=== PATIENT | female | born 1950 | race Caucasian/White ===

== ENCOUNTER 2016-12-06 21:36 | Inpatient (IN) ==
[2016-12-06 22:23] LABS: INR 1.2; Prothrombin Time 12.5 Seconds (9.4-12.1)
[2016-12-06 22:25] LABS: Basophils % 0.6 %; Eosinophils # 0.1 K/mcL (0.0-0.6); Eosinophils % 1.4 %; Hematocrit 37.8 % (35.3-44.9); Hemoglobin 11.4 g/dL (11.5-15.4); Lymphocytes # 0.6 K/mcL (0.6-4.6); Lymphocytes % 12.3 %; Mean Corpuscular HGB Conc 30.2 g/dL (31.6-35.5); Mean Corpuscular Volume 96.2 fL (83.0-100.0); Mean Platelet Volume 10.5 fL (9.4-12.4); Monocytes # 0.4 K/mcL (0.0-1.3); Neutrophils # 3.7 K/mcL (1.6-8.9); Platelet Count 128 K/mcL (140-400); Red Blood Count 3.93 M/mcL (3.82-4.97); Red Cell Distribution Width 16.8 % (11.5-14.5); Segmented Neutrophils % 75.7 %
[2016-12-06 22:26] LABS: Activated Partial Thrombo Time 24.4 Seconds (26.0-36.0)
[2016-12-06] MEDS ORDERED: Ipratropium/Albuterol Neb 3 ML IH ONE (22:28)
[2016-12-06 22:30] LABS: Calcium 7.9 mg/dL (8.6-10.8)
--- NOTE | 2016-12-06 22:35 | Emergency Department Note ---
Disposition Clinical Impression: Ascites Disposition: Admitted As Inpatient Condition: Good Referrals: Stacia Morrell, [facility] [employer] [Primary Care Provider] - Forms: Work/School Release, ED Satisfaction Letter General Adult HPI - General Chief complaint: ED General Medical Stated complaint: NOT FEELING WELL. Source: patient Nursing Notes Reviewed: Yes Vital Signs Reviewed: Yes - History of Present Illness HPI Narrative: Patient complains shortness of breath has been going on for a couple days. She notes that her legs are more swollen than normal. Patient denies any chest pain or chest tightness associated. Patient denies fevers or chills denies numbness and tingling. Patient's had a cough this been nonproductive. Patient notes that she has decreased ability to ambulate due to her shortness of breath. Pain Scale: 0 - Related Data Home Medications Medication Instructions Recorded Confirmed Allopurinol [Zyloprim] 100 mg PO DAILY 07/09/15 10/15/15 Carvedilol [Coreg] 25 mg PO BID 07/09/15 10/15/15 Furosemide [Lasix] 40 mg PO QAM 07/09/15 10/15/15 Glimepiride [Amaryl] 4 mg PO DAILY 07/09/15 10/15/15 Loratadine [Claritin] 10 mg PO QAM 07/09/15 10/15/15 Potassium Chloride 20 meq PO BID 07/09/15 10/15/15 SitaGLIPtin [Januvia] 100 mg PO DAILY 07/10/15 10/15/15 Albuterol Sulfate [Proair 2 puff IH Q4H PRN 10/15/15 10/15/15 Respiclick] Lisinopril [Zestril] 5 mg PO DAILY 10/15/15 10/15/15 Spironolactone [Aldactone] 25 mg PO DAILY 10/15/15 10/15/15 Previous Rx's Medication Instructions Recorded Furosemide [Lasix] 20 mg PO DAILY #30 tablet 07/13/15 Lactulose 20 gm PO Q8H #1 udc 10/19/15 Cephalexin [Keflex] 500 mg PO QID #28 capsule 05/26/16 Allergies Allergy/AdvReac Type Severity Reaction Status Date / Time No Known Allergies Allergy Verified 07/22/15 11:38 All systems ED: reviewed and negative except as stated. Past Medical History - Past Medical History Source: patient Medical history: Reports: atrial fibrillation, cirrhosis, CHF, COPD, DVT, diabetes, hyperlipidemia, hypertension, renal disease, other Surgical history: Reports: orthopedic, other Psychiatric history: Reports: anxiety, depression AUTOMOTIVE BUYER history: Reports: no AUTOMOTIVE BUYER history - Social History Smoking Status: Never smoker Smokeless Tobacco Status: No Alcohol use: Reports: none Drug use: Reports: none Physical Exam - General Limitations: no limitations General appearance: alert - Head Head exam: atraumatic, normocephalic, normal inspection - Eye Eye exam: Present: normal appearance, PERRL, EOMI - ENT ENT exam: normal exam, normal oropharynx, mucous membranes moist - Neck Neck exam: Present: normal inspection, full ROM, trachea midline - Chest Chest inspection: Present: normal inspection, symmetric chest wall rise - Respiratory Respiratory exam: Present: other (Decreased air movement, mild wheezing noted. No accessory muscle use.) - Cardiovascular Cardiovascular exam: Present: irregular rhythm - Abdominal Exam Abdominal exam: Present: soft, Non-Tender, distention. Absent: tenderness, guarding, rebound, rigidity - Extremities Exam Extremities exam: Present: pedal edema. Absent: tenderness - Back Exam Back exam: Present: normal inspection, full ROM. Absent: tenderness - Neurological Exam Neurological exam: Present: alert, oriented X3 - Psychiatric Psychiatric exam: Present: normal affect, normal mood - Skin Skin exam: Present: warm, dry, intact, normal color Course Vital Signs Temperature 98.5 F 12/06/16 21:39 Pulse Rate 101 12/06/16 21:39 Respiratory Rate 18 12/06/16 21:39 Blood Pressure 149/98 12/06/16 21:39 O2 Sat by Pulse Oximetry 94 L 12/06/16 21:39 Temperature 98.5 F 12/06/16 21:39 Pulse Rate 80 12/07/16 00:56 Respiratory Rate 16 12/07/16 00:56 Blood Pressure 118/80 12/07/16 00:56 O2 Sat by Pulse Oximetry 95 12/07/16 00:56 Oxygen Delivery Oxygen Delivery Nasal Cannula Medical Decision Making - MDM Narrative Medical decision making narrative: Scuffs the need for CTA of the chest. Patient declined at this time as she states that she feels her symptoms are due more to the fluid buildup. I advised her that if she has a pulmonary embolus this may represent significant morbidity and mortality. The patient and family voiced understanding and states they will like to to remove the fluid to see if her symptoms improved. - Lab Data Result diagrams: 12/06/16 22:11 12/06/16 22:11 Lab Results 12/06/16 12/06/16 12/06/16 Range/Units 22:11 22:11 22:11 WBC 4.9 (4.3-11.1) K/mcL RBC 3.93 (3.82-4.97) M/mcL Hgb 11.4 L (11.5-15.4) g/dL Hct 37.8 (35.3-44.9) % MCV 96.2 (83.0-100.0) fL MCH 29.0 (28.0-33.3) pg MCHC 30.2 L (31.6-35.5) g/dL RDW 16.8 H (11.5-14.5) % Plt Count 128 L (140-400) K/mcL MPV 10.5 (9.4-12.4) fL Immature Gran % 1.0 (0-4) % Seg Neutrophils % 75.7 % Lymphocytes % 12.3 % Monocytes % 9.0 % Eosinophils % 1.4 % Basophils % 0.6 % Neutrophils # 3.7 (1.6-8.9) K/mcL Lymphocytes # 0.6 (0.6-4.6) K/mcL Monocytes # 0.4 (0.0-1.3) K/mcL Eosinophils # 0.1 (0.0-0.6) K/mcL Basophils # 0.0 (0.0-0.2) K/mcL Platelet Estimate Decreased L (Normal) PT (9.4-12.1) Seconds INR APTT (26.0-36.0) Seconds Sodium 143 (136-145) mEq/L Potassium 5.0 H (3.5-4.5) mEq/L Chloride 106 (98-109) mEq/L Carbon Dioxide 29 (19-29) mEq/L BUN 28 H (7-20) mg/dL Creatinine 1.35 H (0.57-1.11) mg/dL Est GFR ( Amer) 48 L (> 60) Est GFR (Non-Af Amer) 39 L (> 60) BUN/Creatinine Ratio 21 (6-26) Glucose 119 H (70-99) mg/dL Calculated Osmolality 303 H (280-300) Calcium 7.9 L (8.6-10.8) mg/dL Total Bilirubin 0.9 (0.2-1.2) mg/dL Direct Bilirubin 0.4 (0.0-0.5) mg/dL Indirect Bilirubin 0.5 (0.0-1.2) mg/dL AST 21 (5-34) Units/L ALT 16 (0-55) Units/L Alkaline Phosphatase 129 H (38-126) Units/L Troponin I 0.01 (0-0.03) ng/mL B-Natriuretic Peptide (0-100) pg/mL Serum Total Protein 7.5 (6.0-8.3) g/dL Albumin 3.2 L (3.5-5.0) g/dL Globulin 4.3 H (2.4-3.5) g/dL Albumin/Globulin Ratio 0.7 L (1.1-2.2) 12/06/16 12/06/16 Range/Units 22:11 22:11 WBC (4.3-11.1) K/mcL RBC (3.82-4.97) M/mcL Hgb (11.5-15.4) g/dL Hct (35.3-44.9) % MCV (83.0-100.0) fL MCH (28.0-33.3) pg MCHC (31.6-35.5) g/dL RDW (11.5-14.5) % Plt Count (140-400) K/mcL MPV (9.4-12.4) fL Immature Gran % (0-4) % Seg Neutrophils % % Lymphocytes % % Monocytes % % Eosinophils % % Basophils % % Neutrophils # (1.6-8.9) K/mcL Lymphocytes # (0.6-4.6) K/mcL Monocytes # (0.0-1.3) K/mcL Eosinophils # (0.0-0.6) K/mcL Basophils # (0.0-0.2) K/mcL Platelet Estimate (Normal) PT 12.5 H (9.4-12.1) Seconds INR 1.2 APTT 24.4 L (26.0-36.0) Seconds Sodium (136-145) mEq/L Potassium (3.5-4.5) mEq/L Chloride (98-109) mEq/L Carbon Dioxide (19-29) mEq/L BUN (7-20) mg/dL Creatinine (0.57-1.11) mg/dL Est GFR ( Amer) (> 60) Est GFR (Non-Af Amer) (> 60) BUN/Creatinine Ratio (6-26) Glucose (70-99) mg/dL Calculated Osmolality (280-300) Calcium (8.6-10.8) mg/dL Total Bilirubin (0.2-1.2) mg/dL Direct Bilirubin (0.0-0.5) mg/dL Indirect Bilirubin (0.0-1.2) mg/dL AST (5-34) Units/L ALT (0-55) Units/L Alkaline Phosphatase (38-126) Units/L Troponin I (0-0.03) ng/mL B-Natriuretic Peptide 93 (0-100) pg/mL Serum Total Protein (6.0-8.3) g/dL Albumin (3.5-5.0) g/dL Globulin (2.4-3.5) g/dL Albumin/Globulin Ratio (1.1-2.2) - Radiology Data Radiology results reviewed: Yes I reviewed the patient's radiology results. Chest X-Ray 12/06/16 21:53 IMPRESSION: Limited portable chest with no definite acute findings. D/ / Nehemiah Alexis MD / Nehemiah Alexis MD Interpreting Provider: Nehemiah Alexis MD - EKG Data EKG #1 EKG attestation: Yes I reviewed and interpreted this EKG. Rate: normal Rhythm: A.Fib
[2016-12-06 22:44] LABS: Platelet Estimate Decreased (Normal)
[2016-12-07 01:35] LABS: Albumin 3.2 g/dL (3.5-5.0); Albumin/Globulin Ratio 0.7 (1.1-2.2); Bilirubin,Direct 0.4 mg/dL (0.0-0.5); Bilirubin,Indirect 0.5 mg/dL (0.0-1.2); Bilirubin,Total 0.9 mg/dL (0.2-1.2); Globulin 4.3 g/dL (2.4-3.5); Total Protein 7.5 g/dL (6.0-8.3)
[2016-12-07] MEDS ORDERED: Dextrose Gel 15 GM PO PRN ×2 (02:36)
[2016-12-07] MEDS ORDERED: D5% in Water 1,000 ML IV PRN (02:36)
[2016-12-07] MEDS ORDERED: *HR* Dextrose 50 % in Water (Syg) 50 ML SYRINGE IVP PRN (02:36)
[2016-12-07] MEDS ORDERED: Naloxone 0.4 MG/ML INJ IVP PRN (02:36)
[2016-12-07] MEDS ORDERED: *HR* Morphine 2 MG/ML SYRINGE IVP PRN (02:43)
[2016-12-07] MEDS ORDERED: Acetaminophen 325 MG TABLET PO PRN (02:43)
[2016-12-07] MEDS ORDERED: Ondansetron 4 MG/2 ML VIAL IVP PRN (02:43)
[2016-12-07] MEDS ORDERED: Furosemide 240 MG in D5% in Water 96 ML IVC SCH (02:43)
[2016-12-07] MEDS ORDERED: Albuterol 2.5 MG/3 ML NEBULIZER IH PRN (02:49)
--- NOTE | 2016-12-07 03:02 | Internal Med History&Physical ---
Date of Encounter: 12/07/16 Time of Encounter: 02:00 Assessment and Plan (1) Right heart failure Current visit: Yes Status: Suspected 1. Based upon history, exam, and review of old ECHO, I suspect patient has right heart failure due to pulmonary hypertension secondary to CHRISTY and COPD. 2. Will repeat ECHO in am. 3. Will start Lasix drip in hopes of diuresis. 4. Continue home meds as appropriate once verified. (2) COPD exacerbation Current visit: Yes Status: Acute 1. Will treat with steroids, antibiotics, and aerosols. 2. Will resume home BiPap QHS and PRN. 3. Oxygen as needed. (3) Diabetes type 2, controlled Current visit: Yes Status: Chronic 1. Hold oral meds. 2. Will provide sliding scale insulin coverage. 3. Monitor and adjust insulin as needed. 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 Heparin SQ. Internal Medicine - H&P: HPI Chief complaint: SOB; edema; ascites Admitted From: Emergency Dept Plans for Post Hospital Care: Home History of present illness: Ms. Hernández is a 66 year old female who presents to the ER with complaints of worsening edema, abdominal girth, and fatigue for over 2 weeks. She also has some cough, wheezing, and shortness of breath which she attributes to her COPD. Workup in the ER revealed patient had a clear x-ray but on exam she had profound edema and likely ascites based upon clinical exam. She was admitted to hospitalist service for suspected heart failure. I went to the ER and assessed patient independently and discussed with patient and her daughter. She has a history of COPD secondary to secondhand smoke. She never did smoke herself, but she was exposed to her who smoked several packs per day for many years. Additionally, she has sleep apnea. She was started on BiPAP every evening about 2 years ago. She has been wearing her machine religiously. Patient notes that over the last 2 weeks she has gained in excess of 20 pounds, has significant increase in her abdominal girth, and tight edema of her legs. She does not drink alcohol and denies any history of cirrhosis. However, she was once told she has fatty liver disease. She denies any fevers, chills, or body aches. Of note, patient has history of atrial fibrillation and distant history of DVT. She had been on Coumadin, but she had fallen and sustained a head injury in July,. This led to subdural hematoma and she required transfer to a tertiary care medical center. Patient did not require neurosurgical intervention, but she was monitored closely. She was advised to never take any anticoagulation again. Past Med Surg Social Fam HX - Past Medical History Attestation: Yes The following information was validated with the patient. Source: patient, old records reviewed, obtained from family Medical history: atrial fibrillation, cirrhosis, CHF, COPD, DVT, diabetes, hyperlipidemia, hypertension, renal disease Psychiatric history: anxiety, depression - Past Surgical History Surgical History: no surgical history - Social History Smoking Status: Never smoker Smokeless Tobacco Status: No Alcohol use: none Drug use: none Current living situation: Home, With Family Activity Level: Independent ambulation Recent Out of Country Travel Within the Last 8 Weeks: No - Family History Mother Living Status: Father Living Status: Sister Adopted: No Family Member Ethnicity: Non- Twin of Family Member: Yes, Fraternal Living Status: Hx Family Cardiac Disorders: Yes Hx Family Respiratory Disorders: Yes Hx Family Cancer: No Hx Family GI Disorders: No Hx Family Endocrine Disorder: Yes Hx Family Neuromuscular Disorders: No Hx Family Neurologic Disorders: No Hx Family HEENT Disorders: No Hx Family Autoimmune Disorders: No Internal Medicine - H&P: Meds Allopurinol [Zyloprim] 100 mg PO DAILY 07/09/15 [History] Carvedilol [Coreg] 25 mg PO BID 07/09/15 [History] Furosemide [Lasix] 40 mg PO QAM 07/09/15 [History] Glimepiride [Amaryl] 4 mg PO DAILY 07/09/15 [History] Loratadine [Claritin] 10 mg PO QAM 07/09/15 [History] Potassium Chloride 20 meq PO BID 07/09/15 [History] SitaGLIPtin [Januvia] 100 mg PO DAILY 07/10/15 [History] Furosemide [Lasix] 20 mg PO DAILY #30 tablet 07/13/15 [Rx] Albuterol Sulfate [Proair Respiclick] 2 puff IH Q4H PRN 10/15/15 [History] Lisinopril [Zestril] 5 mg PO DAILY 10/15/15 [History] Spironolactone [Aldactone] 25 mg PO DAILY 10/15/15 [History] Lactulose 20 gm PO Q8H #1 udc 10/19/15 [Rx] Cephalexin [Keflex] 500 mg PO QID #28 capsule 05/26/16 [Rx] Allergies No Known Allergies Allergy (Verified 07/22/15 11:38) - Constitutional Constitutional: malaise, weakness, weight gain, no chills, no fever(s) - EENT Eyes: no blurry vision, no change in vision Ears: no ear pain, no tinnitus Nose, mouth and throat: no nasal congestion, no sinus pain, no sinus pressure, no sore throat - Cardiovascular Cardiovascular ROS IM: dyspnea, dyspnea on exertion, edema, irregular heart rhythm, no chest pain, no lightheadedness, no syncope - Respiratory Respiratory: cough, wheezing, chest congestion, excessive phlegm production, no hemoptysis, no pain on inspiration - Gastrointestinal Gastrointestinal: bloating, no abdominal pain, no diarrhea, no hematemesis, no hematochezia, no melena, no nausea, no vomiting Additional comments: + marked increase in girth - Genitourinary Genitourinary: no dysuria, no hematuria - Musculoskeletal Musculoskeletal ROS IM: arthralgias, no muscle cramps, no myalgias - Integumentary Integumentary IM: no rash, no jaundice - Neurological Neurological ROS: frequent falls, no dizziness, no focal weakness, no headache(s ) - Psychiatric Psychiatric: no anxiety, no depression - Endocrine Endocrine IM: no cold intolerance, no heat intolerance, no polydipsia, no polyuria - Hematologic/Lymphatic Hematologic/Lymphatic: no lymphadenopathy - Allergic/Immunologic Allergic/Immunologic: wheezing, no GI upset with certain foods - Constitutional Vitals: Temp Pulse Resp BP Pulse Ox 98.5 F 80 16 118/80 95 12/06/16 21:39 12/07/16 00:56 12/07/16 00:56 12/07/16 00:56 12/07/16 00:56 General appearance: Present: cooperative, A&O X 3, morbidly obese, pleasant, no acute distress, answers questions appropriately Exam: hard of hearing - Head Head exam: Present: atraumatic, normal inspection - Expanded Head Exam Head exam expanded: Absent: abrasion, contusion, general tenderness - Eye Eye exam: Present: EOMI, normal appearance, PERRL. Absent: scleral icterus Pupils: Present: normal accommodation - ENT ENT exam: Present: mucous membranes dry, normal exam, normal oropharynx - Neck Neck exam general surgery: Present: full ROM, supple, trachea midline. Absent: lymphadenopathy, thyromegaly - Respiratory Respiratory exam: Present: prolonged expiratory phase, wheezes. Absent: accessory muscle use, chest wall tenderness, rales, respiratory distress, rhonchi - Cardiovascular Cardiovascular exam: Present: distant heart sounds, irregular rhythm, JVD, +S1, +S2. Absent: diastolic murmur, systolic murmur - GI/Abdominal GI/Abdominal exam: Present: distended. Absent: hepatomegaly, splenomegaly, tenderness Additional comments: + shifting dullness to percussion; + fluid wave; + large girth - Extremities Exam Extremities exam: Present: full ROM, pedal edema (3+), warm. Absent: calf tenderness Additional comments: Bilateral venous stasis changes - Back Exam Back exam: Present: normal inspection. Absent: CVA tenderness (L), CVA tenderness (R) - Neurological Exam Neurological exam: Present: alert, CN II-XII intact, oriented X3, strengths equal and symetr throughout - Psychiatric Psychiatric exam: Present: normal affect, normal mood - Skin Skin exam: Present: dry, warm Internal Med - H&P Results - Labs CBC & Chem 7: 12/06/16 22:11 12/06/16 22:11 - EKG Data -: EKG Interpreted by Myself - EKG Data EKG comments: 12/07/16 03:07 Atrial fibrillation - Diagnostic Studies Chest x-ray Status: image reviewed by me (lungs clear; enlarged cardiac shadow)
[2016-12-07] MEDS: Ipratropium/Albuterol Neb 3 ML IH SCH ×5 (03:48→20:31)
[2016-12-07] MEDS: *HR* Heparin 5,000 UNIT/ML VIAL SQ SCH ×3 (05:28→22:27)
[2016-12-07 07:28] LABS: Basophils % 0.2 %; Eosinophils # 0.1 K/mcL (0.0-0.6); Eosinophils % 1.3 %; Hematocrit 36.7 % (35.3-44.9); Hemoglobin 11.1 g/dL (11.5-15.4); Immature Granulocytes % 0.6 % (0-4); Lymphocytes # 0.7 K/mcL (0.6-4.6); Lymphocytes % 14.9 %; Mean Corpuscular HGB Conc 30.2 g/dL (31.6-35.5); Mean Corpuscular Hemoglobin 29.7 pg (28.0-33.3); Mean Corpuscular Volume 98.1 fL (83.0-100.0); Mean Platelet Volume 9.9 fL (9.4-12.4); Monocytes # 0.4 K/mcL (0.0-1.3); Monocytes % 9.3 %; Neutrophils # 3.4 K/mcL (1.6-8.9); Platelet Count 133 K/mcL (140-400); Red Blood Count 3.74 M/mcL (3.82-4.97); Segmented Neutrophils % 73.7 %
[2016-12-07] MEDS: Insulin LISPRO 300 UNITS/3 ML VIAL SQ SCH ×4 (07:31→16:30)
[2016-12-07 07:42] LABS: Albumin 3.1 g/dL (3.5-5.0); Albumin/Globulin Ratio 0.7 (1.1-2.2); Bilirubin,Total 0.6 mg/dL (0.2-1.2); Calcium 7.9 mg/dL (8.6-10.8); Chol/HDL Ratio 6.7 (0-4.9); Globulin 4.2 g/dL (2.4-3.5); Magnesium 1.7 mg/dL (1.6-2.6); Potassium 4.4 mEq/L (3.5-4.5); Total Protein 7.3 g/dL (6.0-8.3)
[2016-12-07 07:43] LABS: Hemoglobin A1C 7.6 %
[2016-12-07] MEDS: methylPREDNISolone 125 MG/2 ML VIAL IVP SCH ×2 (07:48→16:29)
[2016-12-07] MEDS ORDERED: 0.9 % Sodium Chloride 500 ML ONE (08:03)
[2016-12-07] MEDS: Azithromycin 250 MG TABLET PO SCH (08:14)
[2016-12-07] MEDS ORDERED: Azithromycin 250 MG TABLET PO SCH (09:00)
--- NOTE | 2016-12-07 09:16 | Internal Med Progress Note ---
Date of Encounter: 12/07/16 Time of Encounter: 09:11 - Assessment and plan (1) Panniculitis Current Visit: Yes Status: Acute Assessment and plan: Will start augmentin po, has no signs of sepsis (2) Congestive heart failure Current Visit: Yes Status: Chronic Assessment and plan: Follow ECHO D/C lasix drip and change o 40mg IV push bid with additional doses as tolerated by BP Strict I/O Fluid restriction to 500 daily out of bed to chair daily Resume home BB Continue close monitoring of chem She looks clinically stable Qualifiers: Congestive heart failure type: diastolic Congestive heart failure chronicity: acute on chronic Qualified Code(s): I50.33 - Acute on chronic diastolic (congestive) heart failure (3) Type 2 diabetes mellitus Current Visit: Yes Status: Chronic Assessment and plan: Uncontrolled, complicated A1C 7.6 Start basal, prandial and supplemental insulin Continue to monitor FS Qualifiers: Diabetes mellitus complication status: with kidney complications Diabetes mellitus complication detail: with chronic kidney disease 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: 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 alf insulin use status Chronic kidney disease stage: stage 3 (moderate) Qualified Code(s): E11.22 - Type 2 diabetes mellitus with diabetic chronic kidney disease; N18.3 - Chronic kidney disease, stage 3 (moderate) (4) Sleep apnea Current Visit: Yes Status: Chronic Assessment and plan: CPAP at night Qualifiers: Sleep apnea type: obstructive Qualified Code(s): G47.33 - Obstructive sleep apnea (adult) (pediatric) (5) Pulmonary hypertension Current Visit: Yes Status: Chronic Assessment and plan: As above (6) Cirrhosis Current Visit: Yes Status: Chronic Assessment and plan: Small ascites per Abd CT Continue home meds Ensure BM 2-3 times daily No neurological symptoms at this time Qualifiers: Hepatic cirrhosis type: unspecified hepatic cirrhosis Ascites presence: with ascites Qualified Code(s): K74.60 - Unspecified cirrhosis of liver (7) COPD (chronic obstructive pulmonary disease) Current Visit: Yes Status: Acute Assessment and plan: Not wheezing at time of review Seemed to have been in exacerbation on admission Contine solumedrol for today and transition to prednisone po a.m Duonebs prn Continue azithromycin Qualifiers: COPD type: chronic bronchitis Chronic bronchitis type: unspecified Qualified Code(s): J42 - Unspecified chronic bronchitis (8) CKD (chronic kidney disease) stage 3, GFR 30-59 ml/min Current Visit: Yes Status: Chronic Assessment and plan: Chronic, stable (9) Morbid obesity Current Visit: Yes Status: Chronic Assessment and plan: Lifestyle changes Qualifiers: Obesity type: unspecified obesity type Qualified Code(s): E66.01 - Morbid ( severe) obesity due to excess calories - Subjective Interval history: 66 Y/O F with Morbid Obesity, CKD III, CHF, DM, Cirrhosis with portal HTN, HN, HLD, COPD, here for management of fluid overload secondary to CHF exacerbation, likely anasarca from liver cirrhosis as well She is seen at bedside, sitting at the edge of the bed She denied new complains She "just wants to get this fluid out of me" She denies abdominal symptoms Labs and Imaging reviewed: CBC, Chem at baseline, CXR/Abd CT: small R pleural effusion, bibasialr atelectasis, panniculitis, cirrhosis with small ascites - Constitutional Vitals: Temp Pulse Resp BP Pulse Ox 97.8 F 79 18 135/75 93 L 12/07/16 06:41 12/07/16 06:41 12/07/16 07:45 12/07/16 06:41 12/07/16 08:55 General appearance: Present: cooperative, A&O X 3, morbidly obese, pleasant, no acute distress, answers questions appropriately - Head Head exam: Present: atraumatic - Eye Eye exam: Present: PERRL, conjuntiva pink, sclera anicteric Pupils: Present: PERRL - Neck Neck exam general surgery: Present: supple, trachea midline. Absent: lymphadenopathy - Respiratory Respiratory exam: Present: CTAB. Absent: accessory muscle use, rales, rhonchi, wheezes - Cardiovascular Cardiovascular exam: Present: RRR, +S1, +S2. Absent: diastolic murmur, gallop, rubs, systolic murmur - GI/Abdominal GI/Abdominal exam: Present: distended, normal bowel sounds, soft, no peritoneal signs. Absent: tenderness Additional comments: Distended, obese, with abdominal wall edema and redness/inflammation under the abdominal skin fold, not tender, no obvious skin lesions except stretch khan. No palpably enlarged organs - Extremities Exam Additional comments: Bilateral chronic venous stasis and non-piting edema, no visible ulcer seen - Neurological Exam Neurological exam: Present: alert, CN II-XII intact, oriented X3, no focal deficits. Absent: pronater drift, facial droop, speech deficit - Skin Skin exam: Present: dry Internal Medicine: Result - Labs CBC & Chem 7: 12/07/16 06:52 12/07/16 06:52 Labs: Short CBC 12/07/16 Range/Units 06:52 WBC 4.6 (4.3-11.1) K/mcL Hgb 11.1 L (11.5-15.4) g/dL Hct 36.7 (35.3-44.9) % Plt Count 133 L (140-400) K/mcL Neutrophils # 3.4 (1.6-8.9) K/mcL BMP 12/07/16 06:52 Sodium 144 Potassium 4.4 Chloride 105 Carbon Dioxide 31 H BUN 29 H Creatinine 1.36 H Glucose 133 H Calcium 7.9 L Cardiac Enzymes 12/07/16 Range/Units 06:52 Troponin I 0.01 (0-0.03) ng/mL Liver Function 12/07/16 Range/Units 06:52 Total Bilirubin 0.6 (0.2-1.2) mg/dL AST 16 (5-34) Units/L ALT 14 (0-55) Units/L Alkaline Phosphatase 125 (38-126) Units/L Albumin 3.1 L (3.5-5.0) g/dL - ABG Interpretation ABG results: PT/INR, D-dimer PT 12.5 Seconds (9.4-12.1) H 12/06/16 22:11 Consult Discharge Plan - Plan Referrals: Stacia Morrell, [facility] [Primary Care Provider] -
[2016-12-07] MEDS: Furosemide 40 MG/4 ML VIAL IVP SCH ×2 (09:35→16:30)
--- NOTE | 2016-12-07 13:12 | Electrocardiograph Report ---
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
--- NOTE | 2016-12-07 13:15 | Electrocardiograph Report ---
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
[2016-12-07] MEDS ORDERED: Perflutren Lipid Microsphere 1.3 ML in 0.9 % Sodium Chloride 8.7 ML IVP ONE (14:22)
[2016-12-07] MEDS: Insulin DETEMIR 100 UNIT/ML X5UNITS SQ SCH (22:27)
[2016-12-07] MEDS: Gabapentin 300 MG CAPSULE PO SCH (22:28)
[2016-12-08] MEDS: Ipratropium/Albuterol Neb 3 ML IH SCH ×6 (01:27→20:17)
[2016-12-08] MEDS: methylPREDNISolone 125 MG/2 ML VIAL IVP SCH (01:50)
[2016-12-08 04:53] LABS: Basophils % 0.1 %; Hematocrit 37.6 % (35.3-44.9); Hemoglobin 11.5 g/dL (11.5-15.4); Immature Granulocytes % 0.9 % (0-4); Lymphocytes # 0.5 K/mcL (0.6-4.6); Lymphocytes % 6.9 %; Mean Corpuscular HGB Conc 30.6 g/dL (31.6-35.5); Mean Corpuscular Hemoglobin 29.4 pg (28.0-33.3); Mean Corpuscular Volume 96.2 fL (83.0-100.0); Mean Platelet Volume 10.1 fL (9.4-12.4); Monocytes # 0.2 K/mcL (0.0-1.3); Monocytes % 3.1 %; Platelet Count 136 K/mcL (140-400); Red Blood Count 3.91 M/mcL (3.82-4.97); Red Cell Distribution Width 16.5 % (11.5-14.5)
[2016-12-08 05:09] LABS: Calcium 8.2 mg/dL (8.6-10.8); Potassium 5.1 mEq/L (3.5-4.5)
[2016-12-08] MEDS: *HR* Heparin 5,000 UNIT/ML VIAL SQ SCH ×3 (06:38→21:16)
[2016-12-08] MEDS: Insulin LISPRO 300 UNITS/3 ML VIAL SQ SCH ×6 (09:14→17:21)
[2016-12-08] MEDS: predniSONE 20 MG TABLET PO SCH (09:14)
[2016-12-08] MEDS: Loratadine 10 MG TABLET PO SCH (09:14)
[2016-12-08] MEDS: Furosemide 40 MG/4 ML VIAL IVP SCH ×2 (09:14→17:22)
[2016-12-08] MEDS: Gabapentin 300 MG CAPSULE PO SCH ×2 (09:15→21:16)
[2016-12-08] MEDS: Azithromycin 250 MG TABLET PO SCH (09:15)
--- NOTE | 2016-12-08 09:35 | ECHO - Doppler Report ---
Echo with Imaging Enhancement Agent Name: Radhika Hernández Date of Study: 12/07/2016 Date: 1950 Ht: 68.0 in Medical Record#: [id number] Age: 66 Wt: 298.0 lb Gender: Female BSA: 2.42 Order #: [id number] Location: [facility] Room #: 2a45 Reading Physician: Janice Govea DO Pharmacist Apprentice: Guero Akhtar RDCS Ordering Physician: Mayito Powers MD Primary Physician: Indications: Right Heart Failure Impressions: LVEF 65%. Normal left ventricular size and systolic function. Definity was used. Indeterminate left ventricular diastolic function RV size is not well visualized. Function is normal by tissue doppler velocities. Aortic sclerosis. Mild mitral regurgitation. Mild tricuspid regurgitation. At least mild pulmonary hypertension by TR gradient. IVC is not well visualized. Left Ventricular Wall Motion: Rest Echo Findings The mid inferior lateral and basal inferior lateral herring were not visualized. All other wall segments showed normal motion. Findings: Study Quality * Technically sub-optimal due to body habitus. Left Ventricle * Indeterminate diastolic function. * LVEF 65%. * Normal LV chamber size, wall thickness and function. * Definity echo contrast was used. Mitral Valve * Normal mitral valve structure. * No mitral stenosis. * Mild mitral regurgitation. Aorta * Not well visualized. ECG Findings * Atrial fibrillation. Aortic Valve * No aortic regurgitation. * Aortic valve not well visualized. * No aortic stenosis. Tricuspid Valve * Tricuspid valve not well visualized. * Mild tricuspid regurgitation. Pulmonic Valve * Pulmonic valve is not well visualized. * No pulmonic stenosis. * No pulmonic regurgitation. Pulmonary Artery * Pulmonary artery not well visualized. Left Atrium * Mildly dilated left atrium. Right Atrium * Normal right atrial size. Pericardium * There is no pericardial effusion present. IVC * The IVC is not well evaluated. Right Ventricle * RV size is not well visualized. There is normal function by TD velocity. History Hypertension Diabetes 07/10/15 a Previous Echo was performed. Contrast: Definity 1.3 ml in 8.7 ml of saline 2 ml. Measurements: BP: 130/ 79 2D Normal Values RVIDd: 3.20 cm <2.7 cm IVSd: 1.30 cm 0.6 - 1.0 cm LVIDd: 5.00 cm 3.7 - 5.6 cm LVPWd: 1.00 cm 0.6 - 1.1 cm LVIDs: 3.70 cm 1.5 - 3.6 cm AO: 3.20 cm < 4.0 cm LA: 4.10 cm 2.0 - 4.0cm %FS: 26.00 cm >25 % LVOT Diam: 2.00 cm LA volume: 83 Mitral Valve Peak E:1.46 m/sec Peak E' Lat Venu:8.87 cm/s Peak E' Med Venu:5.17 cm/s E/E' Lat Ratio:16.5 E/E' Med Ratio:28.2 LVOT Peak Venu:2.36 m/sec Mean Venu:1.59 m/sec Peak Grad:22.00 mmHg Mean Grad:12.00 mmHg Aortic Valve Peak Venu:2.30 m/sec Mean Venu:1.62 m/sec Peak Grad:21.00 mmHg Mean Grad:12.00 mmHg Valve Area:3.25 cm2 Tricuspid Valve TV Regurg Peak Grad: 45.00mmHg Updated by Janice Govea on 12/08/2016 9:26:17 AM electronically signed on 12/08/2016 9:29:58 AM with status of Final Wall Motion Green: 1=Normal, 2=Hypokinesis, 3=Akinesis, 4=Dyskinesis, 5=Aneurysmal, 6=Hyperkinetic, X=Not Visualized (Blank)=Missing
--- NOTE | 2016-12-08 10:55 | Internal Med Progress Note ---
Date of Encounter: 12/08/16 Time of Encounter: 10:20 - Assessment and plan (1) Panniculitis Current Visit: Yes Status: Acute Assessment and plan: Continue augmentin po, has no signs of sepsis (2) Congestive heart failure Current Visit: Yes Status: Chronic Assessment and plan: ECHO findings noted Continue lasix 40mg IVBID Strict I/O Fluid restriction to 1500 daily out of bed to chair daily Continue home BB Continue close monitoring of chem She looks clinically stable Qualifiers: Congestive heart failure type: diastolic Congestive heart failure chronicity: acute on chronic Qualified Code(s): I50.33 - Acute on chronic diastolic (congestive) heart failure (3) Type 2 diabetes mellitus Current Visit: Yes Status: Chronic Assessment and plan: Uncontrolled, complicated A1C 7.6 Continue basal, prandial and supplemental insulin Continue to monitor FS Qualifiers: Diabetes mellitus complication status: with kidney complications Diabetes mellitus complication detail: with chronic kidney disease Diabetes mellitus usp insulin use: unspecified usp insulin use status Chronic kidney disease stage: stage 3 (moderate) Qualified Code(s): E11.22 - Type 2 diabetes mellitus with diabetic chronic kidney disease; N18.3 - Chronic kidney disease, stage 3 (moderate) (4) Sleep apnea Current Visit: Yes Status: Chronic Assessment and plan: CPAP at night Qualifiers: Sleep apnea type: obstructive Qualified Code(s): G47.33 - Obstructive sleep apnea (adult) (pediatric) (5) Pulmonary hypertension Current Visit: Yes Status: Chronic Assessment and plan: As above (6) Cirrhosis Current Visit: Yes Status: Chronic Assessment and plan: Small ascites per Abd CT Continue home meds Ensure BM 2-3 times daily No neurological symptoms at this time Qualifiers: Hepatic cirrhosis type: unspecified hepatic cirrhosis Ascites presence: with ascites Qualified Code(s): K74.60 - Unspecified cirrhosis of liver (7) COPD (chronic obstructive pulmonary disease) Current Visit: Yes Status: Acute Assessment and plan: Not wheezing at time of review Seemed to have been in exacerbation on admission Continue prednisone po daily Duonebs prn Continue azithromycin Qualifiers: COPD type: chronic bronchitis Chronic bronchitis type: unspecified Qualified Code(s): J42 - Unspecified chronic bronchitis (8) CKD (chronic kidney disease) stage 3, GFR 30-59 ml/min Current Visit: Yes Status: Chronic Assessment and plan: Chronic, stable (9) Morbid obesity Current Visit: Yes Status: Chronic Assessment and plan: Lifestyle changes Qualifiers: Obesity type: unspecified obesity type Qualified Code(s): E66.01 - Morbid ( severe) obesity due to excess calories (10) Hyperkalemia Current Visit: Yes Status: Acute Assessment and plan: Kayexalate po, monitor closely - Subjective Interval history: 66 Y/O F with Morbid Obesity, CKD III, CHF, DM, Cirrhosis with portal HTN, HN, HLD, COPD, here for management of fluid overload secondary to CHF exacerbation, likely anasarca from liver cirrhosis as well She is seen at bedside, with family Reports improvement i symptoms Again educated about need for fluid restriction, dietary modification and medication compliance Labs and Imaging reviewed: CBC at baseline, chem with Hyperkalemia, Cr at baseline, I/_ -5L. ECHO shows EF 65%, indeterminate LVDD, , MIld TR/Pulm HTN - Constitutional Vitals: Temp Pulse Resp BP Pulse Ox 97.3 F L 83 18 126/68 98 12/08/16 07:55 12/08/16 07:55 12/08/16 08:13 12/08/16 07:55 12/08/16 08:13 General appearance: Present: cooperative, A&O X 3, morbidly obese, pleasant, no acute distress, answers questions appropriately - Head Head exam: Present: atraumatic, normocephalic - Eye Eye exam: Present: PERRL, conjuntiva pink, sclera anicteric Pupils: Present: PERRL - Neck Neck exam general surgery: Present: supple, trachea midline. Absent: lymphadenopathy - Respiratory Respiratory exam: Present: rales - Cardiovascular Cardiovascular exam: Present: RRR, +S1, +S2. Absent: diastolic murmur, gallop, rubs, systolic murmur - GI/Abdominal GI/Abdominal exam: Present: normal bowel sounds, soft, no peritoneal signs. Absent: tenderness Additional comments: Obese, ventral hernia, mild hyperemia on abdominal fold, no discharges - Extremities Exam Extremities exam: Present: pedal edema (Improving bilateral edema, chronc venous stasis changes), warm, radial pulses palpable and symetrical. Absent: calf tenderness, cyanotic - Neurological Exam Neurological exam: Present: alert, CN II-XII intact, oriented X3, no focal deficits. Absent: pronater drift, facial droop, speech deficit - Skin Skin exam: Present: dry Internal Medicine: Result - Labs CBC & Chem 7: 12/08/16 04:31 12/08/16 04:31 Labs: Short CBC 12/08/16 Range/Units 04:31 WBC 6.8 (4.3-11.1) K/mcL Hgb 11.5 (11.5-15.4) g/dL Hct 37.6 (35.3-44.9) % Plt Count 136 L (140-400) K/mcL Neutrophils # 6.0 (1.6-8.9) K/mcL BMP 12/08/16 04:31 Sodium 142 Potassium 5.1 H Chloride 101 Carbon Dioxide 31 H BUN 33 H Creatinine 1.44 H Glucose 233 H Calcium 8.2 L Cardiac Enzymes 12/07/16 Range/Units 13:25 Troponin I 0.01 (0-0.03) ng/mL - ABG Interpretation ABG results: PT/INR, D-dimer PT 12.5 Seconds (9.4-12.1) H 12/06/16 22:11 Consult Discharge Plan - Plan Referrals: Stacia Morrell, E COMMERCE DIRECTOR [Primary Care Provider] - 12/16/16 1:40 pm
[2016-12-08] MEDS ORDERED: Insulin LISPRO 300 UNITS/3 ML VIAL SQ SCH (21:15)
[2016-12-08] MEDS: Insulin DETEMIR 100 UNIT/ML X5UNITS SQ SCH (21:17)
[2016-12-09] MEDS: Ipratropium/Albuterol Neb 3 ML IH SCH ×4 (00:09→11:13)
[2016-12-09] MEDS: *HR* Heparin 5,000 UNIT/ML VIAL SQ SCH (05:10)
[2016-12-09 05:57] LABS: Basophils % 0.1 %; Hematocrit 42.1 % (35.3-44.9); Hemoglobin 12.7 g/dL (11.5-15.4); Immature Granulocytes % 0.9 % (0-4); Lymphocytes # 0.6 K/mcL (0.6-4.6); Lymphocytes % 7.6 %; Mean Corpuscular HGB Conc 30.2 g/dL (31.6-35.5); Mean Corpuscular Hemoglobin 29.5 pg (28.0-33.3); Mean Corpuscular Volume 97.9 fL (83.0-100.0); Mean Platelet Volume 10.2 fL (9.4-12.4); Monocytes # 0.5 K/mcL (0.0-1.3); Monocytes % 6.6 %; Neutrophils # 6.7 K/mcL (1.6-8.9); Platelet Count 148 K/mcL (140-400); Red Cell Distribution Width 16.7 % (11.5-14.5); Segmented Neutrophils % 84.8 %
[2016-12-09 06:26] LABS: Calcium 8.5 mg/dL (8.6-10.8); Potassium 4.4 mEq/L (3.5-4.5)
[2016-12-09] MEDS: Insulin LISPRO 300 UNITS/3 ML VIAL SQ SCH ×4 (08:27→12:33)
[2016-12-09] MEDS: Gabapentin 300 MG CAPSULE PO SCH (08:28)
[2016-12-09] MEDS: Loratadine 10 MG TABLET PO SCH (08:28)
[2016-12-09] MEDS: predniSONE 20 MG TABLET PO SCH (08:28)
[2016-12-09] MEDS: Azithromycin 250 MG TABLET PO SCH (08:29)
[2016-12-09] MEDS: Furosemide 40 MG/4 ML VIAL IVP SCH (08:30)
[2016-12-09 11:29] VITALS: BP 126/70
--- NOTE | 2016-12-09 12:33 | Discharge Summary ---
Date of Encounter: 12/09/16 Time of Encounter: 12:30 - Discharge Diagnosis (1) Congestive heart failure Priority: Primary Status: Chronic Qualifiers: Congestive heart failure type: diastolic Congestive heart failure chronicity: acute on chronic Qualified Code(s): I50.33 - Acute on chronic diastolic (congestive) heart failure (2) Panniculitis of other sites Priority: Primary Status: Acute (3) Type 2 diabetes mellitus Priority: Secondary Status: Chronic Qualifiers: Diabetes mellitus complication status: with kidney complications Diabetes mellitus complication detail: with chronic kidney disease Diabetes mellitus group home insulin use: unspecified group home insulin use status Chronic kidney disease stage: stage 3 (moderate) Qualified Code(s): E11.22 - Type 2 diabetes mellitus with diabetic chronic kidney disease; N18.3 - Chronic kidney disease, stage 3 (moderate) (4) Sleep apnea Priority: Secondary Status: Chronic Qualifiers: Sleep apnea type: obstructive Qualified Code(s): G47.33 - Obstructive sleep apnea (adult) (pediatric) (5) Cirrhosis Priority: Secondary Status: Chronic Qualifiers: Hepatic cirrhosis type: unspecified hepatic cirrhosis Ascites presence: with ascites Qualified Code(s): K74.60 - Unspecified cirrhosis of liver (6) COPD (chronic obstructive pulmonary disease) Priority: Secondary Status: Acute Qualifiers: COPD type: chronic bronchitis Chronic bronchitis type: simple Qualified Code(s): J41.0 - Simple chronic bronchitis (7) Morbid obesity Priority: Secondary Status: Chronic Qualifiers: Obesity type: unspecified obesity type Qualified Code(s): E66.01 - Morbid ( severe) obesity due to excess calories (8) BMI 40.0-44.9, adult Priority: Secondary Status: Chronic - Discharge Medications Prescriptions: Amoxicillin/Clavulanate [Augmentin] 875 mg PO BIDWM #20 tablet PredniSONE 40 mg PO DAILY #30 tablet Home Medications: Allopurinol [Zyloprim] 100 mg PO DAILY 07/09/15 [History] Carvedilol [Coreg] 25 mg PO BID 07/09/15 [History] Furosemide [Lasix] 40 mg PO QAM 07/09/15 [History] Loratadine [Claritin] 10 mg PO QAM 07/09/15 [History] Potassium Chloride 20 meq PO BID 07/09/15 [History] Albuterol Sulfate [Proair Respiclick] 2 puff IH Q4H PRN 10/15/15 [History] Gabapentin [Neurontin] 300 mg PO BID 12/07/16 [History] Amoxicillin/Clavulanate [Augmentin] 875 mg PO BIDWM #20 tablet 12/09/16 [Rx] Insulin Glargine,Hum.rec.anlog [Lantus Solostar] 20 unit SQ HS #0 12/09/16 [Rx] PredniSONE 40 mg PO DAILY #30 tablet 12/09/16 [Rx] Allergies/Adverse Reactions: Allergies No Known Allergies Allergy (Verified 07/22/15 11:38) Procedures/tests Complete & Pending: Procedures Performed prior 72 hours Category Date Time Status ECG 12 lead ECG [ECG] Routine Y 12/07/16 05:53 Completed Date of admission: 12/07/16 02:58 Primary care physician: Stacia Morrell CNP Discharging clinician: Amarjit Michelle Anticipated date of discharge: 12/09/16 - Patient Status Disposition: Home, Self-Care Condition: Good Functional capacity at discharge: independent ambulation Overall status at discharge: patient is progressing back to baseline - Discharge Instructions Instructions: Prednisone (By mouth), Amoxicillin/Clavulanate Potassium (By mouth), Heart Failure (DC), Chronic Obstructive Pulmonary Disease (DC) Follow Up With: Stacia Morrell CNP [Primary Care Provider] - 12/16/16 1:40 pm - Diet and Activity Activity: increase activity as tolerated Diet: diabetic diet (1500 ml fluid restriction) Hospital course: Ms. Hernández is a 66 year old female with hx of DM and CHF presented to ED with complaints of worsening edema, abdominal girth and fatigue. She was found to have panniculitis and R heart failure and subsequently admitted. Ms. Hernández was admitted to [facility]. She was start on a Lasix drip as well as treatment for COPD exacerbation. She was changed to PO Lasix the next day and started on PO Augmentin for panniculitis. She also had fluid restriction of 500ml daily. She had slow improvement in her symptoms and medications were further adjusted. On 12/09 she was doing much better. She was much less edematous and dyspneic. She was afebrile with stable vitals and at that time was ready for discharge home with outpatient follow up. - Time Spent with Patient Total time spent providing and/or coordinating discharge services: 38min - Constitutional Vitals: Temp Pulse Resp BP Pulse Ox 97.8 F 82 18 126/70 96 12/09/16 11:29 12/09/16 11:29 12/09/16 11:29 12/09/16 11:29 12/09/16 11:29 General appearance: Present: cooperative, A&O X 3, morbidly obese, pleasant, no acute distress, answers questions appropriately
== END 2016-12-09 14:20 | disposition home or self-care (01) | DRG 291 ==
LOC: EMEROO 21:36 → 3BNU 21:36 → 2ANU 12-07 02:39 → SUATTDRO 12-07 02:58 → 2ANU 12-07 03:25
PROVIDERS: ADMIT Pediatrics; ATTEND Internal Medicine

== ENCOUNTER 2017-08-17 06:05 | Inpatient (IN) ==
--- NOTE | 2017-08-17 06:47 | Emergency Department Note ---
START Narrative - START START: 66-year-old female presented to the emergency department after she got up during the night and was going to the bathroom using her walker when she became weak and fell. She denies any syncope. She denies hitting her head. She complains primarily of pain in her feet and ankles and lower legs bilaterally. She seems slightly confused and a little slow to respond. Family concerned because they feel that she is retaining too much fluid. Workup initiated and she will be signed out to the oncoming dayshift team, Dr. Springer and Dr. Villarreal.
[2017-08-17 07:28] LABS: Basophils % 0.3 %; Eosinophils # 0.1 K/mcL (0.0-0.6); Eosinophils % 0.9 %; Hematocrit 43.1 % (35.3-44.9); Hemoglobin 12.9 g/dL (11.5-15.4); Immature Granulocytes % 0.7 % (0-4); Immature Platelets 4.2 % (1.1-6.1); Lymphocytes # 0.6 K/mcL (0.6-4.6); Lymphocytes % 8.5 %; Mean Corpuscular HGB Conc 29.9 g/dL (31.6-35.5); Mean Corpuscular Hemoglobin 30.5 pg (28.0-33.3); Mean Corpuscular Volume 101.9 fL (83.0-100.0); Mean Platelet Volume 10.2 fL (9.4-12.4); Monocytes # 0.4 K/mcL (0.0-1.3); Monocytes % 5.6 %; Neutrophils # 6.2 K/mcL (1.6-8.9); Platelet Count 144 K/mcL (140-400); Red Blood Count 4.23 M/mcL (3.82-4.97); Red Cell Distribution Width 17.5 % (11.5-14.5)
[2017-08-17 07:39] LABS: Potassium 4.8 mEq/L (3.5-4.5)
--- NOTE | 2017-08-17 08:28 | Emergency Department Note ---
Disposition Clinical Impression: Weakness Disposition: Admitted As Inpatient Condition: Good Referrals: Stacia Morrell BOILER HOUSE MECHANIC [Primary Care Provider] - Forms: ED Satisfaction Letter Time of Disposition: 08:36 General Adult HPI - General Chief complaint: ED Fall Stated complaint: fall Time Seen by Provider: 08/17/17 06:18 Source: patient, family Mode of arrival: ambulatory Limitations: no limitations Nursing Notes Reviewed: Yes Vital Signs Reviewed: Yes - History of Present Illness HPI Narrative: 66-year-old female presents to the emergency department concerned of weakness after a fall this morning. Patient states she woke, ambulated few steps and then became weak and fell to the ground. Patient denies recent trauma other than fall this morning, denies nausea, vomiting, diarrhea, chest pain, shortness of breath. Patient is a poor historian and is unable to give an adequate history regarding her case and presentation. Patient complains of significant pain to the bilateral ankles since the fall. Patient's fall was backwards onto her buttock's but it was unclear whether she hit her head. Pain Scale: 8 - Related Data Home Medications Medication Instructions Recorded Confirmed Allopurinol [Zyloprim] 100 mg PO DAILY 07/09/15 12/07/16 Carvedilol [Coreg] 25 mg PO BID 07/09/15 12/07/16 Furosemide [Lasix] 40 mg PO QAM 07/09/15 12/07/16 Loratadine [Claritin] 10 mg PO QAM 07/09/15 12/07/16 Potassium Chloride 20 meq PO BID 07/09/15 12/07/16 Albuterol Sulfate [Proair 2 puff IH Q4H PRN 10/15/15 12/07/16 Respiclick] Gabapentin [Neurontin] 300 mg PO BID 12/07/16 12/07/16 Previous Rx's Medication Instructions Recorded Amoxicillin/Clavulanate [Augmentin] 875 mg PO BIDWM #20 tablet 12/09/16 Insulin Glargine,Hum.rec.anlog 20 unit SQ HS #0 12/09/16 [Lantus Solostar] predniSONE [PredniSONE] 40 mg PO DAILY #30 tablet 12/09/16 Allergies Allergy/AdvReac Type Severity Reaction Status Date / Time No Known Allergies Allergy Verified 08/17/17 06:10 All systems ED: reviewed and negative except as stated. Review of Systems: As Per HPI Constitutional: Reports: weakness. Denies: fever ENT ED: Denies: ear pain, throat pain Cardiovascular: Denies: chest pain, palpitations, dyspnea on exertion Respiratory: Denies: cough, dyspnea, wheezes Gastrointestinal: Denies: abdominal pain, nausea, vomiting, diarrhea Integumentary: Denies: rash Past Medical History - Past Medical History Attestation: Yes The following information was validated with the patient. Source: patient Medical history: Reports: atrial fibrillation, CHF, COPD, DVT, diabetes, hyperlipidemia, hypertension, renal disease Surgical history: Reports: no surgical history Psychiatric history: Reports: anxiety, depression CIRCULAR KNITTER HELPER history: Reports: no CIRCULAR KNITTER HELPER history - Social History Smoking Status: Never smoker Smokeless Tobacco Status: No Alcohol use: Reports: none Drug use: Reports: none Physical Exam General: Alert and in no acute distress. Morbidly obese Skin: Warm, dry, intact Head: Normocephalic and atraumatic Neck: Supple, trachea midline and no tenderness Cardiovascular: RRR, no murmur, normal perfusion Respiratory: CTAB, no wheezing, cough, or respiratory distress Musculoskeletal: Normal strength, no tenderness, swelling or deformity GI: Soft, nontender, obese but nontender to palpation. Umbilical hernia present. Bowel sounds present Neuro: A&O to person, place, time and situation. No focal deficits noted on exam - General Limitations: no limitations General appearance: alert, in no apparent distress Course Vital Signs Temperature 97.9 F 08/17/17 06:06 Pulse Rate 88 08/17/17 06:06 Respiratory Rate 20 08/17/17 06:06 Blood Pressure 145/76 08/17/17 06:06 O2 Sat by Pulse Oximetry 92 08/17/17 06:06 Temperature 97.9 F 08/17/17 06:06 Pulse Rate 88 08/17/17 06:06 Respiratory Rate 20 08/17/17 06:06 Blood Pressure 145/76 08/17/17 06:06 O2 Sat by Pulse Oximetry 92 08/17/17 06:06 Oxygen Delivery Oxygen Delivery Nasal Cannula Medical Decision Making - MDM Narrative Medical decision making narrative: Patient was seen 1 week ago for abdominal distention with that negative evaluation. It is unclear why the patient fell earlier today. Family is adamant that patient is more weak than her baseline and patient is a poor historian. I will admit to the hospital for further evaluation of weakness - Medical Records Medical records reviewed: Yes I reviewed the patient's medical records. - Lab Data Lab results reviewed: Yes I reviewed the patient's lab results. Result diagrams: 08/17/17 07:22 08/17/17 07:22 Lab Results 08/17/17 08/17/17 08/17/17 Range/Units 07:22 07:22 07:22 WBC 7.4 (4.3-11.1) K/mcL RBC 4.23 (3.82-4.97) M/mcL Hgb 12.9 (11.5-15.4) g/dL Hct 43.1 (35.3-44.9) % MCV 101.9 H (83.0-100.0) fL MCH 30.5 (28.0-33.3) pg MCHC 29.9 L (31.6-35.5) g/dL RDW 17.5 H (11.5-14.5) % Plt Count 144 (140-400) K/mcL MPV 10.2 (9.4-12.4) fL Immature Gran % 0.7 (0-4) % Seg Neutrophils % 84.0 % Lymphocytes % 8.5 % Monocytes % 5.6 % Eosinophils % 0.9 % Basophils % 0.3 % Neutrophils # 6.2 (1.6-8.9) K/mcL Lymphocytes # 0.6 (0.6-4.6) K/mcL Monocytes # 0.4 (0.0-1.3) K/mcL Eosinophils # 0.1 (0.0-0.6) K/mcL Basophils # 0.0 (0.0-0.2) K/mcL Immature Plt Fraction 4.2 (1.1-6.1) % Sodium 140 (136-145) mEq/L Potassium 4.8 H (3.5-4.5) mEq/L Chloride 101 (98-109) mEq/L Carbon Dioxide 29 (19-29) mEq/L BUN 51 H (7-20) mg/dL Creatinine 1.63 H (0.57-1.11) mg/dL Est GFR ( Amer) 38 L (> 60) Est GFR (Non-Af Amer) 32 L (> 60) BUN/Creatinine Ratio 31 H (6-26) Glucose 165 H (70-99) mg/dL POC Glucose (58-89) Calculated Osmolality 307 H (280-300) Calcium 9.0 (8.6-10.8) mg/dL Troponin I 0.02 (0-0.03) ng/mL 08/17/17 Range/Units 07:51 WBC (4.3-11.1) K/mcL RBC (3.82-4.97) M/mcL Hgb (11.5-15.4) g/dL Hct (35.3-44.9) % MCV (83.0-100.0) fL MCH (28.0-33.3) pg MCHC (31.6-35.5) g/dL RDW (11.5-14.5) % Plt Count (140-400) K/mcL MPV (9.4-12.4) fL Immature Gran % (0-4) % Seg Neutrophils % % Lymphocytes % % Monocytes % % Eosinophils % % Basophils % % Neutrophils # (1.6-8.9) K/mcL Lymphocytes # (0.6-4.6) K/mcL Monocytes # (0.0-1.3) K/mcL Eosinophils # (0.0-0.6) K/mcL Basophils # (0.0-0.2) K/mcL Immature Plt Fraction (1.1-6.1) % Sodium (136-145) mEq/L Potassium (3.5-4.5) mEq/L Chloride (98-109) mEq/L Carbon Dioxide (19-29) mEq/L BUN (7-20) mg/dL Creatinine (0.57-1.11) mg/dL Est GFR ( Amer) (> 60) Est GFR (Non-Af Amer) (> 60) BUN/Creatinine Ratio (6-26) Glucose (70-99) mg/dL POC Glucose 179 H (58-89) Calculated Osmolality (280-300) Calcium (8.6-10.8) mg/dL Troponin I (0-0.03) ng/mL - Radiology Data Radiology results reviewed: Yes I reviewed the patient's radiology results. - EKG Data EKG #1 EKG attestation: Yes I reviewed and interpreted this EKG. EKG results narrative: ECG - interpreted by ED physician. Rate 84, atrial fibrillation, no STEMI
[2017-08-17] MEDS ORDERED: Naloxone 0.4 MG/ML INJ IVP PRN (14:25)
[2017-08-17] MEDS ORDERED: D5% in Water 1,000 ML IVC PRN (14:28)
[2017-08-17] MEDS ORDERED: *HR* Dextrose 50 % in Water (Syg) 50 ML SYRINGE IVP PRN (14:28)
[2017-08-17] MEDS ORDERED: Dextrose Gel 15 GM PO PRN ×2 (14:28)
--- NOTE | 2017-08-17 14:29 | Internal Med History&Physical ---
Date of Encounter: 08/17/17 Time of Encounter: 14:29 Assessment and Plan (1) Fall from ground level Current visit: Yes Status: Acute 66/female Bion history of multiple comorbid conditions. Admitted with fall from ground level. Possible TIA to rule out CVA. Plan: Admit as observation. Recent echocardiogram in November 2016 shows EF of 65%. CT head negative for any acute episode. We will get ultrasound carotid. We will observation on telemetry. Patient is a claustrophobia and if she is affordable then we can go ahead and get an MRI of the brain. (2) CKD (chronic kidney disease) stage 3, GFR 30-59 ml/min Current visit: No Status: Chronic We will repeat labs tomorrow morning. (3) Atrial fibrillation Current visit: No Status: Chronic Chronic atrial fibrillation. Not on any anticoagulation. The reason for nondominant evaluation because of the recurrent fall. Qualifiers: Atrial fibrillation type: chronic Qualified Code(s): I48.2 - Chronic atrial fibrillation (4) Morbid obesity with BMI of 50.0-59.9, adult Current visit: No Status: Acute She should get benefit from bariatric surgery as outpatient. (5) Diabetes type 2, controlled Current visit: No Status: Chronic We will follow the subtendinous insulin order set and follow the recommendations from there Qualifiers: Diabetes mellitus complication status: with unspecified complications Diabetes mellitus buttermaker helper insulin use: without buttermaker helper use Qualified Code( s): E11.8 - Type 2 diabetes mellitus with unspecified complications (6) DVT prophylaxis Current visit: No Status: Acute SCD Medical decision making: This patient has a moderate to severe risk of worsening in spite of being on appropriate medication. His underlying complex comorbid condition. Internal Medicine - H&P: HPI History of present illness: Ms. Hernández is a 66 year old female was a past medical history ofatrial fibrillation, CHF, COPD, DVT, diabetes, hyperlipidemia, hypertension, renal disease. Patient's primary care provider is an oncepractitioner Miss Feltonnnfederica Morrell. Patient claims that she was extremely weak last night where she got out of the bed and when she was trying to walk up steps she straight down on her bottom. Patient did not hit her head. Patient denies any chest pain, palpation, shortness of breath, dizziness or diarrhea. Patient was evaluated by emergency room and multiple imaging was done to rule out any fracture. The imaging was negative for any acute fracture. Reason for admission: TIA to rule out CVA. Family history: Noncontributory Past Med Surg Social Fam HX - Past Medical History Medical history: atrial fibrillation, CHF, COPD, DVT, diabetes, hyperlipidemia, hypertension, renal disease Psychiatric history: anxiety, depression - Past Surgical History Surgical History: no surgical history - Social History Smoking Status: Never smoker Smokeless Tobacco Status: No Alcohol use: none Drug use: none - Family History Mother Living Status: Father Living Status: Sister Adopted: No Family Member Ethnicity: Non- Twin of Family Member: Yes, Fraternal Living Status: Hx Family Cardiac Disorders: Yes Hx Family Respiratory Disorders: Yes Hx Family Cancer: No Hx Family GI Disorders: No Hx Family Endocrine Disorder: Yes Hx Family Neuromuscular Disorders: No Hx Family Neurologic Disorders: No Hx Family HEENT Disorders: No Hx Family Autoimmune Disorders: No Internal Medicine - H&P: Meds Allopurinol [Zyloprim] 100 mg PO DAILY 07/09/15 [History] Carvedilol [Coreg] 25 mg PO BID 07/09/15 [History] Furosemide [Lasix] 40 mg PO QAM 07/09/15 [History] Loratadine [Claritin] 10 mg PO QAM 07/09/15 [History] Potassium Chloride 20 meq PO BID 07/09/15 [History] Albuterol Sulfate [Proair Respiclick] 2 puff IH Q4H PRN 10/15/15 [History] Gabapentin [Neurontin] 300 mg PO BID 12/07/16 [History] Glimepiride [Amaryl] 4 mg PO BID 08/17/17 [History] Insulin NPH Hum/Reg Insulin Hm [Novolin 70-30 100 Unit/ml Vial] 40 unit SQ QPM 08/17/17 [History] Lisinopril [Zestril] 5 mg PO DAILY 08/17/17 [History] SitaGLIPtin [Januvia] 100 mg PO DAILY 08/17/17 [History] 3 Allergy/AdvReac Type Severity Reaction Status Date / Time No Known Allergies Allergy Verified 08/17/17 06:10 All Systems PM: A 10-system review of systems was performed and is negative for pertinent findings except as documented above in the HPI. - Constitutional Constitutional: no chills, no fever(s), no night sweats - EENT Eyes: no change in vision, no discharge, no pain, no photophobia Ears: no ear discharge, no ear pain, no tinnitus Nose, mouth and throat: no dysphagia, no nasal discharge, no neck pain, no sore throat - Cardiovascular Cardiovascular ROS IM: no chest pain, no diaphoresis, no dyspnea, no lightheadedness, no palpitations, no syncope - Respiratory Respiratory: no cough, no dyspnea, no wheezing, no excessive phlegm production - Gastrointestinal Gastrointestinal: no abdominal pain, no diarrhea, no hematemesis, no hematochezia, no melena, no nausea, no vomiting - Genitourinary Genitourinary: no change in urinary stream, no dysuria, no flank pain, no hematuria - Musculoskeletal Musculoskeletal ROS IM: no numbness, no tingling - Integumentary Integumentary IM: no rash, no unusual bruising - Neurological Neurological ROS: no confusion, no convulsions, no focal weakness, no numbness, no tingling, no tremor(s) - Hematologic/Lymphatic Hematologic/Lymphatic: no easy bruising - Constitutional Vitals: Temp Pulse Resp BP Pulse Ox 97.9 F 81 20 106/59 95 08/17/17 06:06 08/17/17 10:53 08/17/17 10:53 08/17/17 10:53 08/17/17 10:53 General appearance: Present: A&O X 3, pleasant, no acute distress, answers questions appropriately - Head Head exam: Present: atraumatic, normocephalic - Eye Eye exam: Present: PERRL, conjuntiva pink, sclera anicteric Pupils: Present: PERRL - Neck Neck exam general surgery: Present: supple, trachea midline. Absent: lymphadenopathy - Respiratory Respiratory exam: Present: CTAB. Absent: accessory muscle use, rales, rhonchi, wheezes - Cardiovascular Cardiovascular exam: Present: RRR, +S1, +S2. Absent: diastolic murmur, gallop, rubs, systolic murmur - GI/Abdominal GI/Abdominal exam: Present: normal bowel sounds, soft, no peritoneal signs. Absent: distended, tenderness - Extremities Exam Extremities exam: Present: warm, radial pulses palpable and symmetrical. Absent : calf tenderness, cyanotic, pedal edema - Neurological Exam Neurological exam: Present: CN II-XII intact, oriented X3, no focal deficits. Absent: pronater drift, facial droop, speech deficit - Skin Skin exam: Present: dry, intact Internal Med - H&P Results - Labs CBC & Chem 7: 08/17/17 07:22 08/17/17 07:22
--- NOTE | 2017-08-17 18:45 | Emergency Department Note ---
Disposition Clinical Impression: Weakness, Fall from ground level Disposition: Admitted As Inpatient Condition: Good Time of Disposition: 09:00 Weakness HPI - General Chief complaint: ED Fall Stated complaint: fall Time Seen by Provider: 08/17/17 06:18 Source: patient, family Mode of arrival: ambulatory Limitations: no limitations Nursing Notes Reviewed: Yes Vital Signs Reviewed: Yes - History of Present Illness HPI Narrative: Patient 66-year-old female who presents today secondary to weakness which led to a ground-level fall without loss of consciousness. Patient states she got out of bed and walk 3 steps and went straight down onto her bottom. Patient states this is happened once before several years ago. Patient complains of bilateral lower extremity pain at her ankles with a right and more pain in the left. Patient's states she is unable to walk. Pain Scale: 8 - Related Data Home Medications Medication Instructions Recorded Confirmed Allopurinol [Zyloprim] 100 mg PO DAILY 07/09/15 08/17/17 Carvedilol [Coreg] 25 mg PO BID 07/09/15 08/17/17 Furosemide [Lasix] 40 mg PO QAM 07/09/15 08/17/17 Loratadine [Claritin] 10 mg PO QAM 07/09/15 08/17/17 Potassium Chloride 20 meq PO BID 07/09/15 08/17/17 Albuterol Sulfate [Proair 2 puff IH Q4H PRN 10/15/15 08/17/17 Respiclick] Gabapentin [Neurontin] 300 mg PO BID 12/07/16 08/17/17 Glimepiride [Amaryl] 4 mg PO BID 08/17/17 08/17/17 Insulin NPH Hum/Reg Insulin Hm 40 unit SQ QPM 08/17/17 08/17/17 [Novolin 70-30 100 Unit/ml Vial] Lisinopril [Zestril] 5 mg PO DAILY 08/17/17 08/17/17 SitaGLIPtin [Januvia] 100 mg PO DAILY 08/17/17 08/17/17 Allergies Allergy/AdvReac Type Severity Reaction Status Date / Time No Known Allergies Allergy Verified 08/17/17 06:10 All systems ED: reviewed and negative except as stated. Review of Systems: As Per HPI Constitutional: Reports: weakness. Denies: fever ENT ED: Denies: ear pain, throat pain Cardiovascular: Denies: chest pain, palpitations, dyspnea on exertion Respiratory: Denies: cough, dyspnea, wheezes Gastrointestinal: Denies: abdominal pain, nausea, vomiting, diarrhea Integumentary: Denies: rash Past Medical History - Past Medical History Attestation: Yes The following information was validated with the patient. Source: patient, obtained from family Medical history: Reports: atrial fibrillation, CHF, COPD, DVT, diabetes, hyperlipidemia, hypertension, renal disease Surgical history: Reports: no surgical history Psychiatric history: Reports: anxiety, depression RECOVERY ADVOCATE history: Reports: no RECOVERY ADVOCATE history - Social History Smoking Status: Never smoker Smokeless Tobacco Status: No Alcohol use: Reports: none Drug use: Reports: none Physical Exam Vital Signs Temperature 97.9 F 08/17/17 06:06 Pulse Rate 88 08/17/17 06:06 Respiratory Rate 20 08/17/17 06:06 Blood Pressure 145/76 08/17/17 06:06 O2 Sat by Pulse Oximetry 92 08/17/17 06:06 Temperature 97.9 F 08/17/17 06:06 Pulse Rate 81 08/17/17 10:53 Respiratory Rate 20 08/17/17 10:53 Blood Pressure 106/59 08/17/17 10:53 O2 Sat by Pulse Oximetry 95 08/17/17 10:53 Oxygen Delivery Oxygen Delivery Room Air - General Limitations: no limitations General appearance: alert, in no apparent distress - Head Head exam: atraumatic, normocephalic, normal inspection - Eye Eye exam: Present: normal appearance, PERRL, EOMI - ENT ENT exam: normal exam, normal oropharynx, mucous membranes moist - Neck Neck exam: Present: normal inspection, full ROM, trachea midline - Chest Chest inspection: Present: normal inspection, symmetric chest wall rise - Respiratory Respiratory exam: Present: normal lung sounds bilaterally - Cardiovascular Cardiovascular exam: Present: regular rate, irregular rhythm - Abdominal Exam Abdominal exam: Present: soft, Non-Tender. Absent: tenderness, distention, guarding, rebound, rigidity - Extremities Exam Extremities exam: Present: tenderness, pedal edema, joint swelling, other ( Patient has equal dorsal pedal and posterior tibial pulses). Absent: normal inspection, calf tenderness - Back Exam Back exam: Present: normal inspection, full ROM. Absent: tenderness - Neurological Exam Neurological exam: Present: alert, oriented X3, other (No focal neurologic deficits) - Skin Skin exam: Present: warm, dry, intact, other (Lower extremities just below the mid lower leg to her foot erythemic from venous insufficiency) Course Vital Signs Temperature 97.9 F 08/17/17 06:06 Pulse Rate 88 08/17/17 06:06 Respiratory Rate 20 08/17/17 06:06 Blood Pressure 145/76 08/17/17 06:06 O2 Sat by Pulse Oximetry 92 08/17/17 06:06 Temperature 97.8 F 08/19/17 08:00 Pulse Rate 77 08/19/17 09:00 Respiratory Rate 18 08/19/17 09:00 Blood Pressure 119/65 08/19/17 09:00 O2 Sat by Pulse Oximetry 91 08/19/17 09:00 Oxygen Delivery Oxygen Delivery Room Air Weakness - MDM Narrative Medical decision making narrative: This patient had labs and imaging ordered by the previous shift. Bilateral lower extremity imaging showed no fractures. Patient will be admitted for weakness. My attending Dr. Villarreal has admitted the patient. Dr. Sinha the hospitalist has accepted patient for admission. - Lab Data Lab results reviewed: Yes I reviewed the patient's lab results. Lab results narrative: Intake & Output 08/14/17 08/15/17 08/16/17 08/17/17 23:59 23:59 23:59 23:59 Weight 140.614 kg Short CBC 08/17/17 Range/Units 07:22 WBC 7.4 (4.3-11.1) K/mcL Hgb 12.9 (11.5-15.4) g/dL Hct 43.1 (35.3-44.9) % Plt Count 144 (140-400) K/mcL Neutrophils # 6.2 (1.6-8.9) K/mcL BMP 08/17/17 Range/Units 07:22 Sodium 140 (136-145) mEq/L Potassium 4.8 H (3.5-4.5) mEq/L Chloride 101 (98-109) mEq/L Carbon Dioxide 29 (19-29) mEq/L BUN 51 H (7-20) mg/dL Creatinine 1.63 H (0.57-1.11) mg/dL Glucose 165 H (70-99) mg/dL Calcium 9.0 (8.6-10.8) mg/dL Cardiac Enzymes 08/17/17 08/17/17 Range/Units 14:45 07:22 Troponin I 0.01 0.02 (0-0.03) ng/mL Result diagrams: 08/19/17 04:07 08/19/17 04:07 Lab Results 08/17/17 08/17/17 08/17/17 Range/Units 07:22 07:22 07:22 WBC 7.4 (4.3-11.1) K/mcL RBC 4.23 (3.82-4.97) M/mcL Hgb 12.9 (11.5-15.4) g/dL Hct 43.1 (35.3-44.9) % MCV 101.9 H (83.0-100.0) fL MCH 30.5 (28.0-33.3) pg MCHC 29.9 L (31.6-35.5) g/dL RDW 17.5 H (11.5-14.5) % Plt Count 144 (140-400) K/mcL MPV 10.2 (9.4-12.4) fL Immature Gran % 0.7 (0-4) % Seg Neutrophils % 84.0 % Lymphocytes % 8.5 % Monocytes % 5.6 % Eosinophils % 0.9 % Basophils % 0.3 % Neutrophils # 6.2 (1.6-8.9) K/mcL Lymphocytes # 0.6 (0.6-4.6) K/mcL Monocytes # 0.4 (0.0-1.3) K/mcL Eosinophils # 0.1 (0.0-0.6) K/mcL Basophils # 0.0 (0.0-0.2) K/mcL Immature Plt Fraction 4.2 (1.1-6.1) % Sodium 140 (136-145) mEq/L Potassium 4.8 H (3.5-4.5) mEq/L Chloride 101 (98-109) mEq/L Carbon Dioxide 29 (19-29) mEq/L BUN 51 H (7-20) mg/dL Creatinine 1.63 H (0.57-1.11) mg/dL Est GFR ( Amer) 38 L (> 60) Est GFR (Non-Af Amer) 32 L (> 60) BUN/Creatinine Ratio 31 H (6-26) Glucose 165 H (70-99) mg/dL POC Glucose (58-89) Calculated Osmolality 307 H (280-300) Calcium 9.0 (8.6-10.8) mg/dL Troponin I 0.02 (0-0.03) ng/mL 08/17/17 Range/Units 07:51 WBC (4.3-11.1) K/mcL RBC (3.82-4.97) M/mcL Hgb (11.5-15.4) g/dL Hct (35.3-44.9) % MCV (83.0-100.0) fL MCH (28.0-33.3) pg MCHC (31.6-35.5) g/dL RDW (11.5-14.5) % Plt Count (140-400) K/mcL MPV (9.4-12.4) fL Immature Gran % (0-4) % Seg Neutrophils % % Lymphocytes % % Monocytes % % Eosinophils % % Basophils % % Neutrophils # (1.6-8.9) K/mcL Lymphocytes # (0.6-4.6) K/mcL Monocytes # (0.0-1.3) K/mcL Eosinophils # (0.0-0.6) K/mcL Basophils # (0.0-0.2) K/mcL Immature Plt Fraction (1.1-6.1) % Sodium (136-145) mEq/L Potassium (3.5-4.5) mEq/L Chloride (98-109) mEq/L Carbon Dioxide (19-29) mEq/L BUN (7-20) mg/dL Creatinine (0.57-1.11) mg/dL Est GFR ( Amer) (> 60) Est GFR (Non-Af Amer) (> 60) BUN/Creatinine Ratio (6-26) Glucose (70-99) mg/dL POC Glucose 179 H (58-89) Calculated Osmolality (280-300) Calcium (8.6-10.8) mg/dL Troponin I (0-0.03) ng/mL - Radiology Data Radiology results reviewed: Yes I reviewed the patient's radiology results. Ankle X-Ray 08/17/17 06:29 IMPRESSION: No acute fracture. The bones are demineralized. D/ / Abiel So MD / Abiel So MD Interpreting Provider: Abiel So MD Cervical Spine CT 08/17/17 06:29 IMPRESSION: 1. No acute abnormality of the cervical spine. 2. Layering right pleural effusion. D/ / Abiel So MD / Abiel So MD Interpreting Provider: Abiel So MD Head CT 08/17/17 06:29 IMPRESSION: 1. Significantly limited exam due to motion artifact. 2. No acute intracranial abnormality. 3. Bilateral asymmetric otitis media more prominent on the left. D/ / 08/17/2017 07:29:30 Mariano Duarte MD / [facility] Interpreting Provider: Mariano Duarte MD Chest X-Ray 08/17/17 06:31 IMPRESSION: 1. Persistent moderate to severe enlargement of the cardiomediastinal silhouette. If there is clinical concern for mediastinal vascular injury. CT of the chest with contrast would be more sensitive. 2. Small right pleural effusion. 3. Bibasilar airspace opacities. Appearance is suggestive of atelectasis. In the setting of trauma, pulmonary contusions can have the same appearance. 4. No acute osseous abnormality in the pelvis. D/ / Yoan Mahmood MD / Yoan Mahmood MD Interpreting Provider: Yoan Mahmood MD Pelvis X-Ray 08/17/17 06:31 IMPRESSION: 1. Persistent moderate to severe enlargement of the cardiomediastinal silhouette. If there is clinical concern for mediastinal vascular injury. CT of the chest with contrast would be more sensitive. 2. Small right pleural effusion. 3. Bibasilar airspace opacities. Appearance is suggestive of atelectasis. In the setting of trauma, pulmonary contusions can have the same appearance. 4. No acute osseous abnormality in the pelvis. D/ / Yoan Mahmood MD / Yoan Mahmood MD Interpreting Provider: Yoan Mahmood MD Attestation Statement - Attestation Attestation: I, Jamey Villarreal, examined this patient and my medical decision-making was reviewed with the [employer] SUPERVISOR/PA/Advanced Practice Nurse/Resident Physician. I agree with the documented findings, disposition and treatment plan as described except to the extent set forth below. See my note for full details
[2017-08-17] MEDS: Insulin LISPRO 300 UNITS/3 ML VIAL SQ SCH (19:16)
[2017-08-17] MEDS: Insulin NPH/REG 70/30 100 UNIT/ML (x5UNIT) SQ SCH (19:17)
--- NOTE | 2017-08-17 20:32 | Electrocardiograph Report ---
[address] [place], [place] [address] Test Date: 2017-08-17 Pat Name: Radhika Hernández Department: 104 Room: 3B Gender: F Clinical Services Specialist: LOGAN : [id number] Requested By: Christal Denton Order Number: [id number] Reading MD: Mitch Solitario MD Measurements Intervals [place] Rate: 84 P: DE: 0 QRS: 22 QRSD: 101 T: 95 QT: 391 QTc: 432 Interpretive Statements ATRIAL FIBRILLATION Electronically Signed On 08-17-2017 20:30:18 EST by Mitch Solitario MD
[2017-08-17] MEDS: Gabapentin 300 MG CAPSULE PO SCH (21:29)
[2017-08-18 02:23] LABS: Basophils % 0.3 %; Eosinophils # 0.1 K/mcL (0.0-0.6); Eosinophils % 0.8 %; Hematocrit 37.4 % (35.3-44.9); Immature Granulocytes % 0.4 % (0-4); Lymphocytes # 0.5 K/mcL (0.6-4.6); Lymphocytes % 7.1 %; Mean Corpuscular HGB Conc 30.2 g/dL (31.6-35.5); Mean Corpuscular Hemoglobin 30.5 pg (28.0-33.3); Mean Corpuscular Volume 100.8 fL (83.0-100.0); Monocytes # 0.6 K/mcL (0.0-1.3); Neutrophils # 6.2 K/mcL (1.6-8.9); Nucleated Red Blood Cells 0.3 /100 WBC (0); Platelet Count 126 K/mcL (140-400); Red Blood Count 3.71 M/mcL (3.82-4.97); Red Cell Distribution Width 17.2 % (11.5-14.5); Segmented Neutrophils % 83.4 %
[2017-08-18 02:25] LABS: Hemoglobin 11.3 g/dL (11.5-15.4)
[2017-08-18 02:33] LABS: INR 1.2; Prothrombin Time 12.5 Seconds (9.4-12.1)
[2017-08-18 02:35] LABS: Activated Partial Thrombo Time 26.3 Seconds (26.0-36.0)
[2017-08-18 02:38] LABS: Albumin 3.2 g/dL (3.5-5.0); Albumin/Globulin Ratio 0.7 (1.1-2.2); Bilirubin,Total 0.9 mg/dL (0.2-1.2); Chol/HDL Ratio 6.6 (0-4.9); Globulin 4.7 g/dL (2.4-3.5); Magnesium 2.5 mg/dL (1.6-2.6); Phosphorous 4.1 mg/dL (2.3-4.7); Potassium 4.9 mEq/L (3.5-4.5); Total Protein 7.9 g/dL (6.0-8.3)
[2017-08-18] MEDS ORDERED: Furosemide 40 MG TABLET PO SCH (09:00)
[2017-08-18] MEDS ORDERED: Ipratropium/Albuterol Neb 3 ML IH PRN (09:17)
[2017-08-18] MEDS: Insulin LISPRO 300 UNITS/3 ML VIAL SQ SCH ×3 (09:28→17:53)
[2017-08-18] MEDS: Gabapentin 300 MG CAPSULE PO SCH ×2 (09:30→21:55)
[2017-08-18 11:51] LABS: ABG Base Excess 8 mEq/L (-2 to 3); ABG HCO3 38 mEq/L (21-27); ABG Oxygen Saturation 93 % (95-98); ABG PCO2 87 mmHg (35-45); ABG PH 7.25 pH Units (7.32-7.45); ABG PO2 83 mmHg (85-104); ABG TCO2 41 mEq/L (20-26); Blood Gas Modality BiLevel; Blood Gas PEEP 5 cm H2O
[2017-08-18] MEDS ORDERED: *HR* Morphine 2 MG/ML SYRINGE IVP PRN (13:51)
[2017-08-18] MEDS ORDERED: 0.9 % Sodium Chloride 250 ML IVC ONE (16:08)
--- NOTE | 2017-08-18 16:20 | Internal Med Progress Note ---
Date of Encounter: 08/18/17 Time of Encounter: 16:16 - Assessment and plan (1) Fall from ground level Current Visit: Yes Status: Acute Assessment and plan: Suspected TIA versus syncope. CT head showed no acute abnormality or trauma. Follow-up carotid Doppler and echocardiogram. Continue telemetry monitoring. Fall precautions. Physical and occupational therapy evaluation when medically stable. (2) Acute and chronic respiratory failure ([id number]) Current Visit: Yes Status: Acute Assessment and plan: Patient is noted to have worsening acute respiratory failure, now requiring continuous BiPAP support. ABG reviewed-, respiratory acidosis. To consider infectious process versus VTE. We will obtain CT chest, d-dimer, repeat ABG. Will consult pulmonology for further management and BiPAP adjustments. High risk for complications. Qualifiers: Respiratory failure complication: hypoxia and hypercapnia Qualified Code(s) : J96.21 - Acute and chronic respiratory failure with hypoxia; J96.22 - Acute and chronic respiratory failure with hypercapnia; J96.22 - Acute and chronic respiratory failure with hypercapnia; J96.22 - Acute and chronic respiratory failure with hypercapnia (3) Congestive heart failure Current Visit: Yes Status: Chronic Assessment and plan: Patient has history of CHF, continue home meds-Lasix, beta carol and RENE inhibitor. Check 2-D echocardiogram. Supplemental oxygen and BiPAP support. Qualifiers: Congestive heart failure type: diastolic Congestive heart failure chronicity: chronic Qualified Code(s): I50.32 - Chronic diastolic (congestive ) heart failure (4) Morbid obesity Current Visit: Yes Status: Chronic (5) Type 2 diabetes mellitus Current Visit: Yes Status: Chronic Assessment and plan: Continue Accu-Chek blood glucose monitoring with sliding scale insulin. Diabetic diet as tolerated. Qualifiers: Diabetes mellitus complication status: with kidney complications Diabetes mellitus complication detail: with chronic kidney disease Diabetes mellitus termite treater insulin use: without fpc use Chronic kidney disease stage: stage 3 (moderate) Qualified Code(s): E11.22 - Type 2 diabetes mellitus with diabetic chronic kidney disease; N18.3 - Chronic kidney disease, stage 3 ( moderate); N18.3 - Chronic kidney disease, stage 3 (moderate) (6) Sleep apnea Current Visit: Yes Status: Chronic Qualifiers: Sleep apnea type: obstructive Qualified Code(s): G47.33 - Obstructive sleep apnea (adult) (pediatric) (7) Pulmonary hypertension Current Visit: Yes Status: Chronic (8) Atrial fibrillation Current Visit: Yes Status: Chronic Assessment and plan: Currently rate controlled. Continue beta carol. Not noted to be on anticoagulation as an outpatient. Qualifiers: Atrial fibrillation type: chronic Qualified Code(s): I48.2 - Chronic atrial fibrillation (9) COPD (chronic obstructive pulmonary disease) Current Visit: Yes Status: Chronic Assessment and plan: Continue bronchodilators and supplemental oxygen along with noninvasive positive pressure ventilation. Pulmonology consulted. Qualifiers: COPD type: chronic bronchitis Chronic bronchitis type: simple Qualified Code(s): J41.0 - Simple chronic bronchitis (10) Encephalopathy acute Current Visit: Yes Status: Acute Assessment and plan: Could be related to respiratory acidosis and hypercapnia. Continue BiPAP support and repeat ABG. Supportive care and fall precautions. (11) CKD (chronic kidney disease) stage 3, GFR 30-59 ml/min Current Visit: Yes Status: Chronic Assessment and plan: Serum creatinine noted to be at baseline, 1.59 today. - Subjective Interval history: On BiPAP; slightly drowsy and confused, cannot provide history, which is obtained from her daughter at bedside; no fever, cough, wheezing, shortness of breath at home; - Constitutional Vitals: Temp Pulse Resp BP Pulse Ox 99.1 F 73 20 88/59 86 08/18/17 15:38 08/18/17 15:38 08/18/17 15:38 08/18/17 15:38 08/18/17 15:38 General appearance: Present: A&O X 1, morbidly obese. Absent: answers questions appropriately - Respiratory Respiratory exam: Present: decreased breath sounds (decreased air entry B/L), CTAB. Absent: accessory muscle use, rales, rhonchi, wheezes - Cardiovascular Cardiovascular exam: Present: RRR, +S1, +S2. Absent: diastolic murmur, gallop, rubs, systolic murmur - GI/Abdominal GI/Abdominal exam: Present: normal bowel sounds, soft (obese, reducible ventral hernia), no peritoneal signs. Absent: distended, tenderness - Extremities Exam Extremities exam: Present: warm, radial pulses palpable and symmetrical. Absent : calf tenderness, cyanotic, pedal edema Internal Medicine: Result - Labs CBC & Chem 7: 08/19/17 04:07 08/19/17 04:07 Labs: Short CBC 08/18/17 Range/Units 02:17 WBC 7.4 (4.3-11.1) K/mcL Hgb 11.3 L D (11.5-15.4) g/dL Hct 37.4 (35.3-44.9) % Plt Count 126 L (140-400) K/mcL Neutrophils # 6.2 (1.6-8.9) K/mcL BMP 08/18/17 02:17 Sodium 143 Potassium 4.9 H Chloride 103 Carbon Dioxide 32 H BUN 46 H Creatinine 1.59 H Glucose 160 H Calcium 9.0 Cardiac Enzymes 08/17/17 08/18/17 Range/Units 21:45 02:17 Troponin I 0.01 0.02 (0-0.03) ng/mL Liver Function 08/18/17 Range/Units 02:17 Total Bilirubin 0.9 (0.2-1.2) mg/dL AST 20 (5-34) Units/L ALT 16 (0-55) Units/L Alkaline Phosphatase 133 H (38-126) Units/L Albumin 3.2 L (3.5-5.0) g/dL - ABG Interpretation ABG results: ABG ABG pH 7.25 pH Units (7.32-7.45) L 08/18/17 11:48 ABG pCO2 87 mmHg (35-45) H* 08/18/17 11:48 ABG pO2 83 mmHg (85-104) L 08/18/17 11:48 ABG O2 Saturation 93 % (95-98) L 08/18/17 11:48 PT/INR, D-dimer PT 12.5 Seconds (9.4-12.1) H 08/18/17 02:17 Consult Discharge Plan - Plan Referrals: Stacia Morrell, [employer] [Primary Care Provider] -
[2017-08-18] MEDS ORDERED: *HR* Heparin 5,000 UNIT/ML VIAL IVP ONE ×2 (16:41→18:11)
[2017-08-18] MEDS ORDERED: Heparin 25,000 UNIT/500 ML D5W 25,000 UNIT/500 ML MLS IVC SCH ×2 (16:45→18:15)
--- NOTE | 2017-08-18 17:00 | Pulmonology Consult Note ---
<Johny Tirado - Last Filed: 08/18/17 16:43> Date of Encounter: 08/18/17 Time of Encounter: 16:30 Assessment and Plan (1) Acute and chronic respiratory failure ([id number]) Current Visit: Yes Status: Acute Acute on Chronic hypoxemic, hypercapenic respiratory failure. Current home Bipap use. Patient is currently on BiPAP, slightly drowsy, but A&Ox3 ABG revealed hypercapnea, respiratory acidosis with metabolic compensation. Bipap settings adjusted and patient repositioned, sitting up in bed Repeat ABG pending, if improved transfer patient to 2N, if worsening then transfer to ICU Continue Bipap and bronchodilators Qualifiers: Respiratory failure complication: hypoxia and hypercapnia Qualified Code(s) : J96.21 - Acute and chronic respiratory failure with hypoxia; J96.22 - Acute and chronic respiratory failure with hypercapnia; J96.22 - Acute and chronic respiratory failure with hypercapnia; J96.22 - Acute and chronic respiratory failure with hypercapnia (2) Congestive heart failure Current Visit: No Status: Chronic Falsely decreased BNP secondary to obesity Echo pending Hold Lasix and antihypertensive medications due to hypotension Qualifiers: Congestive heart failure type: diastolic Congestive heart failure chronicity: acute on chronic Qualified Code(s): I50.33 - Acute on chronic diastolic (congestive) heart failure (3) Pulmonary hypertension Current Visit: No Status: Chronic Echo pending (4) COPD (chronic obstructive pulmonary disease) Current Visit: No Status: Acute Continue Bipap and bronchodilators Qualifiers: COPD type: chronic bronchitis Chronic bronchitis type: simple Qualified Code(s): J41.0 - Simple chronic bronchitis (5) Sleep apnea Current Visit: No Status: Chronic Continue Bipap Qualifiers: Sleep apnea type: obstructive Qualified Code(s): G47.33 - Obstructive sleep apnea (adult) (pediatric) (6) Morbid obesity Current Visit: No Status: Chronic BMI 55.7 Recommend diet and lifestyle modification (7) DVT prophylaxis Current Visit: Yes Status: Acute Heparin ggt started DVT study pending History of Present Illness Consult date: 08/18/17 Requesting physician: Karen Garcia Reason for consult: hypoxemia Chief complaint: SOB History of present illness: Ms. Hernández is a 66 year old female with a PMH of COPD, CHRISTY, CHF, cirrhosis, remote DVT, and recent immobilization after a fall prior to arrival who presnted c/o weakness and SOB. Patient is currently on BiPAP, slightly drowsy, and cannot provide history. Family is at beside and reports patient has been hypoxic for the past week despite home Bipap use. She also has abdominal distension and is currently on Lasix 40mg PO daily. ABG revealed hypercapnea, respiratory acidosis with metabolic compensation. Pulmonology was consulted due to acute on chronic hypoxemic, hypercapenic respiratory failure. Past Med Surg Social Fam HX - Past Medical History Medical history: atrial fibrillation, CHF, COPD, DVT, diabetes, hyperlipidemia, hypertension, renal disease Psychiatric history: anxiety, depression - Past Surgical History Surgical History: no surgical history - Social History Smoking Status: Never smoker Smokeless Tobacco Status: No Alcohol use: none Drug use: none - Family History Mother Living Status: Father Living Status: Sister Adopted: No Family Member Ethnicity: Non- Twin of Family Member: Yes, Fraternal Living Status: Hx Family Cardiac Disorders: Yes Hx Family Respiratory Disorders: Yes Hx Family Cancer: No Hx Family GI Disorders: No Hx Family Endocrine Disorder: Yes Hx Family Neuromuscular Disorders: No Hx Family Neurologic Disorders: No Hx Family HEENT Disorders: No Hx Family Autoimmune Disorders: No Medications and Allergies Allopurinol [Zyloprim] 100 mg PO DAILY 07/09/15 [History] Carvedilol [Coreg] 25 mg PO BID 07/09/15 [History] Furosemide [Lasix] 40 mg PO QAM 07/09/15 [History] Loratadine [Claritin] 10 mg PO QAM 07/09/15 [History] Potassium Chloride 20 meq PO BID 07/09/15 [History] Albuterol Sulfate [Proair Respiclick] 2 puff IH Q4H PRN 10/15/15 [History] Gabapentin [Neurontin] 300 mg PO BID 12/07/16 [History] Glimepiride [Amaryl] 4 mg PO BID 08/17/17 [History] Insulin NPH Hum/Reg Insulin Hm [Novolin 70-30 100 Unit/ml Vial] 40 unit SQ QPM 08/17/17 [History] Lisinopril [Zestril] 5 mg PO DAILY 08/17/17 [History] SitaGLIPtin [Januvia] 100 mg PO DAILY 08/17/17 [History] 3 Allergy/AdvReac Type Severity Reaction Status Date / Time No Known Allergies Allergy Verified 08/17/17 06:10 All Systems: A 10-system review of systems was performed and is negative for pertinent findings except as documented above in the HPI. - Constitutional Constitutional: daytime sleepiness, fatigue, lethargy, weakness - EENT Nose, mouth and throat: no headache(s), no nasal congestion, no sore throat - Cardiovascular Cardiovascular: dyspnea, edema, no chest pain at rest, no palpitations, no syncope - Respiratory Respiratory: dyspnea, no cough, no hemoptysis, no chest congestion, no excessive phlegm production - Gastrointestinal Gastrointestinal: no abdominal pain, no nausea, no vomiting - Genitourinary Genitourinary: no dysuria, no hematuria, no urinary frequency - Musculoskeletal Musculoskeletal: weakness, no back pain, no neck pain - Integumentary Integumentary: no erythema - Neurological Neurological: weakness, no headache(s), no numbness, no syncope - Psychiatric Psychiatric: no anxiety, no depression - Endocrine Endocrine: no palpitations, no polydipsia, no polyphagia - Allergic/Immunologic Allergic/Immunologic: no wheezing Physical Examination Vital Signs: Vital Signs, Last 4 Hours Temp Pulse Resp BP Pulse Ox 08/18/17 15:38 99.1 F 73 20 88/59 86 General appearance: no acute distress (morbidly obese, A&Ox3) Eyes: nonicteric ENT: oropharynx dry Neck: supple Effort: normal Inspection: normal Auscultation: right: diminished breath sounds, wheezes Percussion: bilateral: not dull Cardiovascular: regular rate and rhythm Gastrointestinal: normoactive bowel sounds, soft Integumentary: erythema (bilateral chronic venous statis anterior shins) Extremities: pulses normal (bounding), edema (1+) Musculoskeletal: no deformities Gait: normal posture normal mental status, non-focal exam mood appropriate, affect normal Results - Laboratory Findings CBC and BMP: 08/18/17 02:17 08/18/17 02:17 ABG ABG pH 7.25 pH Units (7.32-7.45) L 08/18/17 11:48 ABG pCO2 87 mmHg (35-45) H* 08/18/17 11:48 ABG pO2 83 mmHg (85-104) L 08/18/17 11:48 ABG O2 Saturation 93 % (95-98) L 08/18/17 11:48 PT/INR, D-dimer PT 12.5 Seconds (9.4-12.1) H 08/18/17 02:17 Abnormal lab findings: Abnormal lab results RBC 3.71 M/mcL (3.82-4.97) L 08/18/17 02:17 Hgb 11.3 g/dL (11.5-15.4) L D 08/18/17 02:17 MCV 100.8 fL (83.0-100.0) H 08/18/17 02:17 MCHC 30.2 g/dL (31.6-35.5) L 08/18/17 02:17 RDW 17.2 % (11.5-14.5) H 08/18/17 02:17 Plt Count 126 K/mcL (140-400) L 08/18/17 02:17 Lymphocytes # 0.5 K/mcL (0.6-4.6) L 08/18/17 02:17 Nucleated RBCs/100 WBC 0.3 /100 WBC (0) H 08/18/17 02:17 PT 12.5 Seconds (9.4-12.1) H 08/18/17 02:17 ABG pH 7.25 pH Units (7.32-7.45) L 08/18/17 11:48 ABG pCO2 87 mmHg (35-45) H* 08/18/17 11:48 ABG pO2 83 mmHg (85-104) L 08/18/17 11:48 ABG HCO3 38 mEq/L (21-27) H 08/18/17 11:48 ABG Total CO2 41 mEq/L (20-26) H 08/18/17 11:48 ABG O2 Saturation 93 % (95-98) L 08/18/17 11:48 ABG Base Excess 8 mEq/L (-2 to 3) H 08/18/17 11:48 Potassium 4.9 mEq/L (3.5-4.5) H 08/18/17 02:17 Carbon Dioxide 32 mEq/L (19-29) H 08/18/17 02:17 BUN 46 mg/dL (7-20) H 08/18/17 02:17 Creatinine 1.59 mg/dL (0.57-1.11) H 08/18/17 02:17 Est GFR ( Amer) 39 (> 60) L 08/18/17 02:17 Est GFR (Non-Af Amer) 33 (> 60) L 08/18/17 02:17 BUN/Creatinine Ratio 29 (6-26) H 08/18/17 02:17 Glucose 160 mg/dL (70-99) H 08/18/17 02:17 POC Glucose 164 (58-89) H 08/18/17 11:44 Calculated Osmolality 311 (280-300) H 08/18/17 02:17 Alkaline Phosphatase 133 Units/L (38-126) H 08/18/17 02:17 B-Natriuretic Peptide 211 pg/mL (0-100) H 08/18/17 02:17 Albumin 3.2 g/dL (3.5-5.0) L 08/18/17 02:17 Globulin 4.7 g/dL (2.4-3.5) H 08/18/17 02:17 Albumin/Globulin Ratio 0.7 (1.1-2.2) L 08/18/17 02:17 Triglycerides 156 mg/dL (< 150) H 08/18/17 02:17 LDL Cholesterol, Calc 110 mg/dL (0-99) H 08/18/17 02:17 VLDL Cholesterol, Calc 31 mg/dL (< 31) H 08/18/17 02:17 HDL Cholesterol 25 mg/dL (40-59) L 08/18/17 02:17 Cholesterol/HDL Ratio 6.6 (0-4.9) H 08/18/17 02:17 - Diagnostic Findings Chest x-ray: report reviewed, image reviewed - Clinical Findings Intake & Output: Intake & Output 08/18/17 08/18/17 08/18/17 07:59 15:59 23:59 Intake Total 540 / 540 Balance 540 / 540 Weight 137.348 kg Consult Discharge Plan - Plan Referrals: Stacia Morrell, [employer] [Primary Care Provider] - <Jodie Sánchez - Last Filed: 08/18/17 18:44> Date of Encounter: 08/18/17 All Systems: A 10-system review of systems was performed and is negative for pertinent findings except as documented above in the HPI. Physical Examination Vital Signs: Vital Signs, Last 4 Hours Temp Pulse Resp BP Pulse Ox 08/18/17 15:38 99.1 F 73 20 88/59 86 Results - Laboratory Findings CBC and BMP: 08/18/17 02:17 08/18/17 02:17 ABG ABG pH 7.24 pH Units (7.32-7.45) L 08/18/17 17:34 ABG pCO2 83 mmHg (35-45) H* 08/18/17 17:34 ABG pO2 76 mmHg (85-104) L 08/18/17 17:34 ABG O2 Saturation 91 % (95-98) L 08/18/17 17:34 PT/INR, D-dimer PT 12.5 Seconds (9.4-12.1) H 08/18/17 02:17 D-Dimer 2408 ng/mLFEU (0-500) H 08/18/17 16:56 Abnormal lab findings: Abnormal lab results RBC 3.71 M/mcL (3.82-4.97) L 08/18/17 02:17 Hgb 11.3 g/dL (11.5-15.4) L D 08/18/17 02:17 MCV 100.8 fL (83.0-100.0) H 08/18/17 02:17 MCHC 30.2 g/dL (31.6-35.5) L 08/18/17 02:17 RDW 17.2 % (11.5-14.5) H 08/18/17 02:17 Plt Count 126 K/mcL (140-400) L 08/18/17 02:17 Lymphocytes # 0.5 K/mcL (0.6-4.6) L 08/18/17 02:17 Nucleated RBCs/100 WBC 0.3 /100 WBC (0) H 08/18/17 02:17 PT 12.5 Seconds (9.4-12.1) H 08/18/17 02:17 D-Dimer 2408 ng/mLFEU (0-500) H 08/18/17 16:56 ABG pH 7.24 pH Units (7.32-7.45) L 08/18/17 17:34 ABG pCO2 83 mmHg (35-45) H* 08/18/17 17:34 ABG pO2 76 mmHg (85-104) L 08/18/17 17:34 ABG HCO3 36 mEq/L (21-27) H 08/18/17 17:34 ABG Total CO2 38 mEq/L (20-26) H 08/18/17 17:34 ABG O2 Saturation 91 % (95-98) L 08/18/17 17:34 ABG Base Excess 6 mEq/L (-2 to 3) H 08/18/17 17:34 Potassium 4.9 mEq/L (3.5-4.5) H 08/18/17 02:17 Carbon Dioxide 32 mEq/L (19-29) H 08/18/17 02:17 BUN 46 mg/dL (7-20) H 08/18/17 02:17 Creatinine 1.59 mg/dL (0.57-1.11) H 08/18/17 02:17 Est GFR ( Amer) 39 (> 60) L 08/18/17 02:17 Est GFR (Non-Af Amer) 33 (> 60) L 08/18/17 02:17 BUN/Creatinine Ratio 29 (6-26) H 08/18/17 02:17 Glucose 160 mg/dL (70-99) H 08/18/17 02:17 POC Glucose 164 (58-89) H 08/18/17 11:44 Calculated Osmolality 311 (280-300) H 08/18/17 02:17 Alkaline Phosphatase 133 Units/L (38-126) H 08/18/17 02:17 B-Natriuretic Peptide 211 pg/mL (0-100) H 08/18/17 02:17 Albumin 3.2 g/dL (3.5-5.0) L 08/18/17 02:17 Globulin 4.7 g/dL (2.4-3.5) H 08/18/17 02:17 Albumin/Globulin Ratio 0.7 (1.1-2.2) L 08/18/17 02:17 Triglycerides 156 mg/dL (< 150) H 08/18/17 02:17 LDL Cholesterol, Calc 110 mg/dL (0-99) H 08/18/17 02:17 VLDL Cholesterol, Calc 31 mg/dL (< 31) H 08/18/17 02:17 HDL Cholesterol 25 mg/dL (40-59) L 08/18/17 02:17 Cholesterol/HDL Ratio 6.6 (0-4.9) H 08/18/17 02:17 - Clinical Findings Intake & Output: Intake & Output 08/18/17 08/18/17 08/18/17 07:59 15:59 23:59 Intake Total 540 / 540 Balance 540 / 540 Weight 137.348 kg - Attending Attestation I saw the patient with the resident agree with History and Physical exam findings. With some additional recommendations of assesment and plan Labs and Radiology were reviewed Patient came with increased weakness supported by fall now with worsening acute on chronic hypercarbic and hypoxic respiratory failure Patient is on BIPAP increased EPAP and IPAP now with increased pressure support patient tidal volume is improved . 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 Cardiac : Will get Stat ECHO to look for RV strain in the light of borderline blood pressure will give fluid challenge , troponins were normal m BNP is elevated Nutrition/GI: To keep her on NPO Renal : Chronic kidney injury will monitor . Heme onc : No acute or chronic issues Endo: Diabetes to continue current management No acute issues Disposition : Transfer to ICU Code status: Full code Family/POA: Daughter all questions were answered and updated .
[2017-08-18] MEDS ORDERED: *HR* Heparin 5,000 UNIT/ML VIAL IVP PRN ×4 (17:05→18:11)
[2017-08-18 17:39] LABS: ABG Base Excess 6 mEq/L (-2 to 3); ABG HCO3 36 mEq/L (21-27); ABG Oxygen Saturation 91 % (95-98); ABG PCO2 83 mmHg (35-45); ABG PH 7.24 pH Units (7.32-7.45); ABG PO2 76 mmHg (85-104); ABG TCO2 38 mEq/L (20-26)
[2017-08-18] MEDS: Insulin NPH/REG 70/30 100 UNIT/ML (x5UNIT) SQ SCH (17:53)
[2017-08-18] MEDS: Ipratropium/Albuterol Neb 3 ML IH SCH (21:00)
[2017-08-18] MEDS ORDERED: Perflutren Lipid Microsphere 1.3 ML in 0.9 % Sodium Chloride 8.7 ML IVP ONE (21:25)
[2017-08-18] MEDS ORDERED: Vancomycin 1,500 MG in D5% in Water 250 ML IVPB SCH (22:00)
[2017-08-18] MEDS ORDERED: Vancomycin 2,000 MG in D5% in Water 500 ML IVPB ONE (23:00)
[2017-08-18] MEDS: Piperacillin/Tazobactam 3.375 GM/200 ML BAG IVPB SCH (23:07)
[2017-08-19] MEDS: MethylPREDNISolone 40 MG/ML VIAL IVP SCH ×4 (00:28→23:51)
[2017-08-19] MEDS: Ipratropium/Albuterol Neb 3 ML IH SCH ×6 (00:49→19:44)
[2017-08-19 01:41] LABS: ABG Base Excess 5 mEq/L (-2 to 3); ABG HCO3 37 mEq/L (21-27); ABG Oxygen Saturation 93 % (95-98); ABG PCO2 106 mmHg (35-45); ABG PH 7.15 pH Units (7.32-7.45); ABG PO2 93 mmHg (85-104); ABG TCO2 40 mEq/L (20-26)
[2017-08-19 01:50] LABS: ABG Base Excess 4 mEq/L (-2 to 3); ABG HCO3 35 mEq/L (21-27); ABG Oxygen Saturation 94 % (95-98); ABG PCO2 98 mmHg (35-45); ABG PH 7.16 pH Units (7.32-7.45); ABG PO2 93 mmHg (85-104); ABG TCO2 38 mEq/L (20-26)
[2017-08-19 03:51] LABS: ABG Base Excess 5 mEq/L (-2 to 3); ABG HCO3 36 mEq/L (21-27); ABG Oxygen Saturation 81 % (95-98); ABG PCO2 93 mmHg (35-45); ABG PH 7.19 pH Units (7.32-7.45); ABG PO2 59 mmHg (85-104); ABG TCO2 39 mEq/L (20-26)
[2017-08-19 04:30] LABS: Basophils % 0.3 %; Eosinophils % 0.3 %; Hematocrit 36.3 % (35.3-44.9); Hemoglobin 10.6 g/dL (11.5-15.4); Immature Granulocytes % 0.6 % (0-4); Lymphocytes # 0.6 K/mcL (0.6-4.6); Lymphocytes % 9.7 %; Mean Corpuscular HGB Conc 29.2 g/dL (31.6-35.5); Mean Corpuscular Hemoglobin 30.5 pg (28.0-33.3); Mean Corpuscular Volume 104.6 fL (83.0-100.0); Mean Platelet Volume 10.3 fL (9.4-12.4); Monocytes # 0.3 K/mcL (0.0-1.3); Monocytes % 3.9 %; Neutrophils # 5.5 K/mcL (1.6-8.9); Platelet Count 112 K/mcL (140-400); Red Blood Count 3.47 M/mcL (3.82-4.97); Red Cell Distribution Width 17.8 % (11.5-14.5); Segmented Neutrophils % 85.2 %
[2017-08-19 04:47] LABS: Calcium 8.2 mg/dL (8.6-10.8); Magnesium 2.4 mg/dL (1.6-2.6); Potassium 5.9 mEq/L (3.5-4.5)
[2017-08-19] MEDS: Piperacillin/Tazobactam 3.375 GM/200 ML BAG IVPB SCH ×3 (05:50→21:48)
[2017-08-19] MEDS ORDERED: 0.9 % Sodium Chloride 500 ML IVC ONE ×2 (08:53→14:00)
--- NOTE | 2017-08-19 08:55 | Pulmonology Progress Note ---
<Johny Tirado - Last Filed: 08/19/17 11:17> Date of Encounter: 08/19/17 Time of Encounter: 08:54 Assessment and Plan (1) Acute and chronic respiratory failure ([id number]) Current Visit: Yes Status: Acute Acute on Chronic hypoxemic, hypercapenic respiratory failure. Current home Bipap use. Patient is currently on BiPAP, slightly drowsy, but A&Ox3 Repeat ABG revealed improving hypercapnea, respiratory acidosis with metabolic compensation. Bipap settings adjusted and patient repositioned, sitting up in bed Hypoxia can be due to V/Q mismatch due to bibasilar atelectasis due to immobility and morbid obesity vs PNA Continue Bipap and bronchodilators Qualifiers: Respiratory failure complication: hypoxia and hypercapnia Qualified Code(s) : J96.21 - Acute and chronic respiratory failure with hypoxia; J96.22 - Acute and chronic respiratory failure with hypercapnia; J96.22 - Acute and chronic respiratory failure with hypercapnia; J96.22 - Acute and chronic respiratory failure with hypercapnia (2) Multifocal pneumonia Current Visit: Yes Status: Suspected CT scan results more pointing towards to mutifocal pneumonia and pulmonary edema will hold off heparin drip Continue broad spectrum antibiotics: Vanc and Zosyn day 2 Blood cultures pending (3) Congestive heart failure Current Visit: No Status: Chronic Falsely decreased BNP secondary to obesity Echo reveals LVEF 55%, atypical septal motion, no obvious valve dysfunction Hold Lasix and antihypertensive medications due to hypotension Qualifiers: Congestive heart failure type: diastolic Congestive heart failure chronicity: acute on chronic Qualified Code(s): I50.33 - Acute on chronic diastolic (congestive) heart failure (4) COPD (chronic obstructive pulmonary disease) Current Visit: No Status: Acute Continue Bipap and bronchodilators Qualifiers: COPD type: chronic bronchitis Chronic bronchitis type: simple Qualified Code(s): J41.0 - Simple chronic bronchitis (5) Acute kidney injury Current Visit: Yes Status: Acute Cr increased 1.59 to 2.11 Continue gentle hydration given CHF Monitor renal function, avoid nephrotoxins (6) Pulmonary hypertension Current Visit: No Status: Chronic Echo reveals LVEF 55%, atypical septal motion, no obvious valve dysfunction (7) Sleep apnea Current Visit: No Status: Chronic Continue Bipap Qualifiers: Sleep apnea type: obstructive Qualified Code(s): G47.33 - Obstructive sleep apnea (adult) (pediatric) (8) Morbid obesity Current Visit: No Status: Chronic BMI 56.0 Recommend diet and lifestyle modification (9) Hyperkalemia Current Visit: Yes Status: Acute Hold home potassium (10) DVT prophylaxis Current Visit: Yes Status: Acute Heparin ggt discontinued, continue 5,000U subQ TID DVT study negative Subjective Principal diagnosis: Acute resp failure Interval history: Patient seen and examined laying in bed wearing BiPap. Patient denies any new c/ o and was placed back on BiPap after eating breakfast. Her blood pressure remains stable at this time. Objective PUL Vital signs: Last Vital Signs Temp 97.8 F 08/19/17 07:38 Pulse 69 08/19/17 07:00 Resp 18 08/19/17 08:02 BP 83/45 08/19/17 08:02 Pulse Ox 92 08/19/17 08:02 General appearance: no acute distress (morbidly obese) Eyes: nonicteric ENT: oropharynx dry Neck: supple, no JVD Effort: normal (wearing BiPap) Auscultation: bilateral: diminished breath sounds (R>L, slightly improved) Percussion: bilateral: not dull Cardiovascular: regular rate and rhythm Gastrointestinal: normoactive bowel sounds, soft, non-tender Integumentary: normal Extremities: no cyanosis, edema (1+) Musculoskeletal: no deformities Gait: normal posture normal mental status, non-focal exam mood appropriate, affect normal Ventilator Settings Ventilator Settings: Ventilator Settings, Last 8 Hours Ventilator Tidal Volume 500 Setting Ventilator Respiratory Rate 8 Setting Results - Laboratory Findings CBC and BMP: 08/19/17 04:07 08/19/17 04:07 ABG ABG pH 7.19 pH Units (7.32-7.45) L* 08/19/17 03:44 ABG pCO2 93 mmHg (35-45) H* 08/19/17 03:44 ABG pO2 59 mmHg (85-104) L 08/19/17 03:44 ABG O2 Saturation 81 % (95-98) L 08/19/17 03:44 PT/INR, D-dimer PT 12.5 Seconds (9.4-12.1) H 08/18/17 02:17 D-Dimer 2408 ng/mLFEU (0-500) H 08/18/17 16:56 Abnormal lab findings: Abnormal lab results RBC 3.47 M/mcL (3.82-4.97) L 08/19/17 04:07 Hgb 10.6 g/dL (11.5-15.4) L 08/19/17 04:07 MCV 104.6 fL (83.0-100.0) H 08/19/17 04:07 MCHC 29.2 g/dL (31.6-35.5) L 08/19/17 04:07 RDW 17.8 % (11.5-14.5) H 08/19/17 04:07 Plt Count 112 K/mcL (140-400) L 08/19/17 04:07 Nucleated RBCs/100 WBC 0.3 /100 WBC (0) H 08/18/17 02:17 PT 12.5 Seconds (9.4-12.1) H 08/18/17 02:17 D-Dimer 2408 ng/mLFEU (0-500) H 08/18/17 16:56 ABG pH 7.19 pH Units (7.32-7.45) L* 08/19/17 03:44 ABG pCO2 93 mmHg (35-45) H* 08/19/17 03:44 ABG pO2 59 mmHg (85-104) L 08/19/17 03:44 ABG HCO3 36 mEq/L (21-27) H 08/19/17 03:44 ABG Total CO2 39 mEq/L (20-26) H 08/19/17 03:44 ABG O2 Saturation 81 % (95-98) L 08/19/17 03:44 ABG Base Excess 5 mEq/L (-2 to 3) H 08/19/17 03:44 Potassium 5.9 mEq/L (3.5-4.5) H D 08/19/17 04:07 Carbon Dioxide 30 mEq/L (19-29) H 08/19/17 04:07 BUN 53 mg/dL (7-20) H 08/19/17 04:07 Creatinine 2.11 mg/dL (0.57-1.11) H 08/19/17 04:07 Est GFR ( Amer) 28 (> 60) L 08/19/17 04:07 Est GFR (Non-Af Amer) 24 (> 60) L 08/19/17 04:07 Glucose 196 mg/dL (70-99) H 08/19/17 04:07 POC Glucose 131 (58-89) H 08/18/17 20:12 Calculated Osmolality 308 (280-300) H 08/19/17 04:07 Calcium 8.2 mg/dL (8.6-10.8) L 08/19/17 04:07 Alkaline Phosphatase 133 Units/L (38-126) H 08/18/17 02:17 B-Natriuretic Peptide 211 pg/mL (0-100) H 08/18/17 02:17 Albumin 3.2 g/dL (3.5-5.0) L 08/18/17 02:17 Globulin 4.7 g/dL (2.4-3.5) H 08/18/17 02:17 Albumin/Globulin Ratio 0.7 (1.1-2.2) L 08/18/17 02:17 Triglycerides 156 mg/dL (< 150) H 08/18/17 02:17 LDL Cholesterol, Calc 110 mg/dL (0-99) H 08/18/17 02:17 VLDL Cholesterol, Calc 31 mg/dL (< 31) H 08/18/17 02:17 HDL Cholesterol 25 mg/dL (40-59) L 08/18/17 02:17 Cholesterol/HDL Ratio 6.6 (0-4.9) H 08/18/17 02:17 - Diagnostic Findings CT scan - chest: report reviewed, image reviewed U/S of Legs: report reviewed - Clinical Findings Intake & Output: Intake & Output 08/18/17 08/19/17 08/19/17 23:59 07:59 15:59 Intake Total 200 / 200 Output Total 0 / 0 Balance 0 / 0 200 / 200 Weight 138.074 kg Consult Discharge Plan - Plan Referrals: Stacia Morrell, [facility] [Primary Care Provider] - <Jodie Sánchez - Last Filed: 08/19/17 20:43> Date of Encounter: 08/19/17 Objective PUL Vital signs: Last Vital Signs Temp 97.6 F 08/19/17 16:31 Pulse 76 08/19/17 20:00 Resp 18 08/19/17 20:00 BP 88/50 08/19/17 20:00 Pulse Ox 91 08/19/17 20:00 Results - Laboratory Findings CBC and BMP: 08/19/17 04:07 08/19/17 04:07 ABG ABG pH 7.24 pH Units (7.32-7.45) L 08/19/17 09:31 ABG pCO2 78 mmHg (35-45) H* 08/19/17 09:31 ABG pO2 74 mmHg (85-104) L 08/19/17 09:31 ABG O2 Saturation 91 % (95-98) L 08/19/17 09:31 PT/INR, D-dimer PT 12.5 Seconds (9.4-12.1) H 08/18/17 02:17 D-Dimer 2408 ng/mLFEU (0-500) H 08/18/17 16:56 Abnormal lab findings: Abnormal lab results RBC 3.47 M/mcL (3.82-4.97) L 08/19/17 04:07 Hgb 10.6 g/dL (11.5-15.4) L 08/19/17 04:07 MCV 104.6 fL (83.0-100.0) H 08/19/17 04:07 MCHC 29.2 g/dL (31.6-35.5) L 08/19/17 04:07 RDW 17.8 % (11.5-14.5) H 08/19/17 04:07 Plt Count 112 K/mcL (140-400) L 08/19/17 04:07 Nucleated RBCs/100 WBC 0.3 /100 WBC (0) H 08/18/17 02:17 PT 12.5 Seconds (9.4-12.1) H 08/18/17 02:17 D-Dimer 2408 ng/mLFEU (0-500) H 08/18/17 16:56 ABG pH 7.24 pH Units (7.32-7.45) L 08/19/17 09:31 ABG pCO2 78 mmHg (35-45) H* 08/19/17 09:31 ABG pO2 74 mmHg (85-104) L 08/19/17 09:31 ABG HCO3 33 mEq/L (21-27) H 08/19/17 09:31 ABG Total CO2 36 mEq/L (20-26) H 08/19/17 09:31 ABG O2 Saturation 91 % (95-98) L 08/19/17 09:31 ABG Base Excess 4 mEq/L (-2 to 3) H 08/19/17 09:31 Potassium 5.9 mEq/L (3.5-4.5) H D 08/19/17 04:07 Carbon Dioxide 30 mEq/L (19-29) H 08/19/17 04:07 BUN 53 mg/dL (7-20) H 08/19/17 04:07 Creatinine 2.11 mg/dL (0.57-1.11) H 08/19/17 04:07 Est GFR ( Amer) 28 (> 60) L 08/19/17 04:07 Est GFR (Non-Af Amer) 24 (> 60) L 08/19/17 04:07 Glucose 196 mg/dL (70-99) H 08/19/17 04:07 POC Glucose 131 (58-89) H 08/18/17 20:12 Calculated Osmolality 308 (280-300) H 08/19/17 04:07 Calcium 8.2 mg/dL (8.6-10.8) L 08/19/17 04:07 Alkaline Phosphatase 133 Units/L (38-126) H 08/18/17 02:17 B-Natriuretic Peptide 211 pg/mL (0-100) H 08/18/17 02:17 Albumin 3.2 g/dL (3.5-5.0) L 08/18/17 02:17 Globulin 4.7 g/dL (2.4-3.5) H 08/18/17 02:17 Albumin/Globulin Ratio 0.7 (1.1-2.2) L 08/18/17 02:17 Triglycerides 156 mg/dL (< 150) H 08/18/17 02:17 LDL Cholesterol, Calc 110 mg/dL (0-99) H 08/18/17 02:17 VLDL Cholesterol, Calc 31 mg/dL (< 31) H 08/18/17 02:17 HDL Cholesterol 25 mg/dL (40-59) L 08/18/17 02:17 Cholesterol/HDL Ratio 6.6 (0-4.9) H 08/18/17 02:17 - Clinical Findings Intake & Output: Intake & Output 08/19/17 08/19/17 08/19/17 07:59 15:59 23:59 Intake Total 0 / 0 Balance 0 / 0 - Attending Attestation I saw the patient with the resident agree with History and Physical exam findings. 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 NECK : No JVD appreciated Pulmonary : Patient is hypoxic and hypercarbic on BIPAP /AVAPS causes OF worsening hypoxia can be due to V/Q mismatch due to multifocal pneumonia and fluid overload and splinting of diaphragm due to morbid obesity patient is conscious oriented sitting up will continue the current AVAPS patient gas exchange slowly improving will repeat ABG later this evening will start gentle diuresis if hemodynamics tolerates Cardiac : Fluid overload due to diastolic heart failure and mild systolic heart failure , LV dilated other structures are poorly visualized due to morbid obesity will start gentle diuresis if hemodynamically stable Nutrition/GI: To keep her on NPO Renal : Kidney injury will continue to monitor will start diuresis if hemodynamically stable gentle hydration Heme onc : No acute issues Endo: Diabetes to continue current management ID : Pneumonia to cover with broad spectrum antibiotics No acute issues Disposition : high chance of respiratory decline Code status: Full code Family/POA: Daughter all questions were answered and updated . Spent 35 minutes of Critical Care time in medical decision making to supporting vital organ function and prevention of further decline.
[2017-08-19] MEDS: Insulin LISPRO 300 UNITS/3 ML VIAL SQ SCH ×3 (08:57→16:39)
[2017-08-19] MEDS: Gabapentin 300 MG CAPSULE PO SCH (08:57)
[2017-08-19 09:39] LABS: ABG Base Excess 4 mEq/L (-2 to 3); ABG HCO3 33 mEq/L (21-27); ABG Oxygen Saturation 91 % (95-98); ABG PCO2 78 mmHg (35-45); ABG PH 7.24 pH Units (7.32-7.45); ABG PO2 74 mmHg (85-104); ABG TCO2 36 mEq/L (20-26)
[2017-08-19] MEDS: Insulin DETEMIR 100 UNIT/ML X5UNITS SQ SCH (13:23)
[2017-08-19] MEDS: *HR* Heparin 5,000 UNIT/ML VIAL SQ SCH ×2 (14:20→21:47)
[2017-08-19] MEDS: Vancomycin 1,250 MG in D5% in Water 250 ML IVPB SCH (21:48)
[2017-08-19 21:59] LABS: Calcium 8.6 mg/dL (8.6-10.8); Potassium 5.6 mEq/L (3.5-4.5)
[2017-08-19 23:03] LABS: ABG Base Excess 2 mEq/L (-2 to 3); ABG HCO3 32 mEq/L (21-27); ABG Oxygen Saturation 92 % (95-98); ABG PCO2 82 mmHg (35-45); ABG PH 7.21 pH Units (7.32-7.45); ABG PO2 81 mmHg (85-104); ABG TCO2 35 mEq/L (20-26); Blood Gas PEEP 10 cm H2O; Blood Gas VT 500 cc
[2017-08-20] MEDS: Ipratropium/Albuterol Neb 3 ML IH SCH ×6 (00:03→19:46)
[2017-08-20 03:23] LABS: Basophils % 0.2 %; Eosinophils % 0.2 %; Hematocrit 36.3 % (35.3-44.9); Hemoglobin 10.8 g/dL (11.5-15.4); Immature Granulocytes % 1.6 % (0-4); Immature Platelets 3.6 % (1.1-6.1); Lymphocytes # 0.4 K/mcL (0.6-4.6); Lymphocytes % 6.6 %; Mean Corpuscular HGB Conc 29.8 g/dL (31.6-35.5); Mean Corpuscular Hemoglobin 30.4 pg (28.0-33.3); Mean Corpuscular Volume 102.3 fL (83.0-100.0); Mean Platelet Volume 9.8 fL (9.4-12.4); Monocytes # 0.2 K/mcL (0.0-1.3); Monocytes % 3.6 %; Neutrophils # 5.3 K/mcL (1.6-8.9); Platelet Count 128 K/mcL (140-400); Red Blood Count 3.55 M/mcL (3.82-4.97); Red Cell Distribution Width 16.8 % (11.5-14.5); Segmented Neutrophils % 87.8 %
[2017-08-20 03:36] LABS: Calcium 8.1 mg/dL (8.6-10.8); Magnesium 2.5 mg/dL (1.6-2.6); Potassium 5.3 mEq/L (3.5-4.5)
[2017-08-20 03:44] LABS: ABG Base Excess 4 mEq/L (-2 to 3); ABG HCO3 33 mEq/L (21-27); ABG Oxygen Saturation 93 % (95-98); ABG PCO2 78 mmHg (35-45); ABG PH 7.24 pH Units (7.32-7.45); ABG PO2 80 mmHg (85-104); ABG TCO2 36 mEq/L (20-26); Blood Gas VT 600 cc
[2017-08-20] MEDS: *HR* Heparin 5,000 UNIT/ML VIAL SQ SCH ×3 (05:33→20:28)
[2017-08-20] MEDS: Piperacillin/Tazobactam 3.375 GM/200 ML BAG IVPB SCH ×3 (05:33→21:29)
--- NOTE | 2017-08-20 07:28 | Pulmonology Progress Note ---
<Johny Tirado - Last Filed: 08/20/17 11:53> Date of Encounter: 08/20/17 Time of Encounter: 07:27 Assessment and Plan (1) Acute and chronic respiratory failure ([id number]) Current Visit: Yes Status: Acute Acute on Chronic hypoxemic, hypercapenic respiratory failure. Current home Bipap use. Patient is currently on BiPAP, A&Ox3 Repeat ABG revealed improving hypercapnea, respiratory acidosis with metabolic compensation. Bipap settings adjusted and patient repositioned, sitting up in bed Hypoxia can be due to V/Q mismatch due to bibasilar atelectasis due to immobility and morbid obesity vs PNA Continue Bipap and bronchodilators Qualifiers: Respiratory failure complication: hypoxia and hypercapnia Qualified Code(s) : J96.21 - Acute and chronic respiratory failure with hypoxia; J96.22 - Acute and chronic respiratory failure with hypercapnia; J96.22 - Acute and chronic respiratory failure with hypercapnia; J96.22 - Acute and chronic respiratory failure with hypercapnia (2) Multifocal pneumonia Current Visit: Yes Status: Suspected CT scan results reveal mutifocal pneumonia and pulmonary edema will hold off heparin drip Continue broad spectrum antibiotics: Vanc and Zosyn day 3 Blood cultures pending (3) Congestive heart failure Current Visit: Yes Status: Chronic Fluid overload due to diastolic heart failure and mild systolic heart failure. Falsely decreased BNP secondary to obesity Echo reveals LVEF 55%, atypical septal motion, no obvious valve dysfunction, LV dilated other structures are poorly visualized due to morbid obesity Hold Lasix and antihypertensive medications due to hypotension. Will start gentle diuresis if hemodynamically stable Qualifiers: Congestive heart failure type: diastolic Congestive heart failure chronicity: chronic Qualified Code(s): I50.32 - Chronic diastolic (congestive ) heart failure (4) COPD (chronic obstructive pulmonary disease) Current Visit: Yes Status: Chronic Continue Bipap and bronchodilators Qualifiers: COPD type: chronic bronchitis Chronic bronchitis type: simple Qualified Code(s): J41.0 - Simple chronic bronchitis (5) Acute kidney injury Current Visit: Yes Status: Acute Cr improved Cautious gentle hydration given CHF Monitor renal function, avoid nephrotoxins (6) Type 2 diabetes mellitus Current Visit: Yes Status: Chronic HGB a1c 7.6 on 12/07/16 Continue basal insulin AC and HS Continue Diabetic diet and accuchecks Qualifiers: Diabetes mellitus complication status: with kidney complications Diabetes mellitus complication detail: with chronic kidney disease Diabetes mellitus care home insulin use: without care home use Chronic kidney disease stage: stage 3 (moderate) Qualified Code(s): E11.22 - Type 2 diabetes mellitus with diabetic chronic kidney disease; N18.3 - Chronic kidney disease, stage 3 ( moderate); N18.3 - Chronic kidney disease, stage 3 (moderate) (7) Pulmonary hypertension Current Visit: Yes Status: Chronic Echo reveals LVEF 55%, atypical septal motion, no obvious valve dysfunction, LV dilated other structures are poorly visualized due to morbid obesity (8) Sleep apnea Current Visit: Yes Status: Chronic Continue Bipap Qualifiers: Sleep apnea type: obstructive Qualified Code(s): G47.33 - Obstructive sleep apnea (adult) (pediatric) (9) Hyperkalemia Current Visit: Yes Status: Acute Hold home potassium (10) Morbid obesity Current Visit: Yes Status: Chronic BMI 58.8 Recommend diet and lifestyle modification (11) DVT prophylaxis Current Visit: Yes Status: Acute Heparin ggt discontinued, continue 5,000U subQ TID DVT study negative Subjective Principal diagnosis: Acute resp failure Interval history: Patient seen and examined laying in bed wearing BiPap. Patient denies any new c/ o and was placed back on BiPap after eating breakfast. Her blood pressure remains stable at this time. Objective PUL Vital signs: Last Vital Signs Temp 97.7 F 08/20/17 04:00 Pulse 69 08/20/17 06:00 Resp 16 08/20/17 06:00 BP 105/66 08/20/17 06:00 Pulse Ox 91 08/20/17 06:00 General appearance: no acute distress (morbidly obese) Eyes: nonicteric ENT: oropharynx dry Mallampati (class): 2 Neck: supple, no JVD Effort: normal (wearing bipap) Auscultation: bilateral: diminished breath sounds (improving) Percussion: bilateral: not dull Cardiovascular: regular rate and rhythm Gastrointestinal: normoactive bowel sounds, soft, non-tender Integumentary: normal Extremities: no cyanosis, no edema Musculoskeletal: no deformities (RLE splint in place) Gait: normal posture normal mental status, non-focal exam mood appropriate, affect normal Results - Laboratory Findings CBC and BMP: 08/20/17 03:06 08/20/17 03:06 ABG ABG pH 7.24 pH Units (7.32-7.45) L 08/20/17 03:39 ABG pCO2 78 mmHg (35-45) H* 08/20/17 03:39 ABG pO2 80 mmHg (85-104) L 08/20/17 03:39 ABG O2 Saturation 93 % (95-98) L 08/20/17 03:39 PT/INR, D-dimer PT 12.5 Seconds (9.4-12.1) H 08/18/17 02:17 D-Dimer 2408 ng/mLFEU (0-500) H 08/18/17 16:56 Abnormal lab findings: Abnormal lab results RBC 3.55 M/mcL (3.82-4.97) L 08/20/17 03:06 Hgb 10.8 g/dL (11.5-15.4) L 08/20/17 03:06 MCV 102.3 fL (83.0-100.0) H 08/20/17 03:06 MCHC 29.8 g/dL (31.6-35.5) L 08/20/17 03:06 RDW 16.8 % (11.5-14.5) H 08/20/17 03:06 Plt Count 128 K/mcL (140-400) L 08/20/17 03:06 Lymphocytes # 0.4 K/mcL (0.6-4.6) L 08/20/17 03:06 Nucleated RBCs/100 WBC 0.3 /100 WBC (0) H 08/18/17 02:17 PT 12.5 Seconds (9.4-12.1) H 08/18/17 02:17 D-Dimer 2408 ng/mLFEU (0-500) H 08/18/17 16:56 ABG pH 7.24 pH Units (7.32-7.45) L 08/20/17 03:39 ABG pCO2 78 mmHg (35-45) H* 08/20/17 03:39 ABG pO2 80 mmHg (85-104) L 08/20/17 03:39 ABG HCO3 33 mEq/L (21-27) H 08/20/17 03:39 ABG Total CO2 36 mEq/L (20-26) H 08/20/17 03:39 ABG O2 Saturation 93 % (95-98) L 08/20/17 03:39 ABG Base Excess 4 mEq/L (-2 to 3) H 08/20/17 03:39 Potassium 5.3 mEq/L (3.5-4.5) H 08/20/17 03:06 BUN 65 mg/dL (7-20) H 08/20/17 03:06 Creatinine 2.16 mg/dL (0.57-1.11) H 08/20/17 03:06 Est GFR ( Amer) 28 (> 60) L 08/20/17 03:06 Est GFR (Non-Af Amer) 23 (> 60) L 08/20/17 03:06 BUN/Creatinine Ratio 30 (6-26) H 08/20/17 03:06 Glucose 255 mg/dL (70-99) H 08/20/17 03:06 POC Glucose 317 (58-89) H 08/19/17 19:09 Calculated Osmolality 321 (280-300) H 08/20/17 03:06 Calcium 8.1 mg/dL (8.6-10.8) L 08/20/17 03:06 Alkaline Phosphatase 133 Units/L (38-126) H 08/18/17 02:17 B-Natriuretic Peptide 211 pg/mL (0-100) H 08/18/17 02:17 Albumin 3.2 g/dL (3.5-5.0) L 08/18/17 02:17 Globulin 4.7 g/dL (2.4-3.5) H 08/18/17 02:17 Albumin/Globulin Ratio 0.7 (1.1-2.2) L 08/18/17 02:17 Triglycerides 156 mg/dL (< 150) H 08/18/17 02:17 LDL Cholesterol, Calc 110 mg/dL (0-99) H 08/18/17 02:17 VLDL Cholesterol, Calc 31 mg/dL (< 31) H 08/18/17 02:17 HDL Cholesterol 25 mg/dL (40-59) L 08/18/17 02:17 Cholesterol/HDL Ratio 6.6 (0-4.9) H 08/18/17 02:17 - Clinical Findings Intake & Output: Intake & Output 08/19/17 08/19/17 08/20/17 15:59 23:59 07:59 Intake Total 450 / 450 200 / 200 Output Total 0 / 0 550 / 550 Balance 450 / 450 -350 / -350 Weight 145 kg Consult Discharge Plan - Plan Referrals: Stacia Morrell, BISCUIT MAKER [Primary Care Provider] - <Jodie Sánchez - Last Filed: 08/21/17 00:16> Date of Encounter: 08/21/17 Objective PUL Vital signs: Last Vital Signs Temp 97.9 F 08/20/17 20:32 Pulse 67 08/20/17 23:16 Resp 20 08/21/17 00:06 BP 107/59 08/21/17 00:06 Pulse Ox 96 08/21/17 00:06 Results - Laboratory Findings CBC and BMP: 08/20/17 03:06 08/20/17 03:06 ABG ABG pH 7.24 pH Units (7.32-7.45) L 08/20/17 03:39 ABG pCO2 78 mmHg (35-45) H* 08/20/17 03:39 ABG pO2 80 mmHg (85-104) L 08/20/17 03:39 ABG O2 Saturation 93 % (95-98) L 08/20/17 03:39 PT/INR, D-dimer PT 12.5 Seconds (9.4-12.1) H 08/18/17 02:17 D-Dimer 2408 ng/mLFEU (0-500) H 08/18/17 16:56 Abnormal lab findings: Abnormal lab results RBC 3.55 M/mcL (3.82-4.97) L 08/20/17 03:06 Hgb 10.8 g/dL (11.5-15.4) L 08/20/17 03:06 MCV 102.3 fL (83.0-100.0) H 08/20/17 03:06 MCHC 29.8 g/dL (31.6-35.5) L 08/20/17 03:06 RDW 16.8 % (11.5-14.5) H 08/20/17 03:06 Plt Count 128 K/mcL (140-400) L 08/20/17 03:06 Lymphocytes # 0.4 K/mcL (0.6-4.6) L 08/20/17 03:06 Nucleated RBCs/100 WBC 0.3 /100 WBC (0) H 08/18/17 02:17 PT 12.5 Seconds (9.4-12.1) H 08/18/17 02:17 D-Dimer 2408 ng/mLFEU (0-500) H 08/18/17 16:56 ABG pH 7.24 pH Units (7.32-7.45) L 08/20/17 03:39 ABG pCO2 78 mmHg (35-45) H* 08/20/17 03:39 ABG pO2 80 mmHg (85-104) L 08/20/17 03:39 ABG HCO3 33 mEq/L (21-27) H 08/20/17 03:39 ABG Total CO2 36 mEq/L (20-26) H 08/20/17 03:39 ABG O2 Saturation 93 % (95-98) L 08/20/17 03:39 ABG Base Excess 4 mEq/L (-2 to 3) H 08/20/17 03:39 Potassium 5.3 mEq/L (3.5-4.5) H 08/20/17 03:06 BUN 65 mg/dL (7-20) H 08/20/17 03:06 Creatinine 2.16 mg/dL (0.57-1.11) H 08/20/17 03:06 Est GFR ( Amer) 28 (> 60) L 08/20/17 03:06 Est GFR (Non-Af Amer) 23 (> 60) L 08/20/17 03:06 BUN/Creatinine Ratio 30 (6-26) H 08/20/17 03:06 Glucose 255 mg/dL (70-99) H 08/20/17 03:06 POC Glucose 317 (58-89) H 08/19/17 19:09 Calculated Osmolality 321 (280-300) H 08/20/17 03:06 Calcium 8.1 mg/dL (8.6-10.8) L 08/20/17 03:06 Alkaline Phosphatase 133 Units/L (38-126) H 08/18/17 02:17 B-Natriuretic Peptide 211 pg/mL (0-100) H 08/18/17 02:17 Albumin 3.2 g/dL (3.5-5.0) L 08/18/17 02:17 Globulin 4.7 g/dL (2.4-3.5) H 08/18/17 02:17 Albumin/Globulin Ratio 0.7 (1.1-2.2) L 08/18/17 02:17 Triglycerides 156 mg/dL (< 150) H 08/18/17 02:17 LDL Cholesterol, Calc 110 mg/dL (0-99) H 08/18/17 02:17 VLDL Cholesterol, Calc 31 mg/dL (< 31) H 08/18/17 02:17 HDL Cholesterol 25 mg/dL (40-59) L 08/18/17 02:17 Cholesterol/HDL Ratio 6.6 (0-4.9) H 08/18/17 02:17 - Clinical Findings Intake & Output: Intake & Output 08/20/17 08/20/17 08/21/17 15:59 23:59 07:59 Intake Total 200 / 200 200 / 200 Output Total 550 / 550 450 / 450 Balance -350 / -350 -250 / -250 - Attending Attestation I saw the patient with the resident agree with History and Physical exam findings. With some additional recommendations of assesment and plan Labs and Radiology were reviewed Patient came with increased weakness supported by fall now with worsening acute on chronic hypercarbic and hypoxic respiratory failure Patient was on BIPAP slowly improving with AVAPS , patient has multifocal pneumonia with fluid overload TIMING ADJUSTER: Patient is conscious oriented x3 following commands NECK : No JVD appreciated Pulmonary : Patient is hypoxic and hypercarbic on BIPAP /AVAPS causes OF worsening hypoxia can be due to V/Q mismatch due to multifocal pneumonia and fluid overload and splinting of diaphragm due to morbid obesity patient is conscious oriented sitting up will continue the current AVAPS patient gas exchange slowly improving will repeat ABG in the morning unless condition declined Cardiac : Fluid overload due to diastolic heart failure and mild systolic heart failure , LV dilated other structures are poorly visualized due to morbid obesity will do gentle diuresis as BP tolerates Nutrition/GI: On Diabetic diet Renal :Labs and UOP reviewed Heme onc : No acute issues Endo: Diabetes to continue current management ID : Pneumonia to cover with broad spectrum antibiotics will descalate according to C/S No acute issues Disposition : high chance of respiratory decline Code status: Full code Family/POA: Daughter all questions were answered and updated . Spent 35 minutes of critical care time in medical decision making in vital organ function
[2017-08-20] MEDS: MethylPREDNISolone 40 MG/ML VIAL IVP SCH ×2 (08:00→15:17)
[2017-08-20] MEDS: Insulin DETEMIR 100 UNIT/ML X5UNITS SQ SCH (08:00)
[2017-08-20] MEDS: Insulin LISPRO 300 UNITS/3 ML VIAL SQ SCH ×3 (10:54→15:33)
[2017-08-20] MEDS ORDERED: Insulin LISPRO 300 UNITS/3 ML VIAL SQ SCH (21:00)
[2017-08-20] MEDS: Vancomycin 1,250 MG in D5% in Water 250 ML IVPB SCH (23:50)
[2017-08-21] MEDS: Ipratropium/Albuterol Neb 3 ML IH SCH ×7 (00:04→23:13)
[2017-08-21] MEDS: MethylPREDNISolone 40 MG/ML VIAL IVP SCH ×3 (02:23→17:02)
[2017-08-21 03:24] LABS: Hematocrit 35.6 % (35.3-44.9); Hemoglobin 10.7 g/dL (11.5-15.4); Immature Platelets 2.6 % (1.1-6.1); Mean Corpuscular HGB Conc 30.1 g/dL (31.6-35.5); Mean Corpuscular Hemoglobin 30.7 pg (28.0-33.3); Mean Platelet Volume 10.2 fL (9.4-12.4); Red Blood Count 3.49 M/mcL (3.82-4.97); Red Cell Distribution Width 16.8 % (11.5-14.5)
[2017-08-21 03:31] LABS: Potassium 4.9 mEq/L (3.5-4.5)
[2017-08-21] MEDS: Piperacillin/Tazobactam 3.375 GM/200 ML BAG IVPB SCH ×3 (05:48→22:35)
[2017-08-21] MEDS: *HR* Heparin 5,000 UNIT/ML VIAL SQ SCH ×3 (05:48→22:35)
[2017-08-21] MEDS: Insulin DETEMIR 100 UNIT/ML X5UNITS SQ SCH (08:12)
[2017-08-21] MEDS: Insulin LISPRO 300 UNITS/3 ML VIAL SQ SCH ×4 (08:12→22:34)
--- NOTE | 2017-08-21 08:25 | Pulmonology Progress Note ---
<Johny Tirado - Last Filed: 08/21/17 08:59> Date of Encounter: 08/21/17 Time of Encounter: 08:25 Assessment and Plan (1) Acute and chronic respiratory failure ([id number]) Current Visit: Yes Status: Acute Acute on Chronic hypoxemic, hypercapenic respiratory failure. Current home Bipap use. Patient is currently on BiPAP, A&Ox3 Repeat ABG revealed improving hypercapnea, respiratory acidosis with metabolic compensation. Bipap settings adjusted and patient repositioned, sitting up in bed Hypoxia can be due to V/Q mismatch due to bibasilar atelectasis due to immobility and morbid obesity vs PNA Continue Bipap and bronchodilators Patient encouraged to get out of bed to chair TID and use incentive spirometry. SpO2 remains stable at this time. Anticipate transfer to when bed available. Qualifiers: Respiratory failure complication: hypoxia and hypercapnia Qualified Code(s) : J96.21 - Acute and chronic respiratory failure with hypoxia; J96.22 - Acute and chronic respiratory failure with hypercapnia; J96.22 - Acute and chronic respiratory failure with hypercapnia; J96.22 - Acute and chronic respiratory failure with hypercapnia (2) Multifocal pneumonia Current Visit: Yes Status: Suspected CT scan results reveal mutifocal pneumonia and pulmonary edema will hold off heparin drip Continue broad spectrum antibiotics: Vanc and Zosyn day 4 Blood cultures show no growth to date Deescalate antibiotics according to C/S (3) Congestive heart failure Current Visit: Yes Status: Chronic Fluid overload due to diastolic heart failure and mild systolic heart failure. Falsely decreased BNP secondary to obesity Echo reveals LVEF 55%, atypical septal motion, no obvious valve dysfunction, LV dilated other structures are poorly visualized due to morbid obesity Hold Lasix and antihypertensive medications due to hypotension. Will start gentle diuresis if hemodynamically stable Qualifiers: Congestive heart failure type: diastolic Congestive heart failure chronicity: chronic Qualified Code(s): I50.32 - Chronic diastolic (congestive ) heart failure (4) COPD (chronic obstructive pulmonary disease) Current Visit: Yes Status: Chronic Continue Bipap and bronchodilators Qualifiers: COPD type: chronic bronchitis Chronic bronchitis type: simple Qualified Code(s): J41.0 - Simple chronic bronchitis (5) Acute kidney injury Current Visit: Yes Status: Acute Cr improved Cautious gentle hydration given CHF Monitor renal function, avoid nephrotoxins (6) Type 2 diabetes mellitus Current Visit: Yes Status: Chronic HGB a1c 7.6 on 12/07/16 Continue basal insulin AC and HS Continue Diabetic diet and accuchecks Qualifiers: Diabetes mellitus complication status: with kidney complications Diabetes mellitus complication detail: with chronic kidney disease Diabetes mellitus emt intermediate insulin use: without emt intermediate use Chronic kidney disease stage: stage 3 (moderate) Qualified Code(s): E11.22 - Type 2 diabetes mellitus with diabetic chronic kidney disease; N18.3 - Chronic kidney disease, stage 3 ( moderate); N18.3 - Chronic kidney disease, stage 3 (moderate) (7) Pulmonary hypertension Current Visit: Yes Status: Chronic Echo reveals LVEF 55%, atypical septal motion, no obvious valve dysfunction, LV dilated other structures are poorly visualized due to morbid obesity (8) Sleep apnea Current Visit: Yes Status: Chronic Continue Bipap Qualifiers: Sleep apnea type: obstructive Qualified Code(s): G47.33 - Obstructive sleep apnea (adult) (pediatric) (9) Hyperkalemia Current Visit: Yes Status: Acute Hold home potassium (10) Morbid obesity Current Visit: Yes Status: Chronic BMI 58.8 Recommend diet and lifestyle modification (11) DVT prophylaxis Current Visit: Yes Status: Acute Heparin ggt discontinued, continue 5,000U subQ TID DVT study negative Subjective Principal diagnosis: Acute resp failure Interval history: Patient seen and examined resting in bed wearing NC. Patient denies any new c/o and was encouraged to get out of bed to chair TID and use incentive spirometry. Her blood pressure and SpO2 remains stable at this time. Anticipate transfer to when bed available. Objective PUL Vital signs: Last Vital Signs Temp 97.7 F 08/21/17 07:57 Pulse 73 08/21/17 08:00 Resp 18 08/21/17 08:00 BP 126/86 08/21/17 08:00 Pulse Ox 98 08/21/17 08:00 General appearance: no acute distress (morbidly obese) Eyes: nonicteric ENT: oropharynx dry Mallampati (class): 2 Neck: supple, no JVD Effort: normal Auscultation: bilateral: clear Percussion: bilateral: not dull Cardiovascular: regular rate and rhythm Gastrointestinal: normoactive bowel sounds, soft, non-tender Integumentary: erythema (chronic venous stasis bilateral anterior shins) Extremities: no cyanosis, no edema Musculoskeletal: no deformities (RLE splint in place) normal mental status, non-focal exam mood appropriate, affect normal Results - Laboratory Findings CBC and BMP: 08/21/17 02:58 08/21/17 02:58 ABG ABG pH 7.24 pH Units (7.32-7.45) L 08/20/17 03:39 ABG pCO2 78 mmHg (35-45) H* 08/20/17 03:39 ABG pO2 80 mmHg (85-104) L 08/20/17 03:39 ABG O2 Saturation 93 % (95-98) L 08/20/17 03:39 PT/INR, D-dimer PT 12.5 Seconds (9.4-12.1) H 08/18/17 02:17 D-Dimer 2408 ng/mLFEU (0-500) H 08/18/17 16:56 Abnormal lab findings: Abnormal lab results RBC 3.49 M/mcL (3.82-4.97) L 08/21/17 02:58 Hgb 10.7 g/dL (11.5-15.4) L 08/21/17 02:58 MCV 102.0 fL (83.0-100.0) H 08/21/17 02:58 MCHC 30.1 g/dL (31.6-35.5) L 08/21/17 02:58 RDW 16.8 % (11.5-14.5) H 08/21/17 02:58 Plt Count 133 K/mcL (140-400) L 08/21/17 02:58 Lymphocytes # 0.4 K/mcL (0.6-4.6) L 08/20/17 03:06 Nucleated RBCs/100 WBC 0.3 /100 WBC (0) H 08/18/17 02:17 PT 12.5 Seconds (9.4-12.1) H 08/18/17 02:17 D-Dimer 2408 ng/mLFEU (0-500) H 08/18/17 16:56 ABG pH 7.24 pH Units (7.32-7.45) L 08/20/17 03:39 ABG pCO2 78 mmHg (35-45) H* 08/20/17 03:39 ABG pO2 80 mmHg (85-104) L 08/20/17 03:39 ABG HCO3 33 mEq/L (21-27) H 08/20/17 03:39 ABG Total CO2 36 mEq/L (20-26) H 08/20/17 03:39 ABG O2 Saturation 93 % (95-98) L 08/20/17 03:39 ABG Base Excess 4 mEq/L (-2 to 3) H 08/20/17 03:39 Potassium 4.9 mEq/L (3.5-4.5) H 08/21/17 02:58 BUN 65 mg/dL (7-20) H 08/21/17 02:58 Creatinine 1.74 mg/dL (0.57-1.11) H 08/21/17 02:58 Est GFR ( Amer) 36 (> 60) L 08/21/17 02:58 Est GFR (Non-Af Amer) 29 (> 60) L 08/21/17 02:58 BUN/Creatinine Ratio 37 (6-26) H 08/21/17 02:58 Glucose 220 mg/dL (70-99) H 08/21/17 02:58 POC Glucose 279 (58-89) H 08/20/17 19:35 Calculated Osmolality 317 (280-300) H 08/21/17 02:58 Calcium 8.0 mg/dL (8.6-10.8) L 08/21/17 02:58 Alkaline Phosphatase 133 Units/L (38-126) H 08/18/17 02:17 B-Natriuretic Peptide 211 pg/mL (0-100) H 08/18/17 02:17 Albumin 3.2 g/dL (3.5-5.0) L 08/18/17 02:17 Globulin 4.7 g/dL (2.4-3.5) H 08/18/17 02:17 Albumin/Globulin Ratio 0.7 (1.1-2.2) L 08/18/17 02:17 Triglycerides 156 mg/dL (< 150) H 08/18/17 02:17 LDL Cholesterol, Calc 110 mg/dL (0-99) H 08/18/17 02:17 VLDL Cholesterol, Calc 31 mg/dL (< 31) H 08/18/17 02:17 HDL Cholesterol 25 mg/dL (40-59) L 08/18/17 02:17 Cholesterol/HDL Ratio 6.6 (0-4.9) H 08/18/17 02:17 - Clinical Findings Intake & Output: Intake & Output 08/20/17 08/21/17 08/21/17 23:59 07:59 15:59 Intake Total 200 / 200 200 / 200 Output Total 450 / 450 1100 / 1100 Balance -250 / -250 -900 / -900 Weight 142 kg Consult Discharge Plan - Plan Referrals: Stacia Morrell, TOOL PLANER SET UP OPERATOR [Primary Care Provider] - <Jodie Sánchez - Last Filed: 08/21/17 19:36> Date of Encounter: 08/21/17 Objective PUL Vital signs: Last Vital Signs Temp 98.4 F 08/21/17 13:26 Pulse 102 08/21/17 13:26 Resp 19 08/21/17 15:01 BP 138/90 08/21/17 15:01 Pulse Ox 97 08/21/17 15:01 Results - Laboratory Findings CBC and BMP: 08/21/17 02:58 08/21/17 02:58 ABG ABG pH 7.24 pH Units (7.32-7.45) L 08/20/17 03:39 ABG pCO2 78 mmHg (35-45) H* 08/20/17 03:39 ABG pO2 80 mmHg (85-104) L 08/20/17 03:39 ABG O2 Saturation 93 % (95-98) L 08/20/17 03:39 PT/INR, D-dimer PT 12.5 Seconds (9.4-12.1) H 08/18/17 02:17 D-Dimer 2408 ng/mLFEU (0-500) H 08/18/17 16:56 Abnormal lab findings: Abnormal lab results RBC 3.49 M/mcL (3.82-4.97) L 08/21/17 02:58 Hgb 10.7 g/dL (11.5-15.4) L 08/21/17 02:58 MCV 102.0 fL (83.0-100.0) H 08/21/17 02:58 MCHC 30.1 g/dL (31.6-35.5) L 08/21/17 02:58 RDW 16.8 % (11.5-14.5) H 08/21/17 02:58 Plt Count 133 K/mcL (140-400) L 08/21/17 02:58 Lymphocytes # 0.4 K/mcL (0.6-4.6) L 08/20/17 03:06 Nucleated RBCs/100 WBC 0.3 /100 WBC (0) H 08/18/17 02:17 PT 12.5 Seconds (9.4-12.1) H 08/18/17 02:17 D-Dimer 2408 ng/mLFEU (0-500) H 08/18/17 16:56 ABG pH 7.24 pH Units (7.32-7.45) L 08/20/17 03:39 ABG pCO2 78 mmHg (35-45) H* 08/20/17 03:39 ABG pO2 80 mmHg (85-104) L 08/20/17 03:39 ABG HCO3 33 mEq/L (21-27) H 08/20/17 03:39 ABG Total CO2 36 mEq/L (20-26) H 08/20/17 03:39 ABG O2 Saturation 93 % (95-98) L 08/20/17 03:39 ABG Base Excess 4 mEq/L (-2 to 3) H 08/20/17 03:39 Potassium 4.9 mEq/L (3.5-4.5) H 08/21/17 02:58 BUN 65 mg/dL (7-20) H 08/21/17 02:58 Creatinine 1.74 mg/dL (0.57-1.11) H 08/21/17 02:58 Est GFR ( Amer) 36 (> 60) L 08/21/17 02:58 Est GFR (Non-Af Amer) 29 (> 60) L 08/21/17 02:58 BUN/Creatinine Ratio 37 (6-26) H 08/21/17 02:58 Glucose 220 mg/dL (70-99) H 08/21/17 02:58 POC Glucose 279 (58-89) H 08/20/17 19:35 Calculated Osmolality 317 (280-300) H 08/21/17 02:58 Calcium 8.0 mg/dL (8.6-10.8) L 08/21/17 02:58 Alkaline Phosphatase 133 Units/L (38-126) H 08/18/17 02:17 B-Natriuretic Peptide 211 pg/mL (0-100) H 08/18/17 02:17 Albumin 3.2 g/dL (3.5-5.0) L 08/18/17 02:17 Globulin 4.7 g/dL (2.4-3.5) H 08/18/17 02:17 Albumin/Globulin Ratio 0.7 (1.1-2.2) L 08/18/17 02:17 Triglycerides 156 mg/dL (< 150) H 08/18/17 02:17 LDL Cholesterol, Calc 110 mg/dL (0-99) H 08/18/17 02:17 VLDL Cholesterol, Calc 31 mg/dL (< 31) H 08/18/17 02:17 HDL Cholesterol 25 mg/dL (40-59) L 08/18/17 02:17 Cholesterol/HDL Ratio 6.6 (0-4.9) H 08/18/17 02:17 - Clinical Findings Intake & Output: Intake & Output 08/21/17 08/21/17 08/21/17 07:59 15:59 23:59 Intake Total 200 / 200 Output Total 1100 / 1100 300 / 300 Balance -900 / -900 -300 / -300 Weight 142 kg - Attending Attestation I saw the patient with the resident agree with History and Physical exam findings. With some additional recommendations of assesment and plan Labs and Radiology were reviewed Patient came with increased weakness supported by fall now with worsening acute on chronic hypercarbic and hypoxic respiratory failure Patient was on BIPAP slowly improving with AVAPS , patient has multifocal pneumonia with fluid overload CRANBERRY BOG SUPERVISOR: Patient is conscious oriented x3 following commands NECK : No JVD appreciated Pulmonary : Patient is hypoxic and hypercarbic on BIPAP /AVAPS causes OF worsening hypoxia can be due to V/Q mismatch due to multifocal pneumonia and fluid overload and splinting of diaphragm due to morbid obesity patient is conscious oriented sitting up will continue the current AVAPS settings , patient family to bring the machine from home evaluate settings , patient is motivated to use Non invasive ventilatory support , counseled she should be followed regularly by pulmonary . Spent some time counseling in getting the flu shot and pneumonia shot. Cardiac : Fluid overload due to diastolic heart failure and mild systolic heart failure , LV dilated other structures are poorly visualized due to morbid obesity will do gentle diuresis as BP tolerates Nutrition/GI: On Diabetic diet Renal :Labs and UOP reviewed Heme onc : No acute issues Endo: Diabetes to continue current management ID : Pneumonia to cover with broad spectrum antibiotics will descalate according to C/S Will stop gram positive coverage soon and to continue with gram negative coverage due to steady improvement she might need 7 djays of IV antibiotics and send her home on Levofloxacin No acute issues Disposition : Stable for past 2 nights will send her to telemetry counseled the two daughters importance of sitting daily and do incentive spirometry taught her how to do it . Code status: Full code Family/POA: Daughter all questions were answered and updated .
[2017-08-21] MEDS ORDERED: Dextrose Gel 15 GM PO PRN ×2 (09:41)
[2017-08-21] MEDS ORDERED: Naloxone 0.4 MG/ML INJ IVP PRN (09:41)
[2017-08-21] MEDS ORDERED: *HR* Morphine 2 MG/ML SYRINGE IVP PRN (09:41)
[2017-08-21] MEDS ORDERED: *HR* Dextrose 50 % in Water (Syg) 50 ML SYRINGE IVP PRN (09:41)
[2017-08-21] MEDS ORDERED: D5% in Water 1,000 ML IVC PRN (09:41)
[2017-08-21] MEDS ORDERED: Ipratropium/Albuterol Neb 3 ML ONE (09:53)
[2017-08-21] MEDS ORDERED: Vancomycin 1,250 MG in D5% in Water 250 ML IVPB SCH ×2 (23:00)
[2017-08-22] MEDS: MethylPREDNISolone 40 MG/ML VIAL IVP SCH ×3 (00:45→16:10)
[2017-08-22] MEDS: Ipratropium/Albuterol Neb 3 ML IH SCH ×7 (03:17→23:28)
[2017-08-22 04:01] LABS: Hematocrit 38.5 % (35.3-44.9); Hemoglobin 11.5 g/dL (11.5-15.4); Mean Corpuscular HGB Conc 29.9 g/dL (31.6-35.5); Mean Corpuscular Hemoglobin 30.4 pg (28.0-33.3); Mean Corpuscular Volume 101.9 fL (83.0-100.0); Mean Platelet Volume 9.4 fL (9.4-12.4); Platelet Count 117 K/mcL (140-400); Red Blood Count 3.78 M/mcL (3.82-4.97); Red Cell Distribution Width 16.7 % (11.5-14.5)
[2017-08-22 04:11] LABS: Calcium 8.2 mg/dL (8.6-10.8); Potassium 5.3 mEq/L (3.5-4.5)
[2017-08-22] MEDS: Insulin LISPRO 300 UNITS/3 ML VIAL SQ SCH ×4 (05:35→17:21)
[2017-08-22] MEDS: *HR* Heparin 5,000 UNIT/ML VIAL SQ SCH ×3 (06:04→23:30)
[2017-08-22] MEDS: Piperacillin/Tazobactam 3.375 GM/200 ML BAG IVPB SCH ×3 (06:05→23:30)
[2017-08-22] MEDS: Insulin DETEMIR 100 UNIT/ML X5UNITS SQ SCH (08:25)
[2017-08-22] MEDS ORDERED: Furosemide 40 MG/4 ML VIAL IVP ONE (10:17)
--- NOTE | 2017-08-22 10:32 | Internal Med Progress Note ---
Date of Encounter: 08/22/17 Time of Encounter: 10:30 - Assessment and plan (1) Acute hypercapnic respiratory failure Current Visit: No Status: Chronic Assessment and plan: Acute on chronic respiratory failure CT shows multifocal pneumonia started on vancomycin and Zosyn pulmonary following (2) Morbid obesity Current Visit: Yes Status: Chronic Assessment and plan: Chronic due to excess caloric intake (3) Type 2 diabetes mellitus Current Visit: Yes Status: Chronic Qualifiers: Diabetes mellitus complication status: with kidney complications Diabetes mellitus complication detail: with chronic kidney disease Diabetes mellitus terminal operations supervisor insulin use: without terminal operations supervisor use Chronic kidney disease stage: stage 3 (moderate) Qualified Code(s): E11.22 - Type 2 diabetes mellitus with diabetic chronic kidney disease; N18.3 - Chronic kidney disease, stage 3 ( moderate); N18.3 - Chronic kidney disease, stage 3 (moderate) (4) COPD exacerbation Current Visit: No Status: Acute Assessment and plan: Chronic COPD with exacerbation (5) Fall from ground level Current Visit: Yes Status: Acute (6) Multifocal pneumonia Current Visit: Yes Status: Suspected Assessment and plan: Multifocal pneumonia and started on vancomycin and Zosyn appear to be clinically improving - Subjective Interval history: Patient seen and examined today says he feels much better and was asking if she can go home tomorrow Breathing is better , no chest pain - Constitutional Vitals: Temp Pulse Resp BP Pulse Ox 97.4 F L 80 20 131/75 90 08/22/17 07:46 08/22/17 07:46 08/22/17 07:46 08/22/17 07:46 08/22/17 07:46 General appearance: Present: A&O X 1, morbidly obese. Absent: answers questions appropriately - Neck Neck exam general surgery: Present: supple, trachea midline. Absent: lymphadenopathy - Respiratory Respiratory exam: Present: prolonged expiratory phase, rhonchi - Cardiovascular Cardiovascular exam: Present: RRR, +S1, +S2. Absent: diastolic murmur, gallop, rubs, systolic murmur - GI/Abdominal GI/Abdominal exam: Present: normal bowel sounds, soft, no peritoneal signs. Absent: distended, tenderness - Extremities Exam Extremities exam: Present: warm, radial pulses palpable and symmetrical. Absent : calf tenderness, cyanotic, pedal edema Internal Medicine: Result - Labs CBC & Chem 7: 08/22/17 03:53 08/22/17 03:53 Labs: Short CBC 08/22/17 Range/Units 03:53 WBC 6.3 (4.3-11.1) K/mcL Hgb 11.5 (11.5-15.4) g/dL Hct 38.5 (35.3-44.9) % Plt Count 117 L (140-400) K/mcL BMP 08/22/17 03:53 Sodium 142 Potassium 5.3 H Chloride 107 Carbon Dioxide 27 BUN 64 H Creatinine 1.60 H Glucose 211 H Calcium 8.2 L - ABG Interpretation ABG results: ABG ABG pH 7.24 pH Units (7.32-7.45) L 08/20/17 03:39 ABG pCO2 78 mmHg (35-45) H* 08/20/17 03:39 ABG pO2 80 mmHg (85-104) L 08/20/17 03:39 ABG O2 Saturation 93 % (95-98) L 08/20/17 03:39 PT/INR, D-dimer PT 12.5 Seconds (9.4-12.1) H 08/18/17 02:17 D-Dimer 2408 ng/mLFEU (0-500) H 08/18/17 16:56 Consult Discharge Plan - Plan Referrals: Stacia Morrell, PRIVATE BANKER [Primary Care Provider] -
--- NOTE | 2017-08-22 18:11 | Pulmonology Progress Note ---
Date of Encounter: 08/22/17 Time of Encounter: 10:30 Assessment and Plan (1) Acute and chronic respiratory failure ([id number]) Current Visit: Yes Status: Acute Patient CHRISTY /OHS , COPD complicated by multifocal pneumonia developed acute on chronic hypercapnic respiratory failure needed continuous non -invasive vnetilation for 2 days to continue AVAPS for tonight , asked them to bring the machine tomorrow to makes sure this is BIPAP if it is BIPAP she doesnt need BIPAP qualification . To continue AVAPS whenever she is sleeping. To continue as diuresis as tolerated . To follow up with Outpatient pulmonary in 6-8 weeks Qualifiers: Qualified Code(s): J96.20 - Acute and chronic respiratory failure, unspecified whether with hypoxia or hypercapnia (2) Multifocal pneumonia Current Visit: Yes Status: Acute To finish atleast 7 days of IV Zosyn , will start steroid taper. Subjective Principal diagnosis: Acute resp failure Interval history: Follow up after ICU transfer , had ICU admission acute on chronic hypoxic and hypercapnic respiratory failure due to Multifocal pneumonia and some diastolic heart failure , patient slowly getting to her baseline . Patient sitting in chair no active complaints . Objective PUL Vital signs: Last Vital Signs Temp 97.9 F 08/22/17 16:42 Pulse 94 08/22/17 16:42 Resp 18 08/22/17 16:43 BP 144/92 08/22/17 16:43 Pulse Ox 96 08/22/17 16:43 Auscultation: bilateral: diminished breath sounds Results - Laboratory Findings CBC and BMP: 08/22/17 03:53 08/22/17 03:53 ABG ABG pH 7.24 pH Units (7.32-7.45) L 08/20/17 03:39 ABG pCO2 78 mmHg (35-45) H* 08/20/17 03:39 ABG pO2 80 mmHg (85-104) L 08/20/17 03:39 ABG O2 Saturation 93 % (95-98) L 08/20/17 03:39 PT/INR, D-dimer PT 12.5 Seconds (9.4-12.1) H 08/18/17 02:17 D-Dimer 2408 ng/mLFEU (0-500) H 08/18/17 16:56 Abnormal lab findings: Abnormal lab results RBC 3.78 M/mcL (3.82-4.97) L 08/22/17 03:53 MCV 101.9 fL (83.0-100.0) H 08/22/17 03:53 MCHC 29.9 g/dL (31.6-35.5) L 08/22/17 03:53 RDW 16.7 % (11.5-14.5) H 08/22/17 03:53 Plt Count 117 K/mcL (140-400) L 08/22/17 03:53 Lymphocytes # 0.4 K/mcL (0.6-4.6) L 08/20/17 03:06 Nucleated RBCs/100 WBC 0.3 /100 WBC (0) H 08/18/17 02:17 PT 12.5 Seconds (9.4-12.1) H 08/18/17 02:17 D-Dimer 2408 ng/mLFEU (0-500) H 08/18/17 16:56 ABG pH 7.24 pH Units (7.32-7.45) L 08/20/17 03:39 ABG pCO2 78 mmHg (35-45) H* 08/20/17 03:39 ABG pO2 80 mmHg (85-104) L 08/20/17 03:39 ABG HCO3 33 mEq/L (21-27) H 08/20/17 03:39 ABG Total CO2 36 mEq/L (20-26) H 08/20/17 03:39 ABG O2 Saturation 93 % (95-98) L 08/20/17 03:39 ABG Base Excess 4 mEq/L (-2 to 3) H 08/20/17 03:39 Potassium 5.3 mEq/L (3.5-4.5) H 08/22/17 03:53 BUN 64 mg/dL (7-20) H 08/22/17 03:53 Creatinine 1.60 mg/dL (0.57-1.11) H 08/22/17 03:53 Est GFR ( Amer) 39 (> 60) L 08/22/17 03:53 Est GFR (Non-Af Amer) 32 (> 60) L 08/22/17 03:53 BUN/Creatinine Ratio 40 (6-26) H 08/22/17 03:53 Glucose 211 mg/dL (70-99) H 08/22/17 03:53 POC Glucose 198 (58-89) H 08/22/17 07:48 Calculated Osmolality 319 (280-300) H 08/22/17 03:53 Calcium 8.2 mg/dL (8.6-10.8) L 08/22/17 03:53 Alkaline Phosphatase 133 Units/L (38-126) H 08/18/17 02:17 B-Natriuretic Peptide 211 pg/mL (0-100) H 08/18/17 02:17 Albumin 3.2 g/dL (3.5-5.0) L 08/18/17 02:17 Globulin 4.7 g/dL (2.4-3.5) H 08/18/17 02:17 Albumin/Globulin Ratio 0.7 (1.1-2.2) L 08/18/17 02:17 Triglycerides 156 mg/dL (< 150) H 08/18/17 02:17 LDL Cholesterol, Calc 110 mg/dL (0-99) H 08/18/17 02:17 VLDL Cholesterol, Calc 31 mg/dL (< 31) H 08/18/17 02:17 HDL Cholesterol 25 mg/dL (40-59) L 08/18/17 02:17 Cholesterol/HDL Ratio 6.6 (0-4.9) H 08/18/17 02:17 - Clinical Findings Intake & Output: Intake & Output 08/22/17 08/22/17 08/22/17 07:59 15:59 23:59 Intake Total 400 / 400 320 / 320 Output Total 150 / 150 500 / 500 Balance 250 / 250 -180 / -180 Consult Discharge Plan - Plan Referrals: Stacia Morrell, NATURAL GAS TECHNICIAN [Primary Care Provider] -
[2017-08-22] MEDS: Gabapentin 300 MG CAPSULE PO SCH (23:31)
[2017-08-23] MEDS: Ipratropium/Albuterol Neb 3 ML IH SCH ×6 (04:20→23:01)
[2017-08-23] MEDS ORDERED: MethylPREDNISolone 40 MG/ML VIAL IVP SCH (06:00)
[2017-08-23] MEDS: *HR* Heparin 5,000 UNIT/ML VIAL SQ SCH ×3 (06:34→23:16)
[2017-08-23] MEDS: Piperacillin/Tazobactam 3.375 GM/200 ML BAG IVPB SCH ×3 (06:34→23:18)
[2017-08-23] MEDS: Gabapentin 300 MG CAPSULE PO SCH ×2 (08:34→20:07)
[2017-08-23] MEDS: Insulin LISPRO 300 UNITS/3 ML VIAL SQ SCH ×3 (08:35→20:06)
[2017-08-23] MEDS: Insulin DETEMIR 100 UNIT/ML X5UNITS SQ SCH ×2 (08:35→20:07)
[2017-08-23] MEDS ORDERED: Aminoglycoside Consult 1 EACH MC ONE (08:51)
--- NOTE | 2017-08-23 14:33 | Internal Med Progress Note ---
Date of Encounter: 08/23/17 Time of Encounter: 11:35 - Assessment and plan (1) Pneumonia Current Visit: Yes Status: Acute Assessment and plan: Patient with bilateral multifocal pneumonia. Could be aspiration related. Continue Zosyn. Pulmonology recommended 7 days of Zosyn. Tomorrow will be day 7. Continue O2 supplementation. Moderate risk for complications. Qualifiers: Pneumonia type: due to unspecified organism Laterality: bilateral Lung location: unspecified part of lung Qualified Code(s): J18.9 - Pneumonia, unspecified organism (2) Acute and chronic respiratory failure ([id number]) Current Visit: Yes Status: Acute Assessment and plan: Improving. Continue current O2 supplementation. BiPAP when lying down. Qualifiers: Respiratory failure complication: hypoxia and hypercapnia Qualified Code(s) : J96.21 - Acute and chronic respiratory failure with hypoxia; J96.22 - Acute and chronic respiratory failure with hypercapnia; J96.22 - Acute and chronic respiratory failure with hypercapnia; J96.22 - Acute and chronic respiratory failure with hypercapnia (3) Acute on chronic respiratory failure with hypoxia and hypercapnia Current Visit: Yes Status: Acute (4) COPD exacerbation Current Visit: Yes Status: Acute Assessment and plan: Improving. Continue bronchodilators. Continue to taper steroids. Patient does continue to have wheezing. (5) Fall from ground level Current Visit: Yes Status: Acute Assessment and plan: Has been evaluated by physical therapy. Recommended placement to skilled rehabilitation. We will discuss with pediatric social worker tomorrow. (6) Multifocal pneumonia Current Visit: Yes Status: Acute (7) Type 2 diabetes mellitus Current Visit: Yes Status: Chronic Assessment and plan: Uncontrolled. Likely due to steroid use. Currently on Levemir 30 units daily. We will increase long-acting insulin. We will also change sliding scale coverage to high correctional scale. Qualifiers: Diabetes mellitus complication status: with kidney complications Diabetes mellitus complication detail: with chronic kidney disease Diabetes mellitus [facility] insulin use: without [facility] use Chronic kidney disease stage: stage 3 (moderate) Qualified Code(s): E11.22 - Type 2 diabetes mellitus with diabetic chronic kidney disease; N18.3 - Chronic kidney disease, stage 3 ( moderate); N18.3 - Chronic kidney disease, stage 3 (moderate) (8) Hyperkalemia Current Visit: Yes Status: Acute Assessment and plan: Hyperkalemia. Chronic. Potassium was 5.3 yesterday. We will monitor for now. (9) Acute kidney injury Current Visit: Yes Status: Acute Assessment and plan: Creatinine back to baseline. Lasix has been on hold. We will resume at discharge. (10) CKD (chronic kidney disease) stage 3, GFR 30-59 ml/min Current Visit: Yes Status: Chronic - Subjective Interval history: Patient is doing better today. Denies any new complaints at this time. On 3 L O2 supplementation. Currently receiving nebulizer treatment. No chest pain. - Constitutional Vitals: Temp Pulse Resp BP Pulse Ox 97.8 F 87 20 150/101 91 08/23/17 11:07 08/23/17 11:07 08/23/17 11:34 08/23/17 11:07 08/23/17 11:34 General appearance: Present: cooperative, A&O X 2, morbidly obese, answers questions appropriately - Neck Neck exam general surgery: Present: supple, trachea midline. Absent: lymphadenopathy - Respiratory Respiratory exam: Present: prolonged expiratory phase, wheezes (Bilateral). Absent: accessory muscle use, rales, rhonchi - Cardiovascular Cardiovascular exam: Present: RRR, +S1, +S2. Absent: diastolic murmur, gallop, rubs, systolic murmur - GI/Abdominal GI/Abdominal exam: Present: normal bowel sounds, soft, no peritoneal signs. Absent: distended, tenderness - Extremities Exam Extremities exam: Present: warm, radial pulses palpable and symmetrical. Absent : calf tenderness, cyanotic, pedal edema - Neurological Exam Neurological exam: Present: alert, no focal deficits. Absent: facial droop, speech deficit - Skin Skin exam: Present: dry, intact Internal Medicine: Result - Labs CBC & Chem 7: 08/22/17 03:53 08/22/17 03:53 - ABG Interpretation ABG results: ABG ABG pH 7.24 pH Units (7.32-7.45) L 08/20/17 03:39 ABG pCO2 78 mmHg (35-45) H* 08/20/17 03:39 ABG pO2 80 mmHg (85-104) L 08/20/17 03:39 ABG O2 Saturation 93 % (95-98) L 08/20/17 03:39 PT/INR, D-dimer PT 12.5 Seconds (9.4-12.1) H 08/18/17 02:17 D-Dimer 2408 ng/mLFEU (0-500) H 08/18/17 16:56 Consult Discharge Plan - Plan Referrals: Stacia Morrell CNP [Primary Care Provider] -
[2017-08-23] MEDS: MethylPREDNISolone 40 MG/ML VIAL IVP SCH (23:16)
[2017-08-24] MEDS: Ipratropium/Albuterol Neb 3 ML IH SCH ×6 (04:37→23:12)
[2017-08-24] MEDS: Piperacillin/Tazobactam 3.375 GM/200 ML BAG IVPB SCH ×2 (05:40→14:02)
[2017-08-24] MEDS: MethylPREDNISolone 40 MG/ML VIAL IVP SCH (05:40)
[2017-08-24] MEDS: *HR* Heparin 5,000 UNIT/ML VIAL SQ SCH ×3 (05:40→22:59)
[2017-08-24 08:54] LABS: Basophils % 0.2 %; Hematocrit 38.1 % (35.3-44.9); Hemoglobin 11.3 g/dL (11.5-15.4); Immature Granulocytes % 2.4 % (0-4); Lymphocytes # 0.4 K/mcL (0.6-4.6); Lymphocytes % 7.7 %; Mean Corpuscular HGB Conc 29.7 g/dL (31.6-35.5); Mean Corpuscular Hemoglobin 29.9 pg (28.0-33.3); Mean Corpuscular Volume 100.8 fL (83.0-100.0); Monocytes # 0.1 K/mcL (0.0-1.3); Monocytes % 2.4 %; Neutrophils # 4.1 K/mcL (1.6-8.9); Platelet Count 101 K/mcL (140-400); Red Blood Count 3.78 M/mcL (3.82-4.97); Red Cell Distribution Width 15.9 % (11.5-14.5); Segmented Neutrophils % 87.3 %
[2017-08-24 09:06] LABS: Potassium 5.1 mEq/L (3.5-4.5)
[2017-08-24] MEDS: predniSONE 20 MG TABLET PO SCH (10:50)
[2017-08-24] MEDS: Gabapentin 300 MG CAPSULE PO SCH ×2 (10:50→22:58)
[2017-08-24] MEDS: Insulin LISPRO 300 UNITS/3 ML VIAL SQ SCH ×4 (10:51→23:01)
[2017-08-24] MEDS: Insulin DETEMIR 100 UNIT/ML X5UNITS SQ SCH ×2 (10:52→22:58)
[2017-08-24] MEDS ORDERED: Furosemide 40 MG TABLET PO SCH (11:30)
[2017-08-24] MEDS: Furosemide 40 MG/4 ML VIAL IVP SCH (14:39)
--- NOTE | 2017-08-24 16:08 | Internal Med Progress Note ---
Date of Encounter: 08/24/17 Time of Encounter: 16:06 - Assessment and plan (1) Acute and chronic respiratory failure ([id number]) Current Visit: Yes Status: Acute Assessment and plan: Patient on 4 L O2 supplementation. Intermittently worsening dyspnea and hypoxia. Due to pulmonary edema and congestion. Started back on Lasix. Continue O2 supplementation. Height risk for complications. Qualifiers: Respiratory failure complication: hypoxia and hypercapnia Qualified Code(s) : J96.21 - Acute and chronic respiratory failure with hypoxia; J96.22 - Acute and chronic respiratory failure with hypercapnia; J96.22 - Acute and chronic respiratory failure with hypercapnia; J96.22 - Acute and chronic respiratory failure with hypercapnia (2) Congestive heart failure Current Visit: Yes Status: Acute Assessment and plan: With pulmonary edema. Will start patient back on Lasix. We will place her on IV Lasix for now and follow renal function closely. Monitor input and output. Daily weights. Qualifiers: Congestive heart failure type: diastolic Congestive heart failure chronicity: chronic Qualified Code(s): I50.32 - Chronic diastolic (congestive ) heart failure (3) Pneumonia Current Visit: Yes Status: Acute Assessment and plan: We will complete Zosyn today. No further needs for antibiotics. 7 days of IV antibiotic therapy has been completed. Qualifiers: Pneumonia type: due to unspecified organism Laterality: bilateral Lung location: unspecified part of lung Qualified Code(s): J18.9 - Pneumonia, unspecified organism (4) Acute on chronic respiratory failure with hypoxia and hypercapnia Current Visit: Yes Status: Acute (5) COPD exacerbation Current Visit: Yes Status: Acute Assessment and plan: Improving. Continue bronchodilators. We will taper steroids. (6) Fall from ground level Current Visit: Yes Status: Acute (7) Multifocal pneumonia Current Visit: Yes Status: Acute Assessment and plan: Treated with Zosyn. Pulmonology recommended 7 days of IV Zosyn. Patient has completed this treatment. (8) Type 2 diabetes mellitus Current Visit: Yes Status: Chronic Assessment and plan: blood sugars remained elevated. We will increase Levemir dosage to 30 units twice a day. Qualifiers: Diabetes mellitus complication status: with kidney complications Diabetes mellitus complication detail: with chronic kidney disease Diabetes mellitus half-way insulin use: without intermediate card tender use Chronic kidney disease stage: stage 3 (moderate) Qualified Code(s): E11.22 - Type 2 diabetes mellitus with diabetic chronic kidney disease; N18.3 - Chronic kidney disease, stage 3 ( moderate); N18.3 - Chronic kidney disease, stage 3 (moderate) (9) Hyperkalemia Current Visit: Yes Status: Acute Assessment and plan: Chronic and stable. Potassium 5.1 today. (10) Acute kidney injury Current Visit: Yes Status: Acute Assessment and plan: Creatinine level has returned to baseline. Patient will be started back on Lasix due to pulmonary edema. We will follow renal function closely. Does have risk of worsening renal function. (11) CKD (chronic kidney disease) stage 3, GFR 30-59 ml/min Current Visit: Yes Status: Chronic - Subjective Interval history: Patient was on BiPAP earlier this morning and was doing well. However later in the day she has been desaturating intermittently especially with minimal activity. She does have shortness of breath but overall feels better. She does complain of increased swelling in her lower abdominal wall and in her feet. - Constitutional Vitals: Temp Pulse Resp BP Pulse Ox 97.8 F 104 18 140/105 90 08/24/17 15:27 08/24/17 15:27 08/24/17 15:55 08/24/17 15:27 08/24/17 15:55 General appearance: Present: cooperative, A&O X 2, morbidly obese, answers questions appropriately - Neck Neck exam general surgery: Present: supple, trachea midline. Absent: lymphadenopathy - Respiratory Respiratory exam: Present: CTAB. Absent: accessory muscle use, rales, rhonchi, wheezes - Cardiovascular Cardiovascular exam: Present: RRR, +S1, +S2. Absent: diastolic murmur, gallop, rubs, systolic murmur - GI/Abdominal GI/Abdominal exam: Present: normal bowel sounds, soft, no peritoneal signs. Absent: distended, tenderness - Extremities Exam Extremities exam: Present: pedal edema, warm, radial pulses palpable and symmetrical. Absent: calf tenderness, cyanotic - Neurological Exam Neurological exam: Present: CN II-XII intact, oriented X3, no focal deficits. Absent: facial droop, speech deficit Internal Medicine: Result - Labs CBC & Chem 7: 08/24/17 07:59 08/24/17 07:59 Labs: Short CBC 08/24/17 Range/Units 07:59 WBC 4.7 (4.3-11.1) K/mcL Hgb 11.3 L (11.5-15.4) g/dL Hct 38.1 (35.3-44.9) % Plt Count 101 L (140-400) K/mcL Neutrophils # 4.1 (1.6-8.9) K/mcL BMP 08/24/17 07:59 Sodium 146 H Potassium 5.1 H Chloride 106 Carbon Dioxide 32 H BUN 58 H Creatinine 1.26 H Glucose 218 H Calcium 8.0 L - ABG Interpretation ABG results: ABG ABG pH 7.24 pH Units (7.32-7.45) L 08/20/17 03:39 ABG pCO2 78 mmHg (35-45) H* 08/20/17 03:39 ABG pO2 80 mmHg (85-104) L 08/20/17 03:39 ABG O2 Saturation 93 % (95-98) L 08/20/17 03:39 PT/INR, D-dimer PT 12.5 Seconds (9.4-12.1) H 08/18/17 02:17 D-Dimer 2408 ng/mLFEU (0-500) H 08/18/17 16:56 - Impressions Impressions Chest X-Ray 08/24/17 11:22 IMPRESSION: Cardiomegaly with worsening bilateral pleural effusions and diffuse airspace disease particularly the perihilar regions suggesting CHF and pulmonary edema. D/ / Rosendo Caicedo MD / Rosendo Caicedo MD Interpreting Provider: Rosendo Caicedo MD Consult Discharge Plan - Plan Referrals: Stacia Morrell, ADMINISTRATION VICE PRESIDENT [Primary Care Provider] -
[2017-08-25] MEDS: Ipratropium/Albuterol Neb 3 ML IH SCH ×6 (04:41→23:41)
[2017-08-25] MEDS: *HR* Heparin 5,000 UNIT/ML VIAL SQ SCH ×3 (05:17→23:20)
[2017-08-25 08:04] LABS: Calcium 8.7 mg/dL (8.6-10.8); Potassium 4.2 mEq/L (3.5-4.5)
[2017-08-25] MEDS: Gabapentin 300 MG CAPSULE PO SCH ×2 (09:50→23:17)
[2017-08-25] MEDS: predniSONE 20 MG TABLET PO SCH (09:50)
[2017-08-25] MEDS: Furosemide 40 MG/4 ML VIAL IVP SCH (09:50)
[2017-08-25] MEDS: Insulin DETEMIR 100 UNIT/ML X5UNITS SQ SCH ×2 (09:54→23:20)
[2017-08-25] MEDS: Insulin LISPRO 300 UNITS/3 ML VIAL SQ SCH ×4 (09:56→23:24)
--- NOTE | 2017-08-25 13:09 | Internal Med Progress Note ---
Date of Encounter: 08/25/17 Time of Encounter: 13:09 - Assessment and plan (1) Acute on chronic respiratory failure with hypoxia and hypercapnia Current Visit: Yes Status: Resolved Assessment and plan: Currently back to baseline O2 saturation Lasix was initially placed on hold due to worsening renal function, renal function back to baseline, resumed lasix, pt tolerating therapy well Still noted to have bibasilar crackles, will give IV lasix today and switch to PO lasix in am likely d/c in am if remains clinically asymptomatic continue O2 supplementation monitor I/Os daily weights fluid restriction diet (2) Atrial fibrillation Current Visit: Yes Status: Chronic Assessment and plan: Currently rate controlled. Continue beta carol. Not noted to be on anticoagulation as an outpatient. Qualifiers: Atrial fibrillation type: chronic Qualified Code(s): I48.2 - Chronic atrial fibrillation (3) CKD (chronic kidney disease) stage 3, GFR 30-59 ml/min Current Visit: Yes Status: Chronic Assessment and plan: Serum creatinine noted to be at baseline, 1.26 today. (4) Congestive heart failure Current Visit: Yes Status: Acute Assessment and plan: Improved from previous day will switch to PO lasix in am Monitor input and output. Daily weights. Qualifiers: Congestive heart failure type: diastolic Congestive heart failure chronicity: chronic Qualified Code(s): I50.32 - Chronic diastolic (congestive ) heart failure (5) COPD exacerbation Current Visit: Yes Status: Acute Assessment and plan: Improving. Continue bronchodilators. We will taper steroids. (6) Hyperkalemia Current Visit: No Status: Resolved (7) Multifocal pneumonia Current Visit: Yes Status: Acute Assessment and plan: Treated with Zosyn. Pulmonology recommended 7 days of IV Zosyn. Patient has completed this treatment. (8) Acute kidney injury Current Visit: Yes Status: Resolved Assessment and plan: Creatinine level has returned to baseline. Patient started back on Lasix due to pulmonary edema. We will follow renal function closely. Does have risk of worsening renal function. (9) Type 2 diabetes mellitus Current Visit: Yes Status: Chronic Assessment and plan: blood sugars better controlled from previous day continue ss insulin algorithm Levemir ADA diet monitor FS and BG Qualifiers: Diabetes mellitus complication status: with kidney complications Diabetes mellitus complication detail: with chronic kidney disease Diabetes mellitus armed custom protection officer insulin use: without usp use Chronic kidney disease stage: stage 3 (moderate) Qualified Code(s): E11.22 - Type 2 diabetes mellitus with diabetic chronic kidney disease; N18.3 - Chronic kidney disease, stage 3 ( moderate); N18.3 - Chronic kidney disease, stage 3 (moderate) (10) DVT prophylaxis Current Visit: No Status: Acute Assessment and plan: Heparin SQ (11) Morbid obesity with BMI of 50.0-59.9, adult Current Visit: No Status: Chronic - Subjective Interval history: Pt seen and examined with family present at bedside. Reports of feeling better compared to previous day. As per family, pt is having good urine output will d/c IV lasix and start PO lasix Noted to have bibasilar crackles, likely d/c in am if remains clinically stable - Constitutional Vitals: Temp Pulse Resp BP Pulse Ox 97.8 F 88 14 129/76 93 08/25/17 11:31 08/25/17 11:31 08/25/17 11:31 08/25/17 11:31 08/25/17 11:31 General appearance: Present: A&O X 3 (hard of hearing ), morbidly obese, no acute distress, answers questions appropriately - Head Head exam: Present: atraumatic, normocephalic - Eye Eye exam: Present: conjuntiva pink, sclera anicteric - Respiratory Respiratory exam: Absent: respiratory distress, wheezes (bibasilar crackles) - Cardiovascular Cardiovascular exam: Present: RRR, +S1, +S2. Absent: diastolic murmur, gallop, rubs, systolic murmur - GI/Abdominal GI/Abdominal exam: Present: distended (obese), normal bowel sounds, soft, no peritoneal signs. Absent: tenderness - Extremities Exam Extremities exam: Present: warm, radial pulses palpable and symmetrical (b/l chronic stasis dermatitis ). Absent: calf tenderness - Neurological Exam Neurological exam: Present: alert, oriented X3 Internal Medicine: Result - Labs CBC & Chem 7: 08/24/17 07:59 08/25/17 07:40 Labs: BMP 08/25/17 07:40 Sodium 146 H Potassium 4.2 Chloride 101 Carbon Dioxide 34 H BUN 57 H Creatinine 1.26 H Glucose 109 H Calcium 8.7 - ABG Interpretation ABG results: ABG ABG pH 7.24 pH Units (7.32-7.45) L 08/20/17 03:39 ABG pCO2 78 mmHg (35-45) H* 08/20/17 03:39 ABG pO2 80 mmHg (85-104) L 08/20/17 03:39 ABG O2 Saturation 93 % (95-98) L 08/20/17 03:39 PT/INR, D-dimer PT 12.5 Seconds (9.4-12.1) H 08/18/17 02:17 D-Dimer 2408 ng/mLFEU (0-500) H 08/18/17 16:56 Consult Discharge Plan - Plan Referrals: Stacia Morrell, PROJECT MANAGER ENTERTAINMENT AND MEDIA [Primary Care Provider] -
[2017-08-26] MEDS: Ipratropium/Albuterol Neb 3 ML IH SCH ×5 (04:29→20:43)
[2017-08-26] MEDS: *HR* Heparin 5,000 UNIT/ML VIAL SQ SCH ×2 (06:46→12:52)
[2017-08-26 08:21] LABS: Basophils % 0.2 %; Monocytes % 6.4 %; Red Cell Distribution Width 15.4 % (11.5-14.5)
[2017-08-26 08:23] LABS: Eosinophils % 0.2 %; Hematocrit 40.4 % (35.3-44.9); Hemoglobin 12.3 g/dL (11.5-15.4); Immature Granulocytes % 1.1 % (0-4); Immature Platelets 6.6 % (1.1-6.1); Lymphocytes # 0.6 K/mcL (0.6-4.6); Lymphocytes % 9.5 %; Mean Corpuscular HGB Conc 30.4 g/dL (31.6-35.5); Mean Corpuscular Hemoglobin 29.9 pg (28.0-33.3); Mean Corpuscular Volume 98.3 fL (83.0-100.0); Mean Platelet Volume 10.9 fL (9.4-12.4); Monocytes # 0.4 K/mcL (0.0-1.3); Red Blood Count 4.11 M/mcL (3.82-4.97); Segmented Neutrophils % 82.6 %
[2017-08-26 08:29] LABS: BUN/Creatinine Ratio 50 (6-26); Blood Urea Nitrogen 52 mg/dL (7-20); Calcium 8.6 mg/dL (8.6-10.8); Carbon Dioxide 32 mEq/L (19-29); Chloride 101 mEq/L (98-109); Glucose 113 mg/dL (70-99); Magnesium 2.8 mg/dL (1.6-2.6); Neutrophils # 5.1 K/mcL (1.6-8.9); Osmolality,Calculated 311 (280-300); Phosphorous 3.5 mg/dL (2.3-4.7); Potassium 4.9 mEq/L (3.5-4.5); Sodium 143 mEq/L (136-145); eGFR For African Americans > 60 (> 60); eGFR For Non-African Americans 53 (> 60)
[2017-08-26 08:30] LABS: Platelet Count 84 K/mcL (140-400)
[2017-08-26] MEDS ORDERED: Furosemide 40 MG TABLET PO SCH (09:00)
[2017-08-26] MEDS: Insulin LISPRO 300 UNITS/3 ML VIAL SQ SCH ×2 (09:03→12:51)
[2017-08-26] MEDS: Gabapentin 300 MG CAPSULE PO SCH (09:04)
[2017-08-26] MEDS: predniSONE 20 MG TABLET PO SCH (09:04)
[2017-08-26] MEDS: Insulin DETEMIR 100 UNIT/ML X5UNITS SQ SCH (09:04)
[2017-08-26 09:26] LABS: Platelet Estimate Marked Decrease (Normal)
--- NOTE | 2017-08-26 11:13 | Discharge Summary ---
Date of Encounter: 08/26/17 Time of Encounter: 10:45 - Discharge Diagnosis (1) Acute on chronic respiratory failure with hypoxia and hypercapnia Priority: Secondary Status: Resolved (2) Atrial fibrillation Priority: Secondary Status: Chronic Qualifiers: Atrial fibrillation type: chronic Qualified Code(s): I48.2 - Chronic atrial fibrillation (3) CKD (chronic kidney disease) stage 3, GFR 30-59 ml/min Priority: Secondary Status: Chronic (4) Congestive heart failure Priority: Primary Status: Acute Qualifiers: Congestive heart failure type: diastolic Congestive heart failure chronicity: chronic Qualified Code(s): I50.32 - Chronic diastolic (congestive ) heart failure (5) COPD exacerbation Priority: Primary Status: Acute (6) Hyperkalemia Priority: Secondary Status: Resolved (7) Multifocal pneumonia Priority: Secondary Status: Acute (8) Acute kidney injury Priority: Secondary Status: Resolved (9) Type 2 diabetes mellitus Priority: Secondary Status: Chronic Qualifiers: Diabetes mellitus complication status: with kidney complications Diabetes mellitus complication detail: with chronic kidney disease 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 mellitus intermediate teacher insulin use: without care home use Chronic kidney disease stage: stage 3 (moderate) Qualified Code(s): E11.22 - Type 2 diabetes mellitus with diabetic chronic kidney disease; N18.3 - Chronic kidney disease, stage 3 ( moderate); N18.3 - Chronic kidney disease, stage 3 (moderate) (10) DVT prophylaxis Priority: Secondary Status: Acute (11) Morbid obesity with BMI of 50.0-59.9, adult Priority: Secondary Status: Chronic (12) Encephalopathy acute Priority: Secondary Status: Resolved (13) Fall from ground level Priority: Primary Status: Acute - Discharge Medications Prescriptions: predniSONE [PredniSONE] 40 mg PO DAILY #2 tablet Home Medications: Allopurinol [Zyloprim] 100 mg PO DAILY 07/09/15 [History] Carvedilol [Coreg] 25 mg PO BID 07/09/15 [History] Furosemide [Lasix] 40 mg PO QAM 07/09/15 [History] Loratadine [Claritin] 10 mg PO QAM 07/09/15 [History] Potassium Chloride 20 meq PO BID 07/09/15 [History] Albuterol Sulfate [Proair Respiclick] 2 puff IH Q4H PRN 10/15/15 [History] Gabapentin [Neurontin] 300 mg PO BID 12/07/16 [History] Glimepiride [Amaryl] 4 mg PO BID 08/17/17 [History] Insulin NPH Hum/Reg Insulin Hm [Novolin 70-30 100 Unit/ml Vial] 40 unit SQ QPM 08/17/17 [History] SitaGLIPtin [Januvia] 100 mg PO DAILY 08/17/17 [History] predniSONE [PredniSONE] 40 mg PO DAILY #2 tablet 08/26/17 [Rx] Allergies/Adverse Reactions: 3 Allergy/AdvReac Type Severity Reaction Status Date / Time No Known Allergies Allergy Verified 08/17/17 06:10 Date of admission: 08/19/17 10:26 Primary care physician: Stacia Morrell CNP Consults: 08/21/17 11:36 Consult to Mangle Tender [CONS] Routine Reason for SW Consult: discharge planning Discharging clinician: Vidhya Diaz Anticipated date of discharge: 08/26/17 - Patient Status Disposition: Home Health Service Condition: Good Functional capacity at discharge: uses cane/walker Overall status at discharge: patient is back to baseline - Discharge Instructions Follow Up With: Stacia Morrell CNP [Primary Care Provider] - Additional Instructions: Please follow up with your primary care physician within five days after your discharge from the hospital Please follow up with cardiology and pulmonology within one to two weeks after your discharge from the hospital. Please continue to hold your home dose of Lisinopril until your follow up with your primary care physician. Continue Prednisone as prescribed. Resume all your other home medications as prescribed by your primary care physician. - Diet and Activity Activity: as per physical therapy, wear oxygen at all times Diet: diabetic diet, low fat, low cholesterol, low salt diet Hospital course: Ms. Hernández is a 66 year old female with PMH of Afib(not on anticoagulation), CHF , COPD, DVT, DM, HTN, CKD, and morbidly obese who was initially admitted s/p fall and weakness concerning for TIA. TIA work up was negative however her hospital course was complicated by acute on chronic respiratory failure with hypoxia and hypercapenia requiring ICU care. Due to the acute onset of her respiratory distress, PE was a concern for which she was started on heparin gtt which was discontinued once PE was rule out. She was found to have multifocal pneumonia and volume overload secondary to CHF decompensation and COPD exacerbation contributing to her respiratory distress. She was started on IV abx , IV diuresis, and IV steroids. She responded well to therapy and was transferred out of the ICU once her respiratory status was stable. Her hospital course was further complicated by Acute on chronic CKD secondary to diuretic use. IV lasix and Lisinopril were discontinued. Once renal function improved, IV lasix was resumed, however Lisinopril remained discontinued. She tolerated therapy well and her renal function has returned to normal. She is started back on her home dose of lasix. Her BP has been within acceptable range despite holding her home dose of Lisinopril. She has been transitioned to PO Prednisone (Day 3/5) and has finished her course of abx for the PNA. She is currently back to her baseline respiratory status and saturating well on nasal cannula. Physical therapy evaluation recommended ECF however patient and family refusing ECF care. Home health services will be set up. At this time, pt is hemodynamically stable and will be discharged to home with family. Pt and family (present at bedside) demonstrate understanding of her diagnosis and agree with the discharge care. - Time Spent with Patient Total time spent providing and/or coordinating discharge services: Greater than 30 minutes - Constitutional Vitals: Temp Pulse Resp BP Pulse Ox 97.5 F L 81 16 125/83 96 08/26/17 07:17 08/26/17 07:17 08/26/17 07:21 08/26/17 07:17 08/26/17 07:21 General appearance: Present: A&O X 3 (hard of hearing ), morbidly obese, no acute distress, answers questions appropriately - Head Head exam: Present: atraumatic, normocephalic - Eye Eye exam: Present: conjuntiva pink, sclera anicteric - Respiratory Respiratory exam: Absent: accessory muscle use, respiratory distress, wheezes - Cardiovascular Cardiovascular exam: Present: RRR, +S1, +S2. Absent: diastolic murmur, gallop, rubs, systolic murmur - GI/Abdominal GI/Abdominal exam: Present: normal bowel sounds, soft, no peritoneal signs. Absent: distended, tenderness - Extremities Exam Extremities exam: Present: warm, radial pulses palpable and symmetrical. Absent : calf tenderness Additional comments: b/l chronic stasis dermatitis - Neurological Exam Neurological exam: Present: alert, oriented X3
[2017-08-26 11:26] VITALS: BP 109/89
--- NOTE | 2017-08-26 12:07 | Physician Discharge Referral ---
Home Health/Hosp Referral Info Transfer to: Home Health Provider in Charge Post Discharge: PCP - Diagnosis (1) Acute on chronic respiratory failure with hypoxia and hypercapnia Priority: Primary Status: Resolved (2) Atrial fibrillation Priority: Secondary Status: Chronic (3) CKD (chronic kidney disease) stage 3, GFR 30-59 ml/min Priority: Secondary Status: Chronic (4) Congestive heart failure Priority: Secondary Status: Acute (5) COPD exacerbation Status: Acute (6) Hyperkalemia Priority: Secondary Status: Resolved (7) Multifocal pneumonia Priority: Secondary Status: Acute (8) Acute kidney injury Priority: Secondary Status: Resolved (9) Type 2 diabetes mellitus Priority: Secondary Status: Chronic (10) DVT prophylaxis Priority: Secondary Status: Acute (11) Morbid obesity with BMI of 50.0-59.9, adult Priority: Secondary Status: Chronic (12) Encephalopathy acute Priority: Primary Status: Resolved (13) Fall from ground level Priority: Primary Status: Acute - Respiratory Orders Smoking Cessation: Smoking cessation has been advised. For more information, call the [place] Tobacco Quit Line at 0-685-FJQD-NOW. - Services Needed Following services are medically necessary services: Nursing, Home Health Aide, Physical Therapy, Occupational Therapy - Transfer Medications Prescriptions: predniSONE [PredniSONE] 40 mg PO DAILY #2 tablet Home Medications: Allopurinol [Zyloprim] 100 mg PO DAILY 07/09/15 [History] Carvedilol [Coreg] 25 mg PO BID 07/09/15 [History] Furosemide [Lasix] 40 mg PO QAM 07/09/15 [History] Loratadine [Claritin] 10 mg PO QAM 07/09/15 [History] Potassium Chloride 20 meq PO BID 07/09/15 [History] Albuterol Sulfate [Proair Respiclick] 2 puff IH Q4H PRN 10/15/15 [History] Gabapentin [Neurontin] 300 mg PO BID 12/07/16 [History] Glimepiride [Amaryl] 4 mg PO BID 08/17/17 [History] Insulin NPH Hum/Reg Insulin Hm [Novolin 70-30 100 Unit/ml Vial] 40 unit SQ QPM 08/17/17 [History] SitaGLIPtin [Januvia] 100 mg PO DAILY 08/17/17 [History] predniSONE [PredniSONE] 40 mg PO DAILY #2 tablet 08/26/17 [Rx] Allergies/Adverse Reactions: 3 Allergy/AdvReac Type Severity Reaction Status Date / Time No Known Allergies Allergy Verified 08/17/17 06:10 Certification: Further, I certify that my clinical findings support that this patient is homebound (i.e. absences from home require considerable and taxing effort and are for medical reasons or pentec[employer] services or infrequently or short duration when for other reasons) because: Homebound Reason: Patient requires assistance of a person or device to safely leave home Attestation: My signature below is to certify that this patient is under my care and that I, or nurse practitioner, or a physician's placement assistant working with me, has a face-to -face encounter with this patient.
== END 2017-08-26 19:00 | disposition home health service (06) | DRG 291 ==
LOC: EMEROO 06:05 → 3BNU 06:05 → SUATTDRO 08:44 → 3BNU 10:35 → ICNU 08-18 20:05 → SUATTDRO 08-19 10:26 → 2NENU 08-21 13:23
PROVIDERS: ADMIT Internal Medicine; ATTEND Internal Medicine

== ENCOUNTER 2018-03-30 15:43 | Inpatient (IN) ==
--- NOTE | 2018-03-30 16:47 | Emergency Department Note ---
Disposition Clinical Impression: Acute exacerbation of chronic obstructive airways disease Disposition: Admitted As Inpatient Condition: Fair General Adult HPI - General Chief complaint: ED Shortness of Breath/Dyspnea Stated complaint: Possible pneumonia Time Seen by Provider: 03/30/18 16:46 Source: patient, family Limitations: no limitations - History of Present Illness Pain Scale: 0 - Related Data Home Medications Medication Instructions Recorded Confirmed Allopurinol [Zyloprim 100 MG] 100 mg PO DAILY 03/01/18 03/30/18 Carvedilol [Coreg] 25 mg PO BID 03/01/18 03/30/18 Furosemide [Lasix] 80 mg PO DAILY 03/01/18 03/30/18 Gabapentin [Neurontin] 300 mg PO BID 03/01/18 03/30/18 Insulin NPH Hum/Reg Insulin Hm 35 unit SQ QPM 03/01/18 03/30/18 [Novolin 70-30 100 Unit/ml Vial] Lisinopril [Zestril] 5 mg PO DAILY 03/01/18 03/30/18 Potassium Chloride [K-Tab ER] 20 meq PO BID 03/01/18 03/30/18 Previous Rx's Medication Instructions Recorded Budesonide/Formoterol 160/4.5 2 puff IH BIDR #2 inhaler 03/03/18 [Symbicort 160/4.5] Ipratropium/Albuterol Neb [Duoneb] 3 ml IH Q6HR PRN #25 units 03/03/18 Allergies Allergy/AdvReac Type Severity Reaction Status Date / Time No Known Allergies Allergy Verified 02/27/18 22:15 Past Medical History - Past Medical History Medical history: Reports: atrial fibrillation, CHF, COPD, DVT, dementia, diabetes, hyperlipidemia, hypertension, renal disease Surgical history: Reports: no surgical history Psychiatric history: Reports: anxiety, depression 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 - Social History Smoking Status: Never smoker Smokeless Tobacco Status: No Alcohol use: Reports: none Drug use: Reports: none Physical Exam - General Limitations: no limitations General appearance: alert Course Vital Signs Temperature 98.5 F 03/30/18 16:05 Pulse Rate 74 03/30/18 16:05 Respiratory Rate 22 03/30/18 16:05 Blood Pressure 102/63 03/30/18 16:05 O2 Sat by Pulse Oximetry 93 03/30/18 16:05 Temperature 98.1 F 03/30/18 21:48 Pulse Rate 78 03/30/18 21:48 Respiratory Rate 19 03/30/18 21:48 Blood Pressure 93/48 03/30/18 21:48 O2 Sat by Pulse Oximetry 93 03/30/18 21:48 Oxygen Delivery Oxygen Delivery Nasal Cannula Medical Decision Making - Lab Data Result diagrams: 03/30/18 17:25 03/30/18 17:25 Lab Results 03/30/18 03/30/18 03/30/18 Range/Units 17:25 17:25 17:25 WBC 4.8 (4.3-11.1) K/mcL RBC 3.59 L (3.82-4.97) M/mcL Hgb 11.1 L (11.5-15.4) g/dL Hct 36.0 (35.3-44.9) % MCV 100.3 H (83.0-100.0) fL MCH 30.9 (28.0-33.3) pg MCHC 30.8 L (31.6-35.5) g/dL RDW 19.5 H (11.5-14.5) % Plt Count 146 (140-400) K/mcL MPV 9.5 (9.4-12.4) fL Immature Gran % 1.9 (0-4) % Seg Neutrophils % 67.4 % Lymphocytes % 17.9 % Monocytes % 10.5 % Eosinophils % 2.1 % Basophils % 0.2 % Neutrophils # 3.2 (1.6-8.9) K/mcL Lymphocytes # 0.9 (0.6-4.6) K/mcL Monocytes # 0.5 (0.0-1.3) K/mcL Eosinophils # 0.1 (0.0-0.6) K/mcL Basophils # 0.0 (0.0-0.2) K/mcL Nucleated RBCs/100 WBC 0.8 H (0) /100 WBC PT (9.4-12.1) Seconds INR Sodium 141 (136-145) mEq/L Potassium 4.7 (3.5-5.1) mEq/L Chloride 101 (98-107) mEq/L Carbon Dioxide 31 H (23-29) mEq/L BUN 31 H (8-23) mg/dL Creatinine 1.61 H (0.60-1.20) mg/dL Est GFR ( Amer) 39 L (> 60) Est GFR (Non-Af Amer) 32 L (> 60) BUN/Creatinine Ratio 19 (6-26) Glucose 166 H (70-105) mg/dL Calculated Osmolality 302 H (280-300) Lactic Acid 1.3 (0.5-2.2) mmol/L Calcium 9.1 (8.6-10.3) mg/dL Troponin I < 0.03 (< 0.04) ng/mL B-Natriuretic Peptide (Less than 100) pg/mL 03/30/18 03/30/18 Range/Units 17:25 17:25 WBC (4.3-11.1) K/mcL RBC (3.82-4.97) M/mcL Hgb (11.5-15.4) g/dL Hct (35.3-44.9) % MCV (83.0-100.0) fL MCH (28.0-33.3) pg MCHC (31.6-35.5) g/dL RDW (11.5-14.5) % Plt Count (140-400) K/mcL MPV (9.4-12.4) fL Immature Gran % (0-4) % Seg Neutrophils % % Lymphocytes % % Monocytes % % Eosinophils % % Basophils % % Neutrophils # (1.6-8.9) K/mcL Lymphocytes # (0.6-4.6) K/mcL Monocytes # (0.0-1.3) K/mcL Eosinophils # (0.0-0.6) K/mcL Basophils # (0.0-0.2) K/mcL Nucleated RBCs/100 WBC (0) /100 WBC PT 11.6 (9.4-12.1) Seconds INR 1.0 Sodium (136-145) mEq/L Potassium (3.5-5.1) mEq/L Chloride (98-107) mEq/L Carbon Dioxide (23-29) mEq/L BUN (8-23) mg/dL Creatinine (0.60-1.20) mg/dL Est GFR ( Amer) (> 60) Est GFR (Non-Af Amer) (> 60) BUN/Creatinine Ratio (6-26) Glucose (70-105) mg/dL Calculated Osmolality (280-300) Lactic Acid (0.5-2.2) mmol/L Calcium (8.6-10.3) mg/dL Troponin I (< 0.04) ng/mL B-Natriuretic Peptide 103 H (Less than 100) pg/mL Attestation Statement - Attestation Attestation: I examined this patient and my medical decision-making was reviewed with the Resident Physician. I agree with the documented findings, disposition and treatment plan as described except to the extent set forth below. [id number] time provided Patient with multiple medical problems presents in the care of her family for dyspnea and cough. She was recently treated for pneumonia. She is obese on exam with peripheral edema. Circumferential dressings applied to her lower extremities bilaterally. Triage note and vitals reviewed by me
--- NOTE | 2018-03-30 17:06 | Emergency Department Note ---
Disposition Clinical Impression: Acute exacerbation of chronic obstructive airways disease Disposition: Admitted As Inpatient Condition: Fair Time of Disposition: 20:50 SOB HPI - General Chief Complaint: ED Shortness of Breath/Dyspnea Stated Complaint: Possible pneumonia Time Seen by Provider: 03/30/18 16:46 Source: patient, family Limitations: no limitations Nursing Notes Reviewed: Yes Vital Signs Reviewed: Yes - History of Present Illness 67-year-old female presents with family bedside for evaluation of concern for pneumonia. Patient has had pneumonia twice previously. Family is concerned that she may have a today. Patient denies fever, chills, shortness of breath, change in her cough. She has no chest pain, no rib or back pain. She states that she has a shaking sensation which typically happens when her CO2 becomes elevated. She does have a history of COPD and is oxygen dependent. She does wear BiPAP at night and has been compliant. PMH: Nasal dependent type 2 diabetes, atrial fibrillation on no anticoagulation secondary to remote brain hemorrhage, COPD, diastolic CHF, hypertension, current lower extremity ulcers-bilateral, morbid obesity, history of pneumonia, history of respiratory failure ROS: Positive: As above Negative: Fever, chills, nausea, vomiting, chest pains, palpitations, dyspnea, diaphoresis, change in chronic cough, productive cough. - Related Data Home Medications Medication Instructions Recorded Confirmed Allopurinol [Zyloprim 100 MG] 100 mg PO DAILY 03/01/18 03/30/18 Carvedilol [Coreg] 25 mg PO BID 03/01/18 03/30/18 Furosemide [Lasix] 80 mg PO DAILY 03/01/18 03/30/18 Gabapentin [Neurontin] 300 mg PO BID 03/01/18 03/30/18 Insulin NPH Hum/Reg Insulin Hm 35 unit SQ QPM 03/01/18 03/30/18 [Novolin 70-30 100 Unit/ml Vial] Lisinopril [Zestril] 5 mg PO DAILY 03/01/18 03/30/18 Potassium Chloride [K-Tab ER] 20 meq PO BID 03/01/18 03/30/18 Previous Rx's Medication Instructions Recorded Budesonide/Formoterol 160/4.5 2 puff IH BIDR #2 inhaler 03/03/18 [Symbicort 160/4.5] Ipratropium/Albuterol Neb [Duoneb] 3 ml IH Q6HR PRN #25 units 03/03/18 Allergies Allergy/AdvReac Type Severity Reaction Status Date / Time No Known Allergies Allergy Verified 02/27/18 22:15 All systems ED: reviewed and negative except as stated. 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 Head: atraumatic, normocephalic Eye: normal appearance, no scleral icterus, no conjunctival injection ENT: mucous membranes moist, normal external ear exam Neck: normal inspection, trachea midline, full ROM Chest: normal inspection, symmetric chest rise Respiratory: Poor respiratory effort. Prolonged expiratory phase. Bilateral breath sounds are diminished however no wheeze, crackles, or rhonchi auscultated. Cardiovascular: Regular rate and rhythm. No clicks, rubs, gallops, or murmors. Normal heart sounds. Abdomen: Morbidly obese. Bowel sounds present normoactive. Abdomen is soft, nondistended, and nontender. No guarding or rebound. Musculoskeletal: Spontaneously moving all extremities. Skin: warm, dry, intact. Neuro: Alert and oriented x4. Sensation light touch intact. Psych: Patient's affect is appropriate for situation. - General Limitations: no limitations General appearance: alert Course Course Narrative: Low clinical suspicion for pneumonia. Also, given patient's lack of change in cough, acute on chronic bronchitis unlikely. Given her profound hypoxia on intake as well as diffuse wheeze, suspect acute exacerbation of COPD. Hemoglobin 11.1. This is consistent with her baseline hemoglobin. Creatinine 1.61. This is consistent with her distorted baseline. X-ray not concerning for infectious process. There is vascular congestion, or etiology redness is no CHF. BNP is just above 100 I discussed the above with the patient and family. They are agreeable to admission for continued respiratory support for her acute exacerbation of COPD. We discussed that she does not currently have pneumonia. There are no agreement with this plan of care. I discussed the patient with the admitting hospitalist, Dr. Powers, who agrees to accept the patient for continued management of acute exacerbation of COPD. EKG dated to March 2018 at 16:57 interpreted as atrial fibrillation with rate of 81. Normal axis. Nonspecific ST-T changes. Compared to previous EKG dated 07/08 showing no acute ischemic changes comparison. Chest X-Ray 03/30/18 16:47 IMPRESSION: 1. Stable bibasilar curvilinear atelectasis. 2. Stable cardiomegaly and pulmonary vascular congestion, without overt CHF. D/ / 03/30/2018 17:54:49 Vic Smith MD / malik Interpreting Provider: Vic Smith MD Vital Signs Temperature 98.5 F 03/30/18 16:05 Pulse Rate 74 03/30/18 16:05 Respiratory Rate 22 03/30/18 16:05 Blood Pressure 102/63 03/30/18 16:05 O2 Sat by Pulse Oximetry 93 03/30/18 16:05 Temperature 98.5 F 03/30/18 16:05 Pulse Rate 88 03/30/18 19:35 Respiratory Rate 17 03/30/18 17:52 Blood Pressure 122/60 03/30/18 19:35 O2 Sat by Pulse Oximetry 94 03/30/18 19:35 Oxygen Delivery Oxygen Delivery Nasal Cannula Shortness of Breath/Dyspnea - Lab Data Result diagrams: 03/30/18 17:25 03/30/18 17:25 Lab Results 03/30/18 03/30/18 03/30/18 Range/Units 17:25 17:25 17:25 WBC 4.8 (4.3-11.1) K/mcL RBC 3.59 L (3.82-4.97) M/mcL Hgb 11.1 L (11.5-15.4) g/dL Hct 36.0 (35.3-44.9) % MCV 100.3 H (83.0-100.0) fL MCH 30.9 (28.0-33.3) pg MCHC 30.8 L (31.6-35.5) g/dL RDW 19.5 H (11.5-14.5) % Plt Count 146 (140-400) K/mcL MPV 9.5 (9.4-12.4) fL Immature Gran % 1.9 (0-4) % Seg Neutrophils % 67.4 % Lymphocytes % 17.9 % Monocytes % 10.5 % Eosinophils % 2.1 % Basophils % 0.2 % Neutrophils # 3.2 (1.6-8.9) K/mcL Lymphocytes # 0.9 (0.6-4.6) K/mcL Monocytes # 0.5 (0.0-1.3) K/mcL Eosinophils # 0.1 (0.0-0.6) K/mcL Basophils # 0.0 (0.0-0.2) K/mcL Nucleated RBCs/100 WBC 0.8 H (0) /100 WBC PT (9.4-12.1) Seconds INR Sodium 141 (136-145) mEq/L Potassium 4.7 (3.5-5.1) mEq/L Chloride 101 (98-107) mEq/L Carbon Dioxide 31 H (23-29) mEq/L BUN 31 H (8-23) mg/dL Creatinine 1.61 H (0.60-1.20) mg/dL Est GFR ( Amer) 39 L (> 60) Est GFR (Non-Af Amer) 32 L (> 60) BUN/Creatinine Ratio 19 (6-26) Glucose 166 H (70-105) mg/dL Calculated Osmolality 302 H (280-300) Lactic Acid 1.3 (0.5-2.2) mmol/L Calcium 9.1 (8.6-10.3) mg/dL Troponin I < 0.03 (< 0.04) ng/mL B-Natriuretic Peptide (Less than 100) pg/mL 03/30/18 03/30/18 Range/Units 17:25 17:25 WBC (4.3-11.1) K/mcL RBC (3.82-4.97) M/mcL Hgb (11.5-15.4) g/dL Hct (35.3-44.9) % MCV (83.0-100.0) fL MCH (28.0-33.3) pg MCHC (31.6-35.5) g/dL RDW (11.5-14.5) % Plt Count (140-400) K/mcL MPV (9.4-12.4) fL Immature Gran % (0-4) % Seg Neutrophils % % Lymphocytes % % Monocytes % % Eosinophils % % Basophils % % Neutrophils # (1.6-8.9) K/mcL Lymphocytes # (0.6-4.6) K/mcL Monocytes # (0.0-1.3) K/mcL Eosinophils # (0.0-0.6) K/mcL Basophils # (0.0-0.2) K/mcL Nucleated RBCs/100 WBC (0) /100 WBC PT 11.6 (9.4-12.1) Seconds INR 1.0 Sodium (136-145) mEq/L Potassium (3.5-5.1) mEq/L Chloride (98-107) mEq/L Carbon Dioxide (23-29) mEq/L BUN (8-23) mg/dL Creatinine (0.60-1.20) mg/dL Est GFR ( Amer) (> 60) Est GFR (Non-Af Amer) (> 60) BUN/Creatinine Ratio (6-26) Glucose (70-105) mg/dL Calculated Osmolality (280-300) Lactic Acid (0.5-2.2) mmol/L Calcium (8.6-10.3) mg/dL Troponin I (< 0.04) ng/mL B-Natriuretic Peptide 103 H (Less than 100) pg/mL
[2018-03-30 17:40] LABS: Basophils % 0.2 %; Eosinophils # 0.1 K/mcL (0.0-0.6); Eosinophils % 2.1 %; Hemoglobin 11.1 g/dL (11.5-15.4); Immature Granulocytes % 1.9 % (0-4); Lymphocytes # 0.9 K/mcL (0.6-4.6); Lymphocytes % 17.9 %; Mean Corpuscular HGB Conc 30.8 g/dL (31.6-35.5); Mean Corpuscular Hemoglobin 30.9 pg (28.0-33.3); Mean Corpuscular Volume 100.3 fL (83.0-100.0); Mean Platelet Volume 9.5 fL (9.4-12.4); Monocytes # 0.5 K/mcL (0.0-1.3); Monocytes % 10.5 %; Neutrophils # 3.2 K/mcL (1.6-8.9); Nucleated Red Blood Cells 0.8 /100 WBC (0); Platelet Count 146 K/mcL (140-400); Red Blood Count 3.59 M/mcL (3.82-4.97); Red Cell Distribution Width 19.5 % (11.5-14.5); Segmented Neutrophils % 67.4 %
[2018-03-30 18:00] LABS: BUN/Creatinine Ratio 19 (6-26); Blood Urea Nitrogen 31 mg/dL (8-23); Calcium 9.1 mg/dL (8.6-10.3); Carbon Dioxide 31 mEq/L (23-29); Chloride 101 mEq/L (98-107); Glucose 166 mg/dL (70-105); Osmolality,Calculated 302 (280-300); Potassium 4.7 mEq/L (3.5-5.1); Sodium 141 mEq/L (136-145); Troponin I < 0.03 ng/mL (< 0.04); eGFR For African Americans 39 (> 60); eGFR For Non-African Americans 32 (> 60)
[2018-03-30 18:09] LABS: Prothrombin Time 11.6 Seconds (9.4-12.1)
[2018-03-30] MEDS ORDERED: methylPREDNISolone 125 MG/2 ML VIAL IVP ONE (18:12)
[2018-03-30] MEDS ORDERED: Dextrose Gel 15 GM/37.5 ML TUBE PO PRN ×2 (20:28)
[2018-03-30] MEDS ORDERED: Albuterol 2.5 MG/3 ML NEBULIZER IH PRN (20:28)
[2018-03-30] MEDS ORDERED: D5% in Water 1,000 ML IVC PRN (20:28)
[2018-03-30] MEDS ORDERED: *HR* Dextrose 50 % in Water (Syg) 50 ML SYRINGE IVP PRN (20:28)
[2018-03-30] MEDS ORDERED: Acetaminophen 325 MG TABLET PO PRN (20:28)
[2018-03-30] MEDS ORDERED: Naloxone 0.4 MG/ML INJ IVP PRN (20:28)
[2018-03-30] MEDS ORDERED: traMADol 50 MG TABLET PO PRN (20:28)
[2018-03-30] MEDS ORDERED: Insulin NPH/REG 70/30 100 UNIT/ML (x5UNIT) SQ SCH (20:45)
[2018-03-30] MEDS ORDERED: Insulin LISPRO 300 UNITS/3 ML VIAL SQ SCH (21:00)
[2018-03-30 21:06] LABS: Estimated Average Glucose 171 mg/dl; Hemoglobin A1C 7.6 %
--- NOTE | 2018-03-30 21:14 | Internal Med History&Physical ---
Date of Encounter: 03/30/18 Time of Encounter: 19:45 Internal Medicine - H&P: HPI Chief complaint: coughing; short of breath Admitted From: Emergency Dept Plans for Post Hospital Care: Home History of present illness: Ms. Hernández is a 67 year old female who presents with a 2 day history of coughing , wheezing, subjective fevers, and chills. She was advised by her PCP to come to the ER for evaluation. Her family was concerned that she might have pneumonia. In the ER, she was given some aerosol treatments, oxygen, and steroids with improvement. She was hypoxemic in the ER with sats in the 80s. Chest x-ray was negative for any acute findings. She responded to 2 L nasal cannula is maintain O2 sats in the 90s. She was subsequently admitted to the hospitalist service. Upon my assessment of the patient in the ER, patient confirms the above history. She admits to having complaints of dyspnea, coughing, wheezing, and subjective fevers. She denies any recent ill contacts. She lives at home and wears oxygen chronically. She also wears BiPAP at night for her COPD. She ambulates with the use of a walker. She has a family member stay with her overnight to help care for her. She is a nonsmoker and she smoked only minimally in the past. According to her daughter, she does not see a bull gang supervisor. I also noted her legs being wrapped on exam and some surrounding redness and inflammation above the leg dressings. I asked about her leg wounds and her daughter states she has had chronic vasculitis with occasional cellulitis. She sees a can pusher in [facility] and has been having weekly dressing changes. Patient and her daughter would not allow me and/or ER staff to examine her legs and/or unwrap her dressings. Furthermore, they are very reluctant to see science specialist tomorrow. I informed patient and her daughter that I would like to have wound care see the patient and assess her leg wounds for ongoing care issues. Given her diabetes, fevers, and history of cellulitis/ vasculitis in her legs, I'm concerned about possible need for ongoing wound care intervention. I explained this to patient and her daughter, but they refused again to allow us to assess her legs and wounds. Past Med Surg Social Fam HX - Past Medical History Attestation: Yes The following information was validated with the patient. Source: patient, old records reviewed, obtained from family Medical history: atrial fibrillation, CHF, COPD, DVT, dementia, diabetes, hyperlipidemia, hypertension, renal disease, other (h/o intracerebral hemorrhage on anticoagulation) Additional medical history: cellulitis. Vasculitis. Frequent Pneumonia. Bipap at home Psychiatric history: anxiety, depression - Past Surgical History Surgical History: orthopedic, other, vascular surgery Additional surgical history: right shoulder surgery - Social History Smoking Status: Never smoker Smokeless Tobacco Status: No Alcohol use: none Drug use: none Current living situation: Home Activity Level: Uses cane/walker Recent Out of Country Travel Within the Last 8 Weeks: No - Family History Mother Living Status: Father Living Status: Sister Adopted: No Family Member Ethnicity: Non- Twin of Family Member: Yes, Fraternal Living Status: Hx Family Cardiac Disorders: Yes Hx Family Respiratory Disorders: Yes Hx Family Cancer: No Hx Family GI Disorders: No Hx Family Endocrine Disorder: Yes Hx Family Neuromuscular Disorders: No Hx Family Neurologic Disorders: No Hx Family HEENT Disorders: No Hx Family Autoimmune Disorders: No Internal Medicine - H&P: Meds Allopurinol [Zyloprim 100 MG] 100 mg PO DAILY 03/01/18 [History] Carvedilol [Coreg] 25 mg PO BID 03/01/18 [History] Furosemide [Lasix] 80 mg PO DAILY 03/01/18 [History] Gabapentin [Neurontin] 300 mg PO BID 03/01/18 [History] Insulin NPH Hum/Reg Insulin Hm [Novolin 70-30 100 Unit/ml Vial] 35 unit SQ QPM 03/01/18 [History] Lisinopril [Zestril] 5 mg PO DAILY 03/01/18 [History] Potassium Chloride [K-Tab ER] 20 meq PO BID 03/01/18 [History] Budesonide/Formoterol 160/4.5 [Symbicort 160/4.5] 2 puff IH BIDR #2 inhaler [Rx] Ipratropium/Albuterol Neb [Duoneb] 3 ml IH Q6HR PRN #25 units 03/03/18 [Rx] 3 Allergy/AdvReac Type Severity Reaction Status Date / Time No Known Allergies Allergy Verified 02/27/18 22:15 - Constitutional Constitutional: chills, fever(s) - EENT Eyes: no blurry vision, no change in vision Ears: no ear pain, no tinnitus Nose, mouth and throat: nasal congestion, no sinus pain, no sore throat - Cardiovascular Cardiovascular ROS IM: dyspnea, no chest pain, no lightheadedness, no palpitations - Respiratory Respiratory: cough, dyspnea, wheezing, chest congestion, no hemoptysis, no excessive phlegm production, no change in phlegm color, no pain with cough - Gastrointestinal Gastrointestinal: no abdominal pain, no diarrhea, no hematemesis, no hematochezia, no melena, no nausea, no vomiting - Genitourinary Genitourinary: no dysuria, no flank pain, no hematuria - Musculoskeletal Musculoskeletal ROS IM: arthralgias, back pain, no myalgias, no numbness, no tingling - Integumentary Integumentary IM: non-healing lesions (chronic leg wounds) - Neurological Neurological ROS: no dizziness, no frequent falls, no weakness - Psychiatric Psychiatric: no anxiety, no depression - Endocrine Endocrine IM: no polydipsia, no polyuria - Allergic/Immunologic Allergic/Immunologic: wheezing, no GI upset with certain foods - Constitutional Vitals: Temp Pulse Resp BP Pulse Ox 98.5 F 88 17 122/60 94 03/30/18 16:05 03/30/18 19:35 03/30/18 17:52 03/30/18 19:35 03/30/18 19:35 General appearance: Present: cooperative, A&O X 3, pleasant, obese, answers questions appropriately - Head Head exam: Present: atraumatic, normal inspection - Eye Eye exam: Present: EOMI, PERRL. Absent: scleral icterus Pupils: Present: normal accommodation - ENT ENT exam: Present: mucous membranes dry, normal exam, normal oropharynx - Neck Neck exam general surgery: Present: full ROM, supple. Absent: lymphadenopathy, tenderness, nuchal rigidity, thyromegaly - Respiratory Respiratory exam: Present: decreased breath sounds, respiratory distress (mild) , rhonchi, wheezes. Absent: chest wall tenderness, rales - Cardiovascular Cardiovascular exam: Present: distant heart sounds, irregular rhythm, +S1, +S2. Absent: diastolic murmur, systolic murmur - GI/Abdominal GI/Abdominal exam: Present: normal bowel sounds, soft. Absent: hepatomegaly, splenomegaly, tenderness - Extremities Exam Extremities exam: Present: warm. Absent: calf tenderness Additional comments: both legs wrapped and dressed with some redness/cellulitis changes noted above the dressings; patient/daughter refused to allow us to unwrap and/or examine legs - Back Exam Back exam: Absent: CVA tenderness (L), CVA tenderness (R) - Neurological Exam Neurological exam: Present: alert, CN II-XII intact, oriented X3, no focal deficits - Psychiatric Psychiatric exam: Present: normal affect, normal mood - Skin Skin exam: Present: dry, intact, warm Additional comments: legs dressed and wrapped -- unable to examine due to patient refusal Internal Med - H&P Results - Labs CBC & Chem 7: 03/30/18 17:25 03/30/18 17:25 - EKG Data -: EKG Interpreted by Myself - EKG Data Prior EKG available for review: no EKG comments: 03/30/18 21:22 atrial fibrillation with no acute ST-T changes - Diagnostic Studies Chest x-ray Status: image reviewed by me (cardiomegaly; no infiltrate) - Assessment and plan (1) COPD exacerbation Current Visit: Yes Status: Acute Assessment and plan: 1. Will treat with scheduled DuoNeb and PRN albuterol aerosols, IV steroids, and oxygen. 2. Will order BiPap QHS. 3. Monitor clinically and wean above meds as able. 4. Will culture blood and start Zosyn empirically given history of recurrent pneumonia and possible BLE cellulitis. (2) Bilateral lower leg cellulitis Current Visit: Yes Status: Suspected Assessment and plan: 1. Patient and daughter refused exam of and unwrapping of legs. 2. Will culture blood and start Zosyn empirically. 3. Consult wound care for assistance and guidance. (3) Atrial fibrillation Current Visit: Yes Status: Chronic Assessment and plan: 1. Continue home meds as appropriate. 2. Monitor on telemetry. 3. Patient not on anti-coagulation due to h/o ICH and frequent falls. Qualifiers: Atrial fibrillation type: chronic Qualified Code(s): I48.2 - Chronic atrial fibrillation (4) Type 2 diabetes mellitus Current Visit: Yes Status: Chronic Assessment and plan: 1. Continue home basal insulin with SSI. 2. Monitor glucose and adjust dosing as necessary. 3. Will order A1C. Qualifiers: Diabetes mellitus skilled nursing insulin use: with oil heaterman use Diabetes mellitus complication status: with kidney complications Diabetes mellitus complication detail: with chronic kidney disease Chronic kidney disease stage : stage 3 (moderate) Qualified Code(s): E11.22 - Type 2 diabetes mellitus with diabetic chronic kidney disease; N18.3 - Chronic kidney disease, stage 3 ( moderate); Z79.4 - care home (current) use of insulin (5) DVT prophylaxis Current Visit: Yes Status: Acute Assessment and plan: 1. Heparin SQ.
[2018-03-30] MEDS: Ipratropium/Albuterol Neb 3 ML IH SCH (22:58)
[2018-03-30] MEDS: Budesonide/Formoterol 160/4.5 MDI IH SCH (22:58)
[2018-03-31] MEDS ORDERED: Ipratropium/Albuterol Neb 3 ML IH SCH
[2018-03-31] MEDS: Gabapentin 300 MG CAPSULE PO SCH ×3 (00:15→21:59)
[2018-03-31] MEDS: Piperacillin/Tazobactam 3.375 GM in 0.9 % Sodium Chloride Mini Bag 100 ML IVPB SCH ×2 (00:15→08:22)
[2018-03-31] MEDS: *HR* Heparin 5,000 UNIT/ML VIAL SQ SCH ×3 (01:20→17:25)
[2018-03-31] MEDS: Ipratropium/Albuterol Neb 3 ML IH SCH ×6 (03:47→23:15)
[2018-03-31 04:39] LABS: Basophils % 0.2 %; Eosinophils % 0.4 %; Hematocrit 33.5 % (35.3-44.9); Hemoglobin 10.4 g/dL (11.5-15.4); Immature Granulocytes % 3.9 % (0-4); Lymphocytes # 0.6 K/mcL (0.6-4.6); Mean Platelet Volume 10.1 fL (9.4-12.4); Monocytes # 0.1 K/mcL (0.0-1.3); Monocytes % 1.6 %; Neutrophils # 4.8 K/mcL (1.6-8.9); Nucleated Red Blood Cells 0.7 /100 WBC (0); Platelet Count 135 K/mcL (140-400); Red Blood Count 3.35 M/mcL (3.82-4.97); Segmented Neutrophils % 83.9 %
[2018-03-31 05:02] LABS: Albumin 3.3 g/dL (3.5-5.7); Bilirubin,Total 0.8 mg/dL (0.3-1.0); Calcium 8.6 mg/dL (8.6-10.3); Globulin 3.2 g/dL (2.4-3.5); Magnesium 2.1 mg/dL (1.6-2.6); Potassium 5.2 mEq/L (3.5-5.1); Total Protein 6.5 g/dL (6.4-8.9)
[2018-03-31] MEDS: Budesonide/Formoterol 160/4.5 MDI IH SCH ×2 (07:32→19:53)
[2018-03-31] MEDS ORDERED: MethylPREDNISolone 40 MG/ML VIAL IVP SCH (08:00)
[2018-03-31] MEDS: Insulin LISPRO 300 UNITS/3 ML VIAL SQ SCH ×5 (08:20→21:59)
[2018-03-31 15:14] LABS: ABG Base Excess 5 mEq/L (-2 to 3); ABG HCO3 34 mEq/L (21-27); ABG Oxygen Saturation 92 % (95-98); ABG PCO2 80 mmHg (35-45); ABG PH 7.24 pH Units (7.32-7.45); ABG PO2 77 mmHg (85-104); ABG TCO2 36 mEq/L (20-26)
--- NOTE | 2018-03-31 17:20 | Internal Med Progress Note ---
Date of Encounter: 03/31/18 Time of Encounter: 10:50 - Assessment and plan (1) COPD exacerbation Current Visit: Yes Status: Acute Assessment and plan: Continue on treatment for COPD exacerbation with steroids, bronchodilators and O2 supplementation. Will add Levaquin. Stop Zosyn. (2) Type 2 diabetes mellitus Current Visit: Yes Status: Chronic Assessment and plan: Uncontrolled. Will increase insulin regimen further. Due to steroid use. We will add long-acting insulin regimen in addition to her sliding scale regimen. Qualifiers: Diabetes mellitus [facility] insulin use: with terminal gauger supervisor use Diabetes mellitus complication status: with kidney complications Diabetes mellitus complication detail: with chronic kidney disease Chronic kidney disease stage : stage 3 (moderate) Qualified Code(s): E11.22 - Type 2 diabetes mellitus with diabetic chronic kidney disease; N18.3 - Chronic kidney disease, stage 3 ( moderate); Z79.4 - [facility] (current) use of insulin (3) Atrial fibrillation Current Visit: Yes Status: Chronic Assessment and plan: Rate controlled. Not currently on anticoagulation due to history of intracranial hemorrhage and frequent falls. Qualifiers: Atrial fibrillation type: chronic Qualified Code(s): I48.2 - Chronic atrial fibrillation (4) Bilateral lower leg cellulitis Current Visit: Yes Status: Ruled-out Assessment and plan: Patient has chronic bilateral lower except to stasis dermatitis. Will DC Zosyn for now. Recommend outpatient follow-up with dermatology. Wound care was consulted here but patient and family did not wish to see wound care here. He will follow up with dermatology and did not want us to manage her lower extremity lesions at this time. (5) DVT prophylaxis Current Visit: Yes Status: Acute Assessment and plan: on subcutaneous heparin (6) Acute and chronic respiratory failure ([id number]) Current Visit: Yes Status: Acute Assessment and plan: Improved. Currently on 3 L nasal cannula. ABG shows persistent hypercapnic respiratory failure which is chronic for this patient. We will place her on BiPAP as needed. Qualifiers: Respiratory failure complication: hypoxia and hypercapnia Qualified Code(s) : J96.21 - Acute and chronic respiratory failure with hypoxia; J96.22 - Acute and chronic respiratory failure with hypercapnia - Time Spent With Patient Total time spent is greater than 50% in coordination of care (as documented) at patient's floor/unit and/or counseling patient: - Subjective Interval history: Patient is sitting up in chair today. Family present at bedside. She feels much better compared to yesterday. Denies any chest pain or palpitations. She does have chronic cough without any sputum production. No fever or chills reported overnight. - Constitutional Vitals: Temp Pulse Resp BP Pulse Ox 98.8 F 80 18 111/67 95 03/31/18 16:36 03/31/18 16:36 03/31/18 16:36 03/31/18 16:36 03/31/18 16:36 General appearance: Present: cooperative, A&O X 3, pleasant, obese, answers questions appropriately - Neck Neck exam general surgery: Present: supple, trachea midline. Absent: lymphadenopathy - Respiratory Respiratory exam: Present: prolonged expiratory phase. Absent: accessory muscle use, rales, rhonchi, wheezes - Cardiovascular Cardiovascular exam: Present: RRR, +S1, +S2. Absent: diastolic murmur, gallop, rubs, systolic murmur - GI/Abdominal GI/Abdominal exam: Present: normal bowel sounds, soft, no peritoneal signs. Absent: distended, tenderness - Extremities Exam Extremities exam: Present: pedal edema, warm, radial pulses palpable and symmetrical. Absent: calf tenderness, cyanotic Additional comments: Acute lower extremities are currently wrapped in bandages to the knee. Erythema noted underneath. Erica does not want this changed per recommendations from the clearing hand. She follows up with dermatology every week and has dressing changed at their office. - Neurological Exam Neurological exam: Present: alert, oriented X3, no focal deficits. Absent: facial droop, speech deficit - Skin Skin exam: Present: dry, erythema, intact Internal Medicine: Result - Labs CBC & Chem 7: 03/31/18 03:44 03/31/18 03:44 Labs: Short CBC 03/31/18 Range/Units 03:44 WBC 5.7 (4.3-11.1) K/mcL Hgb 10.4 L (11.5-15.4) g/dL Hct 33.5 L (35.3-44.9) % Plt Count 135 L (140-400) K/mcL Neutrophils # 4.8 (1.6-8.9) K/mcL BMP 03/31/18 03:44 Sodium 137 Potassium 5.2 H Chloride 102 Carbon Dioxide 29 BUN 32 H Creatinine 1.61 H Glucose 346 H Calcium 8.6 Liver Function 03/31/18 Range/Units 03:44 Total Bilirubin 0.8 (0.3-1.0) mg/dL AST 12 L (13-39) Units/L ALT 6 L (7-52) Units/L Alkaline Phosphatase 123 H (34-104) Units/L Albumin 3.3 L (3.5-5.7) g/dL - ABG Interpretation ABG results: ABG ABG pH 7.24 pH Units (7.32-7.45) L 03/31/18 15:09 ABG pCO2 80 mmHg (35-45) H* 03/31/18 15:09 ABG pO2 77 mmHg (85-104) L 03/31/18 15:09 ABG O2 Saturation 92 % (95-98) L 03/31/18 15:09 PT/INR, D-dimer PT 11.6 Seconds (9.4-12.1) 03/30/18 17:25 Consult Discharge Plan - Plan Referrals: Stacia Morrell, PAINT FORMULATOR [Primary Care Provider] -
[2018-03-31] MEDS ORDERED: Insulin LISPRO 300 UNITS/3 ML VIAL SQ SCH (17:22)
[2018-03-31] MEDS ORDERED: levoFLOXacin 750 MG TABLET PO SCH (17:30)
[2018-03-31] MEDS: Insulin DETEMIR 100 UNIT/ML X5UNITS SQ SCH (21:59)
[2018-04-01] MEDS: Ipratropium/Albuterol Neb 3 ML IH SCH ×6 (03:36→23:44)
[2018-04-01] MEDS: *HR* Heparin 5,000 UNIT/ML VIAL SQ SCH ×2 (05:47→17:35)
--- NOTE | 2018-04-01 06:45 | Electrocardiograph Report ---
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
[2018-04-01 06:55] LABS: Hemoglobin 10.5 g/dL (11.5-15.4); Immature Granulocytes % 1.5 % (0-4); Lymphocytes # 0.5 K/mcL (0.6-4.6); Lymphocytes % 6.8 %; Mean Corpuscular Hemoglobin 29.9 pg (28.0-33.3); Mean Corpuscular Volume 99.7 fL (83.0-100.0); Mean Platelet Volume 10.1 fL (9.4-12.4); Monocytes # 0.4 K/mcL (0.0-1.3); Monocytes % 5.1 %; Neutrophils # 6.4 K/mcL (1.6-8.9); Nucleated Red Blood Cells 0.7 /100 WBC (0); Platelet Count 136 K/mcL (140-400); Red Blood Count 3.51 M/mcL (3.82-4.97); Red Cell Distribution Width 18.8 % (11.5-14.5); Segmented Neutrophils % 86.6 %
[2018-04-01] MEDS: Budesonide/Formoterol 160/4.5 MDI IH SCH ×2 (07:25→19:56)
[2018-04-01 08:33] LABS: Calcium 8.7 mg/dL (8.6-10.3); Potassium 5.3 mEq/L (3.5-5.1)
[2018-04-01] MEDS: predniSONE 20 MG TABLET PO SCH (10:02)
[2018-04-01] MEDS: Gabapentin 300 MG CAPSULE PO SCH ×2 (10:02→20:32)
[2018-04-01] MEDS: Insulin DETEMIR 100 UNIT/ML X5UNITS SQ SCH ×2 (10:03→20:31)
[2018-04-01] MEDS: Insulin LISPRO 300 UNITS/3 ML VIAL SQ SCH ×7 (10:03→20:33)
--- NOTE | 2018-04-01 16:31 | Internal Med Progress Note ---
Date of Encounter: 04/01/18 Time of Encounter: 11:15 - Assessment and plan (1) COPD exacerbation Current Visit: Yes Status: Acute Assessment and plan: Continue bronchodilators. Taper steroids. Continue O2 supplementation. We will consult physical therapy for evaluation. (2) Acute and chronic respiratory failure ([id number]) Current Visit: Yes Status: Acute Assessment and plan: continue supplemental oxygen. Use BiPAP as needed Qualifiers: Respiratory failure complication: hypoxia and hypercapnia Qualified Code(s) : J96.21 - Acute and chronic respiratory failure with hypoxia; J96.22 - Acute and chronic respiratory failure with hypercapnia (3) Type 2 diabetes mellitus Current Visit: Yes Status: Chronic Assessment and plan: Remains uncontrolled. Will increase Levemir dose to 25 units twice daily. Also increased nutritional coverage. Diabetic diet. Qualifiers: Diabetes mellitus remote computer terminal operator insulin use: with detention use Diabetes mellitus complication status: with kidney complications Diabetes mellitus complication detail: with chronic kidney disease Chronic kidney disease stage : stage 3 (moderate) Qualified Code(s): E11.22 - Type 2 diabetes mellitus with diabetic chronic kidney disease; N18.3 - Chronic kidney disease, stage 3 ( moderate); Z79.4 - intermediate project manager (current) use of insulin (4) Atrial fibrillation Current Visit: Yes Status: Chronic Assessment and plan: Rate controlled. Not on anticoagulation due to prior history of intracranial hemorrhage and frequent falls. Qualifiers: Atrial fibrillation type: chronic Qualified Code(s): I48.2 - Chronic atrial fibrillation (5) DVT prophylaxis Current Visit: Yes Status: Acute Assessment and plan: Continue subcutaneous heparin - Time Spent With Patient Total time spent is greater than 50% in coordination of care (as documented) at patient's floor/unit and/or counseling patient: - Subjective Interval history: Patient is continues to improve. Sitting up in chair. Family present at bedside. No new complaints at this time. Shortness of breath is improving. No fever or chills reported overnight. No chest pain or palpitations. - Constitutional Vitals: Temp Pulse Resp BP Pulse Ox 98.0 F 108 20 101/64 94 04/01/18 11:28 04/01/18 11:28 04/01/18 15:57 04/01/18 11:28 04/01/18 15:57 General appearance: Present: cooperative, A&O X 3, pleasant, obese, answers questions appropriately - Respiratory Respiratory exam: Present: decreased breath sounds (At bases), prolonged expiratory phase, wheezes. Absent: accessory muscle use, rales, rhonchi - Cardiovascular Cardiovascular exam: Present: RRR, +S1, +S2. Absent: diastolic murmur, gallop, rubs, systolic murmur - GI/Abdominal GI/Abdominal exam: Present: normal bowel sounds, soft, no peritoneal signs. Absent: distended, tenderness - Extremities Exam Extremities exam: Present: warm, radial pulses palpable and symmetrical. Absent : calf tenderness, cyanotic, pedal edema - Neurological Exam Neurological exam: Present: alert, oriented X3, no focal deficits. Absent: facial droop, speech deficit Internal Medicine: Result - Labs CBC & Chem 7: 04/01/18 06:19 04/01/18 07:38 Labs: Short CBC 04/01/18 Range/Units 06:19 WBC 7.4 (4.3-11.1) K/mcL Hgb 10.5 L (11.5-15.4) g/dL Hct 35.0 L (35.3-44.9) % Plt Count 136 L (140-400) K/mcL Neutrophils # 6.4 (1.6-8.9) K/mcL BMP 04/01/18 07:38 Sodium 141 Potassium 5.3 H Chloride 104 Carbon Dioxide 29 BUN 36 H Creatinine 1.52 H Glucose 260 H Calcium 8.7 - ABG Interpretation ABG results: ABG ABG pH 7.24 pH Units (7.32-7.45) L 03/31/18 15:09 ABG pCO2 80 mmHg (35-45) H* 03/31/18 15:09 ABG pO2 77 mmHg (85-104) L 03/31/18 15:09 ABG O2 Saturation 92 % (95-98) L 03/31/18 15:09 PT/INR, D-dimer PT 11.6 Seconds (9.4-12.1) 03/30/18 17:25 Consult Discharge Plan - Plan Referrals: Stacia Morrell, HAND PICKER [Primary Care Provider] -
[2018-04-01] MEDS ORDERED: levoFLOXacin 750 MG TABLET PO SCH (18:00)
[2018-04-02] MEDS: Ipratropium/Albuterol Neb 3 ML IH SCH ×3 (03:39→11:22)
[2018-04-02] MEDS: *HR* Heparin 5,000 UNIT/ML VIAL SQ SCH (05:26)
[2018-04-02] MEDS: Budesonide/Formoterol 160/4.5 MDI IH SCH (07:22)
[2018-04-02] MEDS: Gabapentin 300 MG CAPSULE PO SCH (09:19)
[2018-04-02] MEDS: predniSONE 20 MG TABLET PO SCH (09:20)
[2018-04-02] MEDS: Insulin LISPRO 300 UNITS/3 ML VIAL SQ SCH ×4 (09:20→12:48)
[2018-04-02] MEDS: Insulin DETEMIR 100 UNIT/ML X5UNITS SQ SCH (09:26)
[2018-04-02 10:59] VITALS: BP 106/67
--- NOTE | 2018-04-02 12:57 | Discharge Summary ---
- NOTES TO OUTPATIENT PROVIDER Notes to Outpatient Provider: Patient hospitalized with COPD exacerbation. Treated with bronchodilators and steroids with improvement in her symptoms. Stable to be discharged home today on steroid taper. Follow up with PCP and pulmonology as outpatient. Date of Encounter: 04/02/18 Time of Encounter: 12:57 - Discharge Diagnosis (1) COPD exacerbation Priority: Primary Status: Acute (2) Acute and chronic respiratory failure ([id number]) Priority: Secondary Status: Acute Qualifiers: Respiratory failure complication: hypoxia and hypercapnia Qualified Code(s) : J96.21 - Acute and chronic respiratory failure with hypoxia; J96.22 - Acute and chronic respiratory failure with hypercapnia (3) Type 2 diabetes mellitus Priority: Secondary Status: Chronic Qualifiers: Diabetes mellitus mcc insulin use: with mcc use Diabetes mellitus complication status: with kidney complications Diabetes mellitus complication detail: with chronic kidney disease Chronic kidney disease stage : stage 3 (moderate) Qualified Code(s): E11.22 - Type 2 diabetes mellitus with diabetic chronic kidney disease; N18.3 - Chronic kidney disease, stage 3 ( moderate); Z79.4 - jail (current) use of insulin (4) Atrial fibrillation Priority: Secondary Status: Chronic Qualifiers: Atrial fibrillation type: chronic Qualified Code(s): I48.2 - Chronic atrial fibrillation (5) DVT prophylaxis Priority: Secondary Status: Acute Hospital course: Ms. Hernández is a 67 year old female Patient with history of COPD, chronic respiratory failure, diabetes, hypertension was hospitalized she had her with COPD exacerbation. After she presented to the ER with complaints of shortness of breath cough and wheezing. She was Treated with bronchodilators and steroids with improvement in her symptoms. Chest x-ray did not show any pneumonia. She was also started on antibiotics given the severity of her symptoms and comorbidities. She is now doing much better and is Stable to be discharged home today on steroid taper. She will complete short course of antibiotics for COPD. Follow up with PCP and pulmonology as outpatient. She does use BiPAP at home but family was concerned about BiPAP settings. She is recommended to follow up with pulmonology to have this adjusted as needed. Patient also has chronic lower extremity lesions which appear to be stasis dermatitis/vasculitis related. She follows up with dermatology and will continue to do so weekly. Discharge discussed with: patient, family, nurse, case management - Time Spent with Patient Total time spent providing and/or coordinating discharge services: Greater than 30 minutes (45 min) - Discharge Medications Prescriptions: Insulin NPH Hum/Reg Insulin Hm [Novolin 70-30 100 Unit/ml Vial] 35 unit SQ BID # 1 vial levoFLOXacin [Levaquin] 750 mg PO Q24H #4 tablet predniSONE [PredniSONE] 10 mg PO DAILY 10 Days tablet Home Medications: Allopurinol [Zyloprim 100 MG] 100 mg PO DAILY 03/01/18 [History] Carvedilol [Coreg] 25 mg PO BID 03/01/18 [History] Furosemide [Lasix] 80 mg PO DAILY 03/01/18 [History] Gabapentin [Neurontin] 300 mg PO BID 03/01/18 [History] Lisinopril [Zestril] 5 mg PO DAILY 03/01/18 [History] Potassium Chloride [K-Tab ER] 20 meq PO BID 03/01/18 [History] Budesonide/Formoterol 160/4.5 [Symbicort 160/4.5] 2 puff IH BIDR #2 inhaler [Rx] Ipratropium/Albuterol Neb [Duoneb] 3 ml IH Q6HR PRN #25 units 03/03/18 [Rx] Insulin NPH Hum/Reg Insulin Hm [Novolin 70-30 100 Unit/ml Vial] 35 unit SQ BID # 1 vial 04/02/18 [Rx] levoFLOXacin [Levaquin] 750 mg PO Q24H #4 tablet 04/02/18 [Rx] predniSONE [PredniSONE] 10 mg PO DAILY 10 Days tablet 04/02/18 [Rx] Allergies/Adverse Reactions: 3 Allergy/AdvReac Type Severity Reaction Status Date / Time No Known Allergies Allergy Verified 02/27/18 22:15 Date of admission: 03/31/18 17:51 Primary care physician: Stacia Morrell CNP Consults: 04/01/18 11:01 Consult to Occupational Therapy [CONS] Routine Comment: Evaluate, develop and implement POC Reason for Consult: weaknes Does patient have active BEDREST order?: No Is patient medically & hemodynamically stable?: Yes Patient assessed for mobility or mobilized this visit?: No Consult to Physical Therapy [CONS] Routine Comment: Evaluate, develop and implement POC Reason for Consult: weakness Does patient have active BEDREST order?: No Is patient medically & hemodynamically stable?: Yes Patient assessed for mobility or mobilized this visit?: Yes Discharging clinician: Dian Erickson Anticipated date of discharge: 04/02/18 - Constitutional Vitals: Temp Pulse Resp BP Pulse Ox 97.6 F 97 18 106/67 87 04/02/18 10:57 04/02/18 10:57 04/02/18 11:22 04/02/18 10:57 04/02/18 11:22 General appearance: Present: cooperative, A&O X 3, pleasant, obese, answers questions appropriately - Respiratory Respiratory exam: Present: prolonged expiratory phase, wheezes. Absent: accessory muscle use, rales, rhonchi - Cardiovascular Cardiovascular exam: Present: RRR, +S1, +S2. Absent: diastolic murmur, gallop, rubs, systolic murmur - GI/Abdominal GI/Abdominal exam: Present: normal bowel sounds, soft, no peritoneal signs. Absent: distended, tenderness - Extremities Exam Extremities exam: Present: pedal edema. Absent: calf tenderness, cyanotic Additional comments: Stasis dermatitis both lower extremities - Neurological Exam Neurological exam: Present: CN II-XII intact, oriented X3, no focal deficits. Absent: facial droop, speech deficit - Patient Status Disposition: Home, Self-Care Condition: Good Functional capacity at discharge: uses cane/walker Overall status at discharge: patient is progressing back to baseline - Discharge Instructions Instructions: Acute Respiratory Distress Syndrome (DC), Chronic Obstructive Pulmonary Disease (DC) Follow Up With: Stacia Morrell CNP [Primary Care Provider] - 04/06/18 8:40 am (Please follow up as schedule...) Jodie Sánchez MD [Partnered Physician] - (in 1 week) - Diet and Activity Activity: wear oxygen at all times Diet: diabetic diet, low fat, low cholesterol, low salt diet - VTE Documentation of Mechanical Device: Graduated compression elastic hosiery
[2018-04-02] MEDS ORDERED: Insulin DETEMIR 100 UNIT/ML X5UNITS SQ SCH (21:00)
== END 2018-04-02 14:35 | disposition home or self-care (01) | DRG 190 ==
LOC: 2ANU 15:43 → EMEROO 15:43 → SUATTDRO 20:39 → 2ANU 20:58
PROVIDERS: ADMIT Pediatrics; ATTEND Internal Medicine

== ENCOUNTER 2018-04-09 19:13 | Inpatient (IN) ==
--- NOTE | 2018-04-09 19:37 | Emergency Department Note ---
Disposition Clinical Impression: Hypoxia Dyspnea Qualifiers: Dyspnea type: unspecified Qualified Code(s): R06.00 - Dyspnea, unspecified Fever Qualifiers: Fever type: unspecified Qualified Code(s): R50.9 - Fever, unspecified Sepsis Qualifiers: Sepsis type: sepsis due to unspecified organism Qualified Code(s): A41.9 - Sepsis, unspecified organism Disposition: Still a Patient Condition: Fair Referrals: Stacia Morrell [employer] [Primary Care Provider] - Forms: ED Satisfaction Letter Time of Disposition: 22:16 SOB HPI - General Chief Complaint: ED Shortness of Breath/Dyspnea Stated Complaint: URI Time Seen by Provider: 04/09/18 19:30 Source: patient Mode of arrival: ambulatory Limitations: no limitations Nursing Notes Reviewed: Yes Vital Signs Reviewed: Yes - History of Present Illness Patient is a 67-year-old female with past medical history of A. fib, CHF, COPD, history of DVT but is not currently on any anticoagulation. She presents today due to shortness of breath. She wears 3 L nasal cannula oxygen chronically. Family states that this morning, she woke up with a headache and was complaining of some shortness of breath, worsened throughout the day. The patient herself denies any chest pain, increased cough above baseline with COPD , any other nausea, vomiting, fevers, diarrhea, abdominal pain. She does note that she has had jerking of her muscles today and family states that she has history of a brain bleed. She denies any recent falls, any other numbness, tingling, weakness. Unsure of any increased lower extremity swelling. - Related Data Home Medications Medication Instructions Recorded Confirmed Allopurinol [Zyloprim 100 MG] 100 mg PO DAILY 03/01/18 04/09/18 Carvedilol [Coreg] 25 mg PO BID 03/01/18 04/09/18 Furosemide [Lasix] 80 mg PO DAILY 03/01/18 04/09/18 Gabapentin [Neurontin] 300 mg PO BID 03/01/18 04/09/18 Lisinopril [Zestril] 5 mg PO DAILY 03/01/18 04/09/18 Potassium Chloride [K-Tab ER] 20 meq PO BID 03/01/18 04/09/18 Insulin NPH Hum/Reg Insulin Hm 35 unit SQ DAILY 04/09/18 04/09/18 [Novolin 70-30 100 Unit/ml Vial] Previous Rx's Medication Instructions Recorded Budesonide/Formoterol 160/4.5 2 puff IH BIDR #2 inhaler 03/03/18 [Symbicort 160/4.5] Ipratropium/Albuterol Neb [Duoneb] 3 ml IH Q6HR PRN #25 units 03/03/18 Allergies Allergy/AdvReac Type Severity Reaction Status Date / Time No Known Allergies Allergy Verified 02/27/18 22:15 All systems ED: reviewed and negative except as stated. Constitutional: Denies: fever Cardiovascular: Denies: chest pain Respiratory: Reports: dyspnea, wheezes. Denies: cough, hemoptysis, stridor, sputum production Gastrointestinal: Denies: abdominal pain, nausea, vomiting, diarrhea Genitourinary: Denies: urgency, dysuria Integumentary: Denies: rash Neurological: Denies: headache, weakness, numbness, paresthesias Past Medical History - Past Medical History Attestation: Yes The following information was validated with the patient. 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 - Social History Smoking Status: Never smoker Smokeless Tobacco Status: No Alcohol use: Reports: none Drug use: Reports: none Physical Exam - General General appearance: alert, anxious, other (moderate resp distress, morbidly obese) - Head Head exam: atraumatic, normocephalic, normal inspection - Eye Eye exam: Present: normal appearance, PERRL, EOMI - ENT ENT exam: normal exam, normal oropharynx, mucous membranes moist - Neck Neck exam: Present: normal inspection, full ROM, trachea midline - Chest Chest inspection: Present: normal inspection, symmetric chest wall rise - Respiratory Respiratory exam: Present: respiratory distress (Moderate, tachypnea, using accessory muscles, currently using a nonrebreather mask.), other (Unable to fully assess due to body habitus, no significant wheezing heard.). Absent: stridor - Cardiovascular Cardiovascular exam: Present: normal rhythm, tachycardia, normal heart sounds - Abdominal Exam Abdominal exam: Present: soft, Non-Tender. Absent: tenderness, distention, guarding, rebound, rigidity - Extremities Exam Extremities exam: Present: full ROM, pedal edema (Chronic venous stasis and weeping of bilateral lower extremities.). Absent: tenderness - Neurological Exam Neurological exam: Present: alert, oriented X3, CN II-XII intact, other ( Occasional muscle jerks on presentation. Otherwise, no focal neurologic deficits.). Absent: motor sensory deficit - Psychiatric Psychiatric exam: Present: normal affect, normal mood - Skin Skin exam: Present: warm, dry, intact, normal color Course Course Narrative: on presentation, patient was tachycypneic, febristress. Patient satting 70% on RA, placed on nonrebreather and satting in 90s. She was started on BiPAP shortly after presentation. ABG pending. Patient [facility] hospital stay for COPD exacerbation versus pneumonia. Currently concern for pneumonia, sepsis, possible COPD or CHF exacerbation. Sepsis subset ordered including lactate, blood cultures, basic blood work, troponin, BNP. CT of the chest without contrast ordered to further assess for possible pneumonia. V/Q scan ordered to assess for PE, patient has a history of A. fib and is not currently on any blood thinners, does have a history of DVTs in the past. Did not give patient sepsis fluids due to history of CHF and concern for fluid overload, lower extremities are already edematous and weeping. 10:14 chest x-ray shows cardiomegaly with increased pulmonary edema. IV Lasix 40 mg was ordered. Patient is currently in VQ scan and awaiting CT noncontrast for further assessment. Patient has not had blood work drawn at this time. We will sign the patient out to Dr. Mosqueda and Dr. Urias for further care and disposition. Chest X-Ray 04/09/18 19:29 IMPRESSION: 1. Cardiomegaly with increased pulmonary edema and larger bilateral pleural effusions, right side greater than left. There is associated bibasilar atelectasis D/ / Juan Peters MD / Juan Peters MD Interpreting Provider: Juan Peters MD Vital Signs Temperature 101.8 F H 04/09/18 19:14 Pulse Rate 128 04/09/18 19:14 Respiratory Rate 22 04/09/18 19:14 Blood Pressure 162/61 04/09/18 19:14 O2 Sat by Pulse Oximetry 77 04/09/18 19:14 Temperature 101.8 F H 04/09/18 19:32 Pulse Rate 128 04/09/18 19:32 Respiratory Rate 22 04/09/18 19:32 Blood Pressure 162/61 04/09/18 19:32 O2 Sat by Pulse Oximetry 95 04/09/18 20:29 Oxygen Delivery Oxygen Delivery Nasal Cannula Shortness of Breath/Dyspnea - MDM Narrative Medical decision making narrative: on presentation, patient was tachycypneic, febristress. Patient satting 70% on RA, placed on nonrebreather and satting in 90s. She was started on BiPAP shortly after presentation. ABG pending. Patient nav[facility] hospital stay for COPD exacerbation versus pneumonia. Currently concern for pneumonia, sepsis, possible COPD or CHF exacerbation. Sepsis subset ordered including lactate, blood cultures, basic blood work, troponin, BNP. CT of the chest without contrast ordered to further assess for possible pneumonia. V/Q scan ordered to assess for PE, patient has a history of A. fib and is not currently on any blood thinners, does have a history of DVTs in the past. Did not give patient sepsis fluids due to history of CHF and concern for fluid overload, lower extremities are already edematous and weeping. 10:14 chest x-ray shows cardiomegaly with increased pulmonary edema. IV Lasix 40 mg was ordered. Patient is currently in VQ scan and awaiting CT noncontrast for further assessment. Patient has not had blood work drawn at this time. We will sign the patient out to Dr. Mosqueda and Dr. Urias for further care and disposition. - Medical Records Medical records reviewed: Yes I reviewed the patient's medical records. - Lab Data Lab results reviewed: Yes I reviewed the patient's lab results. Lab Results 04/09/18 04/09/18 Range/Units 20:08 20:14 Sample Site R Radial ABG pH 7.33 (7.32-7.45) pH Units ABG pCO2 88 H* (35-45) mmHg ABG pO2 273 H (85-104) mmHg ABG HCO3 46 H (21-27) mEq/L ABG Total CO2 49 H (20-26) mEq/L ABG O2 Saturation 100 H (95-98) % ABG Base Excess 16 H (-2 to 3) mEq/L Avrey Test Positive O2 Delivery Device BiPAP Blood Gas Modality BiLevel Inspired O2 100.0 (1-15=lpm [id number]=%) Urine Color Yellow (Yellow) Urine Clarity Clear (Clear) Urine pH 5.0 (5.0-8.0) pH Units Ur Specific [place] 1.019 (1.010-1.025) Urine Protein Negative (Neg-Trace) mg/dL Urine Glucose (UA) Normal (Normal) mg/dL Urine Ketones Negative (Negative) mg/dL Urine Blood Negative (Negative) Urine Nitrite Negative (Negative) Urine Bilirubin Negative (Negative) Urine Urobilinogen Normal (Normal) mg/dL Ur Leukocyte Esterase Small H (Negative) Urine Microscopic RBC 0-3 (0-3) per hpf Urine Microscopic WBC 5-15 H (0-3) per hpf Ur Squamous Epith Cells Many H (None-Few) per lpf Urine Bacteria None Seen (None-Few) per hpf Hyaline Casts None Seen (None-Few) per lpf Urine Yeast Many H (None Seen) per hpf Ur Culture Indicated? NO. A (NO) - Radiology Data Radiology results reviewed: Yes I reviewed the patient's radiology results. Chest X-Ray 04/09/18 19:29 IMPRESSION: 1. Cardiomegaly with increased pulmonary edema and larger bilateral pleural effusions, right side greater than left. There is associated bibasilar atelectasis D/ / Juan Peters MD / Juan Peters MD Interpreting Provider: Juan Peters MD - EKG Data EKG attestation: Yes I reviewed and interpreted this EKG. EKG results narrative: 04/09/2018 at 19:52. A. fib. Rate 98. QRS 89. QTC 387. Normal axis. No acute ST elevation or depression. S.B.A.R. - S.B.A.R. Situation: Demographics, MOA Background: Presenting Complaint, Relevant PMH, Meds, & Allergies Assessment: Vital Signs, Course and respsone to treatment, Exam Concerns, Patient/Family Expectation, Pertinant Lab Results, Outstanding Labs Recommendation: Barrier(s) to disposition, Recommendation based on pending studies, treatments, or consults S.B.A.R. Report Given to: Dr. Mosqueda, Dr. Urias
[2018-04-09] MEDS ORDERED: Piperacillin/Tazobactam 3.375 GM in 0.9 % Sodium Chloride Mini Bag 100 ML IVPB ONE (19:49)
[2018-04-09] MEDS ORDERED: Levofloxacin 750 MG/150 ML 750 MG/150 ML BAG IVPB ONE (19:49)
[2018-04-09] MEDS ORDERED: methylPREDNISolone 125 MG/2 ML VIAL IVP ONE (19:49)
[2018-04-09] MEDS ORDERED: Ipratropium/Albuterol Neb 3 ML IH ONE (19:49)
[2018-04-09 20:14] LABS: ABG Base Excess 16 mEq/L (-2 to 3); ABG HCO3 46 mEq/L (21-27); ABG Oxygen Saturation 100 % (95-98); ABG PCO2 88 mmHg (35-45); ABG PH 7.33 pH Units (7.32-7.45); ABG PO2 273 mmHg (85-104); ABG TCO2 49 mEq/L (20-26); Blood Gas Modality BiLevel
[2018-04-09 20:59] LABS: Bilirubin,Urine Negative (Negative); Blood,Urine Negative (Negative); Clarity,Urine Clear (Clear); Color,Urine Yellow (Yellow); Glucose,Urine (UA) Normal (Normal); Ketones,Urine Negative (Negative); Leukocyte Esterase,Urine Small (Negative); Nitrite,Urine Negative (Negative); Protein,Urine Negative (Neg-Trace); Specific Gravity,Urine 1.019 (1.010-1.025); Urobilinogen,Urine Normal (Normal)
[2018-04-09 21:02] LABS: Bacteria,Urine None Seen per hpf (None-Few); Hyaline Casts,Urine None Seen per lpf (None-Few); RBC,Urine 0-3 per hpf (0-3); Squamous Epithelial Cell,Urine Many per lpf (None-Few)
[2018-04-09 21:13] LABS: Yeast,Urine Many per hpf (None Seen)
[2018-04-09] MEDS ORDERED: Furosemide 40 MG/4 ML VIAL IVP ONE (21:47)
--- NOTE | 2018-04-09 22:24 | Emergency Department Note ---
Disposition Clinical Impression: Hypoxia Dyspnea Qualifiers: Dyspnea type: unspecified Qualified Code(s): R06.00 - Dyspnea, unspecified Fever Qualifiers: Fever type: unspecified Qualified Code(s): R50.9 - Fever, unspecified Sepsis Qualifiers: Sepsis type: sepsis due to unspecified organism Qualified Code(s): A41.9 - Sepsis, unspecified organism Disposition: Still a Patient Condition: Fair Referrals: Stacia Morrell CNP [Primary Care Provider] - Forms: ED Satisfaction Letter General Adult HPI - General Chief complaint: ED Shortness of Breath/Dyspnea Stated complaint: URI Time Seen by Provider: 04/09/18 19:30 Source: patient Mode of arrival: ambulatory Limitations: no limitations - History of Present Illness Pain Scale: 0 - Related Data Home Medications Medication Instructions Recorded Confirmed Allopurinol [Zyloprim 100 MG] 100 mg PO DAILY 03/01/18 04/09/18 Carvedilol [Coreg] 25 mg PO BID 03/01/18 04/09/18 Furosemide [Lasix] 80 mg PO DAILY 03/01/18 04/09/18 Gabapentin [Neurontin] 300 mg PO BID 03/01/18 04/09/18 Lisinopril [Zestril] 5 mg PO DAILY 03/01/18 04/09/18 Potassium Chloride [K-Tab ER] 20 meq PO BID 03/01/18 04/09/18 Insulin NPH Hum/Reg Insulin Hm 35 unit SQ DAILY 04/09/18 04/09/18 [Novolin 70-30 100 Unit/ml Vial] Previous Rx's Medication Instructions Recorded Budesonide/Formoterol 160/4.5 2 puff IH BIDR #2 inhaler 03/03/18 [Symbicort 160/4.5] Ipratropium/Albuterol Neb [Duoneb] 3 ml IH Q6HR PRN #25 units 03/03/18 Allergies Allergy/AdvReac Type Severity Reaction Status Date / Time No Known Allergies Allergy Verified 02/27/18 22:15 Constitutional: Denies: fever Cardiovascular: Denies: chest pain Respiratory: Reports: dyspnea, wheezes. 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 - Social History Smoking Status: Never smoker Smokeless Tobacco Status: No Alcohol use: Reports: none Drug use: Reports: none Physical Exam - General Limitations: no limitations General appearance: alert, anxious, other (moderate resp distress, morbidly obese) Course Vital Signs Temperature 101.8 F H 04/09/18 19:14 Pulse Rate 128 04/09/18 19:14 Respiratory Rate 22 04/09/18 19:14 Blood Pressure 162/61 04/09/18 19:14 O2 Sat by Pulse Oximetry 77 04/09/18 19:14 Temperature 101.8 F H 04/09/18 19:32 Pulse Rate 128 04/09/18 19:32 Respiratory Rate 20 04/09/18 22:19 Blood Pressure 162/61 04/09/18 19:32 O2 Sat by Pulse Oximetry 99 04/09/18 22:19 Oxygen Delivery Oxygen Delivery Nasal Cannula Medical Decision Making - Lab Data Lab Results 04/09/18 04/09/18 Range/Units 20:08 20:14 Sample Site R Radial ABG pH 7.33 (7.32-7.45) pH Units ABG pCO2 88 H* (35-45) mmHg ABG pO2 273 H (85-104) mmHg ABG HCO3 46 H (21-27) mEq/L ABG Total CO2 49 H (20-26) mEq/L ABG O2 Saturation 100 H (95-98) % ABG Base Excess 16 H (-2 to 3) mEq/L A[place] Test Positive O2 Delivery Device BiPAP Blood Gas Modality BiLevel Inspired O2 100.0 (1-15=lpm [id number]=%) Urine Color Yellow (Yellow) Urine Clarity Clear (Clear) Urine pH 5.0 (5.0-8.0) pH Units Ur Specific [place] 1.019 (1.010-1.025) Urine Protein Negative (Neg-Trace) mg/dL Urine Glucose (UA) Normal (Normal) mg/dL Urine Ketones Negative (Negative) mg/dL Urine Blood Negative (Negative) Urine Nitrite Negative (Negative) Urine Bilirubin Negative (Negative) Urine Urobilinogen Normal (Normal) mg/dL Ur Leukocyte Esterase Small H (Negative) Urine Microscopic RBC 0-3 (0-3) per hpf Urine Microscopic WBC 5-15 H (0-3) per hpf Ur Squamous Epith Cells Many H (None-Few) per lpf Urine Bacteria None Seen (None-Few) per hpf Hyaline Casts None Seen (None-Few) per lpf Urine Yeast Many H (None Seen) per hpf Ur Culture Indicated? NO. A (NO) Attestation Statement - Attestation Attestation: I examined this patient and my medical decision-making was reviewed with the Resident Physician. I agree with the documented findings, disposition and treatment plan as described except to the extent set forth below. 67 year old female presents to the ED with complanits of NATHALY and meets SIRS criteria with temperature and tachcyardiac and tachypnea. Adolfo most recently was discharged from the hospital one week ago for CHF excebration and hypoxia. She was hypoxic on prsentatoin to 77%. Adolfo states that this is similar to how she has presented int he past and has a histroy of DVTs and increased feet edema. Adolfo has been placed on bipap with breathign treatments and lasix tehrapy per CT scan with pleural effusion. WE are waiting on VQ scan and lab work. But our supiscious is PE vs HCAP. THis adolfo iwll need to be admitted to medicine. WE will likely sign patient out to Dr. Urias for followup on labs and scans and admission to medicine.
[2018-04-09 23:05] LABS: Basophils % 0.1 %; Eosinophils # 0.1 K/mcL (0.0-0.6); Eosinophils % 0.8 %; Hematocrit 38.5 % (35.3-44.9); Hemoglobin 11.6 g/dL (11.5-15.4); Immature Granulocytes % 1.8 % (0-4); Lymphocytes # 0.4 K/mcL (0.6-4.6); Lymphocytes % 4.7 %; Mean Corpuscular HGB Conc 30.1 g/dL (31.6-35.5); Mean Corpuscular Hemoglobin 30.5 pg (28.0-33.3); Mean Corpuscular Volume 101.3 fL (83.0-100.0); Mean Platelet Volume 10.3 fL (9.4-12.4); Monocytes # 0.7 K/mcL (0.0-1.3); Monocytes % 7.7 %; Neutrophils # 7.7 K/mcL (1.6-8.9); Red Cell Distribution Width 18.3 % (11.5-14.5); Segmented Neutrophils % 84.9 %
[2018-04-09 23:07] LABS: Platelet Count 99 K/mcL (140-400)
[2018-04-09 23:26] LABS: Calcium 8.5 mg/dL (8.6-10.3); Potassium 4.4 mEq/L (3.5-5.1); Troponin I 0.03 ng/mL (< 0.04)
--- NOTE | 2018-04-09 23:48 | Emergency Department Note ---
START Narrative - START START: I examined this patient and my medical decision-making was reviewed with the Resident Physician. I agree with the documented findings, disposition and treatment plan as described except to the extent set forth below. Findings consistent with hypercapnic respiratory failure.I received this patient in sign out. The patient will be admitted to the hospital for further management. Suspect underlying cause is pneumonia but can not exclude PE. She does have sig risk of anticoagulation including intracerebral hemorrhage in the past from antiplatelet therapy as well as thrombocytopenia. Patient will be admitted for further management, remains on BiPAP, antibiotics and blood cultures were initiated. Patient remains in critical condition with high potential for life-threatening deterioration. I spent greater than 35 minutes of critical care time resuscitating this acutely ill patient. This was excluding billable procedures.
[2018-04-10] MEDS ORDERED: Naloxone 0.4 MG/ML INJ IVP PRN (00:50)
[2018-04-10] MEDS ORDERED: Acetaminophen 325 MG TABLET PO PRN (00:50)
[2018-04-10] MEDS ORDERED: Dextrose Gel 15 GM/37.5 ML TUBE PO PRN ×2 (00:53)
[2018-04-10] MEDS ORDERED: Ipratropium/Albuterol Neb 3 ML IH PRN (00:58)
--- NOTE | 2018-04-10 01:06 | Internal Med History&Physical ---
Date of Encounter: 04/10/18 Time of Encounter: 00:10 Internal Medicine - H&P: HPI Chief complaint: Shortness of breath Admitted From: Home Plans for Post Hospital Care: Home History of present illness: Ms. Hernández is a 67 year old female present to ER for shortness of breath. Past medical history is significant for A. fib, diabetes, CHF, hypertension, COPD, history of intracranial hemorrhage. Patient has increased the shortness of breath started from today. Denies chest pain. Patient has nonproductive cough. Patient started to have fever this afternoon, temperature 101.8. Patient denies nausea or vomiting. Patient has desaturation and increased oxygen requirement. In the emergency room, CT chest shows multifocal opacity, consider pneumonia. Patient was treated with Vanco, Zosyn, and Levaquin for HCAP. Patient has CO2 retention with PCO2 88 mmHg, she was placed on BiPAP. Patient was admitted for further management. Past Med Surg Social Fam HX - Past Medical History Medical history: atrial fibrillation, CHF, COPD, DVT, dementia, diabetes, hyperlipidemia, hypertension, renal disease Additional medical history: cellulitis. Vasculitis. Frequent Pneumonia. Bipap at home Psychiatric history: anxiety, depression - Past Surgical History Surgical History: no surgical history Additional surgical history: right shoulder surgery - Social History Smoking Status: Never smoker Smokeless Tobacco Status: No Alcohol use: none Drug use: none - Family History Mother Living Status: Father Living Status: Sister Adopted: No Family Member Ethnicity: Non- Twin of Family Member: Yes, Fraternal Living Status: Hx Family Cardiac Disorders: Yes Hx Family Respiratory Disorders: Yes Hx Family Cancer: No Hx Family GI Disorders: No Hx Family Endocrine Disorder: Yes Hx Family Neuromuscular Disorders: No Hx Family Neurologic Disorders: No Hx Family HEENT Disorders: No Hx Family Autoimmune Disorders: No Internal Medicine - H&P: Meds Allopurinol [Zyloprim 100 MG] 100 mg PO DAILY 03/01/18 [History] Carvedilol [Coreg] 25 mg PO BID 03/01/18 [History] Furosemide [Lasix] 80 mg PO DAILY 03/01/18 [History] Gabapentin [Neurontin] 300 mg PO BID 03/01/18 [History] Lisinopril [Zestril] 5 mg PO DAILY 03/01/18 [History] Potassium Chloride [K-Tab ER] 20 meq PO BID 03/01/18 [History] Budesonide/Formoterol 160/4.5 [Symbicort 160/4.5] 2 puff IH BIDR #2 inhaler [Rx] Ipratropium/Albuterol Neb [Duoneb] 3 ml IH Q6HR PRN #25 units 03/03/18 [Rx] Insulin NPH Hum/Reg Insulin Hm [Novolin 70-30 100 Unit/ml Vial] 35 unit SQ DAILY 04/09/18 [History] 3 Allergy/AdvReac Type Severity Reaction Status Date / Time No Known Allergies Allergy Verified 02/27/18 22:15 All Systems PM: A 10-system review of systems was performed and is negative for pertinent findings except as documented above in the HPI. - Constitutional Vitals: Temp Pulse Resp BP Pulse Ox 100.7 F H 103 18 104/57 99 04/10/18 00:45 04/09/18 23:00 04/10/18 00:45 04/10/18 00:45 04/09/18 23:00 General appearance: Present: A&O X 3, no acute distress, answers questions appropriately - Head Head exam: Present: atraumatic, normocephalic - Eye Eye exam: Present: PERRL, conjuntiva pink, sclera anicteric Pupils: Present: PERRL - Neck Neck exam general surgery: Present: supple, trachea midline. Absent: lymphadenopathy - Respiratory Respiratory exam: Present: CTAB. Absent: accessory muscle use, rales, rhonchi, wheezes - Cardiovascular Cardiovascular exam: Present: RRR, +S1, +S2. Absent: diastolic murmur, gallop, rubs, systolic murmur - GI/Abdominal GI/Abdominal exam: Present: normal bowel sounds, soft, no peritoneal signs. Absent: distended, tenderness - Extremities Exam Extremities exam: Present: pedal edema (Mild pedal edema bilaterally), warm, radial pulses palpable and symmetrical. Absent: calf tenderness, cyanotic - Neurological Exam Neurological exam: Present: CN II-XII intact, oriented X3, no focal deficits. Absent: pronater drift, facial droop, speech deficit - Skin Skin exam: Present: dry, intact Internal Med - H&P Results - Labs CBC & Chem 7: 04/09/18 22:55 04/09/18 22:55 - Assessment and plan (1) HCAP (healthcare-associated pneumonia) Current Visit: Yes Status: Acute Assessment and plan: Patient has fever. CT chest shows multifocal pneumonia. Patient has recently hospitalized 1 month ago. Treat patient as HCAP. - Continue Vanco, Zosyn, and the Levaquin - Continue BiPAP supportive treatment - Closely monitor patient (2) Congestive heart failure Current Visit: No Status: Acute Assessment and plan: Continue Lasix. Changed to IV form as patient in hospital. BNP 98. Qualifiers: Qualified Code(s): I50.32 - Chronic diastolic (congestive) heart failure (3) Hypercapnemia Current Visit: No Status: Acute Assessment and plan: Patient in need BiPAP at home. Continue BiPAP during night and as needed. Closely monitor mental status. Repeat ABG in a.m. (4) Chronic respiratory failure Current Visit: No Status: Chronic Assessment and plan: Continue BiPAP during night and as needed. 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 use: with [facility] use Diabetes mellitus complication status: with kidney complications Diabetes mellitus complication detail: with chronic kidney disease Chronic kidney disease stage : stage 3 (moderate) Qualified Code(s): E11.22 - Type 2 diabetes mellitus with diabetic chronic kidney disease; N18.3 - Chronic kidney disease, stage 3 ( moderate); 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 Continue home medication. Patient is not on anticoagulation, per family it is due to history of intracranial hemorrhage. Qualifiers: Atrial fibrillation type: chronic Qualified Code(s): I48.2 - Chronic atrial fibrillation (9) COPD (chronic obstructive pulmonary disease) Current Visit: No Status: Chronic Assessment and plan: Continue DuoNeb as needed and scheduled. Will hold steroids at this point considering patient has no wheezing and has hyperglycemia. Qualifiers: COPD type: COPD with acute exacerbation Qualified Code(s): J44.1 - Chronic obstructive pulmonary disease with (acute) exacerbation (10) DVT prophylaxis Current Visit: No Status: Resolved Assessment and plan: EPCDs - Time Spent With Patient Total time spent is greater than 50% in coordination of care (as documented) at patient's floor/unit and/or counseling patient: 40 minutes Greater than 35 minutes
[2018-04-10 02:09] LABS: Basophils % 0.1 %; Eosinophils % 0.2 %; Hemoglobin 10.7 g/dL (11.5-15.4)
[2018-04-10 02:11] LABS: Hematocrit 34.9 % (35.3-44.9); Immature Granulocytes % 1.3 % (0-4); Lymphocytes # 0.5 K/mcL (0.6-4.6); Mean Corpuscular HGB Conc 30.7 g/dL (31.6-35.5); Mean Corpuscular Volume 101.2 fL (83.0-100.0); Mean Platelet Volume 10.7 fL (9.4-12.4); Monocytes # 0.2 K/mcL (0.0-1.3); Monocytes % 2.1 %; Neutrophils # 8.5 K/mcL (1.6-8.9); Red Blood Count 3.45 M/mcL (3.82-4.97); Red Cell Distribution Width 18.5 % (11.5-14.5); Segmented Neutrophils % 91.3 %
[2018-04-10 02:12] LABS: Platelet Count 91 K/mcL (140-400)
[2018-04-10 02:28] LABS: Calcium 8.4 mg/dL (8.6-10.3); Potassium 4.3 mEq/L (3.5-5.1)
[2018-04-10] MEDS ORDERED: *HR* Dextrose 50 % in Water (Syg) 50 ML SYRINGE IVP PRN (02:44)
[2018-04-10] MEDS ORDERED: D5% in Water 1,000 ML IVC PRN (02:44)
[2018-04-10] MEDS: Insulin LISPRO 300 UNITS/3 ML VIAL SQ SCH ×5 (03:32→21:40)
[2018-04-10] MEDS: Ipratropium/Albuterol Neb 3 ML IH SCH ×4 (05:25→21:57)
[2018-04-10] MEDS: Furosemide 40 MG/4 ML VIAL IVP SCH (08:32)
[2018-04-10] MEDS: Levofloxacin 750 MG/150 ML 750 MG/150 ML BAG IVPB SCH (08:32)
[2018-04-10] MEDS: Gabapentin 300 MG CAPSULE PO SCH ×2 (08:33→21:24)
[2018-04-10] MEDS ORDERED: Furosemide 40 MG/4 ML VIAL IVP SCH (09:00)
[2018-04-10] MEDS: Piperacillin/Tazobactam 3.375 GM in 0.9 % Sodium Chloride Mini Bag 100 ML IVPB SCH ×2 (10:13→17:09)
[2018-04-10] MEDS: Budesonide/Formoterol 160/4.5 MDI IH SCH ×2 (11:02→21:29)
--- NOTE | 2018-04-10 11:29 | Pulmonology Consult Note ---
Date of Encounter: 04/10/18 Time of Encounter: 11:15 Assessment and Plan (1) Acute and chronic respiratory failure ([id number]) Current Visit: Yes Status: Acute Patient acute on chronic respiratory failure complicated by hypoxia and hypercapnia patient is on chronic ventilator therapy recent exacerbation of acute on chronic respiratory failure most likely due to volume overload with her increase in weight rather than pneumonia. She will need some aggressive diuresis as long as his kidney function tolerates we will recommend increasing the home dose of IV Lasix and see how she tolerates we will check her Trilogy ventilator tomorrow for settings. She may need another day of diuresis we will recommend planning on discharge on Thursday. If everything goes well Qualifiers: Respiratory failure complication: hypoxia and hypercapnia Qualified Code(s) : J96.21 - Acute and chronic respiratory failure with hypoxia; J96.22 - Acute and chronic respiratory failure with hypercapnia (2) COPD (chronic obstructive pulmonary disease) Current Visit: No Status: Chronic Delivery bronchodilators will not use steroids quickly de-escalate antibiotics. Racing evidence my shows older changes of right lower lobe pneumonia which has been treated recently and current presentation does not look like a flare up of COPD contributed by pneumonia. Qualifiers: COPD type: COPD with acute exacerbation Qualified Code(s): J44.1 - Chronic obstructive pulmonary disease with (acute) exacerbation (3) Morbid obesity Current Visit: No Status: Chronic Counseled about long-term weight loss (4) DVT prophylaxis Current Visit: Yes Status: Acute According to primary team (5) Diastolic heart failure Current Visit: Yes Status: Acute To increase the dose of lasix will diurese one more day with increased dose . Qualifiers: Heart failure chronicity: acute on chronic Qualified Code(s): I50.33 - Acute on chronic diastolic (congestive) heart failure History of Present Illness Consult date: 04/10/18 Requesting physician: Meet Allen Reason for consult: abnormal CXR/CT (Pneumonia with heart failure ) Chief complaint: headache , drowsiness History of present illness: 67-year-old female well-known to me with past medical history of morbid obesity , hypertension, hyperlipidemia , CHF diastolic heart failure, COPD, CHRISTY with OHS , chronic respiratory failure on Trilogy portable ventilator at home patient was recently discharged after she was treated for a right lower lobe pneumonia patient went home and was 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 she woke up with some headache some shakiness and jitteriness patient was sleepy during the day and the family decided had to bring the to the hospital yesterday evening she was found to be in acute on chronic respiratory failure had BiPAP overnight patient is doing well more awake alert and oriented having meaningful conversation with me denies any chest pain, any chest tightness, denies any fever or chills, denies much cough or sputum production most of the symptoms are at baseline according to her patient stated her weight has been increasing for the past few weeks, patient denies any abdominal pain patient denies any focal neurological deficit. Patient's daughter who is well-known to me also was at bedside patient is here for treatment of her acute on chronic hypercapnic respiratory failure. Pulmonary was consulted for evaluation and further management. Past Med Surg Social Fam HX - Past Medical History Medical history: atrial fibrillation, CHF, COPD, DVT, dementia, diabetes, hyperlipidemia, hypertension, renal disease Additional medical history: cellulitis. Vasculitis. Frequent Pneumonia. Bipap at home Psychiatric history: anxiety, depression - Past Surgical History Surgical History: no surgical history Additional surgical history: right shoulder surgery - Social History Smoking Status: Never smoker Smokeless Tobacco Status: No Alcohol use: none Drug use: none - Family History Mother Living Status: Father Living Status: Sister Adopted: No Family Member Ethnicity: Non- Twin of Family Member: Yes, Fraternal Living Status: Hx Family Cardiac Disorders: Yes Hx Family Respiratory Disorders: Yes Hx Family Cancer: No Hx Family GI Disorders: No Hx Family Endocrine Disorder: Yes Hx Family Neuromuscular Disorders: No Hx Family Neurologic Disorders: No Hx Family HEENT Disorders: No Hx Family Autoimmune Disorders: No Medications and Allergies Allopurinol [Zyloprim 100 MG] 100 mg PO DAILY 03/01/18 [History] Carvedilol [Coreg] 25 mg PO BID 03/01/18 [History] Furosemide [Lasix] 80 mg PO DAILY 03/01/18 [History] Gabapentin [Neurontin] 300 mg PO BID 03/01/18 [History] Lisinopril [Zestril] 5 mg PO DAILY 03/01/18 [History] Potassium Chloride [K-Tab ER] 20 meq PO BID 03/01/18 [History] Budesonide/Formoterol 160/4.5 [Symbicort 160/4.5] 2 puff IH BIDR #2 inhaler [Rx] Ipratropium/Albuterol Neb [Duoneb] 3 ml IH Q6HR PRN #25 units 03/03/18 [Rx] Insulin NPH Hum/Reg Insulin Hm [Novolin 70-30 100 Unit/ml Vial] 35 unit SQ DAILY 04/09/18 [History] 3 Allergy/AdvReac Type Severity Reaction Status Date / Time No Known Allergies Allergy Verified 02/27/18 22:15 All Systems: The remainder of the systems were reviewed and are negative Physical Examination Vital Signs: Vital Signs, Last 4 Hours Temp Pulse Resp BP Pulse Ox 04/10/18 11:02 97.4 F L 79 21 108/69 92 04/10/18 07:42 97.3 F L 93 22 100/61 91 Auscultation: bilateral: diminished breath sounds (more on the right base than the left base ) Cardiovascular: irregular rhythm Gastrointestinal: other (obese distended abdomen ) Results - Laboratory Findings CBC and BMP: 04/10/18 02:00 04/10/18 02:00 ABG ABG pH 7.33 pH Units (7.32-7.45) 04/09/18 20:08 ABG pCO2 88 mmHg (35-45) H* 04/09/18 20:08 ABG pO2 273 mmHg (85-104) H 04/09/18 20:08 ABG O2 Saturation 100 % (95-98) H 04/09/18 20:08 Abnormal lab findings: Abnormal lab results RBC 3.45 M/mcL (3.82-4.97) L 04/10/18 02:00 Hgb 10.7 g/dL (11.5-15.4) L 04/10/18 02:00 Hct 34.9 % (35.3-44.9) L 04/10/18 02:00 MCV 101.2 fL (83.0-100.0) H 04/10/18 02:00 MCHC 30.7 g/dL (31.6-35.5) L 04/10/18 02:00 RDW 18.5 % (11.5-14.5) H 04/10/18 02:00 Plt Count 91 K/mcL (140-400) L 04/10/18 02:00 Lymphocytes # 0.5 K/mcL (0.6-4.6) L 04/10/18 02:00 ABG pCO2 88 mmHg (35-45) H* 04/09/18 20:08 ABG pO2 273 mmHg (85-104) H 04/09/18 20:08 ABG HCO3 46 mEq/L (21-27) H 04/09/18 20:08 ABG Total CO2 49 mEq/L (20-26) H 04/09/18 20:08 ABG O2 Saturation 100 % (95-98) H 04/09/18 20:08 ABG Base Excess 16 mEq/L (-2 to 3) H 04/09/18 20:08 Carbon Dioxide 38 mEq/L (23-29) H 04/10/18 02:00 BUN 34 mg/dL (8-23) H 04/10/18 02:00 Est GFR ( Amer) 58 (> 60) L 04/10/18 02:00 Est GFR (Non-Af Amer) 48 (> 60) L 04/10/18 02:00 BUN/Creatinine Ratio 30 (6-26) H 04/10/18 02:00 Glucose 301 mg/dL (70-105) H 04/10/18 02:00 POC Glucose 290 mg/dL (70-99) H 04/10/18 03:18 Calculated Osmolality 313 (280-300) H 04/10/18 02:00 Calcium 8.4 mg/dL (8.6-10.3) L 04/10/18 02:00 Ur Leukocyte Esterase Small (Negative) H 04/09/18 20:14 Urine Microscopic WBC 5-15 per hpf (0-3) H 04/09/18 20:14 Ur Squamous Epith Cells Many per lpf (None-Few) H 04/09/18 20:14 Urine Yeast Many per hpf (None Seen) H 04/09/18 20:14 Ur Culture Indicated? NO. (NO) A 04/09/18 20:14 - Clinical Findings Intake & Output: Intake & Output 04/09/18 04/10/18 04/10/18 23:59 07:59 15:59 Intake Total 360 / 360 Output Total 1000 / 1000 700 / 700 Balance -1000 / -1000 -340 / -340 Weight 136.2 kg Consult Discharge Plan - Plan Referrals: Stacia Morrell, PET AMBASSADOR [Primary Care Provider] -
--- NOTE | 2018-04-10 19:45 | Event Note ---
Date of Encounter: 04/10/18 Time of Encounter: 11:00 Patient evaluated by nocturnalist earlier this morning and also by myself Continue treatment for HAP Pulmonology consult pending
[2018-04-10 20:36] LABS: ABG Base Excess 16 mEq/L (-2 to 3); ABG HCO3 45 mEq/L (21-27); ABG Oxygen Saturation 89 % (95-98); ABG PCO2 82 mmHg (35-45); ABG PH 7.35 pH Units (7.32-7.45); ABG PO2 63 mmHg (85-104); ABG TCO2 48 mEq/L (20-26); Blood Gas FiO2 3.5 (1-15=lpm or21-100=%)
[2018-04-11] MEDS: Piperacillin/Tazobactam 3.375 GM in 0.9 % Sodium Chloride Mini Bag 100 ML IVPB SCH ×3 (00:57→16:56)
[2018-04-11] MEDS: Ipratropium/Albuterol Neb 3 ML IH SCH ×4 (03:13→21:36)
[2018-04-11] MEDS: Insulin LISPRO 300 UNITS/3 ML VIAL SQ SCH ×4 (08:30→20:55)
[2018-04-11] MEDS: Furosemide 40 MG/4 ML VIAL IVP SCH ×2 (08:30→20:59)
[2018-04-11] MEDS: Gabapentin 300 MG CAPSULE PO SCH ×2 (08:31→20:54)
[2018-04-11] MEDS: Levofloxacin 750 MG/150 ML 750 MG/150 ML BAG IVPB SCH (08:31)
[2018-04-11 10:10] LABS: Hemoglobin 11.2 g/dL (11.5-15.4); Mean Corpuscular Hemoglobin 30.9 pg (28.0-33.3); Mean Platelet Volume 10.9 fL (9.4-12.4); Red Blood Count 3.62 M/mcL (3.82-4.97)
[2018-04-11 10:12] LABS: Basophils % 0.1 %; Eosinophils % 0.1 %; Hematocrit 36.5 % (35.3-44.9); Immature Granulocytes % 0.7 % (0-4); Immature Platelets 4.7 % (1.1-6.1); Lymphocytes # 0.6 K/mcL (0.6-4.6); Lymphocytes % 7.6 %; Mean Corpuscular HGB Conc 30.7 g/dL (31.6-35.5); Mean Corpuscular Volume 100.8 fL (83.0-100.0); Monocytes # 0.4 K/mcL (0.0-1.3); Monocytes % 4.9 %; Neutrophils # 6.9 K/mcL (1.6-8.9); Red Cell Distribution Width 17.9 % (11.5-14.5); Segmented Neutrophils % 86.6 %
[2018-04-11 10:20] LABS: Calcium 8.3 mg/dL (8.6-10.3); Potassium 4.5 mEq/L (3.5-5.1)
[2018-04-11 10:28] LABS: Platelet Count 82 K/mcL (140-400)
--- NOTE | 2018-04-11 10:39 | Pulmonology Progress Note ---
Date of Encounter: 04/11/18 Time of Encounter: 09:30 Assessment and Plan (1) Acute and chronic respiratory failure ([id number]) Current Visit: Yes Status: Acute Patient has COPD, diastolic heart failure, CHRISTY with OHS contributing this acute on chronic hypercapnic respiratory failure whenever her fluid balance changes when she gets fluid overload and acute and chronic hypercapnic respiratory failure worsens counseled the family physician within a COPD flareup and acute on chronic diastolic heart failure flareup. Counseled extensively about salt and water restriction, daily weights and adjusting the diuretic dose. Qualifiers: Respiratory failure complication: hypoxia and hypercapnia Qualified Code(s) : J96.21 - Acute and chronic respiratory failure with hypoxia; J96.22 - Acute and chronic respiratory failure with hypercapnia (2) COPD (chronic obstructive pulmonary disease) Current Visit: No Status: Chronic Continue bronchodilators patient does not look like in COPD flareups will taper steroids over 12 days patient will follow-up with me. Counseled the daughter to call office to schedule an book appointment when she is coming to see me. Qualifiers: COPD type: COPD with acute exacerbation Qualified Code(s): J44.1 - Chronic obstructive pulmonary disease with (acute) exacerbation (3) Diastolic heart failure Current Visit: Yes Status: Acute And has on and off fluid overload contributing to worsening of chronic hypercapnic respiratory failure she present with this acute and chronic hypercapnia causing this altered mental status so she needs to be on strict salt and water restriction with good sliding scale diuretic regimen continues to be followed up in cardiology as an outpatient. Qualifiers: Heart failure chronicity: acute on chronic Qualified Code(s): I50.33 - Acute on chronic diastolic (congestive) heart failure (4) Morbid obesity Current Visit: No Status: Chronic counseled about importance of weight loss but she is not motivated. (5) DVT prophylaxis Current Visit: Yes Status: Acute According to primary team. Subjective Principal diagnosis: Acute on Chronic Respiratory failure Interval history: Feels a lot better she is back to her baseline. I checked her Trilogy machine patient is on AVAPS . She denies any shortness of breath, denies any chest pain chest tightness patient has a very sedentary lifestyle. Objective PUL Vital signs: Last Vital Signs Temp 97.8 F 04/11/18 07:38 Pulse 73 04/11/18 07:38 Resp 19 04/11/18 07:38 BP 123/84 04/11/18 07:38 Pulse Ox 98 04/11/18 07:38 Auscultation: bilateral: diminished breath sounds (basilar diminished breadth sounds ) Cardiovascular: irregular rhythm Results - Laboratory Findings CBC and BMP: 04/11/18 09:18 04/11/18 09:18 ABG ABG pH 7.35 pH Units (7.32-7.45) 04/10/18 20:31 ABG pCO2 82 mmHg (35-45) H* 04/10/18 20:31 ABG pO2 63 mmHg (85-104) L 04/10/18 20:31 ABG O2 Saturation 89 % (95-98) L 04/10/18 20:31 Abnormal lab findings: Abnormal lab results RBC 3.62 M/mcL (3.82-4.97) L 04/11/18 09:18 Hgb 11.2 g/dL (11.5-15.4) L 04/11/18 09:18 MCV 100.8 fL (83.0-100.0) H 04/11/18 09:18 MCHC 30.7 g/dL (31.6-35.5) L 04/11/18 09:18 RDW 17.9 % (11.5-14.5) H 04/11/18 09:18 Plt Count 82 K/mcL (140-400) L 04/11/18 09:18 ABG pCO2 82 mmHg (35-45) H* 04/10/18 20:31 ABG pO2 63 mmHg (85-104) L 04/10/18 20:31 ABG HCO3 45 mEq/L (21-27) H 04/10/18 20:31 ABG Total CO2 48 mEq/L (20-26) H 04/10/18 20:31 ABG O2 Saturation 89 % (95-98) L 04/10/18 20:31 ABG Base Excess 16 mEq/L (-2 to 3) H 04/10/18 20:31 Carbon Dioxide 39 mEq/L (23-29) H 04/11/18 09:18 BUN 38 mg/dL (8-23) H 04/11/18 09:18 Creatinine 1.28 mg/dL (0.60-1.20) H 04/11/18 09:18 Est GFR ( Amer) 51 (> 60) L 04/11/18 09:18 Est GFR (Non-Af Amer) 42 (> 60) L 04/11/18 09:18 BUN/Creatinine Ratio 30 (6-26) H 04/11/18 09:18 Glucose 348 mg/dL (70-105) H 04/11/18 09:18 POC Glucose 375 mg/dL (70-99) H 04/10/18 21:28 Calculated Osmolality 317 (280-300) H 04/11/18 09:18 Calcium 8.3 mg/dL (8.6-10.3) L 04/11/18 09:18 Ur Leukocyte Esterase Small (Negative) H 04/09/18 20:14 Urine Microscopic WBC 5-15 per hpf (0-3) H 04/09/18 20:14 Ur Squamous Epith Cells Many per lpf (None-Few) H 04/09/18 20:14 Urine Yeast Many per hpf (None Seen) H 04/09/18 20:14 Ur Culture Indicated? NO. (NO) A 04/09/18 20:14 - Clinical Findings Intake & Output: Intake & Output 04/10/18 04/11/18 04/11/18 23:59 07:59 15:59 Intake Total 460 / 460 100 / 100 240 / 240 Output Total 750 / 750 950 / 950 900 / 900 Balance -290 / -290 -850 / -850 -660 / -660 - VTE Documentation of Mechanical Device: Intermittent pneumatic compression device Consult Discharge Plan - Plan Referrals: Stacia Morrell, CHIEF WRITER [Primary Care Provider] -
[2018-04-11] MEDS: Budesonide/Formoterol 160/4.5 MDI IH SCH ×2 (10:59→21:36)
--- NOTE | 2018-04-11 19:35 | Internal Med Progress Note ---
Date of Encounter: 04/11/18 Time of Encounter: 11:00 - Assessment and plan (1) CHF (congestive heart failure) Current Visit: Yes Status: Acute Assessment and plan: Will increase IV Lasix dose due to small improvement in volume overload Qualifiers: Qualified Code(s): I50.9 - Heart failure, unspecified (2) Hypercapnemia Current Visit: No Status: Acute Assessment and plan: Pulmonology consulted and appreciate recommendations for adjustments with BiPAP/ Trilogy (3) Chronic respiratory failure Current Visit: No Status: Chronic Assessment and plan: Continue BiPAP during night and as needed. Qualifiers: Respiratory failure complication: hypoxia and hypercapnia Qualified Code(s) : J96.11 - Chronic respiratory failure with hypoxia; J96.12 - Chronic respiratory failure with hypercapnia (4) Morbid obesity Current Visit: No Status: Chronic Assessment and plan: Need the lifestyle modification as outpatient (5) Type 2 diabetes mellitus Current Visit: No Status: Chronic Assessment and plan: Place patient on sliding scale coverage Qualifiers: Diabetes mellitus residential insulin use: with local intermodal truck driver use Diabetes mellitus complication status: with kidney complications Diabetes mellitus complication detail: with chronic kidney disease Chronic kidney disease stage : stage 3 (moderate) Qualified Code(s): E11.22 - Type 2 diabetes mellitus with diabetic chronic kidney disease; N18.3 - Chronic kidney disease, stage 3 ( moderate); 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 Continue home medication. Patient is not on anticoagulation, per family it is due to history of intracranial hemorrhage. Qualifiers: Atrial fibrillation type: chronic Qualified Code(s): I48.2 - Chronic atrial fibrillation (8) COPD (chronic obstructive pulmonary disease) Current Visit: No Status: Chronic Assessment and plan: Continue DuoNeb as needed and scheduled. Will hold steroids at this point considering patient has no wheezing and has hyperglycemia. Qualifiers: COPD type: COPD with acute exacerbation Qualified Code(s): J44.1 - Chronic obstructive pulmonary disease with (acute) exacerbation (9) HCAP (healthcare-associated pneumonia) Current Visit: Yes Status: Acute (10) DVT prophylaxis Current Visit: No Status: Resolved Assessment and plan: EPCDs - Time Spent With Patient Total time spent is greater than 50% in coordination of care (as documented) at patient's floor/unit and/or counseling patient: - Subjective Interval history: Patient reports that shortness of breath has improved this morning after IV diuresis for 1 day but still with significant edema - Constitutional Vitals: Temp Pulse Resp BP Pulse Ox 97.6 F 80 18 99/63 94 04/11/18 18:45 04/11/18 18:45 04/11/18 18:45 04/11/18 18:45 04/11/18 18:45 General appearance: Present: A&O X 3, no acute distress, answers questions appropriately - Respiratory Respiratory exam: Present: CTAB. Absent: accessory muscle use, rales, rhonchi, wheezes - Cardiovascular Cardiovascular exam: Present: RRR, +S1, +S2. Absent: diastolic murmur, gallop, rubs, systolic murmur - GI/Abdominal GI/Abdominal exam: Present: soft - Extremities Exam Extremities exam: Present: pedal edema - Skin Skin exam: Present: normal color Internal Medicine: Result - Labs CBC & Chem 7: 04/11/18 09:18 04/11/18 09:18 Labs: Short CBC 04/11/18 Range/Units 09:18 WBC 8.0 (4.3-11.1) K/mcL Hgb 11.2 L (11.5-15.4) g/dL Hct 36.5 (35.3-44.9) % Plt Count 82 L (140-400) K/mcL Neutrophils # 6.9 (1.6-8.9) K/mcL BMP 04/11/18 09:18 Sodium 142 Potassium 4.5 Chloride 99 Carbon Dioxide 39 H BUN 38 H Creatinine 1.28 H Glucose 348 H Calcium 8.3 L - ABG Interpretation ABG results: ABG ABG pH 7.35 pH Units (7.32-7.45) 04/10/18 20:31 ABG pCO2 82 mmHg (35-45) H* 04/10/18 20:31 ABG pO2 63 mmHg (85-104) L 04/10/18 20:31 ABG O2 Saturation 89 % (95-98) L 04/10/18 20:31 - VTE Documentation of Mechanical Device: Intermittent pneumatic compression device Consult Discharge Plan - Plan Referrals: Stacia Morrell, [employer]ATER [Primary Care Provider] -
[2018-04-12] MEDS: Piperacillin/Tazobactam 3.375 GM in 0.9 % Sodium Chloride Mini Bag 100 ML IVPB SCH ×2 (00:27→09:21)
[2018-04-12] MEDS: Ipratropium/Albuterol Neb 3 ML IH SCH ×4 (04:13→22:01)
[2018-04-12] MEDS: levoFLOXacin 750 MG TABLET PO SCH (09:20)
[2018-04-12] MEDS: Furosemide 40 MG/4 ML VIAL IVP SCH ×2 (09:21→20:31)
[2018-04-12] MEDS: Gabapentin 300 MG CAPSULE PO SCH ×2 (09:21→20:31)
[2018-04-12] MEDS: Insulin LISPRO 300 UNITS/3 ML VIAL SQ SCH ×4 (09:22→23:54)
[2018-04-12] MEDS: Budesonide/Formoterol 160/4.5 MDI IH SCH ×2 (10:28→22:01)
[2018-04-12 10:36] LABS: Basophils % 0.2 %; Mean Platelet Volume 11.6 fL (9.4-12.4); Red Blood Count 3.55 M/mcL (3.82-4.97); Red Cell Distribution Width 18.4 % (11.5-14.5); Segmented Neutrophils % 87.1 %
[2018-04-12 10:37] LABS: Eosinophils # 0.1 K/mcL (0.0-0.6); Eosinophils % 0.8 %; Hematocrit 35.5 % (35.3-44.9); Hemoglobin 11.2 g/dL (11.5-15.4); Immature Granulocytes % 1.7 % (0-4); Immature Platelets 5.6 % (1.1-6.1); Lymphocytes # 0.4 K/mcL (0.6-4.6); Lymphocytes % 3.5 %; Mean Corpuscular HGB Conc 31.5 g/dL (31.6-35.5); Mean Corpuscular Hemoglobin 31.5 pg (28.0-33.3); Monocytes # 0.8 K/mcL (0.0-1.3); Monocytes % 6.7 %; Neutrophils # 10.6 K/mcL (1.6-8.9); Nucleated Red Blood Cells 1.5 /100 WBC (0)
[2018-04-12 11:09] LABS: Platelet Count 79 K/mcL (140-400)
[2018-04-12 11:11] LABS: Anisocytosis 1+ (Not Present); Platelet Estimate Slight Decrease (Normal)
[2018-04-12] MEDS ORDERED: Aminoglycoside Consult 1 EACH MC ONE (11:49)
[2018-04-12 12:36] LABS: Calcium 8.6 mg/dL (8.6-10.3); Potassium 4.2 mEq/L (3.5-5.1)
--- NOTE | 2018-04-12 14:14 | Discharge Summary ---
- NOTES TO OUTPATIENT PROVIDER Notes to Outpatient Provider: Follow-up with slipper maker Date of Encounter: 04/12/18 Time of Encounter: 11:00 - Discharge Diagnosis (1) CHF (congestive heart failure) Priority: Primary Status: Acute Qualifiers: Qualified Code(s): I50.9 - Heart failure, unspecified (2) Hypercapnemia Priority: Primary Status: Acute (3) Chronic respiratory failure Priority: Primary Status: Chronic Qualifiers: Respiratory failure complication: hypoxia and hypercapnia Qualified Code(s) : J96.11 - Chronic respiratory failure with hypoxia; J96.12 - Chronic respiratory failure with hypercapnia (4) Morbid obesity Priority: Secondary Status: Chronic (5) Type 2 diabetes mellitus Priority: Secondary Status: Chronic Qualifiers: Diabetes mellitus chcf insulin use: with terminal make up operator use Diabetes mellitus complication status: with kidney complications Diabetes mellitus complication detail: with chronic kidney disease Chronic kidney disease stage : stage 3 (moderate) Qualified Code(s): E11.22 - Type 2 diabetes mellitus with diabetic chronic kidney disease; N18.3 - Chronic kidney disease, stage 3 ( moderate); Z79.4 - half-way (current) use of insulin (6) Sleep apnea Priority: Secondary Status: Chronic Qualifiers: Sleep apnea type: obstructive Qualified Code(s): G47.33 - Obstructive sleep apnea (adult) (pediatric) (7) Atrial fibrillation Priority: Secondary Status: Chronic Qualifiers: Atrial fibrillation type: chronic Qualified Code(s): I48.2 - Chronic atrial fibrillation (8) COPD (chronic obstructive pulmonary disease) Priority: Primary Status: Chronic Qualifiers: COPD type: COPD with acute exacerbation Qualified Code(s): J44.1 - Chronic obstructive pulmonary disease with (acute) exacerbation (9) HCAP (healthcare-associated pneumonia) Priority: Secondary Status: Acute Hospital course: Patient is a 67-year-old female with past medical history significant for A. fib , diabetes, CHF, hypertension, COPD and history of intracranial hemorrhage who presents to the ER on 04/10/18 due to shortness of breath. In the ER, patient was found to have CO2 retention with PCO2 88 mmHg and was placed on BiPAP. Patient was admitted for further management. During hospital stay pulmonology was consulted with recommendations of adjusting home Trilogy settings. She was also treated for acute on chronic diastolic heart failure with IV diuresis. Patients O2 requirements is now at her baseline and will be discharged on a steroid taper per pulmonology recommendations and follow-up with pulmonology as an outpatient. - Time Spent with Patient Total time spent providing and/or coordinating discharge services: Less than 30 minutes - Discharge Medications Prescriptions: levoFLOXacin [Levaquin] 750 mg PO DAILY 5 Days #5 tablet predniSONE [PredniSONE] 10 mg PO DAILY #39 tablet Home Medications: Allopurinol [Zyloprim 100 MG] 100 mg PO DAILY 03/01/18 [History] Carvedilol [Coreg] 25 mg PO BID 03/01/18 [History] Furosemide [Lasix] 80 mg PO DAILY 03/01/18 [History] Gabapentin [Neurontin] 300 mg PO BID 03/01/18 [History] Lisinopril [Zestril] 5 mg PO DAILY 03/01/18 [History] Potassium Chloride [K-Tab ER] 20 meq PO BID 03/01/18 [History] Budesonide/Formoterol 160/4.5 [Symbicort 160/4.5] 2 puff IH BIDR #2 inhaler [Rx] Ipratropium/Albuterol Neb [Duoneb] 3 ml IH Q6HR PRN #25 units 03/03/18 [Rx] Insulin NPH Hum/Reg Insulin Hm [Novolin 70-30 100 Unit/ml Vial] 35 unit SQ DAILY 04/09/18 [History] levoFLOXacin [Levaquin] 750 mg PO DAILY 5 Days #5 tablet 04/12/18 [Rx] predniSONE [PredniSONE] 10 mg PO DAILY #39 tablet 04/12/18 [Rx] Allergies/Adverse Reactions: 3 Allergy/AdvReac Type Severity Reaction Status Date / Time No Known Allergies Allergy Verified 02/27/18 22:15 Date of admission: 04/10/18 00:50 Primary care physician: Stacia Morrell CNP Consults: 04/10/18 11:14 Consult to Pulmonology [CONS] Routine Consulting Provider: [facility] Reason for Consult: Acute respiratory failure with hypercapnia. Call Completed: Yes - Constitutional Vitals: Temp Pulse Resp BP Pulse Ox 98.5 F 82 19 93/59 91 04/12/18 11:46 04/12/18 11:46 04/12/18 11:46 04/12/18 11:46 04/12/18 11:46 General appearance: Present: A&O X 3, no acute distress, answers questions appropriately - Patient Status Disposition: Home, Self-Care Condition: Fair - Discharge Instructions Follow Up With: Stacia Morrell CNP [Primary Care Provider] - 04/20/18 10:20 am (Please follow up as schedule...) - VTE Documentation of Mechanical Device: Graduated compression elastic hosiery
--- NOTE | 2018-04-12 18:00 | Event Note ---
Date of Encounter: 04/12/18 Time of Encounter: 17:00 After patient had been discharged received phone call from nurse stating that patient "does not feel well" and requesting to stay another night. On evaluation of the patient, vital signs stable and patient cannot verbalize any specific complaints other than "I just do not feel well." Discussed with family and patient that I suspect patient has generalized weakness due to minimal mobilization during hospital stay and patient's chronic respiratory failure; Declines SNF. Palliative care consulted for discussion of for realistic goals of care for patient given her chronic hypoxic/hypercapnic respiratory failure. Pulmonology has already signed off with recommendations to follow-up as an outpatient and be discharged on a steroid taper; settings of home Trilogy already recommended.
--- NOTE | 2018-04-12 19:01 | Electrocardiograph Report ---
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
[2018-04-13] MEDS: Ipratropium/Albuterol Neb 3 ML IH SCH ×2 (03:14→10:34)
[2018-04-13 07:25] VITALS: BP 95/59
[2018-04-13] MEDS: Insulin LISPRO 300 UNITS/3 ML VIAL SQ SCH (08:45)
[2018-04-13] MEDS: Gabapentin 300 MG CAPSULE PO SCH (08:47)
[2018-04-13] MEDS: levoFLOXacin 750 MG TABLET PO SCH (08:47)
[2018-04-13] MEDS: Piperacillin/Tazobactam 3.375 GM in 0.9 % Sodium Chloride Mini Bag 100 ML IVPB SCH (08:49)
[2018-04-13] MEDS: Furosemide 40 MG/4 ML VIAL IVP SCH (09:24)
--- NOTE | 2018-04-13 09:32 | Palliative - Consult Note ---
Date of Encounter: 04/13/18 Time of Encounter: 09:00 - Assessment and Plan (1) Goals of care, counseling/discussion Current Visit: Yes Status: Acute Assessment and plan: Conducted bedside meeting with patient and daughters Nicci and Angela. Discussed current medical diagnosis related to chronic respiratory failure. Patient with chronic respiratory failure with CO2 in the 80s. Patient has established follow- up pulmonary consult and will f/u as outpatient with group. Patient currently resides at home in the care of her daughters and son. Patient does not have home health services at present and currently has all needed medical equipment that is needed at home (Has hospital bed, Bipap, O2, WC, Walker, and BSC). Patient is morbid obesity and her performance status (PPS) is 50%. Her daughters cook for her and facilitate her transport to doctors app. The patient desires to be a FULL CODE. She has completed a DPOA and is aware that she is has multiple chronic conditions that require frequent following with physicians. They patient and family agree that they still desire hospitalization if needed and that transition to hospice care is NOT DESIRED. Patients goals are to return home as a FULL CODE and have her family continue to provide care for her. Patient has all needed medical equipment and I answered all family questions. Patient will be discharged today. (2) Chronic respiratory failure Current Visit: No Status: Chronic Qualifiers: Respiratory failure complication: hypoxia and hypercapnia Qualified Code(s) : J96.11 - Chronic respiratory failure with hypoxia; J96.12 - Chronic respiratory failure with hypercapnia (3) Morbid obesity Current Visit: No Status: Chronic (4) Sleep apnea Current Visit: No Status: Chronic Qualifiers: Sleep apnea type: obstructive Qualified Code(s): G47.33 - Obstructive sleep apnea (adult) (pediatric) (5) COPD (chronic obstructive pulmonary disease) Current Visit: No Status: Chronic Qualifiers: COPD type: COPD with acute exacerbation Qualified Code(s): J44.1 - Chronic obstructive pulmonary disease with (acute) exacerbation Palliative-CN HPI - Data of Consult Patient: new to practice Consult date: 04/13/18 Requesting Physician: Meet Allen MD Primary Care Provider: Stacia Morrell CNP - Consult Narrative Palliative Care/Comfort Measures: Palliative care Reason for consult: Goals of Care discussion History of present illness: Ms. Hernández is a 67 year old female with chronic respiratory failure. Chart review completed. Patient with multiple hospital visits and admits within past year. Daughters Nicci and Angela at bedside at time of consult. Patient with PMH of a-fib, COPD, CHF, morbid obesity, Bipap dependent at night for CHRISTY, Chronic respiratory failure. Vital signs stable, denies complains and agrees to bedside discussion for goals of care. This palliative care consult is for goals of care discussion. CC: Dian Erickson MD Past Med Surg Social Fam HX - Past Medical History Source: patient, old records reviewed, obtained from family Medical history: atrial fibrillation, CHF, COPD, DVT, dementia, diabetes, hyperlipidemia, hypertension, renal disease Additional medical history: cellulitis. Vasculitis. Frequent Pneumonia. Bipap at home Psychiatric history: anxiety, depression - Past Surgical History Surgical History: no surgical history Additional surgical history: right shoulder surgery - Social History Smoking Status: Never smoker Smokeless Tobacco Status: No Alcohol use: none Drug use: none Occupational status: retired Current living situation: Home, With Family Activity Level: Uses cane/walker Recent Out of Country Travel Within the Last 8 Weeks: No Exposure or Possible Exposure to Illness During Travel: No - Family History Mother Living Status: Father Living Status: Sister Adopted: No Family Member Ethnicity: Non- Twin of Family Member: Yes, Fraternal Living Status: Hx Family Cardiac Disorders: Yes Hx Family Respiratory Disorders: Yes Hx Family Cancer: No Hx Family GI Disorders: No Hx Family Endocrine Disorder: Yes Hx Family Neuromuscular Disorders: No Hx Family Neurologic Disorders: No Hx Family HEENT Disorders: No Hx Family Autoimmune Disorders: No Medications and Allergies Allopurinol [Zyloprim 100 MG] 100 mg PO DAILY 03/01/18 [History] Carvedilol [Coreg] 25 mg PO BID 03/01/18 [History] Furosemide [Lasix] 80 mg PO DAILY 03/01/18 [History] Gabapentin [Neurontin] 300 mg PO BID 03/01/18 [History] Lisinopril [Zestril] 5 mg PO DAILY 03/01/18 [History] Potassium Chloride [K-Tab ER] 20 meq PO BID 03/01/18 [History] Budesonide/Formoterol 160/4.5 [Symbicort 160/4.5] 2 puff IH BIDR #2 inhaler [Rx] Ipratropium/Albuterol Neb [Duoneb] 3 ml IH Q6HR PRN #25 units 03/03/18 [Rx] Insulin NPH Hum/Reg Insulin Hm [Novolin 70-30 100 Unit/ml Vial] 35 unit SQ DAILY 04/09/18 [History] levoFLOXacin [Levaquin] 750 mg PO DAILY 5 Days #5 tablet 04/12/18 [Rx] predniSONE [PredniSONE] 10 mg PO DAILY #39 tablet 04/12/18 [Rx] 3 Allergy/AdvReac Type Severity Reaction Status Date / Time No Known Allergies Allergy Verified 02/27/18 22:15 All systems: reviewed and no additional remarkable complaints except as stated Review of systems: Denies QUINONES, CP, dyplopia, numbness, tingling or dyspnea. - Constitutional Constitutional ROS PAL: fatigue, lethargy - Cardiovascular Cardiovascular ROS: dyspnea on exertion, orthopnea - Respiratory Respiratory: dyspnea, dyspnea on exertion - Gastrointestinal Gastrointestinal: bloating - Musculoskeletal Musculoskeletal ROS IM: muscle weakness - Integumentary ROS Integumentary: erythema Additional comments: Bilateral lower extremities with [place] Hose - Neurological Neurological ROS: weakness - Psychiatric Psychiatric general PM: anxiety, depression Palliative Care-Exam - Constitutional Vitals: Temp Pulse Resp BP Pulse Ox 97.6 F 90 18 95/59 92 04/13/18 07:23 04/13/18 07:23 04/13/18 07:23 04/13/18 07:23 04/13/18 07:23 General appearance: Present: cooperative, morbidly obese - Head Head Exam: Present: atraumatic, normal inspection - Eye Eye exam: Present: PERRL - ENT ENT exam: Present: mucous membranes moist - Expanded ENT Exam Mouth Exam: Present: moist - Neck Neck exam: Present: full ROM, normal inspection - Respiratory Respiratory exam: Present: decreased breath sounds - Expanded Respiratory Exam Location: decreased breath sounds: Left, Right, Lower - Cardiovascular Cardiovascular exam: Present: RRR, +S1, +S2 - Expanded Cardiovascular Exam Peripheral pulses: 1+: Femoral (L) PM, Femoral (R) PM, Posterior Tibialis (L), Posterior Tibialis (R), Dorsalis Pedis (L) PM, Dorsalis Pedis (R) PM, 2+: Carotid (L) PM, Carotid (R) PM, Radial (L), Radial (R) - GI/Abdominal Exam GI/Abdominal exam: Present: normal bowel sounds, soft - Rectal Rectal exam: Present: deferred - Extremities Exam Extremities exam: Present: pedal edema - Expanded Upper Extremities Exam General: Present: normal inspection - Neurological Exam Neurological exam: Present: alert, oriented X3, strengths equal and symetr throughout - Expanded Neurological Exam Patient oriented to: Present: person, place, time Cranial nerves: gag reflex: Normal Coma Scale Eye Opening: Spontaneous Coma Scale Motor Response: Obeys Commands Coma Scale Verbal Response: Oriented Coma Scale Total: 15 - Psychiatric Psychiatric exam: Present: normal affect - Skin Skin exam: Present: warm Internal Medicine - CN: Reslt - Labs CBC & Chem 7: 04/12/18 09:12 04/12/18 11:12 Labs: Short CBC 04/12/18 Range/Units 09:12 WBC 12.2 H D (4.3-11.1) K/mcL Hgb 11.2 L (11.5-15.4) g/dL Hct 35.5 (35.3-44.9) % Plt Count 79 L (140-400) K/mcL Neutrophils # 10.6 H (1.6-8.9) K/mcL BMP 04/12/18 11:12 Sodium 143 Potassium 4.2 Chloride 97 L Carbon Dioxide 42 H* BUN 39 H Creatinine 1.29 H Glucose 290 H Calcium 8.6 - ABG Interpretation ABG results: ABG ABG pH 7.35 pH Units (7.32-7.45) 04/10/18 20:31 ABG pCO2 82 mmHg (35-45) H* 04/10/18 20:31 ABG pO2 63 mmHg (85-104) L 04/10/18 20:31 ABG O2 Saturation 89 % (95-98) L 04/10/18 20:31 Consult Discharge Plan - Plan Referrals: Stacia Morrell CNP [Primary Care Provider] - 04/20/18 10:20 am (Please follow up as schedule...) Prescriptions: levoFLOXacin [Levaquin] 750 mg PO DAILY 5 Days #5 tablet predniSONE [PredniSONE] 10 mg PO DAILY #39 tablet Palliative Quality Palliative Quality: Screen for Code Status: Yes, Screen for Goals of Care: Yes, Screen for Pain: Yes, Screen for Nausea/Vomitting: Yes Code Status: Full Code
[2018-04-13] MEDS: Budesonide/Formoterol 160/4.5 MDI IH SCH (10:34)
--- NOTE | 2018-04-13 17:25 | Internal Med Progress Note ---
Date of Encounter: 04/13/18 Time of Encounter: 09:50 - Assessment and plan (1) COPD (chronic obstructive pulmonary disease) Status: Chronic Assessment and plan: Continue bronchodilators as needed. Steroid taper at discharge Qualifiers: COPD type: COPD with acute exacerbation Qualified Code(s): J44.1 - Chronic obstructive pulmonary disease with (acute) exacerbation (2) Hypercapnemia Status: Acute Assessment and plan: Continue to use BiPAP as needed even during daytime underlying down. (3) Chronic respiratory failure Status: Chronic Assessment and plan: O2 supplementation and BiPAP use at home. Qualifiers: Respiratory failure complication: hypoxia and hypercapnia Qualified Code(s) : J96.11 - Chronic respiratory failure with hypoxia; J96.12 - Chronic respiratory failure with hypercapnia (4) Morbid obesity Status: Chronic Assessment and plan: Advised dietary changes (5) Type 2 diabetes mellitus Status: Chronic Assessment and plan: Improved this morning. Will continue monitoring blood sugars. 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 Qualifiers: Sleep apnea type: obstructive Qualified Code(s): G47.33 - Obstructive sleep apnea (adult) (pediatric) (7) Atrial fibrillation Status: Chronic Assessment and plan: Rate controlled. Qualifiers: Atrial fibrillation type: chronic Qualified Code(s): I48.2 - Chronic atrial fibrillation (8) HCAP (healthcare-associated pneumonia) Status: Acute (9) CHF (congestive heart failure) Status: Acute Assessment and plan: Continue Lasix. Transition to oral dose Qualifiers: Heart failure type: diastolic Heart failure chronicity: acute on chronic Qualified Code(s): I50.33 - Acute on chronic diastolic (congestive) heart failure - Time Spent With Patient Total time spent is greater than 50% in coordination of care (as documented) at patient's floor/unit and/or counseling patient: - Subjective Interval history: Patient is sitting up in chair. Doing well. Still wishes to go home and not ready At this time. They have also discussed plan for goals of care with palliative care and wish to go home at this point. - Constitutional Vitals: Temp Pulse Resp BP Pulse Ox 97.6 F 90 18 95/59 92 04/13/18 07:23 04/13/18 07:23 04/13/18 10:37 04/13/18 07:23 04/13/18 10:37 General appearance: Present: A&O X 3, no acute distress, answers questions appropriately - Respiratory Respiratory exam: Present: prolonged expiratory phase. Absent: accessory muscle use, rales, rhonchi, wheezes - Cardiovascular Cardiovascular exam: Present: RRR, +S1, +S2. Absent: diastolic murmur, gallop, rubs, systolic murmur - GI/Abdominal GI/Abdominal exam: Present: normal bowel sounds, soft, no peritoneal signs. Absent: distended, tenderness - Extremities Exam Extremities exam: Present: pedal edema, warm, radial pulses palpable and symmetrical. Absent: calf tenderness, cyanotic Internal Medicine: Result - Labs CBC & Chem 7: 04/12/18 09:12 04/12/18 11:12 - ABG Interpretation ABG results: ABG ABG pH 7.35 pH Units (7.32-7.45) 04/10/18 20:31 ABG pCO2 82 mmHg (35-45) H* 04/10/18 20:31 ABG pO2 63 mmHg (85-104) L 04/10/18 20:31 ABG O2 Saturation 89 % (95-98) L 04/10/18 20:31 - VTE Documentation of Mechanical Device: Graduated compression elastic hosiery Consult Discharge Plan - Plan Instructions: Chronic Obstructive Pulmonary Disease (GEN), BiPAP (GEN) Referrals: Stacia Morrell CNP [Primary Care Provider] - 04/20/18 10:20 am (Please follow up as schedule...) Jodie Sánchez MD [Partnered Physician] - 06/16/18 10:45 am (Please follow up as schedule...) Prescriptions: levoFLOXacin [Levaquin] 750 mg PO DAILY 5 Days #5 tablet predniSONE [PredniSONE] 10 mg PO DAILY #39 tablet
== END 2018-04-13 11:50 | disposition home or self-care (01) | DRG 291 ==
LOC: EMEROO 19:13 → 2ANU 19:13 → SUATTDRO 04-10 00:50 → 2ANU 04-10 00:59
PROVIDERS: ADMIT Internal Medicine; ATTEND Internal Medicine

== ENCOUNTER 2018-05-07 22:24 | Inpatient (IN) ==
[2018-05-07 23:07] LABS: Eosinophils # 0.1 K/mcL (0.0-0.6); Hematocrit 36.3 % (35.3-44.9); Hemoglobin 11.1 g/dL (11.5-15.4); Immature Platelets 3.9 % (1.1-6.1); Lymphocytes # 0.6 K/mcL (0.6-4.6); Lymphocytes % 15.1 %; Mean Corpuscular HGB Conc 30.6 g/dL (31.6-35.5); Mean Corpuscular Hemoglobin 31.2 pg (28.0-33.3); Mean Platelet Volume 10.2 fL (9.4-12.4); Monocytes # 0.3 K/mcL (0.0-1.3); Monocytes % 7.3 %; Nucleated Red Blood Cells 0.8 /100 WBC (0); Platelet Count 144 K/mcL (140-400); Red Blood Count 3.56 M/mcL (3.82-4.97); Red Cell Distribution Width 18.1 % (11.5-14.5); Segmented Neutrophils % 74.6 %
[2018-05-07 23:12] LABS: VBG HCO3 37 mEq/L (21-27); VBG PCO2 73 mmHg (41-51); VBG PH 7.31 pH Units (7.32-7.42); VBG PO2 65 mmHg (25-50)
[2018-05-07 23:25] LABS: BUN/Creatinine Ratio 17 (6-26); Blood Urea Nitrogen 22 mg/dL (8-23); Calcium 8.8 mg/dL (8.6-10.3); Carbon Dioxide 33 mEq/L (23-29); Chloride 99 mEq/L (98-107); Glucose 334 mg/dL (70-105); Osmolality,Calculated 304 (280-300); Potassium 4.4 mEq/L (3.5-5.1); Sodium 139 mEq/L (136-145); eGFR For Non-African Americans 41 (> 60)
[2018-05-07 23:26] LABS: Troponin I < 0.03 ng/mL (< 0.04)
[2018-05-07] MEDS ORDERED: Ipratropium/Albuterol Neb 3 ML IH ONE (23:26)
[2018-05-07] MEDS ORDERED: methylPREDNISolone 125 MG/2 ML VIAL IVP ONE (23:27)
[2018-05-07] MEDS ORDERED: Furosemide 40 MG/4 ML VIAL IVP ONE (23:27)
--- NOTE | 2018-05-07 23:28 | Emergency Department Note ---
Disposition Clinical Impression: Right heart failure due to pulmonary hypertension, COPD exacerbation, Chronic atrial fibrillation Hypercapnic respiratory failure Qualifiers: Chronicity: acute on chronic Qualified Code(s): J96.22 - Acute and chronic respiratory failure with hypercapnia Disposition: Admitted As Inpatient Condition: Fair Time of Disposition: 00:36 General Adult HPI - General Chief complaint: ED General Medical Stated complaint: Swelling Time Seen by Provider: 05/07/18 23:15 Source: patient, family Mode of arrival: ambulatory Limitations: no limitations Nursing Notes Reviewed: Yes Vital Signs Reviewed: Yes - History of Present Illness HPI Narrative: Patient presents to the ED the chief complaint of shortness breath. Onset was earlier today. Patient has a history of CHF and COPD and is on 3 L at all times. States that she just started feeling more short of breath than usual and her sats were in the low 90s. She normally runs in the low 90s. She denies any fever, chills or chest pain. No cough or congestion. Denies any abdominal pain, but does state she has had abdominal swelling. Does have a history of ascites secondary to liver disease and has had to have a paracentesis previously, but not for several years. She states her abdomen is hanging down lower than usual. She denies any dysuria or hematuria. Has chronic baseline swelling in her legs. This is not different than usual. Pain Scale: 0 - Related Data Home Medications Medication Instructions Recorded Confirmed Allopurinol [Zyloprim 100 MG] 100 mg PO DAILY 03/01/18 04/09/18 Carvedilol [Coreg] 25 mg PO BID 03/01/18 04/09/18 Furosemide [Lasix] 80 mg PO DAILY 03/01/18 04/09/18 Gabapentin [Neurontin] 300 mg PO BID 03/01/18 04/09/18 Lisinopril [Zestril] 5 mg PO DAILY 03/01/18 04/09/18 Potassium Chloride [K-Tab ER] 20 meq PO BID 03/01/18 04/09/18 Insulin NPH Hum/Reg Insulin Hm 35 unit SQ DAILY 04/09/18 04/09/18 [Novolin 70-30 100 Unit/ml Vial] Previous Rx's Medication Instructions Recorded Budesonide/Formoterol 160/4.5 2 puff IH BIDR #2 inhaler 03/03/18 [Symbicort 160/4.5] Ipratropium/Albuterol Neb [Duoneb] 3 ml IH Q6HR PRN #25 units 03/03/18 levoFLOXacin [Levaquin] 750 mg PO DAILY 5 Days #5 tablet 04/12/18 predniSONE [PredniSONE] 10 mg PO DAILY #39 tablet 04/12/18 Allergies Allergy/AdvReac Type Severity Reaction Status Date / Time No Known Allergies Allergy Verified 02/27/18 22:15 Review of Systems: As reviewed in the HPI. All other systems reviewed are negative or normal. Past Medical History - Past Medical History Attestation: Yes The following information was validated with the patient. 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 - Social History Smoking Status: Never smoker Smokeless Tobacco Status: No Alcohol use: Reports: none Drug use: Reports: none Physical Exam CONSTITUTIONAL: [well appearing in no acute distress] SKIN: [Warm, dry, and intact without rash] EYES: [extraocular movements are grossly intact, clear conjunctiva] HENT: [Normocephalic, atraumatic, moist mucus membranes] NECK: [no obvious swelling, normal range of motion] PULMONARY: [normal chest rise and fall, no respiratory distress or stridor, decreased breath sounds bilateral bases, trace wheezing apically CARDIOVASCULAR: [regular rate, distal extremities are warm and well perfused] GASTROINSTESTINAL: [Distended, non-tympanic, nontender, no guarding or rebound] GENITOURINARY: [deferred] NEUROLOGIC: [normal speech, moves all extremities] MUSCULOSKELETAL: [no gross deformities, atraumatic, 4+ pitting edema bilaterally baseline] PSYCHIATRIC: [normal mood and affect] - General Limitations: no limitations General appearance: alert Course Course Narrative: Patient presenting with CHF versus COPD exacerbation. We will get labs, ABG, chest x-ray, nebs, steroids and Lasix. will need admission - Reevaluation(s) Reevaluation #1: Patient had hypercapnic which had improved on ABG. Patient did receive DuoNeb nebs and steroids as well as Lasix. Will admit to the hospitalist service for further workup. Vital Signs Temperature 98.4 F 05/07/18 22:26 Pulse Rate 93 05/07/18 22:26 Respiratory Rate 24 05/07/18 22:26 Blood Pressure 107/63 05/07/18 22:26 O2 Sat by Pulse Oximetry 97 05/07/18 22:26 Temperature 98.4 F 05/07/18 22:26 Pulse Rate 94 05/08/18 00:48 Respiratory Rate 16 05/08/18 00:48 Blood Pressure 105/60 05/08/18 00:48 O2 Sat by Pulse Oximetry 100 05/08/18 00:48 Oxygen Delivery Oxygen Delivery Nasal Cannula Medical Decision Making - Medical Records Medical records reviewed: Yes I reviewed the patient's medical records. - Lab Data Lab results reviewed: Yes I reviewed the patient's lab results. Result diagrams: 05/07/18 22:52 05/07/18 22:52 Lab Results 05/07/18 05/07/18 05/07/18 Range/Units 22:52 22:52 22:52 WBC 4.0 L (4.3-11.1) K/mcL RBC 3.56 L (3.82-4.97) M/mcL Hgb 11.1 L (11.5-15.4) g/dL Hct 36.3 (35.3-44.9) % MCV 102.0 H (83.0-100.0) fL MCH 31.2 (28.0-33.3) pg MCHC 30.6 L (31.6-35.5) g/dL RDW 18.1 H (11.5-14.5) % Plt Count 144 (140-400) K/mcL MPV 10.2 (9.4-12.4) fL Immature Gran % 1.0 (0-4) % Seg Neutrophils % 74.6 % Lymphocytes % 15.1 % Monocytes % 7.3 % Eosinophils % 2.0 % Basophils % 0.0 % Neutrophils # 3.0 (1.6-8.9) K/mcL Lymphocytes # 0.6 (0.6-4.6) K/mcL Monocytes # 0.3 (0.0-1.3) K/mcL Eosinophils # 0.1 (0.0-0.6) K/mcL Basophils # 0.0 (0.0-0.2) K/mcL Nucleated RBCs/100 WBC 0.8 H (0) /100 WBC Immature Plt Fraction 3.9 (1.1-6.1) % ABG pH (7.32-7.45) pH Units ABG pCO2 (35-45) mmHg ABG pO2 (85-104) mmHg ABG HCO3 (21-27) mEq/L ABG Total CO2 (20-26) mEq/L ABG O2 Saturation (95-98) % ABG Base Excess (-2 to 3) mEq/L VBG pH (7.32-7.42) pH Units VBG pCO2 (41-51) mmHg VBG pO2 (25-50) mmHg VBG HCO3 (21-27) mEq/L O2 Delivery Device Inspired O2 (1-15=lpm [id number]=%) Sodium 139 (136-145) mEq/L Potassium 4.4 (3.5-5.1) mEq/L Chloride 99 (98-107) mEq/L Carbon Dioxide 33 H (23-29) mEq/L BUN 22 (8-23) mg/dL Creatinine 1.31 H (0.60-1.20) mg/dL Est GFR ( Amer) 49 L (> 60) Est GFR (Non-Af Amer) 41 L (> 60) BUN/Creatinine Ratio 17 (6-26) Glucose 334 H (70-105) mg/dL Calculated Osmolality 304 H (280-300) Lactic Acid (0.5-2.2) mmol/L Calcium 8.8 (8.6-10.3) mg/dL Troponin I < 0.03 (< 0.04) ng/mL B-Natriuretic Peptide 110 H (Less than 100) pg/mL Person Notif of Crit 05/07/18 05/07/18 05/08/18 Range/Units 23:05 23:45 00:03 WBC (4.3-11.1) K/mcL RBC (3.82-4.97) M/mcL Hgb (11.5-15.4) g/dL Hct (35.3-44.9) % MCV (83.0-100.0) fL MCH (28.0-33.3) pg MCHC (31.6-35.5) g/dL RDW (11.5-14.5) % Plt Count (140-400) K/mcL MPV (9.4-12.4) fL Immature Gran % (0-4) % Seg Neutrophils % % Lymphocytes % % Monocytes % % Eosinophils % % Basophils % % Neutrophils # (1.6-8.9) K/mcL Lymphocytes # (0.6-4.6) K/mcL Monocytes # (0.0-1.3) K/mcL Eosinophils # (0.0-0.6) K/mcL Basophils # (0.0-0.2) K/mcL Nucleated RBCs/100 WBC (0) /100 WBC Immature Plt Fraction (1.1-6.1) % ABG pH 7.41 (7.32-7.45) pH Units ABG pCO2 67 H (35-45) mmHg ABG pO2 55 L (85-104) mmHg ABG HCO3 42 H (21-27) mEq/L ABG Total CO2 44 H (20-26) mEq/L ABG O2 Saturation 87 L (95-98) % ABG Base Excess 15 H (-2 to 3) mEq/L VBG pH 7.31 L (7.32-7.42) pH Units VBG pCO2 73 H* (41-51) mmHg VBG pO2 65 H (25-50) mmHg VBG HCO3 37 H (21-27) mEq/L O2 Delivery Device Cannula Inspired O2 3.0 (1-15=lpm [id number]=%) Sodium (136-145) mEq/L Potassium (3.5-5.1) mEq/L Chloride (98-107) mEq/L Carbon Dioxide (23-29) mEq/L BUN (8-23) mg/dL Creatinine (0.60-1.20) mg/dL Est GFR ( Amer) (> 60) Est GFR (Non-Af Amer) (> 60) BUN/Creatinine Ratio (6-26) Glucose (70-105) mg/dL Calculated Osmolality (280-300) Lactic Acid 2.7 H (0.5-2.2) mmol/L Calcium (8.6-10.3) mg/dL Troponin I (< 0.04) ng/mL B-Natriuretic Peptide (Less than 100) pg/mL Person Notif of Domenica PULIDO - Radiology Data Radiology results reviewed: Yes I reviewed the patient's radiology results. A. fib, rate 89, QTC 406, normal axis, no acute ischemic changes
--- NOTE | 2018-05-07 23:30 | Emergency Department Note ---
Disposition Clinical Impression: Right heart failure due to pulmonary hypertension, COPD exacerbation, Hypercapnic respiratory failure, Chronic atrial fibrillation Disposition: Admitted As Inpatient Condition: Fair General Adult HPI - General Chief complaint: ED General Medical Stated complaint: Swelling Time Seen by Provider: 05/07/18 23:15 Source: patient, family Limitations: no limitations - History of Present Illness Pain Scale: 0 - Related Data Home Medications Medication Instructions Recorded Confirmed Allopurinol [Zyloprim 100 MG] 100 mg PO DAILY 03/01/18 04/09/18 Carvedilol [Coreg] 25 mg PO BID 03/01/18 04/09/18 Furosemide [Lasix] 80 mg PO DAILY 03/01/18 04/09/18 Gabapentin [Neurontin] 300 mg PO BID 03/01/18 04/09/18 Lisinopril [Zestril] 5 mg PO DAILY 03/01/18 04/09/18 Potassium Chloride [K-Tab ER] 20 meq PO BID 03/01/18 04/09/18 Insulin NPH Hum/Reg Insulin Hm 35 unit SQ DAILY 04/09/18 04/09/18 [Novolin 70-30 100 Unit/ml Vial] Previous Rx's Medication Instructions Recorded Budesonide/Formoterol 160/4.5 2 puff IH BIDR #2 inhaler 03/03/18 [Symbicort 160/4.5] Ipratropium/Albuterol Neb [Duoneb] 3 ml IH Q6HR PRN #25 units 03/03/18 levoFLOXacin [Levaquin] 750 mg PO DAILY 5 Days #5 tablet 04/12/18 predniSONE [PredniSONE] 10 mg PO DAILY #39 tablet 04/12/18 Allergies Allergy/AdvReac Type Severity Reaction Status Date / Time No Known Allergies Allergy Verified 02/27/18 22:15 Past Medical History - Past Medical History Medical history: Reports: atrial fibrillation, CHF, COPD, DVT, dementia, diabetes, hyperlipidemia, hypertension, renal disease Surgical history: Reports: no surgical history Psychiatric history: Reports: anxiety, depression 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 history - Social History Smoking Status: Never smoker Smokeless Tobacco Status: No Alcohol use: Reports: none Drug use: Reports: none Physical Exam - General Limitations: no limitations General appearance: alert Course Vital Signs Temperature 98.4 F 05/07/18 22:26 Pulse Rate 93 05/07/18 22:26 Respiratory Rate 24 05/07/18 22:26 Blood Pressure 107/63 05/07/18 22:26 O2 Sat by Pulse Oximetry 97 05/07/18 22:26 Temperature 98.4 F 05/07/18 22:26 Pulse Rate 94 05/08/18 00:48 Respiratory Rate 16 05/08/18 00:48 Blood Pressure 105/60 05/08/18 00:48 O2 Sat by Pulse Oximetry 100 05/08/18 00:48 Oxygen Delivery Oxygen Delivery Nasal Cannula Medical Decision Making - Lab Data Result diagrams: 05/07/18 22:52 05/07/18 22:52 Lab Results 05/07/18 05/07/18 05/07/18 Range/Units 22:52 22:52 22:52 WBC 4.0 L (4.3-11.1) K/mcL RBC 3.56 L (3.82-4.97) M/mcL Hgb 11.1 L (11.5-15.4) g/dL Hct 36.3 (35.3-44.9) % MCV 102.0 H (83.0-100.0) fL MCH 31.2 (28.0-33.3) pg MCHC 30.6 L (31.6-35.5) g/dL RDW 18.1 H (11.5-14.5) % Plt Count 144 (140-400) K/mcL MPV 10.2 (9.4-12.4) fL Immature Gran % 1.0 (0-4) % Seg Neutrophils % 74.6 % Lymphocytes % 15.1 % Monocytes % 7.3 % Eosinophils % 2.0 % Basophils % 0.0 % Neutrophils # 3.0 (1.6-8.9) K/mcL Lymphocytes # 0.6 (0.6-4.6) K/mcL Monocytes # 0.3 (0.0-1.3) K/mcL Eosinophils # 0.1 (0.0-0.6) K/mcL Basophils # 0.0 (0.0-0.2) K/mcL Nucleated RBCs/100 WBC 0.8 H (0) /100 WBC Immature Plt Fraction 3.9 (1.1-6.1) % ABG pH (7.32-7.45) pH Units ABG pCO2 (35-45) mmHg ABG pO2 (85-104) mmHg ABG HCO3 (21-27) mEq/L ABG Total CO2 (20-26) mEq/L ABG O2 Saturation (95-98) % ABG Base Excess (-2 to 3) mEq/L VBG pH (7.32-7.42) pH Units VBG pCO2 (41-51) mmHg VBG pO2 (25-50) mmHg VBG HCO3 (21-27) mEq/L O2 Delivery Device Inspired O2 (1-15=lpm [id number]=%) Sodium 139 (136-145) mEq/L Potassium 4.4 (3.5-5.1) mEq/L Chloride 99 (98-107) mEq/L Carbon Dioxide 33 H (23-29) mEq/L BUN 22 (8-23) mg/dL Creatinine 1.31 H (0.60-1.20) mg/dL Est GFR ( Amer) 49 L (> 60) Est GFR (Non-Af Amer) 41 L (> 60) BUN/Creatinine Ratio 17 (6-26) Glucose 334 H (70-105) mg/dL Calculated Osmolality 304 H (280-300) Lactic Acid (0.5-2.2) mmol/L Calcium 8.8 (8.6-10.3) mg/dL Troponin I < 0.03 (< 0.04) ng/mL B-Natriuretic Peptide 110 H (Less than 100) pg/mL Person Notif of Crit 05/07/18 05/07/18 05/08/18 Range/Units 23:05 23:45 00:03 WBC (4.3-11.1) K/mcL RBC (3.82-4.97) M/mcL Hgb (11.5-15.4) g/dL Hct (35.3-44.9) % MCV (83.0-100.0) fL MCH (28.0-33.3) pg MCHC (31.6-35.5) g/dL RDW (11.5-14.5) % Plt Count (140-400) K/mcL MPV (9.4-12.4) fL Immature Gran % (0-4) % Seg Neutrophils % % Lymphocytes % % Monocytes % % Eosinophils % % Basophils % % Neutrophils # (1.6-8.9) K/mcL Lymphocytes # (0.6-4.6) K/mcL Monocytes # (0.0-1.3) K/mcL Eosinophils # (0.0-0.6) K/mcL Basophils # (0.0-0.2) K/mcL Nucleated RBCs/100 WBC (0) /100 WBC Immature Plt Fraction (1.1-6.1) % ABG pH 7.41 (7.32-7.45) pH Units ABG pCO2 67 H (35-45) mmHg ABG pO2 55 L (85-104) mmHg ABG HCO3 42 H (21-27) mEq/L ABG Total CO2 44 H (20-26) mEq/L ABG O2 Saturation 87 L (95-98) % ABG Base Excess 15 H (-2 to 3) mEq/L VBG pH 7.31 L (7.32-7.42) pH Units VBG pCO2 73 H* (41-51) mmHg VBG pO2 65 H (25-50) mmHg VBG HCO3 37 H (21-27) mEq/L O2 Delivery Device Cannula Inspired O2 3.0 (1-15=lpm [id number]=%) Sodium (136-145) mEq/L Potassium (3.5-5.1) mEq/L Chloride (98-107) mEq/L Carbon Dioxide (23-29) mEq/L BUN (8-23) mg/dL Creatinine (0.60-1.20) mg/dL Est GFR ( Amer) (> 60) Est GFR (Non-Af Amer) (> 60) BUN/Creatinine Ratio (6-26) Glucose (70-105) mg/dL Calculated Osmolality (280-300) Lactic Acid 2.7 H (0.5-2.2) mmol/L Calcium (8.6-10.3) mg/dL Troponin I (< 0.04) ng/mL B-Natriuretic Peptide (Less than 100) pg/mL Person Notif of Domenica PULIDO Attestation Statement - Attestation Attestation: I examined this patient and my medical decision-making was reviewed with the Resident Physician. I agree with the documented findings, disposition and treatment plan as described except to the extent set forth below. Patient presents to the ED with chief complaint of swelling weakness shortness of breath. Patient states she swollen gland her abdomen. She short of breath. She is weak and almost fell twice. She did not actually fall. History of similar episodes. Family states are concerned that her blood gas is high. On examination she does not appear to be in any acute respiratory distress. Heart regular. Lungs are diminished. She has 4+ pitting edema bilateral lower extremities. Plan. Patient appears to be a mix COPD CHF exacerbation. Workup pending. Family requesting ABG. DuoNeb Solu-Medrol Lasix and reevaluate. Patient is not on any respiratory distress and I do not believe she is to be on BiPAP at this time. Workup reviewed. No pneumonia. A chest x-ray is actually improved. Patient is admitted to medicine for further treatment. Chest X-Ray 05/07/18 22:31 IMPRESSION: Decreased right pleural effusion decreased bibasilar airspace disease. Some persistent airspace disease is present, atelectasis or resolving pneumonia. D/ / Carline Rogers Cha, MD / Carline Rogers Cha, MD Interpreting Provider: Carline Rogers Cha, MD
[2018-05-07 23:48] LABS: ABG Base Excess 15 mEq/L (-2 to 3); ABG HCO3 42 mEq/L (21-27); ABG Oxygen Saturation 87 % (95-98); ABG PCO2 67 mmHg (35-45); ABG PH 7.41 pH Units (7.32-7.45); ABG PO2 55 mmHg (85-104); ABG TCO2 44 mEq/L (20-26)
[2018-05-08] MEDS ORDERED: Naloxone 0.4 MG/ML INJ IVP PRN (04:29)
[2018-05-08] MEDS ORDERED: D5% in Water 1,000 ML IVC PRN (04:30)
[2018-05-08] MEDS ORDERED: Dextrose Gel 15 GM/37.5 ML TUBE PO PRN ×2 (04:30)
[2018-05-08] MEDS ORDERED: *HR* Dextrose 50 % in Water (Syg) 50 ML SYRINGE IVP PRN ×3 (04:30→21:19)
[2018-05-08] MEDS: Ipratropium/Albuterol Neb 3 ML IH SCH ×4 (04:59→22:35)
[2018-05-08 05:15] LABS: Hematocrit 33.6 % (35.3-44.9); Hemoglobin 10.1 g/dL (11.5-15.4); Mean Corpuscular HGB Conc 30.1 g/dL (31.6-35.5); Mean Corpuscular Hemoglobin 30.5 pg (28.0-33.3); Mean Corpuscular Volume 101.5 fL (83.0-100.0); Mean Platelet Volume 9.8 fL (9.4-12.4); Platelet Count 127 K/mcL (140-400); Red Blood Count 3.31 M/mcL (3.82-4.97); Red Cell Distribution Width 18.1 % (11.5-14.5)
[2018-05-08 05:38] LABS: Calcium 8.5 mg/dL (8.6-10.3); Potassium 4.9 mEq/L (3.5-5.1)
[2018-05-08] MEDS ORDERED: Insulin DETEMIR 100 UNIT/ML X5UNITS SQ ONE (06:28)
[2018-05-08] MEDS ORDERED: Insulin LISPRO 300 UNITS/3 ML VIAL SQ STA (06:29)
[2018-05-08] MEDS: Azithromycin 500 MG in D5% in Water 250 ML IVPB SCH (06:40)
--- NOTE | 2018-05-08 07:37 | Internal Med History&Physical ---
Date of Encounter: 05/08/18 Time of Encounter: 03:55 Internal Medicine - H&P: HPI Chief complaint: Ascites Admitted From: Home Plans for Post Hospital Care: Home History of present illness: Ms. Hernández is a 67 year old female Patient presented to the ER with increased abdominal swelling and shortness of breath since yesterday. She states that she was recently discharged from the hospital about 3 weeks ago and was doing well until very recently. She has a history of COPD, atrial fibrillation and cirrhosis according to her daughter. She denies fevers, chills, chest pain and cough. Denies nausea, vomiting, diarrhea and constipation. She uses CPAP at home and is on 3L of oxygen chronically. In the ER she had elevated PCO2 of 67, chest x-ray showed resolving pneumonia and improved right pleural effusion. Lactic acid was 2.7, BNP was 110 and troponins were undetectable. Upon my assessment patient was resting in the hospital bed. she states that her abdomen is distended but not tender. She has no pain in her lower extremities but has noted some swelling there as well. Past Med Surg Social Fam HX - Past Medical History Medical history: atrial fibrillation, CHF, COPD, DVT, diabetes, hyperlipidemia, hypertension, liver disease, renal disease Additional medical history: cellulitis. Vasculitis. Frequent Pneumonia. Bipap at home Psychiatric history: anxiety - Past Surgical History Surgical History: no surgical history Additional surgical history: R SHOULDER REPAIR - Social History Smoking Status: Never smoker Smokeless Tobacco Status: No Alcohol use: occasionally Drug use: none - Family History Mother Living Status: Father Living Status: Sister Adopted: No Family Member Ethnicity: Non- Twin of Family Member: Yes, Fraternal Living Status: Hx Family Cardiac Disorders: Yes Hx Family Respiratory Disorders: Yes Hx Family Cancer: No Hx Family GI Disorders: No Hx Family Endocrine Disorder: Yes Hx Family Neuromuscular Disorders: No Hx Family Neurologic Disorders: No Hx Family HEENT Disorders: No Hx Family Autoimmune Disorders: No Internal Medicine - H&P: Meds Allopurinol [Zyloprim 100 MG] 100 mg PO DAILY 03/01/18 [History] Carvedilol [Coreg] 25 mg PO BID 03/01/18 [History] Furosemide [Lasix] 80 mg PO DAILY 03/01/18 [History] Gabapentin [Neurontin] 300 mg PO BID 03/01/18 [History] Lisinopril [Zestril] 5 mg PO DAILY 03/01/18 [History] Potassium Chloride [K-Tab ER] 20 meq PO BID 03/01/18 [History] Ipratropium/Albuterol Neb [Duoneb] 3 ml IH Q6HR PRN #25 units 03/03/18 [Rx] Insulin NPH Hum/Reg Insulin Hm [Novolin 70-30 100 Unit/ml Vial] 35 unit SQ DAILY 04/09/18 [History] 3 Allergy/AdvReac Type Severity Reaction Status Date / Time No Known Allergies Allergy Verified 02/27/18 22:15 All Systems PM: A 10-system review of systems was performed and is negative for pertinent findings except as documented above in the HPI. - Constitutional Vitals: Temp Pulse Resp BP Pulse Ox 97.8 F 92 16 109/58 96 05/08/18 01:39 05/08/18 01:39 05/08/18 04:59 05/08/18 01:39 05/08/18 04:59 General appearance: Present: cooperative, A&O X 3, pleasant, no acute distress, answers questions appropriately - Head Head exam: Present: normal inspection - Eye Eye exam: Present: EOMI, normal appearance - Respiratory Respiratory exam: Present: decreased breath sounds, respiratory distress, wheezes. Absent: chest wall tenderness - Cardiovascular Cardiovascular exam: Present: irregular rhythm. Absent: diastolic murmur, systolic murmur - GI/Abdominal GI/Abdominal exam: Present: distended, normal bowel sounds. Absent: tenderness - Extremities Exam Extremities exam: Present: pedal edema, warm, radial pulses palpable and symmetrical. Absent: calf tenderness, tenderness - Neurological Exam Neurological exam: Present: no focal deficits, strengths equal and symetr throughout. Absent: motor sensory deficit, facial droop, speech deficit - Skin Skin exam: Present: dry, normal color, warm Additional comments: erythema of both lower extremities Internal Med - H&P Results - Labs CBC & Chem 7: 05/08/18 04:58 05/08/18 04:58 Labs: Short CBC 05/08/18 Range/Units 04:58 WBC 4.8 (4.3-11.1) K/mcL Hgb 10.1 L (11.5-15.4) g/dL Hct 33.6 L (35.3-44.9) % Plt Count 127 L (140-400) K/mcL BMP 05/08/18 04:58 Sodium 140 Potassium 4.9 Chloride 100 Carbon Dioxide 33 H BUN 22 Creatinine 1.23 H Glucose 433 H Calcium 8.5 L - Assessment and plan (1) Ascites Current Visit: No Status: Acute Assessment and plan: Abdomen distended. Not tender, patient also obese at baseline. Takes 80mg of lasix daily at home. Patient's daughter states that she has cirrhosis. Continue lasix Consider adding spironolactone to help with fluid accumulation. Unclear why this has not already been added. Consider paracentesis as patient apparently has had this in the past. Qualifiers: Ascites type: other type Qualified Code(s): R18.8 - Other ascites (2) Acute exacerbation of chronic obstructive airways disease Current Visit: No Status: Acute Assessment and plan: Patient has hypoxia likely secondary to COPD exacerbation, also could be worsened by her ascites. Oxygen as needed BIPAP at night prednisone 40mg daily azithromycin 500mg daily continue to monitor oxygen state. Consider repeat ABG if worsening CO2 retention suspected. (3) CKD (chronic kidney disease) stage 3, GFR 30-59 ml/min Current Visit: No Status: Chronic Assessment and plan: Patient currently at baseline, continue to monitor in the setting of lasix use (4) CHF (congestive heart failure) Current Visit: No Status: Acute Assessment and plan: BNP not elevated. Continue to monitor. Qualifiers: Heart failure type: diastolic Heart failure chronicity: acute on chronic Qualified Code(s): I50.33 - Acute on chronic diastolic (congestive) heart failure (5) Diabetes type 2, controlled Current Visit: No Status: Chronic Assessment and plan: Patient has insulin at home, unclear how well controlled she is Basal insulin tonight Monitor sugars with meals and at night Medium sliding scale with meals. Qualifiers: Diabetes mellitus german professor insulin use: without german professor use Diabetes mellitus complication status: with unspecified complications Qualified Code(s) : E11.8 - Type 2 diabetes mellitus with unspecified complications - Time Spent With Patient Total time spent is greater than 50% in coordination of care (as documented) at patient's floor/unit and/or counseling patient: Greater than 35 minutes
[2018-05-08] MEDS: Gabapentin 300 MG CAPSULE PO SCH ×2 (08:32→19:51)
[2018-05-08] MEDS: predniSONE 20 MG TABLET PO SCH (08:32)
[2018-05-08] MEDS: Insulin LISPRO 300 UNITS/3 ML VIAL SQ SCH ×4 (08:33→22:23)
[2018-05-08] MEDS ORDERED: Furosemide 40 MG/4 ML VIAL IVP SCH (09:00)
[2018-05-08] MEDS ORDERED: Insulin Human Regular 10 UNIT in 0.9 % Sodium Chloride 10 ML IV ONE ×3 (09:40→15:40)
[2018-05-08] MEDS ORDERED: Insulin Regular, Human 100 UNIT/ML IV ONE (17:43)
[2018-05-08] MEDS ORDERED: D5% in 0.45% NACL 1,000 ML IVC PRN ×2 (17:43→19:26)
[2018-05-08] MEDS ORDERED: Insulin Regular, Human 100 UNIT/ML IV PRN (17:43)
[2018-05-08] MEDS ORDERED: Insulin Human Regular 100 UNIT in 0.9 % Sodium Chloride 100 ML IVC SCH (17:45)
[2018-05-08 19:07] LABS: INR 1.1; Prothrombin Time 12.2 Seconds (9.4-12.1)
[2018-05-08] MEDS ORDERED: D5% in 0.45% NACL w KCl 20 MEQ/1,000 ML MLS IVC PRN (19:22)
[2018-05-08 19:24] LABS: Albumin 3.6 g/dL (3.5-5.7); Calcium 8.7 mg/dL (8.6-10.3); Magnesium 2.2 mg/dL (1.6-2.6); Phosphorous 2.9 mg/dL (2.7-4.5); Potassium 4.8 mEq/L (3.5-5.1)
[2018-05-08] MEDS ORDERED: 0.9 % Sodium Chloride w KCl 20 MEQ/1,000 ML MLS IVC SCH (19:30)
[2018-05-08] MEDS ORDERED: 0.9 % Sodium Chloride 1,000 ML IVC SCH (19:30)
[2018-05-08] MEDS ORDERED: Insulin DETEMIR 100 UNIT/ML X5UNITS SQ SCH (21:00)
[2018-05-08] MEDS: Insulin Human Regular 100 UNIT in 0.9 % Sodium Chloride 100 ML IVC SCH (21:15)
[2018-05-08] MEDS: Insulin DETEMIR 100 UNIT/ML X5UNITS SQ SCH (22:23)
[2018-05-09 00:59] LABS: Calcium 8.5 mg/dL (8.6-10.3); Potassium 4.5 mEq/L (3.5-5.1)
[2018-05-09] MEDS: Insulin Human Regular 100 UNIT in 0.9 % Sodium Chloride 100 ML IVC SCH ×3 (01:26→11:59)
[2018-05-09] MEDS: Ipratropium/Albuterol Neb 3 ML IH SCH ×5 (04:53→22:52)
[2018-05-09 05:41] LABS: Basophils % 0.2 %; Hematocrit 32.8 % (35.3-44.9); Immature Granulocytes % 1.4 % (0-4); Immature Platelets 4.6 % (1.1-6.1); Lymphocytes # 0.5 K/mcL (0.6-4.6); Lymphocytes % 8.4 %; Mean Corpuscular HGB Conc 30.5 g/dL (31.6-35.5); Mean Corpuscular Hemoglobin 30.8 pg (28.0-33.3); Mean Corpuscular Volume 100.9 fL (83.0-100.0); Mean Platelet Volume 10.2 fL (9.4-12.4); Monocytes # 0.3 K/mcL (0.0-1.3); Monocytes % 4.9 %; Neutrophils # 4.9 K/mcL (1.6-8.9); Nucleated Red Blood Cells 0.5 /100 WBC (0); Platelet Count 144 K/mcL (140-400); Red Blood Count 3.25 M/mcL (3.82-4.97); Red Cell Distribution Width 17.8 % (11.5-14.5); Segmented Neutrophils % 85.1 %
[2018-05-09] MEDS: Azithromycin 500 MG in D5% in Water 250 ML IVPB SCH (05:49)
[2018-05-09 05:58] LABS: Albumin 3.2 g/dL (3.5-5.7); Albumin/Globulin Ratio 1.1 (1.1-2.2); Bilirubin,Direct 0.2 mg/dL (0.0-0.2); Bilirubin,Indirect 0.3 mg/dL (0.0-1.2); Bilirubin,Total 0.5 mg/dL (0.3-1.0); Calcium 8.7 mg/dL (8.6-10.3); Globulin 2.9 g/dL (2.4-3.5); Magnesium 2.2 mg/dL (1.6-2.6); Potassium 4.3 mEq/L (3.5-5.1); Total Protein 6.1 g/dL (6.4-8.9)
[2018-05-09 08:50] LABS: Calcium 8.7 mg/dL (8.6-10.3); Potassium 4.8 mEq/L (3.5-5.1)
[2018-05-09] MEDS: predniSONE 20 MG TABLET PO SCH (08:52)
[2018-05-09] MEDS: Gabapentin 300 MG CAPSULE PO SCH ×2 (08:52→21:52)
[2018-05-09] MEDS: Insulin LISPRO 300 UNITS/3 ML VIAL SQ SCH ×5 (09:02→21:52)
[2018-05-09 12:44] LABS: Calcium 8.8 mg/dL (8.6-10.3); Potassium 5.1 mEq/L (3.5-5.1)
[2018-05-09] MEDS ORDERED: predniSONE 20 MG TABLET PO SCH (13:21)
--- NOTE | 2018-05-09 21:11 | Internal Med Progress Note ---
Hospitalist Progress Note - Encounter Date of Encounter: 05/09/18 Time of Encounter: 19:00 - Exam Vitals: Temp Pulse Resp BP Pulse Ox 97.5 F L 87 20 100/63 97 05/09/18 16:37 05/09/18 16:37 05/09/18 16:37 05/09/18 16:37 05/09/18 16:37 Exam: xxx - Assessment and Plan (1) Ascites Current Visit: No Status: Acute (2) Type 2 diabetes mellitus Current Visit: Yes Status: Acute (3) Type 2 diabetes mellitus Current Visit: No Status: Chronic (4) Hypertensive renal disease with renal failure Current Visit: Yes Status: Acute (5) CHRISTY treated with BiPAP Current Visit: Yes Status: Acute (6) Morbid obesity with BMI of 50.0-59.9, adult Current Visit: Yes Status: Chronic DVT Prophylaxis: sq heparin - Summary of Assessment and Plan Summary of Assessment and Plan: SUBJECTIVE: The patient had very high glucose levels yesterday. We had to start her on insulin drip. She is better today. Her glucose is below 200. She continues to have diffuse abdominal discomfort. It is associated with umbilical hernia. Denies nausea and vomiting. Denies chest pain. Denies difficulty breathing, coughing and wheezing. OBJECTIVE: Skin: Free of rash and discoloration. ENMT: Oral/pharyngeal mucosa is normal in appearance. Eyes: Sclera is white. There is no discharge from eyes. Respiratory: Normal breath sounds; no crackles or wheezes. CV: Heart is regular; no gallop or murmur. GI: Abdomen is big/rounded. It is mildly tender to palpation in all 4 quadrants. One can see umbilical hernia. It is not reducible. Neuro: There is no focal deficits. ASSESSMENT AND PLAN: Possible ascites. We ordered ultrasound-guided paracentesis. I started spironolactone at 50 mg by mouth twice a day. Type 2 diabetes mellitus with hyperglycemia. Better. Will stop insulin drip. We will switch her to Levemir and when necessary Humalog. Diabetic nephropathy. CKD stage III. We will continue supportive treatment. Obstructive sleep apnea/morbid obesity. Will continue BiPAP treatments. - Time Spent with Patient Total time spent is greater than 50% in coordination of care (as documented) at patient's floor/unit and/or counseling patient: 25 - 35 minutes Plan of Care Discussed with: patient Internal Medicine: Result - Labs CBC & Chem 7: 05/10/18 11:53 05/10/18 11:53 Labs: BMP 05/09/18 12:19 Sodium 141 Potassium 5.1 Chloride 101 Carbon Dioxide 37 H BUN 27 H Creatinine 1.19 Glucose 137 H Calcium 8.8 - ABG Interpretation ABG results: ABG ABG pH 7.41 pH Units (7.32-7.45) 05/07/18 23:45 ABG pCO2 67 mmHg (35-45) H 05/07/18 23:45 ABG pO2 55 mmHg (85-104) L 05/07/18 23:45 ABG O2 Saturation 87 % (95-98) L 05/07/18 23:45 PT/INR, D-dimer PT 12.2 Seconds (9.4-12.1) H 05/08/18 16:39 Consult Discharge Plan - Plan Referrals: Stacia Morrell BIT TRIPOLER [Primary Care Provider] - 05/17/18 9:00 am (1) Ascites Qualifiers: Ascites type: other type Qualified Code(s): R18.8 - Other ascites (2) Type 2 diabetes mellitus Qualifiers: Diabetes mellitus detention insulin use: with detention use Diabetes mellitus complication status: with hyperglycemia Qualified Code(s): E11.65 - Type 2 diabetes mellitus with hyperglycemia; Z79.4 - continuous churn buttermaker (current) use of insulin (3) Type 2 diabetes mellitus Qualifiers: Diabetes mellitus intermediate school teacher insulin use: with intermediate school teacher use Diabetes mellitus complication status: with kidney complications Diabetes mellitus complication detail: with chronic kidney disease Chronic kidney disease stage: stage 3 (moderate) Qualified Code(s): E11.22 - Type 2 diabetes mellitus with diabetic chronic kidney disease; N18.3 - Chronic kidney disease, stage 3 ( moderate); Z79.4 - continuous churn buttermaker (current) use of insulin
[2018-05-09] MEDS: Insulin DETEMIR 100 UNIT/ML X5UNITS SQ SCH (21:52)
[2018-05-10] MEDS: Ipratropium/Albuterol Neb 3 ML IH SCH ×3 (04:06→16:22)
[2018-05-10] MEDS: Azithromycin 500 MG in D5% in Water 250 ML IVPB SCH (06:20)
[2018-05-10] MEDS: *HR* Heparin 5,000 UNIT/ML VIAL SQ SCH ×2 (06:50→18:54)
[2018-05-10] MEDS: Insulin LISPRO 300 UNITS/3 ML VIAL SQ SCH ×7 (08:22→21:35)
[2018-05-10] MEDS: Gabapentin 300 MG CAPSULE PO SCH ×2 (08:24→21:35)
[2018-05-10 12:11] LABS: Basophils % 0.1 %; Eosinophils % 0.1 %; Hematocrit 34.3 % (35.3-44.9); Hemoglobin 10.4 g/dL (11.5-15.4); Immature Granulocytes % 0.6 % (0-4); Lymphocytes # 0.7 K/mcL (0.6-4.6); Mean Corpuscular HGB Conc 30.3 g/dL (31.6-35.5); Mean Corpuscular Volume 102.4 fL (83.0-100.0); Mean Platelet Volume 9.8 fL (9.4-12.4); Monocytes # 0.4 K/mcL (0.0-1.3); Monocytes % 5.2 %; Neutrophils # 5.7 K/mcL (1.6-8.9); Nucleated Red Blood Cells 0.3 /100 WBC (0); Platelet Count 136 K/mcL (140-400); Red Blood Count 3.35 M/mcL (3.82-4.97); Red Cell Distribution Width 18.1 % (11.5-14.5)
[2018-05-10 12:37] LABS: Calcium 8.7 mg/dL (8.6-10.3); Magnesium 2.6 mg/dL (1.6-2.6); Potassium 4.8 mEq/L (3.5-5.1)
--- NOTE | 2018-05-10 14:46 | Electrocardiograph Report ---
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
[2018-05-10] MEDS: Insulin DETEMIR 100 UNIT/ML X5UNITS SQ SCH (21:35)
[2018-05-11] MEDS: *HR* Heparin 5,000 UNIT/ML VIAL SQ SCH ×2 (06:05→18:15)
[2018-05-11] MEDS: Azithromycin 500 MG in D5% in Water 250 ML IVPB SCH (06:05)
--- NOTE | 2018-05-11 06:51 | Internal Med Progress Note ---
Hospitalist Progress Note - Encounter Date of Encounter: 05/10/18 Time of Encounter: 19:00 - Exam Vitals: Temp Pulse Resp BP Pulse Ox 97.5 F L 68 18 122/76 90 05/11/18 05:26 05/11/18 05:26 05/11/18 05:26 05/11/18 05:26 05/11/18 05:26 Exam: xxx - Assessment and Plan (1) Ascites Current Visit: No Status: Ruled-out (2) Type 2 diabetes mellitus Current Visit: Yes Status: Acute (3) Type 2 diabetes mellitus Current Visit: No Status: Chronic (4) Hypertensive renal disease with renal failure Current Visit: Yes Status: Acute (5) CHRISTY treated with BiPAP Current Visit: Yes Status: Acute (6) Morbid obesity with BMI of 50.0-59.9, adult Current Visit: Yes Status: Chronic DVT Prophylaxis: sq heparin - Summary of Assessment and Plan Summary of Assessment and Plan: SUBJECTIVE: The patient feels pretty good. They took her for ultrasound of her abdomen today. They did not find any significant amounts of ascites. Nothing to drain. Denies chest pain. Denies difficulty breathing, coughing and wheezing. OBJECTIVE: Skin: Free of rash and discoloration. ENMT: Oral/pharyngeal mucosa is normal in appearance. Eyes: Sclera is white. There is no discharge from eyes. Respiratory: Normal breath sounds; no crackles or wheezes. CV: Heart is regular; no gallop or murmur. GI: Abdomen is big/rounded. It is mildly tender to palpation in all 4 quadrants. One can see umbilical hernia. It is not reducible. Neuro: There is no focal deficits. ASSESSMENT AND PLAN: Admitted with possible large amount of ascites. This is pretty much ruled out on the basis of her ultrasound of her abdomen she had today. It is a big/obese abdomen with umbilical hernia. Type 2 diabetes mellitus with hyperglycemia. She is on diabetic diet, Levemir and when necessary Humalog. I will add a.m. dose of Levemir to her treatments. Diabetic nephropathy. CKD stage III. We will continue supportive treatment. Obstructive sleep apnea/morbid obesity. Will continue BiPAP treatments. Disposition: We will offer her physical therapy. We will be watching her glucose levels on increased dose of Levemir. - Time Spent with Patient Total time spent is greater than 50% in coordination of care (as documented) at patient's floor/unit and/or counseling patient: 25 - 35 minutes Plan of Care Discussed with: family Internal Medicine: Result - Labs CBC & Chem 7: 05/10/18 11:53 05/10/18 11:53 Labs: Short CBC 05/10/18 Range/Units 11:53 WBC 6.7 (4.3-11.1) K/mcL Hgb 10.4 L (11.5-15.4) g/dL Hct 34.3 L (35.3-44.9) % Plt Count 136 L (140-400) K/mcL Neutrophils # 5.7 (1.6-8.9) K/mcL BMP 05/10/18 11:53 Sodium 138 Potassium 4.8 Chloride 100 Carbon Dioxide 35 H BUN 35 H Creatinine 1.27 H Glucose 226 H Calcium 8.7 - ABG Interpretation ABG results: ABG ABG pH 7.41 pH Units (7.32-7.45) 05/07/18 23:45 ABG pCO2 67 mmHg (35-45) H 05/07/18 23:45 ABG pO2 55 mmHg (85-104) L 05/07/18 23:45 ABG O2 Saturation 87 % (95-98) L 05/07/18 23:45 PT/INR, D-dimer PT 12.2 Seconds (9.4-12.1) H 05/08/18 16:39 - Impressions Impressions Abdomen/Pelvis/Transvag US 05/10/18 07:37 IMPRESSION: Trace ascites, insufficient for paracentesis. D/ / Sherwin Galvez MD / Sherwin Galvez MD Interpreting Provider: Sherwin Galvez MD - VTE Documentation of Mechanical Device: Intermittent pneumatic compression device Consult Discharge Plan - Plan Referrals: Stacia Morrell JAVA SDET [Primary Care Provider] - 05/17/18 9:00 am (1) Ascites Qualifiers: Ascites type: other type Qualified Code(s): R18.8 - Other ascites (2) Type 2 diabetes mellitus Qualifiers: Diabetes mellitus snf insulin use: with merchant mariner use Diabetes mellitus complication status: with hyperglycemia Qualified Code(s): E11.65 - Type 2 diabetes mellitus with hyperglycemia; Z79.4 - linux engineer (current) use of insulin (3) Type 2 diabetes mellitus Qualifiers: Diabetes mellitus snf insulin use: with snf use Diabetes mellitus complication status: with kidney complications Diabetes mellitus complication detail: with chronic kidney disease Chronic kidney disease stage: stage 3 (moderate) Qualified Code(s): E11.22 - Type 2 diabetes mellitus with diabetic chronic kidney disease; N18.3 - Chronic kidney disease, stage 3 ( moderate); Z79.4 - FPC (current) use of insulin
[2018-05-11] MEDS: Gabapentin 300 MG CAPSULE PO SCH ×2 (08:19→23:00)
[2018-05-11] MEDS: Insulin LISPRO 300 UNITS/3 ML VIAL SQ SCH ×7 (08:21→23:00)
[2018-05-11] MEDS: Insulin DETEMIR 100 UNIT/ML X5UNITS SQ SCH ×2 (08:21→23:00)
--- NOTE | 2018-05-11 10:24 | Internal Med Progress Note ---
Hospitalist Progress Note - Encounter Date of Encounter: 05/11/18 Time of Encounter: 10:21 - Subjective Interval History: patient with histroy of morbid obesity, copd, atrial fib, dm liver disease, htn admitted with sob and incraesed abd distention ultrsound minimal ascites today still sob but says she is doing better follows with pulmonologists - Exam Vitals: Temp Pulse Resp BP Pulse Ox 97.4 F L 86 16 106/79 88 05/11/18 07:12 05/11/18 07:12 05/11/18 07:12 05/11/18 07:12 05/11/18 07:12 Exam: xxx - Assessment and Plan (1) Congestive heart failure Current Visit: No Status: Acute Assessment and Plan: miild (2) Acute hypercapnic respiratory failure Current Visit: No Status: Chronic Assessment and Plan: clinically better but still congested and sob with exertion (3) Morbid obesity Current Visit: No Status: Chronic (4) Type 2 diabetes mellitus Current Visit: No Status: Chronic (5) COPD exacerbation Current Visit: Yes Status: Acute Assessment and Plan: acute on chronic (6) Morbid obesity with BMI of 50.0-59.9, adult Current Visit: No Status: Chronic (7) HTN (hypertension) Current Visit: No Status: Chronic Assessment and Plan: well controlled - Time Spent with Patient Total time spent is greater than 50% in coordination of care (as documented) at patient's floor/unit and/or counseling patient: Internal Medicine: Result - Labs CBC & Chem 7: 05/10/18 11:53 05/10/18 11:53 Labs: Short CBC 05/10/18 Range/Units 11:53 WBC 6.7 (4.3-11.1) K/mcL Hgb 10.4 L (11.5-15.4) g/dL Hct 34.3 L (35.3-44.9) % Plt Count 136 L (140-400) K/mcL Neutrophils # 5.7 (1.6-8.9) K/mcL BMP 05/10/18 11:53 Sodium 138 Potassium 4.8 Chloride 100 Carbon Dioxide 35 H BUN 35 H Creatinine 1.27 H Glucose 226 H Calcium 8.7 - ABG Interpretation ABG results: ABG ABG pH 7.41 pH Units (7.32-7.45) 05/07/18 23:45 ABG pCO2 67 mmHg (35-45) H 05/07/18 23:45 ABG pO2 55 mmHg (85-104) L 05/07/18 23:45 ABG O2 Saturation 87 % (95-98) L 05/07/18 23:45 PT/INR, D-dimer PT 12.2 Seconds (9.4-12.1) H 05/08/18 16:39 - Impressions Impressions Abdomen/Pelvis/Transvag US 05/10/18 07:37 IMPRESSION: Trace ascites, insufficient for paracentesis. D/ / Sherwin Galvez MD / Sherwin Galvez MD Interpreting Provider: Sherwin Galvez MD - VTE Documentation of Mechanical Device: Intermittent pneumatic compression device Consult Discharge Plan - Plan Referrals: Stacia Morrell, STORE SALES CONSULTANT [Primary Care Provider] - 05/17/18 9:00 am (4) Type 2 diabetes mellitus Qualifiers: Diabetes mellitus plaster pattern caster insulin use: with detention use Diabetes mellitus complication status: with kidney complications Diabetes mellitus complication detail: with chronic kidney disease Chronic kidney disease stage: stage 3 (moderate) Qualified Code(s): E11.22 - Type 2 diabetes mellitus with diabetic chronic kidney disease; N18.3 - Chronic kidney disease, stage 3 ( moderate); Z79.4 - custodial (current) use of insulin (7) HTN (hypertension) Qualifiers: Hypertension type: essential hypertension Qualified Code(s): I10 - Essential (primary) hypertension
--- NOTE | 2018-05-11 16:14 | Pulmonology Consult Note ---
Date of Encounter: 05/11/18 Time of Encounter: 15:00 Assessment and Plan (1) Chronic respiratory failure Current Visit: No Status: Chronic Has acute on chronic hypoxic hypercapnic respiratory failure looks like in stable called the [employer] checked with her home ventilator settings patient is on suppression support and safety tidal volume ventilation with tidal volume of 450 with adequate maximum pressure support. To continue the current settings if she comes with recurrent episodes of hypercarbic might increase her tidal volume. For now to keep the same home ventilator settings. Qualifiers: Respiratory failure complication: hypoxia and hypercapnia Qualified Code(s) : J96.11 - Chronic respiratory failure with hypoxia; J96.12 - Chronic respiratory failure with hypercapnia (2) Morbid obesity Current Visit: No Status: Chronic Morbid obesity is contributing to the hypoventilation and her repeated exacerbation of acute on chronic diastolic heart failure patient is poor insight about salt and water restriction. Family was educated about the importance of salt and water restriction. (3) Acute on chronic diastolic heart failure Current Visit: Yes Status: Acute To continue current management patient has poor insight about salt and water restriction counseled the family about the importance of salt and water restriction. Continue diuretics as tolerated. (4) Pulmonary hypertension Current Visit: No Status: Chronic Secondary to diastolic heart failure and COPD. (5) COPD (chronic obstructive pulmonary disease) Current Visit: No Status: Chronic Is not in exacerbation to continue bronchodilators. We will sign off call with questions. Qualifiers: COPD type: unspecified COPD Qualified Code(s): J44.9 - Chronic obstructive pulmonary disease, unspecified History of Present Illness Consult date: 05/11/18 Requesting physician: Ken Escalante Reason for consult: dyspnea Chief complaint: Shortness of breath History of present illness: 67-year-old female with past medical history of morbid obesity, COPD, CHRISTY/OHS, chronic diastolic heart failure came with altered mental status and increased shakiness found to have a blood sugar this was high usually she comes in the presentation where she will be hypercarbic above her baseline but during this admission is not that case but during N to end looks like she is having the shortness of breath is going on for few days and some weight gain with some abdominal distention patient was evaluated for sinusitis showed very minimal left-sided is nothing much to tap. Patient has increasing pedal edema, increasing weight patient denies any fever or chills denies any other constitutional symptoms denies much cough or sputum production., Denies any chest pain, denies any chest tightness or palpitation denies any syncope. Patient denies any active GERD symptoms or neuro symptoms patient says she is doing overall better. Past Med Surg Social Fam HX - Past Medical History Medical history: atrial fibrillation, CHF, COPD, DVT, diabetes, hyperlipidemia, hypertension, liver disease, renal disease Additional medical history: cellulitis. Vasculitis. Frequent Pneumonia. Bipap at home Psychiatric history: anxiety - Past Surgical History Surgical History: no surgical history Additional surgical history: R SHOULDER REPAIR - Social History Smoking Status: Never smoker Smokeless Tobacco Status: No Alcohol use: occasionally Drug use: none - Family History Mother Living Status: Father Living Status: Sister Adopted: No Family Member Ethnicity: Non- Twin of Family Member: Yes, Fraternal Living Status: Hx Family Cardiac Disorders: Yes Hx Family Respiratory Disorders: Yes Hx Family Cancer: No Hx Family GI Disorders: No Hx Family Endocrine Disorder: Yes Hx Family Neuromuscular Disorders: No Hx Family Neurologic Disorders: No Hx Family HEENT Disorders: No Hx Family Autoimmune Disorders: No Medications and Allergies Allopurinol [Zyloprim 100 MG] 100 mg PO DAILY 03/01/18 [History] Carvedilol [Coreg] 25 mg PO BID 03/01/18 [History] Furosemide [Lasix] 80 mg PO DAILY 03/01/18 [History] Gabapentin [Neurontin] 300 mg PO BID 03/01/18 [History] Lisinopril [Zestril] 5 mg PO DAILY 03/01/18 [History] Potassium Chloride [K-Tab ER] 20 meq PO BID 03/01/18 [History] Ipratropium/Albuterol Neb [Duoneb] 3 ml IH Q6HR PRN #25 units 03/03/18 [Rx] Insulin NPH Hum/Reg Insulin Hm [Novolin 70-30 100 Unit/ml Vial] 35 unit SQ HS [History] 3 Allergy/AdvReac Type Severity Reaction Status Date / Time No Known Allergies Allergy Verified 05/08/18 10:25 All Systems: The remainder of the systems were reviewed and are negative Physical Examination Vital Signs: Vital Signs, Last 4 Hours Temp Pulse Resp BP Pulse Ox 05/11/18 15:35 97.6 F 84 17 122/73 94 05/11/18 13:33 16 90 Auscultation: bilateral: diminished breath sounds (basilar diminished breadth sounds ) Gastrointestinal: other (obese abdomen with chronic skin changes in the abdominal wall ) Extremities: edema, other (chronic skin changes ) Results - Laboratory Findings CBC and BMP: 05/10/18 11:53 05/10/18 11:53 ABG ABG pH 7.41 pH Units (7.32-7.45) 05/07/18 23:45 ABG pCO2 67 mmHg (35-45) H 05/07/18 23:45 ABG pO2 55 mmHg (85-104) L 05/07/18 23:45 ABG O2 Saturation 87 % (95-98) L 05/07/18 23:45 PT/INR, D-dimer PT 12.2 Seconds (9.4-12.1) H 05/08/18 16:39 Abnormal lab findings: Abnormal lab results RBC 3.35 M/mcL (3.82-4.97) L 05/10/18 11:53 Hgb 10.4 g/dL (11.5-15.4) L 05/10/18 11:53 Hct 34.3 % (35.3-44.9) L 05/10/18 11:53 MCV 102.4 fL (83.0-100.0) H 05/10/18 11:53 MCHC 30.3 g/dL (31.6-35.5) L 05/10/18 11:53 RDW 18.1 % (11.5-14.5) H 05/10/18 11:53 Plt Count 136 K/mcL (140-400) L 05/10/18 11:53 Nucleated RBCs/100 WBC 0.3 /100 WBC (0) H 05/10/18 11:53 PT 12.2 Seconds (9.4-12.1) H 05/08/18 16:39 ABG pCO2 67 mmHg (35-45) H 05/07/18 23:45 ABG pO2 55 mmHg (85-104) L 05/07/18 23:45 ABG HCO3 42 mEq/L (21-27) H 05/07/18 23:45 ABG Total CO2 44 mEq/L (20-26) H 05/07/18 23:45 ABG O2 Saturation 87 % (95-98) L 05/07/18 23:45 ABG Base Excess 15 mEq/L (-2 to 3) H 05/07/18 23:45 VBG pH 7.31 pH Units (7.32-7.42) L 05/07/18 23:05 VBG pCO2 73 mmHg (41-51) H* 05/07/18 23:05 VBG pO2 65 mmHg (25-50) H 05/07/18 23:05 VBG HCO3 37 mEq/L (21-27) H 05/07/18 23:05 Carbon Dioxide 35 mEq/L (23-29) H 05/10/18 11:53 BUN 35 mg/dL (8-23) H 05/10/18 11:53 Creatinine 1.27 mg/dL (0.60-1.20) H 05/10/18 11:53 Est GFR ( Amer) 51 (> 60) L 05/10/18 11:53 Est GFR (Non-Af Amer) 42 (> 60) L 05/10/18 11:53 BUN/Creatinine Ratio 28 (6-26) H 05/10/18 11:53 Glucose 226 mg/dL (70-105) H 05/10/18 11:53 POC Glucose 302 mg/dL (70-99) H 05/10/18 21:14 Calculated Osmolality 301 (280-300) H 05/10/18 11:53 AST 7 Units/L (13-39) L 05/09/18 04:37 ALT 5 Units/L (7-52) L 05/09/18 04:37 B-Natriuretic Peptide 110 pg/mL (Less than 100) H 05/07/18 22:52 Serum Total Protein 6.1 g/dL (6.4-8.9) L 05/09/18 04:37 Albumin 3.2 g/dL (3.5-5.7) L 05/09/18 04:37 - Clinical Findings Intake & Output: Intake & Output 05/11/18 05/11/18 05/11/18 07:59 15:59 23:59 Intake Total 0 / 0 480 / 480 Output Total 600 / 600 Balance 0 / 0 -120 / -120 Weight 146.5 kg Consult Discharge Plan - Plan Referrals: Stacia Morrell SURVEY FIELD TECHNICIAN [Primary Care Provider] - 05/17/18 9:00 am
[2018-05-12 06:00] LABS: BUN/Creatinine Ratio 32 (6-26); Blood Urea Nitrogen 35 mg/dL (8-23); Calcium 8.8 mg/dL (8.6-10.3); Carbon Dioxide 34 mEq/L (23-29); Chloride 101 mEq/L (98-107); Glucose 148 mg/dL (70-105); Osmolality,Calculated 301 (280-300); Potassium 5.1 mEq/L (3.5-5.1); Sodium 140 mEq/L (136-145); eGFR For Non-African Americans 50 (> 60)
[2018-05-12] MEDS: Azithromycin 500 MG in D5% in Water 250 ML IVPB SCH (06:49)
[2018-05-12] MEDS: *HR* Heparin 5,000 UNIT/ML VIAL SQ SCH ×2 (06:49→17:21)
[2018-05-12] MEDS: Insulin LISPRO 300 UNITS/3 ML VIAL SQ SCH ×7 (09:58→22:33)
[2018-05-12] MEDS: Gabapentin 300 MG CAPSULE PO SCH ×2 (09:58→22:33)
[2018-05-12] MEDS: Insulin DETEMIR 100 UNIT/ML X5UNITS SQ SCH ×2 (10:08→22:33)
[2018-05-12] MEDS ORDERED: Furosemide 40 MG/4 ML VIAL IVP ONE (12:28)
[2018-05-12 13:04] LABS: ABG Base Excess 11 mEq/L (-2 to 3); ABG HCO3 41 mEq/L (21-27); ABG Oxygen Saturation 82 % (95-98); ABG PCO2 90 mmHg (35-45); ABG PH 7.27 pH Units (7.32-7.45); ABG PO2 57 mmHg (85-104); ABG TCO2 44 mEq/L (20-26)
--- NOTE | 2018-05-12 13:51 | Internal Med Progress Note ---
Hospitalist Progress Note - Encounter Date of Encounter: 05/12/18 Time of Encounter: 12:15 - Subjective Interval History: Patient is noted to be sleepy, able to answer questions but goes back to sleep; history obtained from her daughters at bedside; she has poor baseline functional status; has home O2 and BiPAP; - Exam Vitals: Temp Pulse Resp BP Pulse Ox 98.0 F 79 10 103/66 94 05/12/18 11:44 05/12/18 11:44 05/12/18 13:12 05/12/18 11:44 05/12/18 13:12 Exam: General: Obese female lying in bed in no acute distress, lethargic and somnolent Skin: Warm and supple Chest: lungs with somewaht decreased air entry B/L, clear to auscultation, no wheezing Heart: Normal S1 & S2; rhythmic. No rubs or murmurs. Abdomen: slightly distended, firm and nontender, obese, reducible umbilical hernia+ Extremities: B/L chronic stasis dermatitis and possible lymphedema, non-pitting B/L pedal edema Neurological: No focal deficits. somnolent; - Assessment and Plan (1) Acute and chronic respiratory failure ([id number]) Current Visit: Yes Status: Acute Assessment and Plan: Patient had hypercapnia at admission. Pulmonology was consulted, recommended to continue home ventilator settings with BiPAP. Patient is noted to be more lethargic and somnolent today, repeat ABG shows respiratory acidosis with pH 7.27, PCO2 90, PO2 57. Continue BiPAP support, will discuss with pulmonology. Physical therapy evaluation recommended home health services. Discussed this with family, however patient does not agree with this. (2) Ascites Current Visit: Yes Status: Ruled-out Assessment and Plan: Ultrasound showed minimal ascites, not amenable to paracentesis; continue diuretics as mentioned below; (3) Type 2 diabetes mellitus Current Visit: Yes Status: Chronic Assessment and Plan: Blood sugars are currently noted to be improving. Continue basal bolus insulin regimen with Accu-Chek blood glucose monitoring. Diabetic diet. Daughters report that patient has hyperglycemia at home with blood sugars and 400s to 500s at times. Hemoglobin A1c noted to be 7.6% in March 2018. (4) CHRISTY treated with BiPAP Current Visit: Yes Status: Chronic Assessment and Plan: Continue BiPAP support. (5) Morbid obesity with BMI of 50.0-59.9, adult Current Visit: Yes Status: Chronic (6) Chronic kidney disease Current Visit: Yes Status: Chronic Assessment and Plan: Serum creatinine improved, currently at baseline 1.1. (7) Acute on chronic diastolic heart failure Current Visit: Yes Status: Acute Assessment and Plan: Echocardiogram from July 2017 was technically suboptimal due to body habitus , showed grossly normal ejection fraction, indeterminate diastolic function. Patient likely has right-sided heart failure due to lung disease. Noted to have significant abdominal distention and pedal edema, start diuresis with IV Lasix as tolerated along with 1.2L/day fluid restriction. Continue spironolactone while monitoring serum potassium closely; explained salt and fluid restriction to family, they did not seem too convinced that was a problem; (8) Atrial fibrillation Current Visit: Yes Status: Chronic Assessment and Plan: Currently rate controlled. Continue telemetry monitoring, beta carol. Not noted to be on anticoagulation as outpatient. (9) COPD (chronic obstructive pulmonary disease) Current Visit: Yes Status: Chronic Assessment and Plan: Not in acute exacerbation. Does have hypercapnia due to underlying sleep apnea/ OHS/COPD/cor pulmonale. Continue when necessary breathing treatments, supplemental oxygen, noninvasive positive pressure ventilation, diuresis as tolerated. Steroids have been held, discontinue azithromycin. DVT Prophylaxis: On subcutaneous heparin. - Time Spent with Patient Total time spent is greater than 50% in coordination of care (as documented) at patient's floor/unit and/or counseling patient: Plan of Care Discussed with: family Internal Medicine: Result - Labs CBC & Chem 7: 05/10/18 11:53 05/12/18 05:26 Labs: BMP 05/12/18 05:26 Sodium 140 Potassium 5.1 Chloride 101 Carbon Dioxide 34 H BUN 35 H Creatinine 1.10 Glucose 148 H Calcium 8.8 - ABG Interpretation ABG results: ABG ABG pH 7.27 pH Units (7.32-7.45) L 05/12/18 12:52 ABG pCO2 90 mmHg (35-45) H* 05/12/18 12:52 ABG pO2 57 mmHg (85-104) L 05/12/18 12:52 ABG O2 Saturation 82 % (95-98) L 05/12/18 12:52 PT/INR, D-dimer PT 12.2 Seconds (9.4-12.1) H 05/08/18 16:39 - VTE Documentation of Mechanical Device: Venous foot pump, device Consult Discharge Plan - Plan Referrals: Stacia Morrell CNP [Primary Care Provider] - 05/17/18 9:00 am (1) Acute and chronic respiratory failure ([id number]) Qualifiers: Respiratory failure complication: hypoxia and hypercapnia Qualified Code(s): J96.21 - Acute and chronic respiratory failure with hypoxia; J96.22 - Acute and chronic respiratory failure with hypercapnia; J96.22 - Acute and chronic respiratory failure with hypercapnia; J96.22 - Acute and chronic respiratory failure with hypercapnia (2) Ascites Qualifiers: Ascites type: other type Qualified Code(s): R18.8 - Other ascites (3) Type 2 diabetes mellitus Qualifiers: Diabetes mellitus [facility] insulin use: with rn long term care use Diabetes mellitus complication status: with hyperglycemia Qualified Code(s): E11.65 - Type 2 diabetes mellitus with hyperglycemia; Z79.4 - [facility] (current) use of insulin (6) Chronic kidney disease Qualifiers: Chronic kidney disease stage: stage 3 (moderate) Qualified Code(s): N18.3 - Chronic kidney disease, stage 3 (moderate) (8) Atrial fibrillation Qualifiers: Atrial fibrillation type: chronic Qualified Code(s): I48.2 - Chronic atrial fibrillation (9) COPD (chronic obstructive pulmonary disease) Qualifiers: COPD type: unspecified COPD Qualified Code(s): J44.9 - Chronic obstructive pulmonary disease, unspecified
[2018-05-13 04:51] LABS: ABG Base Excess 15 mEq/L (-2 to 3); ABG HCO3 44 mEq/L (21-27); ABG Oxygen Saturation 86 % (95-98); ABG PCO2 83 mmHg (35-45); ABG PH 7.33 pH Units (7.32-7.45); ABG PO2 60 mmHg (85-104); ABG TCO2 47 mEq/L (20-26); Blood Gas Modality NIV
[2018-05-13 06:10] LABS: Calcium 9.3 mg/dL (8.6-10.3); Potassium 4.6 mEq/L (3.5-5.1)
[2018-05-13] MEDS: *HR* Heparin 5,000 UNIT/ML VIAL SQ SCH ×2 (07:05→17:17)
[2018-05-13] MEDS: Insulin LISPRO 300 UNITS/3 ML VIAL SQ SCH ×7 (08:46→22:29)
[2018-05-13] MEDS: Gabapentin 300 MG CAPSULE PO SCH ×2 (08:52→20:30)
[2018-05-13] MEDS: Insulin DETEMIR 100 UNIT/ML X5UNITS SQ SCH ×2 (08:58→20:30)
[2018-05-13] MEDS ORDERED: Furosemide 40 MG TABLET PO SCH (09:00)
--- NOTE | 2018-05-13 11:43 | Internal Med Progress Note ---
Hospitalist Progress Note - Encounter Date of Encounter: 05/13/18 Time of Encounter: 11:39 - Subjective Interval History: 67-year-old morbidly obese female past medical history significant for A. fib, CHF, COPD, DVT, type 2 diabetes, moderate pulmonary hypertension. Patient admitted to the hospital due to CHF exacerbation and acute on chronic hypercapnic respiratory failure. Patient seen and evaluated at bedside, on a BiPAP, no respiratory distress, no jerking movement, patient is in no distress, denied chest pain, shortness of breath, reports that her breathing has improved. - Exam Vitals: Temp Pulse Resp BP Pulse Ox 98.0 F 63 20 93/52 96 05/13/18 06:59 05/13/18 06:59 05/13/18 06:59 05/13/18 06:59 05/13/18 06:59 Exam: General: Alert and oriented x3. In no distress despite being on BiPap Skin: Normal color, no rash, no lesions. HEENT: EOM, pupils equal, round and reactive. Cardiovascular: Normal S1 & S2, no rubs, murmurs or gallops. JVD unable to assess. He does not Lungs: Decreased breath sounds at the base, no wheezes, minimal crackles crackles at the bases. Abdomen: Obese, Soft, non-tender, no rigidity, umbilical hernia. Extremities: Chronic skin changes, venostasis, 1+ pitting edema. Neurological:Normal cognition and motor skills. - Assessment and Plan (1) Acute and chronic respiratory failure (riaxk-vj-[id number]) Current Visit: Yes Status: Acute Assessment and Plan: Hypercapnic respiratory failure. Plan: - Continue BiPAP. - will discuss with respiratory therapist to see if increasing the settings on the EPAP could help decrease the CO2 - will continue to follow sustainability manager's recommendation (2) Acute on chronic diastolic heart failure Current Visit: Yes Status: Acute Assessment and Plan: Bilateral mild crackles on the basis. Plan: - Strict ins and outs - Water restriction to 1.5 L a day - Lasix 40 mg twice a day daily - will decrease spironolactone to 50 mg a day as blood pressure in the lower side (3) Atrial fibrillation Current Visit: Yes Status: Chronic Assessment and Plan: Rate controlled. Plan: - Decreased carvedilol 25 mg daily blood pressure in the low 100s (4) Ascites Current Visit: Yes Status: Ruled-out Assessment and Plan: US abdomen: Trace ascites. No other focal abnormalities. Plan: - Patient being diuresed with Lasix (5) COPD (chronic obstructive pulmonary disease) Current Visit: Yes Status: Chronic Assessment and Plan: Not an acute COPD exacerbation. Plan: - Change on the albuterol nebs for DuoNeb (6) Type 2 diabetes mellitus Current Visit: Yes Status: Chronic Assessment and Plan: Blood sugar well controlled. Plan: - Continue same management (7) CHRISTY treated with BiPAP Current Visit: Yes Status: Chronic Assessment and Plan: Patient on BiPAP (8) Chronic kidney disease Current Visit: Yes Status: Chronic Assessment and Plan: Kidney function is stable. will continue with diuresis DVT Prophylaxis: High DVT. Plan: - Continue heparin 5000 units SubQ every 12 hours. - Time Spent with Patient Total time spent is greater than 50% in coordination of care (as documented) at patient's floor/unit and/or counseling patient: Greater than 35 minutes Plan of Care Discussed with: family Internal Medicine: Result - Labs CBC & Chem 7: 05/10/18 11:53 05/13/18 05:17 Labs: BMP 05/13/18 05:17 Sodium 140 Potassium 4.6 Chloride 99 Carbon Dioxide 36 H BUN 35 H Creatinine 1.11 Glucose 99 Calcium 9.3 - ABG Interpretation ABG results: ABG ABG pH 7.33 pH Units (7.32-7.45) 05/13/18 04:43 ABG pCO2 83 mmHg (35-45) H* 05/13/18 04:43 ABG pO2 60 mmHg (85-104) L 05/13/18 04:43 ABG O2 Saturation 86 % (95-98) L 05/13/18 04:43 PT/INR, D-dimer PT 12.2 Seconds (9.4-12.1) H 05/08/18 16:39 - VTE Documentation of Mechanical Device: Venous foot pump, device Consult Discharge Plan - Plan Referrals: Stacia Morrell [facility] [Primary Care Provider] - 05/17/18 9:00 am (1) Acute and chronic respiratory failure ([id number]) Qualifiers: Respiratory failure complication: hypoxia and hypercapnia Qualified Code(s): J96.21 - Acute and chronic respiratory failure with hypoxia; J96.22 - Acute and chronic respiratory failure with hypercapnia; J96.22 - Acute and chronic respiratory failure with hypercapnia; J96.22 - Acute and chronic respiratory failure with hypercapnia (3) Atrial fibrillation Qualifiers: Atrial fibrillation type: chronic Qualified Code(s): I48.2 - Chronic atrial fibrillation (4) Ascites Qualifiers: Ascites type: other type Qualified Code(s): R18.8 - Other ascites (5) COPD (chronic obstructive pulmonary disease) Qualifiers: COPD type: unspecified COPD Qualified Code(s): J44.9 - Chronic obstructive pulmonary disease, unspecified (6) Type 2 diabetes mellitus Qualifiers: Diabetes mellitus shelter insulin use: with shelter use Diabetes mellitus complication status: with hyperglycemia Qualified Code(s): E11.65 - Type 2 diabetes mellitus with hyperglycemia; Z79.4 - [facility] (current) use of insulin (8) Chronic kidney disease Qualifiers: Chronic kidney disease stage: stage 3 (moderate) Qualified Code(s): N18.3 - Chronic kidney disease, stage 3 (moderate)
[2018-05-13] MEDS: Ipratropium/Albuterol Neb 3 ML IH SCH ×3 (11:44→22:02)
[2018-05-13] MEDS: Furosemide 40 MG TABLET PO SCH (17:17)
[2018-05-14] MEDS: Ipratropium/Albuterol Neb 3 ML IH SCH ×4 (04:00→23:30)
[2018-05-14 04:48] LABS: Hematocrit 31.9 % (35.3-44.9); Hemoglobin 9.7 g/dL (11.5-15.4); Mean Corpuscular HGB Conc 30.4 g/dL (31.6-35.5); Mean Corpuscular Hemoglobin 29.9 pg (28.0-33.3); Mean Corpuscular Volume 98.5 fL (83.0-100.0); Mean Platelet Volume 9.8 fL (9.4-12.4); Platelet Count 131 K/mcL (140-400); Red Blood Count 3.24 M/mcL (3.82-4.97); Red Cell Distribution Width 17.6 % (11.5-14.5)
[2018-05-14 05:09] LABS: Calcium 9.4 mg/dL (8.6-10.3); Magnesium 2.2 mg/dL (1.6-2.6); Potassium 4.3 mEq/L (3.5-5.1)
[2018-05-14] MEDS: *HR* Heparin 5,000 UNIT/ML VIAL SQ SCH ×2 (05:33→17:31)
[2018-05-14 08:13] LABS: ABG Base Excess 18 mEq/L (-2 to 3); ABG HCO3 47 mEq/L (21-27); ABG Oxygen Saturation 92 % (95-98); ABG PCO2 78 mmHg (35-45); ABG PH 7.39 pH Units (7.32-7.45); ABG PO2 70 mmHg (85-104); ABG TCO2 49 mEq/L (20-26); Blood Gas Modality BiLevel
[2018-05-14] MEDS: Insulin LISPRO 300 UNITS/3 ML VIAL SQ SCH ×7 (09:56→20:45)
[2018-05-14] MEDS: Furosemide 40 MG TABLET PO SCH (10:19)
[2018-05-14] MEDS: Gabapentin 300 MG CAPSULE PO SCH ×2 (10:20→20:38)
[2018-05-14] MEDS: Insulin DETEMIR 100 UNIT/ML X5UNITS SQ SCH ×2 (10:24→20:38)
--- NOTE | 2018-05-14 11:21 | Internal Med Progress Note ---
Hospitalist Progress Note - Encounter Date of Encounter: 05/14/18 Time of Encounter: 11:18 - Subjective Interval History: Patient evaluated at bedside, more awake than yesterday morning, no shaking movements, in no respiratory distress. Patient denies chest pain, nausea, abdominal pain, lightheadedness. Patient has been tolerating by mouth diet appropriately. - Exam Vitals: Temp Pulse Resp BP Pulse Ox 97.5 F L 84 16 127/72 92 05/14/18 06:36 05/14/18 06:36 05/14/18 11:16 05/14/18 06:36 05/14/18 11:16 Exam: General: Alert and oriented x3. In no distress Skin: Normal color, no rash, no lesions. HEENT: EOM, pupils equal, round and reactive. Cardiovascular: Normal S1 & S2, no rubs, murmurs or gallops. JVD unable to assess. He does not Lungs: Good air entry, mildly decreased breath sounds at the base, no wheezes, no crackles, no rales. Abdomen: Obese, Soft, non-tender, no rigidity, umbilical hernia. Extremities: Chronic skin changes, venostasis, 1+ pitting edema. Neurological:Normal cognition and motor skills. - Assessment and Plan (1) Acute and chronic respiratory failure ([id number]-zd-krffijb) Current Visit: Yes Status: Acute Assessment and Plan: Improving, more awake. No shaking movements Plan: - Alternate BiPAP every 4 hours to nasal cannula 3 L. - (2) Acute on chronic diastolic heart failure Current Visit: Yes Status: Acute Assessment and Plan: Negative 160 ml. minimal crackles at the bases. Plan: - Increase Lasix from 40 mg to 80 mg by mouth daily, patient's home dose - Continue spironolactone 50 mg daily - Strict intake and output - Fluid restriction to 1.5 L a day (3) Atrial fibrillation Current Visit: Yes Status: Chronic Assessment and Plan: Rate control. Plan: - Continue carvedilol 25mg/PO daily - No on full dose anticoagulation due to history of GI bleed and liver cirrhosis (4) COPD (chronic obstructive pulmonary disease) Current Visit: Yes Status: Chronic Assessment and Plan: No wheezing on auscultation, no respiratory distress Plan: - Continue DuoNebs as scheduled (5) Type 2 diabetes mellitus Current Visit: Yes Status: Chronic Assessment and Plan: Blood sugar well controlled Plan: - Continue Levemir 20 units am and 30 units HS and Lispro 10 units AC - Carb controlled diet (6) CHRISTY treated with BiPAP Current Visit: Yes Status: Chronic Assessment and Plan: On BiPAP (7) Chronic kidney disease Current Visit: Yes Status: Chronic Assessment and Plan: Kidney functions. Plan: - Avoid nephrotoxic medications (8) Ascites Current Visit: Yes Status: Ruled-out Assessment and Plan: US abdomen: Trace ascites. Possible secondary to Liver cirrhosis. Plan: - Continue Lasix (9) Anemia Current Visit: Yes Status: Chronic Assessment and Plan: Possible anemia of chronic disease Plan: - will continue monitoring H&H, no intervention needed at this time DVT Prophylaxis: High risk for DVT Plan: - Continue heparin 5000 units subcutaneous every 12 hours - Time Spent with Patient Total time spent is greater than 50% in coordination of care (as documented) at patient's floor/unit and/or counseling patient: Greater than 35 minutes Plan of Care Discussed with: family Internal Medicine: Result - Labs CBC & Chem 7: 05/14/18 04:20 05/14/18 04:20 Labs: Short CBC 05/14/18 Range/Units 04:20 WBC 4.9 (4.3-11.1) K/mcL Hgb 9.7 L (11.5-15.4) g/dL Hct 31.9 L (35.3-44.9) % Plt Count 131 L (140-400) K/mcL BMP 05/14/18 04:20 Sodium 142 Potassium 4.3 Chloride 97 L Carbon Dioxide 41 H* BUN 34 H Creatinine 1.12 Glucose 108 H Calcium 9.4 - ABG Interpretation ABG results: ABG ABG pH 7.39 pH Units (7.32-7.45) 05/14/18 07:56 ABG pCO2 78 mmHg (35-45) H* 05/14/18 07:56 ABG pO2 70 mmHg (85-104) L 05/14/18 07:56 ABG O2 Saturation 92 % (95-98) L 05/14/18 07:56 PT/INR, D-dimer PT 12.2 Seconds (9.4-12.1) H 05/08/18 16:39 - VTE Documentation of Mechanical Device: Venous foot pump, device Consult Discharge Plan - Plan Referrals: Stacia Morrell, [employer] [Primary Care Provider] - 05/17/18 9:00 am (1) Acute and chronic respiratory failure ([id number]) Qualifiers: Respiratory failure complication: hypoxia and hypercapnia Qualified Code(s): J96.21 - Acute and chronic respiratory failure with hypoxia; J96.22 - Acute and chronic respiratory failure with hypercapnia (3) Atrial fibrillation Qualifiers: Atrial fibrillation type: chronic Qualified Code(s): I48.2 - Chronic atrial fibrillation (4) COPD (chronic obstructive pulmonary disease) Qualifiers: COPD type: unspecified COPD Qualified Code(s): J44.9 - Chronic obstructive pulmonary disease, unspecified (5) Type 2 diabetes mellitus Qualifiers: Diabetes mellitus long-term insulin use: with long-term use Diabetes mellitus complication status: with hyperglycemia Qualified Code(s): E11.65 - Type 2 diabetes mellitus with hyperglycemia; Z79.4 - technician terminal and repeater (current) use of insulin (7) Chronic kidney disease Qualifiers: Chronic kidney disease stage: stage 3 (moderate) Qualified Code(s): N18.3 - Chronic kidney disease, stage 3 (moderate) (8) Ascites Qualifiers: Ascites type: other type Qualified Code(s): R18.8 - Other ascites (9) Anemia Qualifiers: Anemia type: unspecified type Qualified Code(s): D64.9 - Anemia, unspecified
[2018-05-14] MEDS ORDERED: Furosemide 40 MG TABLET PO ONE (12:11)
[2018-05-15] MEDS: Ipratropium/Albuterol Neb 3 ML IH SCH ×3 (04:20→16:06)
[2018-05-15] MEDS: *HR* Heparin 5,000 UNIT/ML VIAL SQ SCH (05:25)
[2018-05-15 05:39] LABS: Eosinophils # 0.1 K/mcL (0.0-0.6); Eosinophils % 1.3 %; Hematocrit 33.3 % (35.3-44.9); Immature Granulocytes % 1.5 % (0-4); Lymphocytes # 0.9 K/mcL (0.6-4.6); Lymphocytes % 16.6 %; Mean Corpuscular Hemoglobin 30.3 pg (28.0-33.3); Mean Corpuscular Volume 100.9 fL (83.0-100.0); Monocytes # 0.5 K/mcL (0.0-1.3); Monocytes % 8.6 %; Platelet Count 127 K/mcL (140-400); Red Cell Distribution Width 17.7 % (11.5-14.5)
[2018-05-15 05:59] LABS: BUN/Creatinine Ratio 30 (6-26); Blood Urea Nitrogen 32 mg/dL (8-23); Calcium 9.2 mg/dL (8.6-10.3); Carbon Dioxide 44 mEq/L (23-29); Chloride 94 mEq/L (98-107); Glucose 156 mg/dL (70-105); Osmolality,Calculated 304 (280-300); Potassium 3.9 mEq/L (3.5-5.1); Sodium 142 mEq/L (136-145); eGFR For Non-African Americans 51 (> 60)
[2018-05-15 08:30] LABS: ABG Base Excess 19 mEq/L (-2 to 3); ABG HCO3 47 mEq/L (21-27); ABG Oxygen Saturation 88 % (95-98); ABG PCO2 72 mmHg (35-45); ABG PH 7.42 pH Units (7.32-7.45); ABG PO2 58 mmHg (85-104); ABG TCO2 49 mEq/L (20-26); Blood Gas Modality BiLevel
[2018-05-15] MEDS ORDERED: Furosemide 40 MG TABLET PO SCH (09:00)
--- NOTE | 2018-05-15 09:13 | Discharge Summary ---
- NOTES TO OUTPATIENT PROVIDER Notes to Outpatient Provider: Follow up [facility] [employer]. Date of Encounter: 05/15/18 Time of Encounter: 09:10 - Discharge Diagnosis (1) Acute and chronic respiratory failure (wlcby-og-roqermu) Priority: Primary Status: Acute Qualifiers: Respiratory failure complication: hypoxia and hypercapnia Qualified Code(s) : J96.21 - Acute and chronic respiratory failure with hypoxia; J96.22 - Acute and chronic respiratory failure with hypercapnia (2) Acute on chronic diastolic heart failure Priority: Secondary Status: Acute (3) Atrial fibrillation Priority: Secondary Status: Chronic Qualifiers: Atrial fibrillation type: chronic Qualified Code(s): I48.2 - Chronic atrial fibrillation (4) COPD (chronic obstructive pulmonary disease) Priority: Secondary Status: Chronic Qualifiers: COPD type: unspecified COPD Qualified Code(s): J44.9 - Chronic obstructive pulmonary disease, unspecified (5) Type 2 diabetes mellitus Priority: Secondary Status: Chronic Qualifiers: Diabetes mellitus detention insulin use: with terminal computer operator use Diabetes mellitus complication status: with hyperglycemia Qualified Code(s): E11.65 - Type 2 diabetes mellitus with hyperglycemia; Z79.4 - termite control technician (current) use of insulin (6) CHRISTY treated with BiPAP Priority: Secondary Status: Chronic (7) Chronic kidney disease Priority: Secondary Status: Chronic Qualifiers: Chronic kidney disease stage: stage 3 (moderate) Qualified Code(s): N18.3 - Chronic kidney disease, stage 3 (moderate) (8) Ascites Priority: Secondary Status: Ruled-out Assessment and Plan: . Possible secondary to Liver cirrhosis. Qualifiers: Ascites type: other type Qualified Code(s): R18.8 - Other ascites (9) Anemia Priority: Secondary Status: Chronic Qualifiers: Anemia type: unspecified type Qualified Code(s): D64.9 - Anemia, unspecified Hospital course: Ms. Hernández is a 67 year old female PMH chronic Hypoxemic/hypercapnic respiratory failure, atrial fibrillation, CHF, COPD, DVT, diabetes, hyperlipidemia, hypertension, liver disease and CKD who was [place] to the ED from home due to increased abdominal grid, and jerky movements. Patient found to be on acute on chronic Hypercapnic respiratory failure, with a PCO2 of 90, patient palced on continue BiPap. And abdominal US was done as part of the evaluation for the increased abdominal grid, it revealed, minimal ascitis fluids. Patient was treatment with Nebs, continue Bipap and diruresis. 10 litters of fluids were removed. Today patient evaluated at bedside, alert and orientedx3. No acute distress, no jerky movements. Clinically stable to be discharged home and follow up with her visual display associate and PCP as outpatient. Discharge discussed with: patient - Time Spent with Patient Total time spent providing and/or coordinating discharge services: - Discharge Medications Home Medications: Allopurinol [Zyloprim 100 MG] 100 mg PO DAILY 03/01/18 [History] Carvedilol [Coreg] 25 mg PO BID 03/01/18 [History] Furosemide [Lasix] 80 mg PO DAILY 03/01/18 [History] Gabapentin [Neurontin] 300 mg PO BID 03/01/18 [History] Lisinopril [Zestril] 5 mg PO DAILY 03/01/18 [History] Potassium Chloride [K-Tab ER] 20 meq PO BID 03/01/18 [History] Ipratropium/Albuterol Neb [Duoneb] 3 ml IH Q6HR PRN #25 units 03/03/18 [Rx] Insulin NPH Hum/Reg Insulin Hm [Novolin 70-30 100 Unit/ml Vial] 35 unit SQ HS [History] Allergies/Adverse Reactions: 3 Allergy/AdvReac Type Severity Reaction Status Date / Time No Known Allergies Allergy Verified 05/08/18 10:25 Date of admission: 05/09/18 11:31 Primary care physician: Stacia Morrell CNP Consults: 05/10/18 11:38 Consult to Physical Therapy [CONS] Routine Comment: Evaluate, develop and implement POC Reason for Consult: OBESE/DECONDITIONED Does patient have active BEDREST order?: No Is patient medically & hemodynamically stable?: Yes Patient assessed for mobility or mobilized this visit?: No 05/11/18 10:20 Consult to Pulmonology [CONS] Routine Consulting Provider: [facility] Reason for Consult: copd exercebation/respiratory failure Time Notified: 10:20 Call Completed: No 05/13/18 11:21 Consult to Nurse Navigator [CONS] Routine Comment: 05/14/18 11:15 Consult to Physical Therapy [CONS] Routine Comment: Evaluate, develop and implement POC Reason for Consult: re-evaluation for dc planning Does patient have active BEDREST order?: No Is patient medically & hemodynamically stable?: Yes - Constitutional Vitals: Temp Pulse Resp BP Pulse Ox 98.4 F 85 18 131/80 91 05/15/18 07:11 05/15/18 07:11 05/15/18 07:11 05/15/18 07:11 05/15/18 07:11 General appearance: Present: cooperative, A&O X 3, pleasant, no acute distress, answers questions appropriately Exam: General: Alert and oriented x3. In no distress Skin: Normal color, no rash, no lesions. HEENT: EOM, pupils equal, round and reactive. Cardiovascular: Normal S1 & S2, no rubs, murmurs or gallops. JVD unable to assess. He does not Lungs: Good air entry, clear to auscultation b/l, no wheezes, no crackles, no rales. Abdomen: Obese, Soft, non-tender, no rigidity, umbilical hernia. Extremities: Chronic skin changes, venostasis, 1+ pitting edema. Neurological:Normal cognition, motor skills with minimal ambulation.. - Patient Status Disposition: Home Health Service Condition: Good Functional capacity at discharge: wheelchair bound Overall status at discharge: patient is progressing back to baseline - Discharge Instructions Follow Up With: Stacia Morrell CNP [Primary Care Provider] - 05/17/18 9:00 am - Diet and Activity Activity: as per physical therapy Diet: diabetic diet - VTE Documentation of Mechanical Device: Venous foot pump, device
--- NOTE | 2018-05-15 09:31 | Physician Discharge Referral ---
Home Health/Hosp Referral Info Transfer to: Home Health - Diagnosis (1) Acute and chronic respiratory failure ([id number]) Priority: Primary Status: Acute (2) Acute on chronic diastolic heart failure Priority: Secondary Status: Acute (3) Atrial fibrillation Priority: Secondary Status: Chronic (4) COPD (chronic obstructive pulmonary disease) Priority: Secondary Status: Chronic (5) Type 2 diabetes mellitus Priority: Secondary Status: Chronic (6) CHRISTY treated with BiPAP Priority: Secondary Status: Chronic (7) Chronic kidney disease Priority: Secondary Status: Chronic (8) Ascites Priority: Secondary Status: Ruled-out (9) Anemia Priority: Secondary Status: Chronic - Respiratory Orders Oxygen / L per min Smoking Cessation: Smoking cessation has been advised. For more information, call the [employer] Tobacco Quit Line at 3-015-VGUH-NOW. - Diet/Nutrition Diet/Nutrition Orders: Regular - Activity Activity Orders: Bedrest - Services Needed Following services are medically necessary services: Physical Therapy, Occupational Therapy - Transfer Medications Home Medications: Allopurinol [Zyloprim 100 MG] 100 mg PO DAILY 03/01/18 [History] Carvedilol [Coreg] 25 mg PO BID 03/01/18 [History] Furosemide [Lasix] 80 mg PO DAILY 03/01/18 [History] Gabapentin [Neurontin] 300 mg PO BID 03/01/18 [History] Lisinopril [Zestril] 5 mg PO DAILY 03/01/18 [History] Potassium Chloride [K-Tab ER] 20 meq PO BID 03/01/18 [History] Ipratropium/Albuterol Neb [Duoneb] 3 ml IH Q6HR PRN #25 units 03/03/18 [Rx] Insulin NPH Hum/Reg Insulin Hm [Novolin 70-30 100 Unit/ml Vial] 35 unit SQ HS [History] Allergies/Adverse Reactions: 3 Allergy/AdvReac Type Severity Reaction Status Date / Time No Known Allergies Allergy Verified 05/08/18 10:25 Certification: Further, I certify that my clinical findings support that this patient is homebound (i.e. absences from home require considerable and taxing effort and are for medical reasons or alevism services or infrequently or short duration when for other reasons) because: Homebound Reason: Patient requires assistance of a person or device to safely leave home Attestation: My signature below is to certify that this patient is under my care and that I, or nurse practitioner, or a physician's janitorial assistant working with me, has a face-to -face encounter with this patient.
[2018-05-15] MEDS: Gabapentin 300 MG CAPSULE PO SCH (09:38)
[2018-05-15] MEDS: Insulin LISPRO 300 UNITS/3 ML VIAL SQ SCH ×4 (09:39→11:59)
[2018-05-15] MEDS: Insulin DETEMIR 100 UNIT/ML X5UNITS SQ SCH (09:39)
[2018-05-15 11:20] VITALS: BP 125/68
--- NOTE | 2018-05-15 12:20 | Event Note ---
Date of Encounter: 05/15/18 Time of Encounter: 12:17 Discussed with the Ems Helicopter Pilot about DC planning. The technician called kurt to make adjustments to the settings of the patient BiPap machine at home. The settings will be adjusted today. and After adjustments are made, the technician agrees with the discharge.
--- NOTE | 2018-05-15 16:42 | Physician Discharge Referral ---
Home Health/Hosp Referral Info Transfer to: Home Health - Diagnosis (1) Acute and chronic respiratory failure ([id number]) Priority: Primary Status: Acute (2) Acute on chronic diastolic heart failure Priority: Secondary Status: Acute (3) Atrial fibrillation Priority: Secondary Status: Chronic (4) COPD (chronic obstructive pulmonary disease) Priority: Secondary Status: Chronic (5) Type 2 diabetes mellitus Priority: Secondary Status: Chronic (6) CHRISTY treated with BiPAP Priority: Secondary Status: Chronic (7) Chronic kidney disease Priority: Secondary Status: Chronic (8) Ascites Priority: Secondary Status: Ruled-out (9) Anemia Priority: Secondary Status: Chronic - Respiratory Orders Smoking Cessation: Smoking cessation has been advised. For more information, call the [facility] Tobacco Quit Line at 4-328-ONOKNOW. - Diet/Nutrition Diet/Nutrition Orders: Regular - Activity Activity Orders: Ambulate - Services Needed Following services are medically necessary services: Physical Therapy - Transfer Medications Prescriptions: Spironolactone [Aldactone] 50 mg PO DAILY 30 Days #30 tablet Home Medications: Allopurinol [Zyloprim 100 MG] 100 mg PO DAILY 03/01/18 [History] Carvedilol [Coreg] 25 mg PO BID 03/01/18 [History] Furosemide [Lasix] 80 mg PO DAILY 03/01/18 [History] Gabapentin [Neurontin] 300 mg PO BID 03/01/18 [History] Lisinopril [Zestril] 5 mg PO DAILY 03/01/18 [History] Potassium Chloride [K-Tab ER] 20 meq PO BID 03/01/18 [History] Ipratropium/Albuterol Neb [Duoneb] 3 ml IH Q6HR PRN #25 units 03/03/18 [Rx] Insulin NPH Hum/Reg Insulin Hm [Novolin 70-30 100 Unit/ml Vial] 35 unit SQ HS [History] Spironolactone [Aldactone] 50 mg PO DAILY 30 Days #30 tablet 05/15/18 [Rx] Allergies/Adverse Reactions: 3 Allergy/AdvReac Type Severity Reaction Status Date / Time No Known Allergies Allergy Verified 05/08/18 10:25 Certification: Further, I certify that my clinical findings support that this patient is homebound (i.e. absences from home require considerable and taxing effort and are for medical reasons or anglican services or infrequently or short duration when for other reasons) because: Homebound Reason: Patient requires assistance of a person or device to safely leave home Attestation: My signature below is to certify that this patient is under my care and that I, or nurse practitioner, or a physician's ex assistant/program director working with me, has a face-to -face encounter with this patient.
== END 2018-05-15 17:32 | disposition home health service (06) | DRG 189 ==
LOC: 2NENU 22:24 → EMEROOARM 22:24 → SUATTDRO 05-08 00:42 → 2NENU 05-08 01:13 → SUATTDRO 05-09 11:31
PROVIDERS: ADMIT Internal Medicine; ATTEND Internal Medicine

== ENCOUNTER 2018-05-20 17:42 | Inpatient (IN) ==
--- NOTE | 2018-05-20 18:46 | Emergency Department Note ---
Disposition Clinical Impression: Hypercapnic respiratory failure Qualifiers: Chronicity: acute on chronic Qualified Code(s): J96.22 - Acute and chronic respiratory failure with hypercapnia Altered mental status Qualifiers: Altered mental status type: unspecified Qualified Code(s): R41.82 - Altered mental status, unspecified UTI (urinary tract infection) Qualifiers: Urinary tract infection type: site unspecified Hematuria presence: without hematuria Qualified Code(s): N39.0 - Urinary tract infection, site not specified Disposition: Still a Patient Condition: Fair Referrals: Stacia Morrell FORMS BUILDER [Primary Care Provider] - Forms: ED Satisfaction Letter, Work/School Release General Adult HPI - General Chief complaint: ED General Medical Stated complaint: Shaking/AMS Time Seen by Provider: 05/20/18 18:10 Source: family Mode of arrival: private vehicle Limitations: no limitations Nursing Notes Reviewed: Yes Vital Signs Reviewed: Yes - History of Present Illness HPI Narrative: 67-year-old female history of CHF, cirrhosis, oxygen dependent COPD with BiPAP at night who presents to the ER with family with a complaint of altered mental status. Reports that she was in the hospital little over a week ago. Went home and was doing okay. States over the last couple days she has been little more tired but today she has been asleep most of the day. They thought it might be because of her COPD sedated put her on BiPAP throughout today. States she still remains sleepy. The patient arouses to verbal stimuli. She is alert and oriented 3. She voices no real complaints. She easily drifts back to sleep whenever she is not engaged. No other complaints. Pt Subjective Complaint: AMS, Dyspnea Onset (ago): day(s) Pain Scale: 0 Improves with: nothing Worsens with: nothing Associated symptoms: Reports: denies other symptoms Treatments Prior to Arrival: none - Related Data Home Medications Medication Instructions Recorded Confirmed Allopurinol [Zyloprim 100 MG] 100 mg PO DAILY 03/01/18 05/20/18 Carvedilol [Coreg] 25 mg PO BID 03/01/18 05/20/18 Furosemide [Lasix] 80 mg PO DAILY 03/01/18 05/20/18 Gabapentin [Neurontin] 300 mg PO BID 03/01/18 05/20/18 Lisinopril [Zestril] 5 mg PO DAILY 03/01/18 05/20/18 Potassium Chloride [K-Tab ER] 20 meq PO BID 03/01/18 05/20/18 Insulin NPH Hum/Reg Insulin Hm 35 unit SQ HS 04/09/18 05/20/18 [Novolin 70-30 100 Unit/ml Vial] Previous Rx's Medication Instructions Recorded Ipratropium/Albuterol Neb [Duoneb] 3 ml IH Q6HR PRN #25 units 03/03/18 Spironolactone [Aldactone] 50 mg PO DAILY 30 Days #30 tablet 05/15/18 Allergies Allergy/AdvReac Type Severity Reaction Status Date / Time No Known Allergies Allergy Verified 05/20/18 17:51 All systems ED: reviewed and negative except as stated. Constitutional: Denies: fever Cardiovascular: Denies: chest pain Respiratory: Reports: cough, dyspnea. Denies: sputum production Gastrointestinal: Denies: abdominal pain, nausea, vomiting Past Medical History - Past Medical History Attestation: Yes The following information was validated with the patient. Source: patient Medical history: Reports: atrial fibrillation, CHF, COPD, DVT, diabetes, hyperlipidemia, hypertension, liver disease, renal disease Surgical history: Reports: no surgical history Psychiatric history: Reports: anxiety ASSISTED LIVING ASSOCIATE history: Reports: no ASSISTED LIVING ASSOCIATE history - Social History Smoking Status: Never smoker Smokeless Tobacco Status: No Alcohol use: Reports: occasionally Drug use: Reports: none Physical Exam - General Limitations: no limitations General appearance: other (Somnolent) - Head Head exam: atraumatic, normocephalic - Eye Eye exam: Present: normal appearance, miosis - ENT ENT exam: normal exam - Neck Neck exam: Present: normal inspection - Chest Chest inspection: Present: normal inspection, symmetric chest wall rise - Respiratory Respiratory exam: Present: normal lung sounds bilaterally, prolonged expiratory phase - Cardiovascular Cardiovascular exam: Present: regular rate, normal rhythm, normal heart sounds - Abdominal Exam Abdominal exam: Present: soft, Non-Tender. Absent: tenderness, distention, rigidity - Extremities Exam Extremities exam: Present: normal inspection, full ROM - Expanded Upper Extremity Exam Shoulder exam: Present: normal inspection, full ROM Arm exam: Present: normal inspection, full ROM Elbow exam: Present: normal inspection, full ROM Forearm/Wrist exam: Present: normal inspection, full ROM Hand exam: Present: normal inspection, full ROM - Expanded Lower Extremity Exam Hip/Pelvis exam: Present: normal inspection, full ROM Upper leg exam: Present: normal inspection, full ROM Knee exam: Present: normal inspection, full ROM Lower leg exam: Present: normal inspection, full ROM, other (Venous stasis changes to the lower extremities) Ankle exam: Present: normal inspection, full ROM Foot/toe exam: Present: normal inspection, full ROM - Neurological Exam Neurological exam: Present: oriented X3, other (Awakens to verbal stimuli. Follows commands. Somnolent.) - Skin Skin exam: Present: warm, dry Course Course Narrative: Patient seen and examined. Vital signs reviewed. Alert and oriented 3. No focal deficits. Suspect hypercapnic respiratory failure. Plan for EKG, chest x -ray, labs. - Reevaluation(s) Reevaluation #1: Labs were hemolyzed. Plan for repeat. ABG demonstrates hypercapnic respiratory failure with respiratory acidosis. Patient placed on BiPAP. Discussed with family. She was hypotensive after BiPAP initiation. She responded well with a 500 mL bolus of IV fluids. Given her significant AA gradient plan to obtain a d-dimer first. Reevaluation #2: D-dimer elevation of over 4500. Patient has renal disease precluding her from an angiogram. VQ scan ordered. Discussed with family that this will give a probability of potential pulmonary embolism. With moderate or high probability the patient will require anticoagulation. Discussed risks and benefits of starting anticoagulation. Family understands. Currently awaiting V/Q results. Vital Signs Temperature 98 F 05/20/18 17:47 Pulse Rate 76 05/20/18 17:47 Respiratory Rate 20 05/20/18 17:47 Blood Pressure 94/60 05/20/18 17:47 O2 Sat by Pulse Oximetry 99 05/20/18 17:47 Temperature 98 F 05/20/18 17:47 Pulse Rate 83 05/20/18 23:13 Respiratory Rate 19 05/20/18 23:13 Blood Pressure 85/67 05/20/18 23:13 O2 Sat by Pulse Oximetry 95 05/20/18 23:13 Oxygen Delivery Oxygen Delivery Bipap Medical Decision Making - MDM Narrative Medical decision making narrative: 67-year-old female presents for altered mental status. Developed over the last 24 hours. History of hypercapnic respiratory failure. ABG demonstrates a carbon dioxide of 97 with a pH of 7.29. She has an elevated AA gradient which prompted a d-dimer which is elevated. Chronic kidney disease precludes her from contrast so VQ scan was ordered. She was noted to be hypotensive during her ER stay which was correctable with IV fluids. Head CT imaging negative. Chest x-ray of atelectasis versus pneumonia. She has no cough or leukocytosis as well as being afebrile. Urinalysis to ensure its UTI for which she received Rocephin. The patient was discussed with the hospitalist and was awaiting V/Q results signed out to the night warehouse manager team here for final disposition. - Lab Data Lab results reviewed: Yes I reviewed the patient's lab results. Result diagrams: 05/20/18 18:52 05/20/18 20:15 Lab Results 05/20/18 05/20/18 05/20/18 Range/Units 18:52 18:52 18:52 WBC 7.1 (4.3-11.1) K/mcL RBC 3.01 L (3.82-4.97) M/mcL Hgb 9.3 L (11.5-15.4) g/dL Hct 31.3 L (35.3-44.9) % MCV 104.0 H (83.0-100.0) fL MCH 30.9 (28.0-33.3) pg MCHC 29.7 L (31.6-35.5) g/dL RDW 18.6 H (11.5-14.5) % Plt Count 150 (140-400) K/mcL MPV 10.7 (9.4-12.4) fL Immature Gran % 0.8 (0-4) % Seg Neutrophils % 78.2 % Lymphocytes % 10.1 % Monocytes % 10.0 % Eosinophils % 0.8 % Basophils % 0.1 % Neutrophils # 5.5 (1.6-8.9) K/mcL Lymphocytes # 0.7 (0.6-4.6) K/mcL Monocytes # 0.7 (0.0-1.3) K/mcL Eosinophils # 0.1 (0.0-0.6) K/mcL Basophils # 0.0 (0.0-0.2) K/mcL Nucleated RBCs/100 WBC 0.7 H (0) /100 WBC PT (9.4-12.1) Seconds INR APTT (26.0-36.0) Seconds D-Dimer (0-500) ng/mLFEU ABG pH (7.32-7.45) pH Units ABG pCO2 (35-45) mmHg ABG pO2 (85-104) mmHg ABG HCO3 (21-27) mEq/L ABG Total CO2 (20-26) mEq/L ABG O2 Saturation (95-98) % ABG Base Excess (-2 to 3) mEq/L O2 Delivery Device Inspired O2 (1-15=lpm [id number]=%) Sodium Cancelled Potassium Cancelled Chloride Cancelled Carbon Dioxide Cancelled BUN Cancelled Creatinine Cancelled Est GFR ( Amer) Cancelled Est GFR (Non-Af Amer) Cancelled BUN/Creatinine Ratio Cancelled Glucose Cancelled Calculated Osmolality Cancelled Calcium Cancelled Total Bilirubin Cancelled Direct Bilirubin Cancelled Indirect Bilirubin Cancelled AST Cancelled ALT Cancelled Alkaline Phosphatase Cancelled Troponin I < 0.03 (< 0.04) ng/mL B-Natriuretic Peptide 115 H (Less than 100) pg/mL Serum Total Protein Cancelled Albumin Cancelled Globulin Cancelled Albumin/Globulin Ratio Cancelled Urine Color (Yellow) Urine Clarity (Clear) Urine pH (5.0-8.0) pH Units Ur Specific [place] (1.010-1.025) Urine Protein (Neg-Trace) mg/dL Urine Glucose (UA) (Normal) mg/dL Urine Ketones (Negative) mg/dL Urine Blood (Negative) Urine Nitrite (Negative) Urine Bilirubin (Negative) Urine Urobilinogen (Normal) mg/dL Ur Leukocyte Esterase (Negative) Urine Microscopic RBC (0-3) per hpf Urine Microscopic WBC (0-3) per hpf Ur Squamous Epith Cells (None-Few) per lpf Ur Transition Epith Cell (None-Few) per hpf Urine Bacteria (None-Few) per hpf Hyaline Casts (None-Few) per lpf Urine Yeast (None Seen) per hpf Ur Culture Indicated? (NO) Urine Opiates Screen (Gmbgaj=119) ng/mL Ur Barbiturates Screen (Uhzqrj=381) ng/mL Ur Phencyclidine Scrn (Cutoff=25) ng/mL Ur Amphetamines Screen (Bslmsg=3952) ng/mL U Benzodiazepines Scrn (Zodbax=607) ng/mL Urine Cocaine Screen (Cutoff= 300) ng/mL U Marijuana (THC) Screen (Cutoff = 50) ng/mL Ur Drug Screen Interp Specimen Rejected 05/20/18 05/20/18 05/20/18 Range/Units 18:52 18:56 19:04 WBC (4.3-11.1) K/mcL RBC (3.82-4.97) M/mcL Hgb (11.5-15.4) g/dL Hct (35.3-44.9) % MCV (83.0-100.0) fL MCH (28.0-33.3) pg MCHC (31.6-35.5) g/dL RDW (11.5-14.5) % Plt Count (140-400) K/mcL MPV (9.4-12.4) fL Immature Gran % (0-4) % Seg Neutrophils % % Lymphocytes % % Monocytes % % Eosinophils % % Basophils % % Neutrophils # (1.6-8.9) K/mcL Lymphocytes # (0.6-4.6) K/mcL Monocytes # (0.0-1.3) K/mcL Eosinophils # (0.0-0.6) K/mcL Basophils # (0.0-0.2) K/mcL Nucleated RBCs/100 WBC (0) /100 WBC PT 12.7 H (9.4-12.1) Seconds INR 1.1 APTT 25.7 L (26.0-36.0) Seconds D-Dimer 4597 H (0-500) ng/mLFEU ABG pH 7.29 L (7.32-7.45) pH Units ABG pCO2 97 H* (35-45) mmHg ABG pO2 55 L (85-104) mmHg ABG HCO3 46 H (21-27) mEq/L ABG Total CO2 49 H (20-26) mEq/L ABG O2 Saturation 81 L (95-98) % ABG Base Excess 16 H (-2 to 3) mEq/L O2 Delivery Device Cannula Inspired O2 32.0 (1-15=lpm hr64-938=%) Sodium Potassium Chloride Carbon Dioxide BUN Creatinine Est GFR ( Amer) Est GFR (Non-Af Amer) BUN/Creatinine Ratio Glucose Calculated Osmolality Calcium Total Bilirubin Direct Bilirubin Indirect Bilirubin AST ALT Alkaline Phosphatase Troponin I (< 0.04) ng/mL B-Natriuretic Peptide (Less than 100) pg/mL Serum Total Protein Albumin Globulin Albumin/Globulin Ratio Urine Color (Yellow) Urine Clarity (Clear) Urine pH (5.0-8.0) pH Units Ur Specific [place] (1.010-1.025) Urine Protein (Neg-Trace) mg/dL Urine Glucose (UA) (Normal) mg/dL Urine Ketones (Negative) mg/dL Urine Blood (Negative) Urine Nitrite (Negative) Urine Bilirubin (Negative) Urine Urobilinogen (Normal) mg/dL Ur Leukocyte Esterase (Negative) Urine Microscopic RBC (0-3) per hpf Urine Microscopic WBC (0-3) per hpf Ur Squamous Epith Cells (None-Few) per lpf Ur Transition Epith Cell (None-Few) per hpf Urine Bacteria (None-Few) per hpf Hyaline Casts (None-Few) per lpf Urine Yeast (None Seen) per hpf Ur Culture Indicated? (NO) Urine Opiates Screen (Ltulxr=996) ng/mL Ur Barbiturates Screen (Dpjhzs=199) ng/mL Ur Phencyclidine Scrn (Cutoff=25) ng/mL Ur Amphetamines Screen (Rpgksm=1910) ng/mL U Benzodiazepines Scrn (Kkxycx=101) ng/mL Urine Cocaine Screen (Cutoff= 300) ng/mL U Marijuana (THC) Screen (Cutoff = 50) ng/mL Ur Drug Screen Interp Specimen Rejected Hemolyzed 05/20/18 05/20/18 05/20/18 Range/Units 20:15 21:11 21:18 WBC (4.3-11.1) K/mcL RBC (3.82-4.97) M/mcL Hgb (11.5-15.4) g/dL Hct (35.3-44.9) % MCV (83.0-100.0) fL MCH (28.0-33.3) pg MCHC (31.6-35.5) g/dL RDW (11.5-14.5) % Plt Count (140-400) K/mcL MPV (9.4-12.4) fL Immature Gran % (0-4) % Seg Neutrophils % % Lymphocytes % % Monocytes % % Eosinophils % % Basophils % % Neutrophils # (1.6-8.9) K/mcL Lymphocytes # (0.6-4.6) K/mcL Monocytes # (0.0-1.3) K/mcL Eosinophils # (0.0-0.6) K/mcL Basophils # (0.0-0.2) K/mcL Nucleated RBCs/100 WBC (0) /100 WBC PT (9.4-12.1) Seconds INR APTT (26.0-36.0) Seconds D-Dimer (0-500) ng/mLFEU ABG pH (7.32-7.45) pH Units ABG pCO2 (35-45) mmHg ABG pO2 (85-104) mmHg ABG HCO3 (21-27) mEq/L ABG Total CO2 (20-26) mEq/L ABG O2 Saturation (95-98) % ABG Base Excess (-2 to 3) mEq/L O2 Delivery Device Inspired O2 (1-15=lpm dv01-917=%) Sodium 137 Potassium 6.2 H Chloride 97 L Carbon Dioxide 36 H BUN 37 H Creatinine 2.18 H Est GFR ( Amer) 27 L Est GFR (Non-Af Amer) 23 L BUN/Creatinine Ratio 17 Glucose 251 H Calculated Osmolality 301 H Calcium 8.3 L Total Bilirubin 1.2 H Direct Bilirubin 0.3 H Indirect Bilirubin 0.9 AST 12 L ALT 7 Alkaline Phosphatase 103 Troponin I (< 0.04) ng/mL B-Natriuretic Peptide (Less than 100) pg/mL Serum Total Protein 6.5 Albumin 3.4 L Globulin 3.1 Albumin/Globulin Ratio 1.1 Urine Color Dark Yellow (Yellow) Urine Clarity Turbid A (Clear) Urine pH 5.0 (5.0-8.0) pH Units Ur Specific [place] 1.018 (1.010-1.025) Urine Protein 30 H (Neg-Trace) mg/dL Urine Glucose (UA) Normal (Normal) mg/dL Urine Ketones Negative (Negative) mg/dL Urine Blood Large H (Negative) Urine Nitrite Negative (Negative) Urine Bilirubin Small H (Negative) Urine Urobilinogen Normal (Normal) mg/dL Ur Leukocyte Esterase Large H (Negative) Urine Microscopic RBC 0-3 (0-3) per hpf Urine Microscopic WBC TNTC H (0-3) per hpf Ur Squamous Epith Cells Moderate H (None-Few) per lpf Ur Transition Epith Cell Few (None-Few) per hpf Urine Bacteria Few (None-Few) per hpf Hyaline Casts Few (None-Few) per lpf Urine Yeast Few H (None Seen) per hpf Ur Culture Indicated? YES A (NO) Urine Opiates Screen Negative (Ykrrrj=656) ng/mL Ur Barbiturates Screen Negative (Ldcfji=287) ng/mL Ur Phencyclidine Scrn Negative (Cutoff=25) ng/mL Ur Amphetamines Screen Negative (Xagcqp=8146) ng/mL U Benzodiazepines Scrn Negative (Kyrpbw=926) ng/mL Urine Cocaine Screen Negative (Cutoff= 300) ng/mL U Marijuana (THC) Screen Negative (Cutoff = 50) ng/mL Ur Drug Screen Interp See Below Specimen Rejected - Radiology Data Radiology results reviewed: Yes I reviewed the patient's radiology results. Chest X-Ray 05/20/18 18:28 IMPRESSION: 1. Right basilar airspace opacities compatible with atelectasis versus pneumonia. 2. Suspected bilateral pleural effusions. D/ / Dao Diaz MD / Dao Diaz MD Interpreting Provider: Dao Diaz MD Head CT 05/20/18 18:41 IMPRESSION: No acute intracranial abnormality. D/ / Ye Maria MD / Ye Maria MD Interpreting Provider: Ye Maria MD - EKG Data EKG #1 EKG attestation: Yes I reviewed and interpreted this EKG. EKG results narrative: EKG demonstrates atrial fibrillation with rate of 86 beats or minute. Normal axis. Normal intervals. Normal R-wave progression. No gross ST elevations or depressions. No acute ischemic findings. S.B.A.R. - S.B.A.R. Situation: Demographics, MOA Background: Presenting Complaint, Relevant PMH, Meds, & Allergies Assessment: Vital Signs, Course and respsone to treatment, Exam Concerns, Patient/Family Expectation, Pertinant Lab Results, Outstanding Labs Recommendation: Barrier(s) to disposition, Recommendation based on pending studies, treatments, or consults S.B.A.RDontrell Report Given to: Dr. Silver ZarateBNolberto Repor Time: 23:13 (The patient is not accepted until the V/Q scan is resulted and the hospitalist is updated.) Attestation Statement - Attestation Attestation: I, Jamey Villarreal, examined this patient and my medical decision-making was reviewed with the MEDICAL RECORDS TECH/PA/Advanced Practice Nurse/Resident Physician. I agree with the documented findings, disposition and treatment plan as described except to the extent set forth below. 67-year-old female presents emergency Department with concerns of altered mental status and "shaking" family states that she has these tremors and becomes altered when she becomes hypercarbic. Patient has a long history of hypercarbic respiratory failure. She is supposed to be using her BiPAP at night and family states that she has been using the BiPAP faithfully. Patient is unable to give a good history regarding her case and presentation secondary to her somnolence and fatigue. She will awaken answer single word questions before falling asleep. ABG shows the patient is significantly hypercarbic which fits with her physical presentation. She is hypotensive on her initial evaluation. She has not been this hypertensive in the past. Patient is at risk for possible PE secondary to her sedentary lifestyle. Patient does not have swelling of one leg over the other. D-dimer returned significantly elevated. Creatinine is elevated on our initial laboratory evaluation however the BMP may have been hemolyzed causing abnormalities in the labs. Laboratory evaluation and imaging pending at this time. Patient will likely be admitted to hospital for further care and evaluation of her hypercarbic respiratory failure.
[2018-05-20 19:10] LABS: ABG Base Excess 16 mEq/L (-2 to 3); ABG HCO3 46 mEq/L (21-27); ABG Oxygen Saturation 81 % (95-98); ABG PCO2 97 mmHg (35-45); ABG PH 7.29 pH Units (7.32-7.45); ABG PO2 55 mmHg (85-104); ABG TCO2 49 mEq/L (20-26)
[2018-05-20 19:19] LABS: Basophils % 0.1 %; Eosinophils # 0.1 K/mcL (0.0-0.6); Eosinophils % 0.8 %; Hematocrit 31.3 % (35.3-44.9); Hemoglobin 9.3 g/dL (11.5-15.4); Immature Granulocytes % 0.8 % (0-4); Lymphocytes # 0.7 K/mcL (0.6-4.6); Lymphocytes % 10.1 %; Mean Corpuscular HGB Conc 29.7 g/dL (31.6-35.5); Mean Corpuscular Hemoglobin 30.9 pg (28.0-33.3); Mean Platelet Volume 10.7 fL (9.4-12.4); Monocytes # 0.7 K/mcL (0.0-1.3); Neutrophils # 5.5 K/mcL (1.6-8.9); Nucleated Red Blood Cells 0.7 /100 WBC (0); Platelet Count 150 K/mcL (140-400); Red Blood Count 3.01 M/mcL (3.82-4.97); Red Cell Distribution Width 18.6 % (11.5-14.5); Segmented Neutrophils % 78.2 %
[2018-05-20] MEDS ORDERED: 0.9 % Sodium Chloride 500 ML IVC ONE (20:05)
[2018-05-20 20:29] LABS: INR 1.1; Prothrombin Time 12.7 Seconds (9.4-12.1)
[2018-05-20 20:32] LABS: Activated Partial Thrombo Time 25.7 Seconds (26.0-36.0)
[2018-05-20 20:41] LABS: Albumin 3.4 g/dL (3.5-5.7); Albumin/Globulin Ratio 1.1 (1.1-2.2); Bilirubin,Direct 0.3 mg/dL (0.0-0.2); Bilirubin,Indirect 0.9 mg/dL (0.0-1.2); Bilirubin,Total 1.2 mg/dL (0.3-1.0); Calcium 8.3 mg/dL (8.6-10.3); Globulin 3.1 g/dL (2.4-3.5); Potassium 6.2 mEq/L (3.5-5.1); Total Protein 6.5 g/dL (6.4-8.9)
[2018-05-20 21:25] LABS: Bilirubin,Urine Small (Negative); Blood,Urine Large (Negative); Clarity,Urine Turbid (Clear); Color,Urine Dark Yellow (Yellow); Glucose,Urine (UA) Normal (Normal); Ketones,Urine Negative (Negative); Leukocyte Esterase,Urine Large (Negative); Nitrite,Urine Negative (Negative); Protein,Urine 30 mg/dL (Neg-Trace); Specific Gravity,Urine 1.018 (1.010-1.025); Urobilinogen,Urine Normal (Normal)
[2018-05-20 21:26] LABS: WBC,Urine TNTC per hpf (0-3)
[2018-05-20 21:33] LABS: Bacteria,Urine Few per hpf (None-Few); Hyaline Casts,Urine Few per lpf (None-Few); RBC,Urine 0-3 per hpf (0-3); Transitional Epi Cells,Urine Few per hpf (None-Few); Yeast,Urine Few per hpf (None Seen)
[2018-05-20 21:34] LABS: Squamous Epithelial Cell,Urine Moderate per lpf (None-Few)
[2018-05-20 21:37] LABS: Amphetamine Screen,Urine Negative ng/mL (Cutoff=1000); Barbiturate Screen,Urine Negative ng/mL (Cutoff=200); Benzodiazepines Screen,Urine Negative ng/mL (Cutoff=200); Cannabinoid Screen,Urine Negative ng/mL (Cutoff = 50); Cocaine Screen,Urine Negative ng/mL (Cutoff= 300); Opiate Screen,Urine Negative ng/mL (Cutoff=300); Phencyclidine Screen,Urine Negative ng/mL (Cutoff=25)
[2018-05-20] MEDS ORDERED: cefTRIAXone 1,000 MG in Water for inj. (sterile) 20 ML 10 ML IVP ONE (22:28)
--- NOTE | 2018-05-20 23:42 | Emergency Department Note ---
Disposition Clinical Impression: Hypercapnic respiratory failure Qualifiers: Chronicity: acute on chronic Qualified Code(s): J96.22 - Acute and chronic respiratory failure with hypercapnia Altered mental status Qualifiers: Altered mental status type: unspecified Qualified Code(s): R41.82 - Altered mental status, unspecified UTI (urinary tract infection) Qualifiers: Urinary tract infection type: site unspecified Hematuria presence: without hematuria Qualified Code(s): N39.0 - Urinary tract infection, site not specified Disposition: Admitted As Inpatient Condition: Fair Referrals: Stacia Morrell [employer] [Primary Care Provider] - Forms: ED Satisfaction Letter, Work/School Release General Adult HPI - General Chief complaint: ED General Medical Stated complaint: Shaking/AMS Time Seen by Provider: 05/20/18 18:10 Source: family Mode of arrival: private vehicle Limitations: no limitations Nursing Notes Reviewed: Yes Vital Signs Reviewed: Yes - History of Present Illness Pain Scale: 0 Improves with: nothing Worsens with: nothing Associated symptoms: Reports: denies other symptoms Treatments Prior to Arrival: none - Related Data Home Medications Medication Instructions Recorded Confirmed Allopurinol [Zyloprim 100 MG] 100 mg PO DAILY 03/01/18 05/20/18 Carvedilol [Coreg] 25 mg PO BID 03/01/18 05/20/18 Furosemide [Lasix] 80 mg PO DAILY 03/01/18 05/20/18 Gabapentin [Neurontin] 300 mg PO BID 03/01/18 05/20/18 Lisinopril [Zestril] 5 mg PO DAILY 03/01/18 05/20/18 Potassium Chloride [K-Tab ER] 20 meq PO BID 03/01/18 05/20/18 Insulin NPH Hum/Reg Insulin Hm 35 unit SQ HS 04/09/18 05/20/18 [Novolin 70-30 100 Unit/ml Vial] Previous Rx's Medication Instructions Recorded Ipratropium/Albuterol Neb [Duoneb] 3 ml IH Q6HR PRN #25 units 03/03/18 Spironolactone [Aldactone] 50 mg PO DAILY 30 Days #30 tablet 05/15/18 Allergies Allergy/AdvReac Type Severity Reaction Status Date / Time No Known Allergies Allergy Verified 05/20/18 17:51 Constitutional: Denies: fever Cardiovascular: Denies: chest pain Respiratory: Reports: cough, dyspnea. 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 history - Social History Smoking Status: Never smoker Smokeless Tobacco Status: No Alcohol use: Reports: occasionally Drug use: Reports: none Physical Exam - General Limitations: no limitations General appearance: other (Somnolent) Course Vital Signs Temperature 98 F 05/20/18 17:47 Pulse Rate 76 05/20/18 17:47 Respiratory Rate 20 05/20/18 17:47 Blood Pressure 94/60 05/20/18 17:47 O2 Sat by Pulse Oximetry 99 05/20/18 17:47 Temperature 98 F 05/20/18 17:47 Pulse Rate 83 05/20/18 23:13 Respiratory Rate 19 05/20/18 23:30 Blood Pressure 85/67 05/20/18 23:13 O2 Sat by Pulse Oximetry 95 05/20/18 23:30 Oxygen Delivery Oxygen Delivery Bipap Medical Decision Making - MDM Narrative Medical decision making narrative: Patient was a sign out from Dr. Villarreal and Dr. Mosqueda, please see their notes for any additional detail. In summary, patient is a 67-year-old female with past medical history of CHF, cirrhosis, oxygen dependent COPD with BiPAP who presented with altered mental status. She has been complaining of fatigue over the past few days. Family was concerned that this could be related to COPD exacerbation. Patient had an ABG that showed hypercapnic respiratory failure with respiratory acidosis, was placed on BiPAP. She is also hypotensive and given a 500 mL bolus. Patient had a VQ scan to assess for PE. CTA of the chest cannot be performed due to renal disease. Patient was signed out with a pending V/Q scan to assess for PE. VQ scan has returned with low probability. Sinus was started given to the hospitalist. I called hospitalist back, informed him of new result of VQ scan. Patient has officially been accepted to admission at this time. No further recommendation of any other intervention at this time. - Medical Records Medical records reviewed: Yes I reviewed the patient's medical records. - Lab Data Lab results reviewed: Yes I reviewed the patient's lab results. Result diagrams: 05/20/18 18:52 05/20/18 20:15 Lab Results 05/20/18 05/20/18 05/20/18 Range/Units 18:52 18:52 18:52 WBC 7.1 (4.3-11.1) K/mcL RBC 3.01 L (3.82-4.97) M/mcL Hgb 9.3 L (11.5-15.4) g/dL Hct 31.3 L (35.3-44.9) % MCV 104.0 H (83.0-100.0) fL MCH 30.9 (28.0-33.3) pg MCHC 29.7 L (31.6-35.5) g/dL RDW 18.6 H (11.5-14.5) % Plt Count 150 (140-400) K/mcL MPV 10.7 (9.4-12.4) fL Immature Gran % 0.8 (0-4) % Seg Neutrophils % 78.2 % Lymphocytes % 10.1 % Monocytes % 10.0 % Eosinophils % 0.8 % Basophils % 0.1 % Neutrophils # 5.5 (1.6-8.9) K/mcL Lymphocytes # 0.7 (0.6-4.6) K/mcL Monocytes # 0.7 (0.0-1.3) K/mcL Eosinophils # 0.1 (0.0-0.6) K/mcL Basophils # 0.0 (0.0-0.2) K/mcL Nucleated RBCs/100 WBC 0.7 H (0) /100 WBC PT (9.4-12.1) Seconds INR APTT (26.0-36.0) Seconds D-Dimer (0-500) ng/mLFEU ABG pH (7.32-7.45) pH Units ABG pCO2 (35-45) mmHg ABG pO2 (85-104) mmHg ABG HCO3 (21-27) mEq/L ABG Total CO2 (20-26) mEq/L ABG O2 Saturation (95-98) % ABG Base Excess (-2 to 3) mEq/L O2 Delivery Device Inspired O2 (1-15=lpm [id number]=%) Sodium Cancelled Potassium Cancelled Chloride Cancelled Carbon Dioxide Cancelled BUN Cancelled Creatinine Cancelled Est GFR ( Amer) Cancelled Est GFR (Non-Af Amer) Cancelled BUN/Creatinine Ratio Cancelled Glucose Cancelled Calculated Osmolality Cancelled Calcium Cancelled Total Bilirubin Cancelled Direct Bilirubin Cancelled Indirect Bilirubin Cancelled AST Cancelled ALT Cancelled Alkaline Phosphatase Cancelled Troponin I < 0.03 (< 0.04) ng/mL B-Natriuretic Peptide 115 H (Less than 100) pg/mL Serum Total Protein Cancelled Albumin Cancelled Globulin Cancelled Albumin/Globulin Ratio Cancelled Urine Color (Yellow) Urine Clarity (Clear) Urine pH (5.0-8.0) pH Units Ur Specific [place] (1.010-1.025) Urine Protein (Neg-Trace) mg/dL Urine Glucose (UA) (Normal) mg/dL Urine Ketones (Negative) mg/dL Urine Blood (Negative) Urine Nitrite (Negative) Urine Bilirubin (Negative) Urine Urobilinogen (Normal) mg/dL Ur Leukocyte Esterase (Negative) Urine Microscopic RBC (0-3) per hpf Urine Microscopic WBC (0-3) per hpf Ur Squamous Epith Cells (None-Few) per lpf Ur Transition Epith Cell (None-Few) per hpf Urine Bacteria (None-Few) per hpf Hyaline Casts (None-Few) per lpf Urine Yeast (None Seen) per hpf Ur Culture Indicated? (NO) Urine Opiates Screen (Ibznjr=565) ng/mL Ur Barbiturates Screen (Zwvqro=382) ng/mL Ur Phencyclidine Scrn (Cutoff=25) ng/mL Ur Amphetamines Screen (Lmowzi=9698) ng/mL U Benzodiazepines Scrn (Lnetyj=359) ng/mL Urine Cocaine Screen (Cutoff= 300) ng/mL U Marijuana (THC) Screen (Cutoff = 50) ng/mL Ur Drug Screen Interp Specimen Rejected 05/20/18 05/20/18 05/20/18 Range/Units 18:52 18:56 19:04 WBC (4.3-11.1) K/mcL RBC (3.82-4.97) M/mcL Hgb (11.5-15.4) g/dL Hct (35.3-44.9) % MCV (83.0-100.0) fL MCH (28.0-33.3) pg MCHC (31.6-35.5) g/dL RDW (11.5-14.5) % Plt Count (140-400) K/mcL MPV (9.4-12.4) fL Immature Gran % (0-4) % Seg Neutrophils % % Lymphocytes % % Monocytes % % Eosinophils % % Basophils % % Neutrophils # (1.6-8.9) K/mcL Lymphocytes # (0.6-4.6) K/mcL Monocytes # (0.0-1.3) K/mcL Eosinophils # (0.0-0.6) K/mcL Basophils # (0.0-0.2) K/mcL Nucleated RBCs/100 WBC (0) /100 WBC PT 12.7 H (9.4-12.1) Seconds INR 1.1 APTT 25.7 L (26.0-36.0) Seconds D-Dimer 4597 H (0-500) ng/mLFEU ABG pH 7.29 L (7.32-7.45) pH Units ABG pCO2 97 H* (35-45) mmHg ABG pO2 55 L (85-104) mmHg ABG HCO3 46 H (21-27) mEq/L ABG Total CO2 49 H (20-26) mEq/L ABG O2 Saturation 81 L (95-98) % ABG Base Excess 16 H (-2 to 3) mEq/L O2 Delivery Device Cannula Inspired O2 32.0 (1-15=lpm [id number]=%) Sodium Potassium Chloride Carbon Dioxide BUN Creatinine Est GFR ( Amer) Est GFR (Non-Af Amer) BUN/Creatinine Ratio Glucose Calculated Osmolality Calcium Total Bilirubin Direct Bilirubin Indirect Bilirubin AST ALT Alkaline Phosphatase Troponin I (< 0.04) ng/mL B-Natriuretic Peptide (Less than 100) pg/mL Serum Total Protein Albumin Globulin Albumin/Globulin Ratio Urine Color (Yellow) Urine Clarity (Clear) Urine pH (5.0-8.0) pH Units Ur Specific [place] (1.010-1.025) Urine Protein (Neg-Trace) mg/dL Urine Glucose (UA) (Normal) mg/dL Urine Ketones (Negative) mg/dL Urine Blood (Negative) Urine Nitrite (Negative) Urine Bilirubin (Negative) Urine Urobilinogen (Normal) mg/dL Ur Leukocyte Esterase (Negative) Urine Microscopic RBC (0-3) per hpf Urine Microscopic WBC (0-3) per hpf Ur Squamous Epith Cells (None-Few) per lpf Ur Transition Epith Cell (None-Few) per hpf Urine Bacteria (None-Few) per hpf Hyaline Casts (None-Few) per lpf Urine Yeast (None Seen) per hpf Ur Culture Indicated? (NO) Urine Opiates Screen (Wcoqvc=823) ng/mL Ur Barbiturates Screen (Ogbufl=783) ng/mL Ur Phencyclidine Scrn (Cutoff=25) ng/mL Ur Amphetamines Screen (Mlsrtp=9467) ng/mL U Benzodiazepines Scrn (Hcvivx=244) ng/mL Urine Cocaine Screen (Cutoff= 300) ng/mL U Marijuana (THC) Screen (Cutoff = 50) ng/mL Ur Drug Screen Interp Specimen Rejected Hemolyzed 05/20/18 05/20/18 05/20/18 Range/Units 20:15 21:11 21:18 WBC (4.3-11.1) K/mcL RBC (3.82-4.97) M/mcL Hgb (11.5-15.4) g/dL Hct (35.3-44.9) % MCV (83.0-100.0) fL MCH (28.0-33.3) pg MCHC (31.6-35.5) g/dL RDW (11.5-14.5) % Plt Count (140-400) K/mcL MPV (9.4-12.4) fL Immature Gran % (0-4) % Seg Neutrophils % % Lymphocytes % % Monocytes % % Eosinophils % % Basophils % % Neutrophils # (1.6-8.9) K/mcL Lymphocytes # (0.6-4.6) K/mcL Monocytes # (0.0-1.3) K/mcL Eosinophils # (0.0-0.6) K/mcL Basophils # (0.0-0.2) K/mcL Nucleated RBCs/100 WBC (0) /100 WBC PT (9.4-12.1) Seconds INR APTT (26.0-36.0) Seconds D-Dimer (0-500) ng/mLFEU ABG pH (7.32-7.45) pH Units ABG pCO2 (35-45) mmHg ABG pO2 (85-104) mmHg ABG HCO3 (21-27) mEq/L ABG Total CO2 (20-26) mEq/L ABG O2 Saturation (95-98) % ABG Base Excess (-2 to 3) mEq/L O2 Delivery Device Inspired O2 (1-15=lpm [id number]=%) Sodium 137 Potassium 6.2 H Chloride 97 L Carbon Dioxide 36 H BUN 37 H Creatinine 2.18 H Est GFR ( Amer) 27 L Est GFR (Non-Af Amer) 23 L BUN/Creatinine Ratio 17 Glucose 251 H Calculated Osmolality 301 H Calcium 8.3 L Total Bilirubin 1.2 H Direct Bilirubin 0.3 H Indirect Bilirubin 0.9 AST 12 L ALT 7 Alkaline Phosphatase 103 Troponin I (< 0.04) ng/mL B-Natriuretic Peptide (Less than 100) pg/mL Serum Total Protein 6.5 Albumin 3.4 L Globulin 3.1 Albumin/Globulin Ratio 1.1 Urine Color Dark Yellow (Yellow) Urine Clarity Turbid A (Clear) Urine pH 5.0 (5.0-8.0) pH Units Ur Specific [place] 1.018 (1.010-1.025) Urine Protein 30 H (Neg-Trace) mg/dL Urine Glucose (UA) Normal (Normal) mg/dL Urine Ketones Negative (Negative) mg/dL Urine Blood Large H (Negative) Urine Nitrite Negative (Negative) Urine Bilirubin Small H (Negative) Urine Urobilinogen Normal (Normal) mg/dL Ur Leukocyte Esterase Large H (Negative) Urine Microscopic RBC 0-3 (0-3) per hpf Urine Microscopic WBC TNTC H (0-3) per hpf Ur Squamous Epith Cells Moderate H (None-Few) per lpf Ur Transition Epith Cell Few (None-Few) per hpf Urine Bacteria Few (None-Few) per hpf Hyaline Casts Few (None-Few) per lpf Urine Yeast Few H (None Seen) per hpf Ur Culture Indicated? YES A (NO) Urine Opiates Screen Negative (Vxjevn=997) ng/mL Ur Barbiturates Screen Negative (Wskpbt=954) ng/mL Ur Phencyclidine Scrn Negative (Cutoff=25) ng/mL Ur Amphetamines Screen Negative (Jpedqe=8061) ng/mL U Benzodiazepines Scrn Negative (Aendqq=667) ng/mL Urine Cocaine Screen Negative (Cutoff= 300) ng/mL U Marijuana (THC) Screen Negative (Cutoff = 50) ng/mL Ur Drug Screen Interp See Below Specimen Rejected - Radiology Data Radiology results reviewed: Yes I reviewed the patient's radiology results. Chest X-Ray 05/20/18 18:28 IMPRESSION: 1. Right basilar airspace opacities compatible with atelectasis versus pneumonia. 2. Suspected bilateral pleural effusions. D/ / Dao Diaz MD / Dao Diaz MD Interpreting Provider: Dao Diaz MD Head CT 05/20/18 18:41 IMPRESSION: No acute intracranial abnormality. D/ / Ye Maria MD / Ye Maria MD Interpreting Provider: Ye Maria MD Pulmonary Perfusion Imaging 05/20/18 20:44 IMPRESSION: Low probability for pulmonary embolus. D/ / Clay Patel MD / Clay Patel MD Interpreting Provider: Clay Patel MD [facility] - [facility] Situation: Demographics, MOA Background: Presenting Complaint, Relevant PMH, Meds, & Allergies Assessment: Vital Signs, Course and respsone to treatment, Exam Concerns, Patient/Family Expectation, Pertinant Lab Results Recommendation: Barrier(s) to disposition, Recommendation based on pending studies, treatments, or consults [facility].B[facility] Report Given to: Dr. Patel Attestation Statement - Attestation Attestation: I examined this patient and my medical decision-making was reviewed with the Resident Physician, Dr. Bull. I agree with the documented findings, disposition and treatment plan as described except to the extent set forth below. Patient is a 67-year-old white female who presents to the emergency department today and was evaluated by Dr. Jamey parry and signed out test pending results of the VQ scan and admission to the hospitalist. Patient is here with respiratory failure secondary to hypercapnia which she has been admitted for in the past and improved on BiPAP. Patient's currently on BiPAP and tolerating well. They have arty spoken to the hospitalist in regards to the patient's ED course and are aware that they are just waiting on the VQ scan for final disposition. Patient's VQ scan was low risk. We contacted the hospitalist who accepted patient for admission for respiratory distress secondary to hypercapnia and UTI.
[2018-05-21] MEDS ORDERED: 0.9 % Sodium Chloride 500 ML IVC ONE ×3 (00:18→05:24)
[2018-05-21] MEDS ORDERED: Naloxone 0.4 MG/ML INJ IVP PRN ×2 (00:33→12:54)
--- NOTE | 2018-05-21 00:49 | Internal Med History&Physical ---
Date of Encounter: 05/21/18 Time of Encounter: 00:41 Internal Medicine - H&P: HPI Chief complaint: Altered mental status, shaking Admitted From: Home Plans for Post Hospital Care: Home History of present illness: Ms. Hernández is a 67 year old female presented with chief complaint of altered mental status, shaking. Family states the patient has been very somnolent, tired yesterday morning. She is usually conversational however today she was difficult to arouse to verbal stimuli and reports did not have any of her normal meals today. Reports 2 days ago she was her normal self and even participate in physical therapy at home she gets around on a walker. Patient is on BiPAP at home for chronic hypercapnic respiratory failure which she and family for compliance. Family reports that they had the patient on 1 and is diagnosed with COPD exacerbation. Patient denies fever, chills, headache, blurry vision, cough, runny nose, sore throat, ear discharge, ear pain, neck pain, chest pain, shortness of breath, abdominal pain, nausea, vomiting, diarrhea. Patient has chronic lower extremity edema unchanged. Reports decreased urine production but denies dysuria, hematuria. She denies open wounds, ulcers. Denies rash. In the emergency department patient was seen to have elevated CO2 of 97 and pH of 7.29 was started on BiPAP. There is concern for PE as patient is nonambulatory most of the day, patient underwent d-dimer which was elevated and then VQ scan was low probability for PE. Head CT was negative. Patient was hypotensive the entire time she is in the emergency department. She was given a 500 mL bolus by ER however her blood pressure remained in the systolic 80s and 90s. I rechecked blood pressure manually and it was 84/56. Initial blood drawn was 2 were hemolyzed therefore the first two BMPs are inaccurate. Past Med Surg Social Fam HX - Past Medical History Medical history: atrial fibrillation, CHF, COPD, DVT, diabetes, hyperlipidemia, hypertension, liver disease, renal disease Additional medical history: cellulitis. Vasculitis. Frequent Pneumonia. Bipap at home Psychiatric history: anxiety - Past Surgical History Surgical History: no surgical history Additional surgical history: R SHOULDER REPAIR - Social History Smoking Status: Never smoker Smokeless Tobacco Status: No Alcohol use: occasionally Drug use: none - Family History Mother Living Status: Father Living Status: Sister Adopted: No Family Member Ethnicity: Non- Twin of Family Member: Yes, Fraternal Living Status: Hx Family Cardiac Disorders: Yes Hx Family Respiratory Disorders: Yes Hx Family Cancer: No Hx Family GI Disorders: No Hx Family Endocrine Disorder: Yes Hx Family Neuromuscular Disorders: No Hx Family Neurologic Disorders: No Hx Family HEENT Disorders: No Hx Family Autoimmune Disorders: No Internal Medicine - H&P: Meds RX: Allopurinol [Zyloprim 100 MG] 100 mg PO DAILY 03/01/18 [History] RX: Carvedilol [Coreg] 25 mg PO BID 03/01/18 [History] RX: Furosemide [Lasix] 80 mg PO DAILY 03/01/18 [History] RX: Gabapentin [Neurontin] 300 mg PO BID 03/01/18 [History] RX: Lisinopril [Zestril] 5 mg PO DAILY 03/01/18 [History] RX: Potassium Chloride [K-Tab ER] 20 meq PO BID 03/01/18 [History] RX: Ipratropium/Albuterol Neb [Duoneb] 3 ml IH Q6HR PRN #25 units 03/03/18 [Rx] RX: Insulin NPH Hum/Reg Insulin Hm [Novolin 70-30 100 Unit/ml Vial] 35 unit SQ HS 04/09/18 [History] RX: Spironolactone [Aldactone] 50 mg PO DAILY 30 Days #30 tablet 05/15/18 [Rx] 3 Allergy/AdvReac Type Severity Reaction Status Date / Time No Known Allergies Allergy Verified 05/20/18 17:51 All Systems PM: A 10-system review of systems was performed and is negative for pertinent findings except as documented above in the HPI. Review of systems: Constitutional: Denies fever, chills. Reports somnolence HEENT: Denies headache, vision changes, neck pain, sore throat, rhinorrhea Heart: Denies chest pain palpitations Lungs: Denies shortness of breath cough Abdomen: Denies abdominal pain nausea vomiting diarrhea Back: Denies back pain Kidney: Denies dysuria, hematuria Skin: Denies rash, lesions Extremities: Denies swelling, pain Neuro: Denies numbness and tingling. Reports confusion - Constitutional Vitals: Temp Pulse Resp BP Pulse Ox 98 F 83 19 85/67 95 05/20/18 17:47 05/20/18 23:13 05/20/18 23:30 05/20/18 23:13 05/20/18 23:30 Exam: General: Obese female, mild distress, somnolent HEENT: Head atraumatic, normocephalic, EOMI, PERRL, neck nontender to palpation , absent lymphadenopathy, Moist Mucous Membranes, Heart: Regular rate and rhythm with no murmur Lungs: Clear to auscultation bilaterally Abdomen: Soft nontender, nondistended positive bowel sounds Skin: warm and dry, absent rash. Bilateral stasis dermatitis Extremities: Bilateral 1+ edema Neuro: Alert oriented 3 Vascular: Pedal and radial pulses 2 out of 4 Internal Med - H&P Results - Labs CBC & Chem 7: 05/20/18 18:52 05/20/18 23:56 Labs: Short CBC 05/20/18 Range/Units 18:52 WBC 7.1 (4.3-11.1) K/mcL Hgb 9.3 L (11.5-15.4) g/dL Hct 31.3 L (35.3-44.9) % Plt Count 150 (140-400) K/mcL Neutrophils # 5.5 (1.6-8.9) K/mcL BMP 05/20/18 05/20/18 18:52 20:15 Sodium Cancelled 137 Potassium Cancelled 6.2 H Chloride Cancelled 97 L Carbon Dioxide Cancelled 36 H BUN Cancelled 37 H Creatinine Cancelled 2.18 H Glucose Cancelled 251 H Calcium Cancelled 8.3 L Cardiac Enzymes 05/20/18 Range/Units 18:52 Troponin I < 0.03 (< 0.04) ng/mL Liver Function 05/20/18 05/20/18 Range/Units 18:52 20:15 Total Bilirubin Cancelled 1.2 H Direct Bilirubin Cancelled 0.3 H AST Cancelled 12 L ALT Cancelled 7 Alkaline Phosphatase Cancelled 103 Albumin Cancelled 3.4 L Urine 05/20/18 Range/Units 21:11 Urine Color Dark Yellow (Yellow) Urine Clarity Turbid A (Clear) Urine pH 5.0 (5.0-8.0) pH Units Ur Specific [place] 1.018 (1.010-1.025) Urine Protein 30 H (Neg-Trace) mg/dL Urine Glucose (UA) Normal (Normal) mg/dL - ABG Interpretation ABG results: 05/20/18 19:04 ABG pH 7.29 L ABG pCO2 97 H* ABG pO2 55 L ABG HCO3 46 H ABG Total CO2 49 H ABG O2 Saturation 81 L ABG Base Excess 16 H - Impressions ITS Impressions Chest X-Ray 05/20/18 18:28 IMPRESSION: 1. Right basilar airspace opacities compatible with atelectasis versus pneumonia. 2. Suspected bilateral pleural effusions. D/ / Dao Diaz MD / Dao Diaz MD Interpreting Provider: Dao Diaz MD Head CT 05/20/18 18:41 IMPRESSION: No acute intracranial abnormality. D/ / Ye Maria MD / Ye Maria MD Interpreting Provider: Ye Maria MD Pulmonary Perfusion Imaging 05/20/18 20:44 IMPRESSION: Low probability for pulmonary embolus. D/ / Clay Patel MD / Clay Patel MD Interpreting Provider: Clay Patel MD - Assessment and plan (1) Acute and chronic respiratory failure ([id number]) Current Visit: Yes Status: Acute Assessment and plan: 61-year-old female presents with chief complaint of altered mental status/ shaking Family reports since yesterday morning patient has been progressively somnolent , less interactive, did not eat any of her meals, confused Denies cough, sputum production, fever, chills, worsening shortness of breath. Patient has had multiple admissions in the past year for respiratory failure secondary to hypercapnia, CHF, COPD, pneumonia ABG showed PCO2 of 97 with pH of 7.29 and repeat remained the same. Patient was started on BiPAP and will chagne this to AVAP repeat ABG in am. Qualifiers: Respiratory failure complication: hypoxia and hypercapnia Qualified Code(s) : J96.21 - Acute and chronic respiratory failure with hypoxia; J96.22 - Acute and chronic respiratory failure with hypercapnia (2) Encephalopathy Current Visit: Yes Status: Acute Assessment and plan: Patient presented with altered mental status, somnolence Etiologies include hypercapnia, patient has a history of cirrhosis, also has steph at this point she is alert oriented x 3 but easily falls asleep but also easily arousable she is answering all questions (3) [id number] renal failure Current Visit: Yes Status: Acute Assessment and plan: Acute on chronic renal failure Patient has CTD 3 with baseline serum creatinine 1.1-1.2 Presenting serum creatinine was 2.2. She was also hypotensive on presentation with blood pressure in the systolics 90s and 80s Etiology of renal failure likely prerenal: She is on spironolactone, lisinopril , Lasix which will be held in concordance with poor oral intake in the last 24- 48 hours Patient also reported decreased urinary production Patient has been given total of 1000 mL normal saline Repeat BMP in the morning. Since patient has history of CHF will not start her on maintenance fluids but will bolus her if she remains hypotensive. strict I's and O's Qualifiers: Acute renal failure type: unspecified Chronic kidney disease stage: stage 3 (moderate) Qualified Code(s): N17.9 - Acute kidney failure, unspecified; N18.3 - Chronic kidney disease, stage 3 (moderate) (4) UTI (urinary tract infection) Current Visit: Yes Status: Acute Assessment and plan: Urinalysis showed large blood, leukocyte esterase with few bacteria. Patient given ceftriaxone on admission. denies dysuria Only SIRS criteria patient makes his tachypnea. Lactic acid is normal limits. Urine culture sent. Await culture and continue ceftriaxone. Qualifiers: Urinary tract infection type: site unspecified Hematuria presence: without hematuria Qualified Code(s): N39.0 - Urinary tract infection, site not specified (5) CHF (congestive heart failure) Current Visit: Yes Status: Acute Assessment and plan: Patient has history of diastolic congestive heart failure Not an exacerbation BNP 115 Currently were holding patient's diuretics secondary to hypotension and STEPH. Strict I's and O's Low-salt diet Qualifiers: Heart failure type: diastolic Heart failure chronicity: acute on chronic Qualified Code(s): I50.33 - Acute on chronic diastolic (congestive) heart failure (6) Chronic atrial fibrillation Current Visit: Yes Status: Acute Assessment and plan: Patient has a history of chronic atrial fibrillation She is on [employer] carvedilol at this point because of hypotension She is not anticoagulated. (7) DVT prophylaxis Current Visit: Yes Status: Acute Assessment and plan: Heparin subcutaneous (8) Hyperkalemia Current Visit: Yes Status: Acute Assessment and plan: Patient presented with potassium of 5.6 EKG is showing atrial fibrillation without peaked T waves or widening QRS. We will give patient Kayexalate Repeat potassium in the morning (9) Anemia Current Visit: Yes Status: Chronic Assessment and plan: Patient has macrocytic normochromic anemia Denies hematochezia, melena, hemoptysis, hematemesis We will repeat B12, iron studies Currently hemoglobin is 9.3, repeat CBC in the morning Qualifiers: Anemia type: unspecified type Qualified Code(s): D64.9 - Anemia, unspecified - Time Spent With Patient Total time spent is greater than 50% in coordination of care (as documented) at patient's floor/unit and/or counseling patient:
[2018-05-21 00:50] LABS: Calcium 8.4 mg/dL (8.6-10.3); Potassium 5.6 mEq/L (3.5-5.1)
[2018-05-21] MEDS ORDERED: cefTRIAXone 2,000 MG in 0.9 % Sodium Chloride Mini Bag 100 ML IVPB SCH (01:00)
[2018-05-21 01:16] LABS: ABG Base Excess 17 mEq/L (-2 to 3); ABG HCO3 46 mEq/L (21-27); ABG Oxygen Saturation 92 % (95-98); ABG PCO2 97 mmHg (35-45); ABG PH 7.29 pH Units (7.32-7.45); ABG PO2 77 mmHg (85-104); ABG TCO2 49 mEq/L (20-26); Blood Gas Modality BiLevel; Blood Gas PEEP 6 cm H2O
[2018-05-21 01:32] LABS: Basophils % 0.2 %; Eosinophils % 0.7 %; Hematocrit 30.9 % (35.3-44.9); Hemoglobin 9.1 g/dL (11.5-15.4); Immature Granulocytes % 0.8 % (0-4); Lymphocytes # 0.7 K/mcL (0.6-4.6); Lymphocytes % 11.5 %; Mean Corpuscular HGB Conc 29.4 g/dL (31.6-35.5); Mean Corpuscular Hemoglobin 30.7 pg (28.0-33.3); Mean Corpuscular Volume 104.4 fL (83.0-100.0); Mean Platelet Volume 10.5 fL (9.4-12.4); Monocytes # 0.6 K/mcL (0.0-1.3); Monocytes % 10.7 %; Neutrophils # 4.6 K/mcL (1.6-8.9); Nucleated Red Blood Cells 0.5 /100 WBC (0); Platelet Count 141 K/mcL (140-400); Red Blood Count 2.96 M/mcL (3.82-4.97); Red Cell Distribution Width 18.6 % (11.5-14.5); Segmented Neutrophils % 76.1 %
[2018-05-21 01:47] LABS: Calcium 8.4 mg/dL (8.6-10.3); Magnesium 2.2 mg/dL (1.6-2.6); Potassium 5.6 mEq/L (3.5-5.1)
[2018-05-21 02:11] LABS: Ferritin 138 ng/mL (10-120)
[2018-05-21 03:03] LABS: % Iron Saturation 14 % (15-50); Iron 55 mcg/dL (50-170); Transferrin 274 mg/dL (203-362)
[2018-05-21 04:34] LABS: ABG Base Excess 16 mEq/L (-2 to 3); ABG HCO3 46 mEq/L (21-27); ABG Oxygen Saturation 91 % (95-98); ABG PCO2 97 mmHg (35-45); ABG PH 7.28 pH Units (7.32-7.45); ABG PO2 75 mmHg (85-104); ABG TCO2 49 mEq/L (20-26); Blood Gas Modality AVAPS; Blood Gas PEEP 8 cm H2O; Blood Gas VT 500 cc
[2018-05-21] MEDS ORDERED: *HR* Heparin 5,000 UNIT/ML VIAL SQ SCH (06:00)
[2018-05-21] MEDS ORDERED: Cyanocobalamin (B-12) 1,000 MCG TABLET PO SCH (09:00)
[2018-05-21] MEDS ORDERED: Gabapentin 300 MG CAPSULE PO SCH (09:00)
[2018-05-21] MEDS ORDERED: Dextrose Gel 15 GM/37.5 ML TUBE PO PRN ×4 (09:22→12:54)
[2018-05-21] MEDS ORDERED: *HR* Dextrose 50 % in Water (Syg) 50 ML SYRINGE IVP PRN ×2 (09:22→12:54)
[2018-05-21] MEDS ORDERED: D5% in Water 1,000 ML IVC PRN ×2 (09:22→12:54)
[2018-05-21 10:37] LABS: VBG HCO3 43 mEq/L (21-27); VBG PCO2 105 mmHg (41-51); VBG PH 7.23 pH Units (7.32-7.42); VBG PO2 65 mmHg (25-50)
[2018-05-21] MEDS ORDERED: Insulin LISPRO 300 UNITS/3 ML VIAL SQ SCH ×4 (11:30→21:00)
--- NOTE | 2018-05-21 13:15 | Pulmonology Consult Note ---
<Aj Rocha - Last Filed: 05/21/18 17:18> Date of Encounter: 05/21/18 Time of Encounter: 12:45 Assessment and Plan (1) Acute and chronic respiratory failure with hypercapnia Current Visit: Yes Status: Acute 67 year old female brought to ED for AMS and shaking. She has been admitted for resp failure multiple times over the last year. She is on home BiPAP at nighttime and also during the day 4 hrs on 4 hrs off with 3L O2 nc when off BiPAP. ABG in ED pH 7.29, paco2 97 and placed on BiPAP. There was concern for PE with increased D dimer but low probability PE on V/Q scan. Repeat ABG upon arrival in ICU slightly more acidotic and hypercarbic at pH 7.26 and paco2 105. Family indicates she is agreeable to intubation if necessary but only for 2 days. Palliative care has seen family and agreed to code status change from full code to DNR CCA. She is afebrile, tachypnic, without leukocytosis since admission. She is currently on BiPAP without much change. She is diminished bilaterally on auscultation. Will try to keep on BiPAP as long as tolerated with intubation if she declines further. (2) [id number]-[id number] renal failure Current Visit: Yes Status: Acute Baseline Cr appears to be around 1.15. Cr today is 2.18. Some hyperkalemia with K 5.6 today. In ED she was hypotensive with systolics as low as 80's that did not respond to fluid bolus. Will monitor urine output, renal function, and avoid nephrotoxic medications. Will consider albumin infusion due to third spacing and hypotension. Qualifiers: Acute renal failure type: unspecified Chronic kidney disease stage: stage 3 (moderate) Qualified Code(s): N17.9 - Acute kidney failure, unspecified; N18.3 - Chronic kidney disease, stage 3 (moderate) (3) Diastolic CHF Current Visit: Yes Status: Acute Hx of diastolic HF. BNP on admission 115. Increased dyspnea on exertion. LE edema, and suspected bilateral pleural effusions on CXR. ECHO on 08/18/17 LVEF 55%. She is hyperkalemic today at 5.6 and diuretics being held. Qualifiers: Heart failure chronicity: acute on chronic Qualified Code(s): I50.33 - Acute on chronic diastolic (congestive) heart failure (4) COPD (chronic obstructive pulmonary disease) Current Visit: Yes Status: Chronic Hx of COPD, on BiPAP and 3L O2 nc at home. Family did not report complaints of cough, subjective fever/chills, or increased dyspnea from baseline. She has duonebs at home but no other bronchodilators or steroids. Qualifiers: COPD type: unspecified COPD Qualified Code(s): J44.9 - Chronic obstructive pulmonary disease, unspecified (5) Hypotension Current Visit: Yes Status: Acute Has been hypotensive since admission. Did not respond to fluid bolus in ED. Since transfer to ICU BP continued to drop. Placed L IJ central line. Norepinephrine drip ordered. Qualifiers: Hypotension type: unspecified hypotension type Qualified Code(s): I95.9 - Hypotension, unspecified (6) Atrial fibrillation Current Visit: Yes Status: Chronic Hx of afib. In afib. carvedilol at home but no anticoagulation. Qualifiers: Atrial fibrillation type: chronic Qualified Code(s): I48.2 - Chronic atrial fibrillation (7) Hyperkalemia Current Visit: Yes Status: Acute K today 5.6. She is on spironolactone and 20meq K at home. In afib. Will hold both while hyperkalemic and monitor K and for arrhythmias. (8) Altered mental status Current Visit: Yes Status: Acute Likely 2/2 hypercarbia. She additionally is being treated for UTI and STEPH currently. She is drowsy, lethargic but arousable to painful stimuli. She is on BiPAP with PaCO2 remaining elevated but stable. On ceftriaxone for UTI. Will monitor for changes. Qualifiers: Altered mental status type: unspecified Qualified Code(s): R41.82 - Altered mental status, unspecified (9) Type 2 diabetes mellitus Current Visit: Yes Status: Chronic On Insulin at home. NPO currently on low dose protocol insulin till eating again. 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 Will recommend lifestyle modifications at dc (11) UTI (urinary tract infection) Current Visit: Yes Status: Acute UA large blood, esterase and few bacteria. Given ceftriaxone at admission. Awaiting culture results. Qualifiers: Urinary tract infection type: site unspecified Hematuria presence: without hematuria Qualified Code(s): N39.0 - Urinary tract infection, site not specified (12) DVT prophylaxis Current Visit: Yes Status: Acute Chemical prophylaxis with subq heparin. History of Present Illness Consult date: 05/21/18 Requesting physician: Amarjit Michelle Reason for consult: other (Acute and chronic respiratory failure) Chief complaint: AMS, "jittery" History of present illness: She is a 67 year old woman with pmh significant for Afib, CHF, COPD, DM, HTN, and HLD who was brought to the ICU for acute resp failure. Hx comes from medical record and family. For the last couple days she has been "jittery" and less conversational. Family indicated when she gets "jittery" like that "her CO2 is way up". She never complained about any particular symptoms to family. Yesterday, the shaking worsened and when attempting to talk on the phone she was "not herself". Family placed her on her home BiPAP without improvement. When arriving in the ED she was hypotensive that did not respond to fluid bolus , ABG showed a respiratory acidosis with pH 7.29, paCO2 97 at which time she was placed on BiPAP. CXR showed R basilar airspace opacities, compatible with atelectasis vs pneumonia, and suspected bilateral pleural effusions. Blood gas after admission on BiPAP was not improved and was brought to the ICU in the event she would need to be intubated. She was here last month for similar respiratory failure. Past Med Surg Social Fam HX - Past Medical History Medical history: atrial fibrillation, CHF, COPD, DVT, diabetes, hyperlipidemia, hypertension, liver disease, renal disease Additional medical history: cellulitis. Vasculitis. Frequent Pneumonia. Bipap at home. 2L via nasal cannula at home Psychiatric history: anxiety - Past Surgical History Surgical History: no surgical history Additional surgical history: R SHOULDER REPAIR - Social History Smoking Status: Never smoker Smokeless Tobacco Status: No Alcohol use: occasionally Drug use: none - Family History Mother Living Status: Father Living Status: Sister Adopted: No Family Member Ethnicity: Non- Twin of Family Member: Yes, Fraternal Living Status: Hx Family Cardiac Disorders: Yes Hx Family Respiratory Disorders: Yes Hx Family Cancer: No Hx Family GI Disorders: No Hx Family Endocrine Disorder: Yes Hx Family Neuromuscular Disorders: No Hx Family Neurologic Disorders: No Hx Family HEENT Disorders: No Hx Family Autoimmune Disorders: No Medications and Allergies Allopurinol [Zyloprim 100 MG] 100 mg PO DAILY 03/01/18 [History] Carvedilol [Coreg] 25 mg PO BID 03/01/18 [History] Furosemide [Lasix] 80 mg PO DAILY 03/01/18 [History] Gabapentin [Neurontin] 300 mg PO BID 03/01/18 [History] Lisinopril [Zestril] 5 mg PO DAILY 03/01/18 [History] Potassium Chloride [K-Tab ER] 20 meq PO BID 03/01/18 [History] Ipratropium/Albuterol Neb [Duoneb] 3 ml IH Q6HR PRN #25 units 03/03/18 [Rx] Insulin NPH Hum/Reg Insulin Hm [Novolin 70-30 100 Unit/ml Vial] 35 unit SQ HS [History] Spironolactone [Aldactone] 50 mg PO DAILY 30 Days #30 tablet 05/15/18 [Rx] 3 Allergy/AdvReac Type Severity Reaction Status Date / Time No Known Allergies Allergy Verified 05/20/18 17:51 ROS unobtainable: due to mental status All Systems: The remainder of the systems were reviewed and are negative Physical Examination Vital Signs: Vital Signs, Last 4 Hours Temp Pulse Resp BP Pulse Ox 05/21/18 11:16 97.8 F 69 19 98/61 95 General appearance: lethargic (Arousable to painful stimuli but closes eyes again quickly. ), other (On BiPAP) Eyes: nonicteric ENT: oropharynx moist Effort: mildly labored Auscultation: bilateral: diminished breath sounds Cardiovascular: irregular rhythm Gastrointestinal: normoactive bowel sounds, soft, non-tender, other (9x5 cm protuding mass periumbilically that is soft and mobile ) Extremities: no cyanosis, edema, other (chronic lymphedematous changes bilateral LE ) Results - Laboratory Findings CBC and BMP: 05/21/18 01:17 05/21/18 01:17 ABG ABG pH 7.28 pH Units (7.32-7.45) L 05/21/18 04:32 ABG pCO2 97 mmHg (35-45) H* 05/21/18 04:32 ABG pO2 75 mmHg (85-104) L 05/21/18 04:32 ABG O2 Saturation 91 % (95-98) L 05/21/18 04:32 PT/INR, D-dimer PT 12.7 Seconds (9.4-12.1) H 05/20/18 18:56 D-Dimer 4597 ng/mLFEU (0-500) H 05/20/18 18:56 Abnormal lab findings: Abnormal lab results RBC 2.96 M/mcL (3.82-4.97) L 05/21/18 01:17 Hgb 9.1 g/dL (11.5-15.4) L 05/21/18 01:17 Hct 30.9 % (35.3-44.9) L 05/21/18 01:17 MCV 104.4 fL (83.0-100.0) H 05/21/18 01:17 MCHC 29.4 g/dL (31.6-35.5) L 05/21/18 01:17 RDW 18.6 % (11.5-14.5) H 05/21/18 01:17 Nucleated RBCs/100 WBC 0.5 /100 WBC (0) H 05/21/18 01:17 PT 12.7 Seconds (9.4-12.1) H 05/20/18 18:56 APTT 25.7 Seconds (26.0-36.0) L 05/20/18 18:56 D-Dimer 4597 ng/mLFEU (0-500) H 05/20/18 18:56 ABG pH 7.28 pH Units (7.32-7.45) L 05/21/18 04:32 ABG pCO2 97 mmHg (35-45) H* 05/21/18 04:32 ABG pO2 75 mmHg (85-104) L 05/21/18 04:32 ABG HCO3 46 mEq/L (21-27) H 05/21/18 04:32 ABG Total CO2 49 mEq/L (20-26) H 05/21/18 04:32 ABG O2 Saturation 91 % (95-98) L 05/21/18 04:32 ABG Base Excess 16 mEq/L (-2 to 3) H 05/21/18 04:32 VBG pH 7.23 pH Units (7.32-7.42) L 05/21/18 10:23 VBG pCO2 105 mmHg (41-51) H* 05/21/18 10:23 VBG pO2 65 mmHg (25-50) H 05/21/18 10:23 VBG HCO3 43 mEq/L (21-27) H 05/21/18 10:23 Potassium 5.6 mEq/L (3.5-5.1) H 05/21/18 01:17 Chloride 96 mEq/L (98-107) L 05/21/18 01:17 Carbon Dioxide 39 mEq/L (23-29) H 05/21/18 01:17 BUN 38 mg/dL (8-23) H 05/21/18 01:17 Creatinine 2.18 mg/dL (0.60-1.20) H 05/21/18 01:17 Est GFR ( Amer) 27 (> 60) L 05/21/18 01:17 Est GFR (Non-Af Amer) 23 (> 60) L 05/21/18 01:17 Glucose 217 mg/dL (70-105) H 05/21/18 01:17 POC Glucose 221 mg/dL (70-99) H 05/21/18 02:24 Calculated Osmolality 306 (280-300) H 05/21/18 01:17 Calcium 8.4 mg/dL (8.6-10.3) L 05/21/18 01:17 % Saturation 14 % (15-50) L 05/21/18 01:17 Ferritin 138 ng/mL (10-120) H 05/21/18 01:17 Total Bilirubin 1.2 mg/dL (0.3-1.0) H 05/20/18 20:15 Direct Bilirubin 0.3 mg/dL (0.0-0.2) H 05/20/18 20:15 AST 12 Units/L (13-39) L 05/20/18 20:15 B-Natriuretic Peptide 115 pg/mL (Less than 100) H 05/20/18 18:52 Albumin 3.4 g/dL (3.5-5.7) L 05/20/18 20:15 Urine Clarity Turbid (Clear) A 05/20/18 21:11 Urine Protein 30 mg/dL (Neg-Trace) H 05/20/18 21:11 Urine Blood Large (Negative) H 05/20/18 21:11 Urine Bilirubin Small (Negative) H 05/20/18 21:11 Ur Leukocyte Esterase Large (Negative) H 05/20/18 21:11 Urine Microscopic WBC TNTC per hpf (0-3) H 05/20/18 21:11 Ur Squamous Epith Cells Moderate per lpf (None-Few) H 05/20/18 21:11 Urine Yeast Few per hpf (None Seen) H 05/20/18 21:11 Ur Culture Indicated? YES (NO) A 05/20/18 21:11 Consult Discharge Plan - Plan Referrals: Stacia Morrell, [facility] [Primary Care Provider] - <Volodymyr Patino - Last Filed: 05/21/18 20:12> Date of Encounter: 05/21/18 All Systems: The remainder of the systems were reviewed and are negative Physical Examination Vital Signs: Vital Signs, Last 4 Hours Pulse Resp BP Pulse Ox 05/21/18 19:33 37 95 05/21/18 19:00 61 22 89/57 95 05/21/18 18:00 73 18 78/41 95 05/21/18 17:00 63 20 97/52 96 Ventilator Settings Ventilator Settings: Ventilator Settings, Last 8 Hours Ventilator Tidal Volume 500 Setting Ventilator Respiratory Rate 12 Setting Results - Laboratory Findings CBC and BMP: 05/21/18 01:17 05/21/18 01:17 ABG ABG pH 7.26 pH Units (7.32-7.45) L 05/21/18 14:02 ABG pCO2 103 mmHg (35-45) H* 05/21/18 14:02 ABG pO2 88 mmHg (85-104) 05/21/18 14:02 ABG O2 Saturation 94 % (95-98) L 05/21/18 14:02 PT/INR, D-dimer PT 12.7 Seconds (9.4-12.1) H 05/20/18 18:56 D-Dimer 4597 ng/mLFEU (0-500) H 05/20/18 18:56 Abnormal lab findings: Abnormal lab results RBC 2.96 M/mcL (3.82-4.97) L 05/21/18 01:17 Hgb 9.1 g/dL (11.5-15.4) L 05/21/18 01:17 Hct 30.9 % (35.3-44.9) L 05/21/18 01:17 MCV 104.4 fL (83.0-100.0) H 05/21/18 01:17 MCHC 29.4 g/dL (31.6-35.5) L 05/21/18 01:17 RDW 18.6 % (11.5-14.5) H 05/21/18 01:17 Nucleated RBCs/100 WBC 0.5 /100 WBC (0) H 05/21/18 01:17 PT 12.7 Seconds (9.4-12.1) H 05/20/18 18:56 APTT 25.7 Seconds (26.0-36.0) L 05/20/18 18:56 D-Dimer 4597 ng/mLFEU (0-500) H 05/20/18 18:56 ABG pH 7.26 pH Units (7.32-7.45) L 05/21/18 14:02 ABG pCO2 103 mmHg (35-45) H* 05/21/18 14:02 ABG HCO3 46 mEq/L (21-27) H 05/21/18 14:02 ABG Total CO2 49 mEq/L (20-26) H 05/21/18 14:02 ABG O2 Saturation 94 % (95-98) L 05/21/18 14:02 ABG Base Excess 16 mEq/L (-2 to 3) H 05/21/18 14:02 VBG pH 7.23 pH Units (7.32-7.42) L 05/21/18 10:23 VBG pCO2 105 mmHg (41-51) H* 05/21/18 10:23 VBG pO2 65 mmHg (25-50) H 05/21/18 10:23 VBG HCO3 43 mEq/L (21-27) H 05/21/18 10:23 Potassium 5.6 mEq/L (3.5-5.1) H 05/21/18 01:17 Chloride 96 mEq/L (98-107) L 05/21/18 01:17 Carbon Dioxide 39 mEq/L (23-29) H 05/21/18 01:17 BUN 38 mg/dL (8-23) H 05/21/18 01:17 Creatinine 2.18 mg/dL (0.60-1.20) H 05/21/18 01:17 Est GFR ( Amer) 27 (> 60) L 05/21/18 01:17 Est GFR (Non-Af Amer) 23 (> 60) L 05/21/18 01:17 Glucose 217 mg/dL (70-105) H 05/21/18 01:17 POC Glucose 209 mg/dL (70-99) H 05/21/18 11:16 Calculated Osmolality 306 (280-300) H 05/21/18 01:17 Calcium 8.4 mg/dL (8.6-10.3) L 05/21/18 01:17 % Saturation 14 % (15-50) L 05/21/18 01:17 Ferritin 138 ng/mL (10-120) H 05/21/18 01:17 Total Bilirubin 1.2 mg/dL (0.3-1.0) H 05/20/18 20:15 Direct Bilirubin 0.3 mg/dL (0.0-0.2) H 05/20/18 20:15 AST 12 Units/L (13-39) L 05/20/18 20:15 B-Natriuretic Peptide 115 pg/mL (Less than 100) H 05/20/18 18:52 Albumin 3.4 g/dL (3.5-5.7) L 05/20/18 20:15 Urine Clarity Turbid (Clear) A 05/20/18 21:11 Urine Protein 30 mg/dL (Neg-Trace) H 05/20/18 21:11 Urine Blood Large (Negative) H 05/20/18 21:11 Urine Bilirubin Small (Negative) H 05/20/18 21:11 Ur Leukocyte Esterase Large (Negative) H 05/20/18 21:11 Urine Microscopic WBC TNTC per hpf (0-3) H 05/20/18 21:11 Ur Squamous Epith Cells Moderate per lpf (None-Few) H 05/20/18 21:11 Urine Yeast Few per hpf (None Seen) H 05/20/18 21:11 Ur Culture Indicated? YES (NO) A 05/20/18 21:11 - Clinical Findings Intake & Output: Intake & Output 05/21/18 05/21/18 05/21/18 07:59 15:59 23:59 Intake Total 0 / 0 Balance 0 / 0 Weight 139 kg - Attending Attestation I examined this patient and my medical decision-making was reviewed with the Resident Physician. I agree with the documented findings, disposition and treatment plan as described except to the extent set forth below. Patient seen and examined. Labs, radiology, chart personally reviewed. 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 Pulmonary: Acceptable oxygenation and ventilation on NIV. She is tolerating BiPAP and her ABG shows evidence of chronic respiratory acidosis with an acute component. She has poor prognosis and appreciate palliative care input. I feel if she ends up on mechanical invasive ventilation it will be difficult to get her off. Patient and family agreed for short term intubation if needed. Cardiovascular: stable now, but has hypotension sometimes and central line placed for possible need of vasopressors. GI: Nutrition per dietary and GI prophylaxis per routine. Keep NPO. Heme: DVT prophylaxis per routine ID: Continue antibiotics and plan to de-escalation Renal; urine out put and renal funtion reviewed. Plan for hemodialysis and fluid removal will help. Endorcine: blood glucose is monitored Lines: all lines checked and no evidence of infections Skin: skin care to prevent pressure ulcers per nursing routine care Discussed with primary team and thanks for the consult.
[2018-05-21] MEDS: *HR* Heparin 5,000 UNIT/ML VIAL SQ SCH ×2 (13:34→20:18)
[2018-05-21 14:06] LABS: ABG Base Excess 16 mEq/L (-2 to 3); ABG HCO3 46 mEq/L (21-27); ABG Oxygen Saturation 94 % (95-98); ABG PCO2 103 mmHg (35-45); ABG PH 7.26 pH Units (7.32-7.45); ABG PO2 88 mmHg (85-104); ABG TCO2 49 mEq/L (20-26); Blood Gas Modality BiLevel; Blood Gas PEEP 8 cm H2O; Blood Gas Respiration Rate 12; Blood Gas VT 500 cc
--- NOTE | 2018-05-21 14:25 | Palliative - Consult Note ---
Date of Encounter: 05/21/18 Time of Encounter: 13:15 - Assessment and Plan (1) Acute and chronic respiratory failure ([id number]) Current Visit: Yes Status: Acute Assessment and plan: Patient chronic Respiratory failure. Hypercapneic. BiPAP in place. Ph7.26, PCO2 103, PO2 88, HCO3 46. Qualifiers: Respiratory failure complication: hypoxia and hypercapnia Qualified Code(s) : J96.21 - Acute and chronic respiratory failure with hypoxia; J96.22 - Acute and chronic respiratory failure with hypercapnia (2) Npill-it-mlyggun renal failure Current Visit: Yes Status: Acute Assessment and plan: BUN 38. Creatinine 2.18. GFR 27. Albumin 3.4. ICU team managing. Qualifiers: Acute renal failure type: unspecified Chronic kidney disease stage: stage 3 (moderate) Qualified Code(s): N17.9 - Acute kidney failure, unspecified; N18.3 - Chronic kidney disease, stage 3 (moderate) (3) Altered mental status Current Visit: Yes Status: Acute Assessment and plan: Patient remains AMS. Qualifiers: Altered mental status type: unspecified Qualified Code(s): R41.82 - Altered mental status, unspecified (4) CHF (congestive heart failure) Current Visit: Yes Status: Acute Qualifiers: Heart failure type: diastolic Heart failure chronicity: acute on chronic Qualified Code(s): I50.33 - Acute on chronic diastolic (congestive) heart failure (5) Chronic atrial fibrillation Current Visit: Yes Status: Acute (6) Encephalopathy Current Visit: Yes Status: Acute (7) Goals of care, counseling/discussion Current Visit: No Status: Acute Assessment and plan: Conducted family meeting with patient, patient's two daughters (Nicci Hernández /[phone] & Sylvie Mcbride [phone]), and patient' s son Link via [employer] Discussed chronic respiratory disease resulting in 5 Admissions to [facility] this year, in addition to 2 ER visits. Discussed potential of intubation; family is interested in following patient's wishes of being intubated times 2 days only. Family believes patient only desires this for family's benefit. Discussed CODE STATUS; family initially opted for FULL CODE; however, with further explanation of needing to follow patient's wishes should she be able to express herself at this time in her illness family agreed patient would not want CPR. Family desires for patient to be DNRCCA with full aggressive treatment until heart stops. Palliative care has no weekend coverage; will follow case on Thursday per family request prior to discussing discharge planning. Dr. Rocha, Dr. Goldstein, and Dr. Gaming notified of families desires and no weekend coverage for Palliative care coverage. Family did express should patient require intubation, past two days would be interested in Comfort care. Primary RN Bill notified of goals of care. Palliative-CN HPI - Data of Consult Patient: known to practice within the last 3 years Consult date: 05/21/18 Requesting Physician: Amarjit Michelle DO Primary Care Provider: Stacia Morrell CNP - Consult Narrative Palliative Care/Comfort Measures: Palliative care Reason for consult: Admitted for acute resp failure. Palliative care last visit. Goals of care. History of present illness: Ms. Hernández is a 67 year old female arrived to [facility] ER on 05/20/18 for generalized fatigue, AMS, and shaking over the last several days. PMH: Atrial fibrillation, CHF, COPD, DVT, DM, Hyperlipidemia, HTN, Liver disease, cellulitis , vasculitis, pneumonia, anxiety, and Renal disease. Chest x-ray showed: Right basilar airspace opacities and suspected bilateral pleural effusions. Head CT showed no intracranial abnormalities. Pulmonary perfusion imaging showing Low probability for pulmonary embolus. Patient admitted and medically managed for Acute and chronic respiratory failure, encephalopathy, acute on chronic renal failure, UTI, CHF, Chronic atrial fibrillation, Hyperkalemia, hypercapnic respiratory failure, UTI, and anemia. Palliative care consulted for goals of care discussion. Patient resting in bed with eyes closed and BiPAP in place upon arrival for assessment. Patient able to answer yes and no questions. Patient alert to person and place. Patient's two daughters present at bedside. Patient denies pain, dyspnea, anxiety, nausea and vomiting. CC: Amarjit Michelle DO Past Med Surg Social Fam HX - Past Medical History Medical history: atrial fibrillation, CHF, COPD, DVT, diabetes, hyperlipidemia, hypertension, liver disease, renal disease Additional medical history: cellulitis. Vasculitis. Frequent Pneumonia. Bipap at home. 2L via nasal cannula at home Psychiatric history: anxiety - Past Surgical History Surgical History: no surgical history Additional surgical history: R SHOULDER REPAIR - Social History Smoking Status: Never smoker Smokeless Tobacco Status: No Alcohol use: occasionally Drug use: none - Family History Mother Living Status: Father Living Status: Sister Adopted: No Family Member Ethnicity: Non- Twin of Family Member: Yes, Fraternal Living Status: Hx Family Cardiac Disorders: Yes Hx Family Respiratory Disorders: Yes Hx Family Cancer: No Hx Family GI Disorders: No Hx Family Endocrine Disorder: Yes Hx Family Neuromuscular Disorders: No Hx Family Neurologic Disorders: No Hx Family HEENT Disorders: No Hx Family Autoimmune Disorders: No Medications and Allergies Allopurinol [Zyloprim 100 MG] 100 mg PO DAILY 03/01/18 [History] Carvedilol [Coreg] 25 mg PO BID 03/01/18 [History] Furosemide [Lasix] 80 mg PO DAILY 03/01/18 [History] Gabapentin [Neurontin] 300 mg PO BID 03/01/18 [History] Lisinopril [Zestril] 5 mg PO DAILY 03/01/18 [History] Potassium Chloride [K-Tab ER] 20 meq PO BID 03/01/18 [History] Ipratropium/Albuterol Neb [Duoneb] 3 ml IH Q6HR PRN #25 units 03/03/18 [Rx] Insulin NPH Hum/Reg Insulin Hm [Novolin 70-30 100 Unit/ml Vial] 35 unit SQ HS [History] Spironolactone [Aldactone] 50 mg PO DAILY 30 Days #30 tablet 05/15/18 [Rx] 3 Allergy/AdvReac Type Severity Reaction Status Date / Time No Known Allergies Allergy Verified 05/20/18 17:51 ROS unobtainable: due to mental status Palliative Care-Exam - Constitutional Vitals: Temp Pulse Resp BP Pulse Ox 98.1 F 66 18 96/56 96 05/21/18 13:00 05/21/18 14:00 05/21/18 14:00 05/21/18 14:00 05/21/18 14:00 General appearance: Present: morbidly obese, no acute distress - Head Head Exam: Present: atraumatic, normal inspection - Expanded Head Exam Head exam expanded IM: Absent: raccoon eyes - Eye Eye exam: Present: normal appearance Pupils: Present: PERRL - ENT ENT exam: Present: mucous membranes dry, normal external ear exam - Expanded ENT Exam Mouth Exam: Present: normal external inspection - Neck Neck exam: Present: full ROM, normal inspection - Respiratory Respiratory exam: Present: accessory muscle use, decreased breath sounds. Absent: respiratory distress - Cardiovascular Cardiovascular exam: Present: +S1, +S2 - Expanded Cardiovascular Exam Peripheral pulses: 1+: Radial (L), Radial (R), Posterior Tibialis (L), Posterior Tibialis (R), Dorsalis Pedis (L) PM, Dorsalis Pedis (R) PM - GI/Abdominal Exam GI/Abdominal exam: Present: normal bowel sounds - Rectal Rectal exam: Present: deferred - Extremities Exam Extremities exam: Absent: calf tenderness, normal inspection (poor peripheral circuation with discoloration noted.), pedal edema - Neurological Exam Neurological exam: Present: altered, strengths equal and symetr throughout - Expanded Neurological Exam Patient oriented to: Present: person, place. Absent: time Coma Scale Eye Opening: To Voice Coma Scale Motor Response: Obeys Commands Coma Scale Verbal Response: Confused Coma Scale Total: 13 - Psychiatric Psychiatric exam: Present: flat affect - Skin Skin exam: Present: dry, intact. Absent: warm (cool ) Internal Medicine - CN: Reslt - Labs CBC & Chem 7: 05/21/18 01:17 05/21/18 01:17 - ABG Interpretation ABG results: ABG ABG pH 7.26 pH Units (7.32-7.45) L 05/21/18 14:02 ABG pCO2 103 mmHg (35-45) H* 05/21/18 14:02 ABG pO2 88 mmHg (85-104) 05/21/18 14:02 ABG O2 Saturation 94 % (95-98) L 05/21/18 14:02 PT/INR, D-dimer PT 12.7 Seconds (9.4-12.1) H 05/20/18 18:56 D-Dimer 4597 ng/mLFEU (0-500) H 05/20/18 18:56 Consult Discharge Plan - Plan Referrals: Stacia Morrell, RECOVERY OPERATOR HELPER [Primary Care Provider] - Palliative Quality Palliative Quality: Screen for Code Status: Yes, Screen for Goals of Care: Yes, Screen for Pain: Yes, If Pain Regimen Started, Initiate Bowel Regimen: NA, Screen for Nausea/Vomitting: Yes Code Status: 05/21/18 13:58 DNR [Resuscitation Status: Active] [RES] Routine Comment: state form completed. Resuscitation Status: DNR-Comfort Care-Arrest
--- NOTE | 2018-05-21 15:29 | Event Note ---
Date of Encounter: 05/21/18 Time of Encounter: 12:15 Ms Hernández was admitted earlier today with acute on chronic hypercarbic and hypoxic respiratory failure. She has been on bipap. Her ABGs have not improved much. Exam Somnolent. Restless Mucus membranes dry Heart distant Diminished breath sounds I/P 1. Resp failure - transfer to ICU for further care.
--- NOTE | 2018-05-21 16:54 | Procedure Note ---
<Volodymyr Patino - Last Filed: 05/21/18 16:58> Procedure: I examined this patient and my medical decision-making was reviewed with the Resident Physician. I agree with the documented findings, disposition and treatment plan as described except to the extent set forth below. Patient seen and examined. Personally supervised residents placing central line without immediate complications. <Aj Rocha - Last Filed: 05/21/18 17:26> Date of procedure: 05/21/18 Pre-op diagnosis: Hypotension Post-op diagnosis: same Procedure: A time-out was completed verifying correct patient, procedure, site, positioning , and special equipment if applicable. The patient was placed in a dependent position appropriate for central line placement based on the vein to be cannulated. The patients left neck was prepped and draped in sterile fashion. 1% Lidocaine was used to anesthetize the surrounding skin area. A triple lumen Cordis catheter was introduced into the the internal jugular vein using the Seldinger technique and under ultrasound guidance. The catheter was threaded smoothly over the guide wire and appropriate blood return was obtained. Each lumen of the catheter was evacuated of air and flushed with sterile saline. The catheter was then sutured in place to the skin and a sterile dressing applied. Perfusion to the extremity distal to the point of catheter insertion was checked and found to be adequate. Dr Patino was present for the entire procedure. Estimated Blood Loss: 1ml The patient tolerated the procedure well and there were no complications. Chest X-Ray 05/21/18 16:33 IMPRESSION: No pneumothorax following left central venous catheter placement, with tip overlying the left brachiocephalic vein. Cardiomegaly with small right pleural effusion and bibasilar atelectasis and/or consolidation. Anesthesia: local Surgeon: Aj Rocha Was there an certified ophthalmic assistant present: Yes Radio Division Lieutenant: Johny Tirado Estimated blood loss (cc): 1 Specimen: N/A Pathology: none sent Condition: critical Disposition: ICU
[2018-05-21] MEDS: Insulin LISPRO 300 UNITS/3 ML VIAL SQ SCH ×2 (17:02→20:16)
[2018-05-21] MEDS: Norepinephrine 4 MG in D5% in Water 250 ML IVC SCH (18:07)
[2018-05-21 21:15] LABS: Calcium 8.1 mg/dL (8.6-10.3); Potassium 5.5 mEq/L (3.5-5.1)
[2018-05-22] MEDS: cefTRIAXone 2,000 MG in 0.9 % Sodium Chloride Mini Bag 100 ML IVPB SCH ×2 (00:36→21:49)
[2018-05-22] MEDS: Insulin LISPRO 300 UNITS/3 ML VIAL SQ SCH ×6 (00:37→21:49)
[2018-05-22] MEDS: Norepinephrine 4 MG in D5% in Water 250 ML IVC SCH ×2 (03:00→11:48)
[2018-05-22 04:11] LABS: Basophils % 0.1 %; Eosinophils # 0.1 K/mcL (0.0-0.6); Hematocrit 31.6 % (35.3-44.9); Hemoglobin 9.4 g/dL (11.5-15.4); Immature Granulocytes % 0.8 % (0-4); Lymphocytes # 0.9 K/mcL (0.6-4.6); Lymphocytes % 12.3 %; Mean Corpuscular HGB Conc 29.7 g/dL (31.6-35.5); Mean Corpuscular Hemoglobin 30.7 pg (28.0-33.3); Mean Corpuscular Volume 103.3 fL (83.0-100.0); Mean Platelet Volume 10.4 fL (9.4-12.4); Monocytes # 0.8 K/mcL (0.0-1.3); Monocytes % 10.7 %; Neutrophils # 5.3 K/mcL (1.6-8.9); Nucleated Red Blood Cells 0.7 /100 WBC (0); Platelet Count 161 K/mcL (140-400); Red Blood Count 3.06 M/mcL (3.82-4.97); Red Cell Distribution Width 18.8 % (11.5-14.5); Segmented Neutrophils % 75.1 %
[2018-05-22 04:30] LABS: Calcium 8.4 mg/dL (8.6-10.3); Magnesium 2.3 mg/dL (1.6-2.6); Potassium 5.5 mEq/L (3.5-5.1)
[2018-05-22 04:39] LABS: ABG Base Excess 17 mEq/L (-2 to 3); ABG HCO3 46 mEq/L (21-27); ABG Oxygen Saturation 93 % (95-98); ABG PCO2 91 mmHg (35-45); ABG PH 7.31 pH Units (7.32-7.45); ABG PO2 78 mmHg (85-104); ABG TCO2 49 mEq/L (20-26); Blood Gas Modality NIV; Blood Gas PEEP 8 cm H2O; Blood Gas Respiration Rate 12; Blood Gas VT 500 cc
[2018-05-22] MEDS: *HR* Heparin 5,000 UNIT/ML VIAL SQ SCH ×3 (06:32→21:48)
[2018-05-22] MEDS: Cyanocobalamin (B-12) 1,000 MCG TABLET PO SCH (07:59)
--- NOTE | 2018-05-22 08:37 | Pulmonology Progress Note ---
<Kavita Du E - Last Filed: 05/22/18 10:00> Date of Encounter: 05/22/18 Time of Encounter: 08:00 Assessment and Plan (1) Acute and chronic respiratory failure with hypercapnia Current Visit: Yes Status: Acute Did well on BiPAP overnight We will trial off BiPAP occasionally Continue to monitor (2) Ekuuu-ii-fqvueam renal failure Current Visit: Yes Status: Acute Baseline creatinine appears to be around 1.15 creatinine today 2.1 potassium today 5.5. In the ED she was hypotensive with systolics as low as 80 did not respond to fluid bolus Monitor urine output Renal function Avoid nephrotoxic medications Consider albumin infusion due to third spacing if needed Qualifiers: Acute renal failure type: unspecified Chronic kidney disease stage: stage 3 (moderate) Qualified Code(s): N17.9 - Acute kidney failure, unspecified; N18.3 - Chronic kidney disease, stage 3 (moderate) (3) Altered mental status Current Visit: Yes Status: Acute Likely due to hypercarbia She is slightly drowsy but able to be aroused easily she states she is feeling better today Qualifiers: Altered mental status type: unspecified Qualified Code(s): R41.82 - Altered mental status, unspecified (4) Diastolic CHF Current Visit: Yes Status: Acute History of diastolic heart failure. BNP on admission was 1:15 with increased dyspnea on exertion Suspected bilateral pleural effusions on chest x-ray Hyperkalemic at 5.5 diuretics being held Qualifiers: Heart failure chronicity: acute on chronic Qualified Code(s): I50.33 - Acute on chronic diastolic (congestive) heart failure (5) Hyperkalemia Current Visit: Yes Status: Acute Calcium today of 5.5 On spironolactone and 20 mEq of potassium at home Currently in A. fib We will hold both while hyperkalemic monitor potassium and for arrhythmias (6) UTI (urinary tract infection) Current Visit: Yes Status: Acute UA showed large blood and esterase with few bacteria She is given ceftriaxone on admission Culture results show yeast sensitivities will be pending Qualifiers: Urinary tract infection type: site unspecified Hematuria presence: without hematuria Qualified Code(s): N39.0 - Urinary tract infection, site not specified (7) Hypotension Current Visit: Yes Status: Acute Blood pressure today is 107/77 Early on norepinephrine drip Qualifiers: Hypotension type: unspecified hypotension type Qualified Code(s): I95.9 - Hypotension, unspecified (8) Atrial fibrillation Current Visit: Yes Status: Chronic History of Alvin og is currently in A. 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 She is on BiPAP overnight and her ABGs are starting to normalize. She is DNR CCA. On examination today she says she is feeling much better. She is less short of breath. Objective PUL Vital signs: Last Vital Signs Temp 98 F 05/22/18 06:00 Pulse 55 05/22/18 08:00 Resp 18 05/22/18 08:00 BP 97/60 05/22/18 08:00 Pulse Ox 94 05/22/18 08:00 General appearance: no acute distress Eyes: nonicteric ENT: oropharynx moist Effort: mildly labored Auscultation: bilateral: diminished breath sounds (Lower lobes), wheezes (Upper lobes) Cardiovascular: regular rate and rhythm Gastrointestinal: normoactive bowel sounds Integumentary: normal Extremities: no cyanosis, no edema, other (Chronic lymphedematous changes bilateral lower extremities) normal mental status mood appropriate Ventilator Settings Ventilator Settings: Ventilator Settings, Last 8 Hours Ventilator Tidal Volume 500 Setting Ventilator Respiratory Rate 12 Setting Positive End Expiratory 8 Pressure Results - Laboratory Findings CBC and BMP: 05/22/18 03:57 05/22/18 03:57 ABG ABG pH 7.31 pH Units (7.32-7.45) L 05/22/18 04:27 ABG pCO2 91 mmHg (35-45) H* 05/22/18 04:27 ABG pO2 78 mmHg (85-104) L 05/22/18 04:27 ABG O2 Saturation 93 % (95-98) L 05/22/18 04:27 PT/INR, D-dimer PT 12.7 Seconds (9.4-12.1) H 05/20/18 18:56 D-Dimer 4597 ng/mLFEU (0-500) H 05/20/18 18:56 Abnormal lab findings: Abnormal lab results RBC 3.06 M/mcL (3.82-4.97) L 05/22/18 03:57 Hgb 9.4 g/dL (11.5-15.4) L 05/22/18 03:57 Hct 31.6 % (35.3-44.9) L 05/22/18 03:57 MCV 103.3 fL (83.0-100.0) H 05/22/18 03:57 MCHC 29.7 g/dL (31.6-35.5) L 05/22/18 03:57 RDW 18.8 % (11.5-14.5) H 05/22/18 03:57 Nucleated RBCs/100 WBC 0.7 /100 WBC (0) H 05/22/18 03:57 PT 12.7 Seconds (9.4-12.1) H 05/20/18 18:56 APTT 25.7 Seconds (26.0-36.0) L 05/20/18 18:56 D-Dimer 4597 ng/mLFEU (0-500) H 05/20/18 18:56 ABG pH 7.31 pH Units (7.32-7.45) L 05/22/18 04:27 ABG pCO2 91 mmHg (35-45) H* 05/22/18 04:27 ABG pO2 78 mmHg (85-104) L 05/22/18 04:27 ABG HCO3 46 mEq/L (21-27) H 05/22/18 04:27 ABG Total CO2 49 mEq/L (20-26) H 05/22/18 04:27 ABG O2 Saturation 93 % (95-98) L 05/22/18 04:27 ABG Base Excess 17 mEq/L (-2 to 3) H 05/22/18 04:27 VBG pH 7.23 pH Units (7.32-7.42) L 05/21/18 10:23 VBG pCO2 105 mmHg (41-51) H* 05/21/18 10:23 VBG pO2 65 mmHg (25-50) H 05/21/18 10:23 VBG HCO3 43 mEq/L (21-27) H 05/21/18 10:23 Sodium 146 mEq/L (136-145) H 05/22/18 03:57 Potassium 5.5 mEq/L (3.5-5.1) H 05/22/18 03:57 Carbon Dioxide 37 mEq/L (23-29) H 05/22/18 03:57 BUN 35 mg/dL (8-23) H 05/22/18 03:57 Creatinine 2.10 mg/dL (0.60-1.20) H 05/22/18 03:57 Est GFR ( Amer) 29 (> 60) L 05/22/18 03:57 Est GFR (Non-Af Amer) 24 (> 60) L 05/22/18 03:57 Glucose 165 mg/dL (70-105) H 05/22/18 03:57 POC Glucose 162 mg/dL (70-99) H 05/22/18 03:56 Calculated Osmolality 314 (280-300) H 05/22/18 03:57 Calcium 8.4 mg/dL (8.6-10.3) L 05/22/18 03:57 % Saturation 14 % (15-50) L 05/21/18 01:17 Ferritin 138 ng/mL (10-120) H 05/21/18 01:17 Total Bilirubin 1.2 mg/dL (0.3-1.0) H 05/20/18 20:15 Direct Bilirubin 0.3 mg/dL (0.0-0.2) H 05/20/18 20:15 AST 12 Units/L (13-39) L 05/20/18 20:15 B-Natriuretic Peptide 115 pg/mL (Less than 100) H 05/20/18 18:52 Albumin 3.4 g/dL (3.5-5.7) L 05/20/18 20:15 Urine Clarity Turbid (Clear) A 05/20/18 21:11 Urine Protein 30 mg/dL (Neg-Trace) H 05/20/18 21:11 Urine Blood Large (Negative) H 05/20/18 21:11 Urine Bilirubin Small (Negative) H 05/20/18 21:11 Ur Leukocyte Esterase Large (Negative) H 05/20/18 21:11 Urine Microscopic WBC TNTC per hpf (0-3) H 05/20/18 21:11 Ur Squamous Epith Cells Moderate per lpf (None-Few) H 05/20/18 21:11 Urine Yeast Few per hpf (None Seen) H 05/20/18 21:11 Ur Culture Indicated? YES (NO) A 05/20/18 21:11 - Clinical Findings Intake & Output: Intake & Output 05/21/18 05/22/18 05/22/18 23:59 07:59 15:59 Intake Total 338 / 338 Output Total 1100 / 1100 Balance -762 / -762 Weight 137 kg Consult Discharge Plan - Plan Referrals: Stacia Morrell, INTERIOR DESIGN PROJECT MANAGER [Primary Care Provider] - <Volodymyr Patino - Last Filed: 05/22/18 11:09> Date of Encounter: 05/22/18 Objective PUL Vital signs: Last Vital Signs Temp 98.4 F 05/22/18 09:24 Pulse 78 05/22/18 10:00 Resp 22 05/22/18 10:00 BP 107/77 05/22/18 10:00 Pulse Ox 92 05/22/18 10:00 Ventilator Settings Ventilator Settings: Ventilator Settings, Last 8 Hours Ventilator Tidal Volume 500 Setting Ventilator Respiratory Rate 12 Setting Positive End Expiratory 8 Pressure Results - Laboratory Findings CBC and BMP: 05/22/18 03:57 05/22/18 03:57 ABG ABG pH 7.31 pH Units (7.32-7.45) L 05/22/18 04:27 ABG pCO2 91 mmHg (35-45) H* 05/22/18 04:27 ABG pO2 78 mmHg (85-104) L 05/22/18 04:27 ABG O2 Saturation 93 % (95-98) L 05/22/18 04:27 PT/INR, D-dimer PT 12.7 Seconds (9.4-12.1) H 05/20/18 18:56 D-Dimer 4597 ng/mLFEU (0-500) H 05/20/18 18:56 Abnormal lab findings: Abnormal lab results RBC 3.06 M/mcL (3.82-4.97) L 05/22/18 03:57 Hgb 9.4 g/dL (11.5-15.4) L 05/22/18 03:57 Hct 31.6 % (35.3-44.9) L 05/22/18 03:57 MCV 103.3 fL (83.0-100.0) H 05/22/18 03:57 MCHC 29.7 g/dL (31.6-35.5) L 05/22/18 03:57 RDW 18.8 % (11.5-14.5) H 05/22/18 03:57 Nucleated RBCs/100 WBC 0.7 /100 WBC (0) H 05/22/18 03:57 PT 12.7 Seconds (9.4-12.1) H 05/20/18 18:56 APTT 25.7 Seconds (26.0-36.0) L 05/20/18 18:56 D-Dimer 4597 ng/mLFEU (0-500) H 05/20/18 18:56 ABG pH 7.31 pH Units (7.32-7.45) L 05/22/18 04:27 ABG pCO2 91 mmHg (35-45) H* 05/22/18 04:27 ABG pO2 78 mmHg (85-104) L 05/22/18 04:27 ABG HCO3 46 mEq/L (21-27) H 05/22/18 04:27 ABG Total CO2 49 mEq/L (20-26) H 05/22/18 04:27 ABG O2 Saturation 93 % (95-98) L 05/22/18 04:27 ABG Base Excess 17 mEq/L (-2 to 3) H 05/22/18 04:27 VBG pH 7.23 pH Units (7.32-7.42) L 05/21/18 10:23 VBG pCO2 105 mmHg (41-51) H* 05/21/18 10:23 VBG pO2 65 mmHg (25-50) H 05/21/18 10:23 VBG HCO3 43 mEq/L (21-27) H 05/21/18 10:23 Sodium 146 mEq/L (136-145) H 05/22/18 03:57 Potassium 5.5 mEq/L (3.5-5.1) H 05/22/18 03:57 Carbon Dioxide 37 mEq/L (23-29) H 05/22/18 03:57 BUN 35 mg/dL (8-23) H 05/22/18 03:57 Creatinine 2.10 mg/dL (0.60-1.20) H 05/22/18 03:57 Est GFR ( Amer) 29 (> 60) L 05/22/18 03:57 Est GFR (Non-Af Amer) 24 (> 60) L 05/22/18 03:57 Glucose 165 mg/dL (70-105) H 05/22/18 03:57 POC Glucose 162 mg/dL (70-99) H 05/22/18 03:56 Calculated Osmolality 314 (280-300) H 05/22/18 03:57 Calcium 8.4 mg/dL (8.6-10.3) L 05/22/18 03:57 % Saturation 14 % (15-50) L 05/21/18 01:17 Ferritin 138 ng/mL (10-120) H 05/21/18 01:17 Total Bilirubin 1.2 mg/dL (0.3-1.0) H 05/20/18 20:15 Direct Bilirubin 0.3 mg/dL (0.0-0.2) H 05/20/18 20:15 AST 12 Units/L (13-39) L 05/20/18 20:15 B-Natriuretic Peptide 115 pg/mL (Less than 100) H 05/20/18 18:52 Albumin 3.4 g/dL (3.5-5.7) L 05/20/18 20:15 Urine Clarity Turbid (Clear) A 05/20/18 21:11 Urine Protein 30 mg/dL (Neg-Trace) H 05/20/18 21:11 Urine Blood Large (Negative) H 05/20/18 21:11 Urine Bilirubin Small (Negative) H 05/20/18 21:11 Ur Leukocyte Esterase Large (Negative) H 05/20/18 21:11 Urine Microscopic WBC TNTC per hpf (0-3) H 05/20/18 21:11 Ur Squamous Epith Cells Moderate per lpf (None-Few) H 05/20/18 21:11 Urine Yeast Few per hpf (None Seen) H 05/20/18 21:11 Ur Culture Indicated? YES (NO) A 05/20/18 21:11 - Clinical Findings Intake & Output: Intake & Output 05/21/18 05/22/18 05/22/18 23:59 07:59 15:59 Intake Total 338 / 338 199 / 199 Output Total 1100 / 1100 150 / 150 Balance -762 / -762 49 / 49 Weight 137 kg - Attending Attestation I examined this patient and my medical decision-making was reviewed with the Resident Physician. I agree with the documented findings, disposition and treatment plan as described except to the extent set forth below. Patient seen and examined. Labs, radiology, chart personally reviewed. Agree with resident's history and physical, assessment, plan with following comments: CLERICAL ASSOCIATE: Patient follows commands, patient is much more awake. Pulmonary: Acceptable oxygenation and ventilation with some improvement in her chronic respiratory acidosis. Patient to be in sitting position if possible and noninvasive ventilation on and off. Cardiovascular: Hypertension could be multifactorial and suspect intravascular volume depletion. Will consider albumen and low dose vasopressors. GI: Nutrition per dietary and GI prophylaxis per routine Heme: DVT prophylaxis per routine ID: Continue antibiotics and plan to de-escalation Renal; urine out put and renal funtion reviewed Endorcine: blood glucose is monitored Lines: all lines checked and no evidence of infections Skin: skin care to prevent pressure ulcers per nursing routine care Discussed with the family and overall prognosis is poor.
[2018-05-22] MEDS: Fluconazole 200 MG/100 ML 200 MG/100 ML BAG IVPB SCH (10:44)
[2018-05-23] MEDS: Insulin LISPRO 300 UNITS/3 ML VIAL SQ SCH ×7 (02:12→23:40)
[2018-05-23 04:27] LABS: ABG Base Excess 15 mEq/L (-2 to 3); ABG HCO3 43 mEq/L (21-27); ABG Oxygen Saturation 94 % (95-98); ABG PCO2 79 mmHg (35-45); ABG PH 7.35 pH Units (7.32-7.45); ABG PO2 81 mmHg (85-104); ABG TCO2 46 mEq/L (20-26); Blood Gas PEEP 8 cm H2O; Blood Gas Respiration Rate 12; Blood Gas VT 500 cc
[2018-05-23 04:44] LABS: Basophils % 0.2 %; Eosinophils # 0.1 K/mcL (0.0-0.6); Eosinophils % 1.5 %; Immature Granulocytes % 0.6 % (0-4); Lymphocytes # 0.7 K/mcL (0.6-4.6); Lymphocytes % 14.8 %; Mean Corpuscular Hemoglobin 30.8 pg (28.0-33.3); Mean Corpuscular Volume 102.7 fL (83.0-100.0); Monocytes # 0.5 K/mcL (0.0-1.3); Monocytes % 9.9 %; Neutrophils # 3.4 K/mcL (1.6-8.9); Platelet Count 140 K/mcL (140-400); Red Blood Count 2.92 M/mcL (3.82-4.97); Red Cell Distribution Width 18.6 % (11.5-14.5)
[2018-05-23 05:00] LABS: Albumin 3.3 g/dL (3.5-5.7); Albumin/Globulin Ratio 1.1 (1.1-2.2); Bilirubin,Total 0.7 mg/dL (0.3-1.0); Calcium 8.7 mg/dL (8.6-10.3); Magnesium 2.2 mg/dL (1.6-2.6); Phosphorous 3.4 mg/dL (2.7-4.5); Potassium 4.6 mEq/L (3.5-5.1); Total Protein 6.3 g/dL (6.4-8.9)
[2018-05-23] MEDS: *HR* Heparin 5,000 UNIT/ML VIAL SQ SCH ×3 (05:07→20:27)
[2018-05-23] MEDS: Cyanocobalamin (B-12) 1,000 MCG TABLET PO SCH ×2 (07:35→09:11)
[2018-05-23] MEDS: Fluconazole 200 MG/100 ML 200 MG/100 ML BAG IVPB SCH ×2 (07:36→09:11)
--- NOTE | 2018-05-23 08:33 | Pulmonology Progress Note ---
<CareyVolodymyr M - Last Filed: 05/23/18 11:12> Date of Encounter: 05/23/18 Objective PUL Vital signs: Last Vital Signs Temp 98.4 F 05/23/18 08:05 Pulse 97 05/23/18 09:00 Resp 20 05/23/18 10:00 BP 126/71 05/23/18 10:00 Pulse Ox 100 05/23/18 10:00 Ventilator Settings Ventilator Settings: Ventilator Settings, Last 8 Hours Ventilator Tidal Volume 500 Setting Results - Laboratory Findings CBC and BMP: 05/23/18 04:25 05/23/18 04:25 ABG ABG pH 7.35 pH Units (7.32-7.45) 05/23/18 04:21 ABG pCO2 79 mmHg (35-45) H* 05/23/18 04:21 ABG pO2 81 mmHg (85-104) L 05/23/18 04:21 ABG O2 Saturation 94 % (95-98) L 05/23/18 04:21 PT/INR, D-dimer PT 12.7 Seconds (9.4-12.1) H 05/20/18 18:56 D-Dimer 4597 ng/mLFEU (0-500) H 05/20/18 18:56 Abnormal lab findings: Abnormal lab results RBC 2.92 M/mcL (3.82-4.97) L 05/23/18 04:25 Hgb 9.0 g/dL (11.5-15.4) L 05/23/18 04:25 Hct 30.0 % (35.3-44.9) L 05/23/18 04:25 MCV 102.7 fL (83.0-100.0) H 05/23/18 04:25 MCHC 30.0 g/dL (31.6-35.5) L 05/23/18 04:25 RDW 18.6 % (11.5-14.5) H 05/23/18 04:25 Nucleated RBCs/100 WBC 0.7 /100 WBC (0) H 05/22/18 03:57 PT 12.7 Seconds (9.4-12.1) H 05/20/18 18:56 APTT 25.7 Seconds (26.0-36.0) L 05/20/18 18:56 D-Dimer 4597 ng/mLFEU (0-500) H 05/20/18 18:56 ABG pCO2 79 mmHg (35-45) H* 05/23/18 04:21 ABG pO2 81 mmHg (85-104) L 05/23/18 04:21 ABG HCO3 43 mEq/L (21-27) H 05/23/18 04:21 ABG Total CO2 46 mEq/L (20-26) H 05/23/18 04:21 ABG O2 Saturation 94 % (95-98) L 05/23/18 04:21 ABG Base Excess 15 mEq/L (-2 to 3) H 05/23/18 04:21 VBG pH 7.23 pH Units (7.32-7.42) L 05/21/18 10:23 VBG pCO2 105 mmHg (41-51) H* 05/21/18 10:23 VBG pO2 65 mmHg (25-50) H 05/21/18 10:23 VBG HCO3 43 mEq/L (21-27) H 05/21/18 10:23 Carbon Dioxide 41 mEq/L (23-29) H* 05/23/18 04:25 BUN 30 mg/dL (8-23) H 05/23/18 04:25 Creatinine 1.67 mg/dL (0.60-1.20) H 05/23/18 04:25 Est GFR ( Amer) 37 (> 60) L 05/23/18 04:25 Est GFR (Non-Af Amer) 31 (> 60) L 05/23/18 04:25 Glucose 121 mg/dL (70-105) H 05/23/18 04:25 POC Glucose 135 mg/dL (70-99) H 05/22/18 23:53 Calculated Osmolality 303 (280-300) H 05/23/18 04:25 % Saturation 14 % (15-50) L 05/21/18 01:17 Ferritin 138 ng/mL (10-120) H 05/21/18 01:17 Direct Bilirubin 0.3 mg/dL (0.0-0.2) H 05/20/18 20:15 AST 6 Units/L (13-39) L 05/23/18 04:25 ALT 5 Units/L (7-52) L 05/23/18 04:25 B-Natriuretic Peptide 115 pg/mL (Less than 100) H 05/20/18 18:52 Serum Total Protein 6.3 g/dL (6.4-8.9) L 05/23/18 04:25 Albumin 3.3 g/dL (3.5-5.7) L 05/23/18 04:25 Urine Clarity Turbid (Clear) A 05/20/18 21:11 Urine Protein 30 mg/dL (Neg-Trace) H 05/20/18 21:11 Urine Blood Large (Negative) H 05/20/18 21:11 Urine Bilirubin Small (Negative) H 05/20/18 21:11 Ur Leukocyte Esterase Large (Negative) H 05/20/18 21:11 Urine Microscopic WBC TNTC per hpf (0-3) H 05/20/18 21:11 Ur Squamous Epith Cells Moderate per lpf (None-Few) H 05/20/18 21:11 Urine Yeast Few per hpf (None Seen) H 05/20/18 21:11 Ur Culture Indicated? YES (NO) A 05/20/18 21:11 - Clinical Findings Intake & Output: Intake & Output 05/22/18 05/23/18 05/23/18 23:59 07:59 15:59 Intake Total 100 / 100 56 / 56 100 / 100 Output Total 850 / 850 275 / 275 300 / 300 Balance -750 / -750 -219 / -219 -200 / -200 Weight 138 kg 138 kg Consult Discharge Plan - Plan Referrals: Stacia Morrell, PRODUCTION FINISHER [Primary Care Provider] - - Attending Attestation I examined this patient and my medical decision-making was reviewed with the Resident Physician. I agree with the documented findings, disposition and treatment plan as described except to the extent set forth below. Patient seen and examined. Labs, radiology, chart personally reviewed. Agree with resident's history and physical, assessment, plan with following comments: RECRUITMENT COORDINATOR: Patient follows commands, she remained awake, responding to stimuli. Pulmonary: Acceptable oxygenation and ventilation and improvement in her ABG with clinical improvement on noninvasive ventilation. Patient can be transferred to the telemetry. Patient on bronchodilators. Cardiovascular: stable GI: Nutrition per dietary and GI prophylaxis per routine Heme: DVT prophylaxis per routine ID: Continue antibiotics and plan to de-escalation. Antifungal can be stopped in next 1-2 days. Renal; urine out put and renal funtion reviewed Endorcine: blood glucose is monitored Lines: all lines checked and no evidence of infections Skin: skin care to prevent pressure ulcers per nursing routine care Overall prognosis is poor family has been updated. <Nneka Jaquez - Last Filed: 05/23/18 14:24> Date of Encounter: 05/23/18 Time of Encounter: 08:33 Assessment and Plan (1) Atrial fibrillation Current Visit: Yes Status: Chronic Qualifiers: Atrial fibrillation type: chronic Qualified Code(s): I48.2 - Chronic atrial fibrillation (2) Acute on chronic respiratory failure with hypoxia and hypercapnia Current Visit: No Status: Acute Doing well on intermittent BiPAP, able to maintain saturation on 3LNC. Continue to monitor. (3) Hyperkalemia Current Visit: Yes Status: Acute Pt was hyperkalemic at 5.6 on 05/20/18 and diuretics were held. Now at 4.6 and showing signs of increased pulmonary edema, diuretics will be restarted at half normal dose and increased as tolerated/needed. (4) DVT prophylaxis Current Visit: Yes Status: Acute 5000 units heparin SQ Q8HCO (5) UTI (urinary tract infection) Current Visit: Yes Status: Acute UA showed turbid fluid with large Leuk esterase, TNTC WBCs, and yeast. She was given ceftriaxone on admission. Culture results show yeast. She was started on fluconazole. Qualifiers: Urinary tract infection type: site unspecified Hematuria presence: without hematuria Qualified Code(s): N39.0 - Urinary tract infection, site not specified (6) Diastolic heart failure Current Visit: No Status: Acute Hx of diastolic HF. BNP on admission was 115 with increased dyspnea on exertion. Potassium 4.6 today. Restart diuretics. CXR this morning shows persistent pleural effusion with probably collapse of RML and ashkan LL. Qualifiers: Heart failure chronicity: acute on chronic Qualified Code(s): I50.33 - Acute on chronic diastolic (congestive) heart failure (7) Altered mental status Current Visit: Yes Status: Resolved Pt is awake and alert, and mentating appropriately, sitting up in a chair. Qualifiers: Altered mental status type: unspecified Qualified Code(s): R41.82 - Altered mental status, unspecified (8) Dgzen-gn-kmvrqiv renal failure Current Visit: Yes Status: Acute Baseline creatinine appears to be 1.15 today is 1.67, down from yesterday. Her potassium is 4.6 today. Increased opacity in morning CXR is concerning for worsening pleural effusions, restarting lasix today. Qualifiers: Acute renal failure type: unspecified Chronic kidney disease stage: stage 3 (moderate) Qualified Code(s): N17.9 - Acute kidney failure, unspecified; N18.3 - Chronic kidney disease, stage 3 (moderate) (9) Type 2 diabetes mellitus Current Visit: Yes Status: Chronic On insulin at home, restarted insulin here now that she is eating again. 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 Fuentes hospitalist at 0912. Pt continues on BiPAP without acute events overnight, she is on BiPAP 4 hours on, 4 hours off during the day at home, and all night while sleeping. Her ABGs are normalizing and she has remained stable. She is DNR CCA. Pt is sitting up in the chair today, and has been able to come off BiPAP while maintaining saturation with 3LNC. She states that she is feeling good today, daughter in the room states that she looks much better. Objective PUL Vital signs: Last Vital Signs Temp 98.4 F 05/23/18 08:05 Pulse 74 05/23/18 08:00 Resp 22 05/23/18 08:00 BP 107/57 05/23/18 08:00 Pulse Ox 98 05/23/18 08:00 General appearance: no acute distress Eyes: nonicteric ENT: oropharynx moist Effort: normal Auscultation: bilateral: diminished breath sounds (lower lung mireles) Cardiovascular: irregular rhythm Gastrointestinal: normoactive bowel sounds, soft Integumentary: other (ASHKAN LE venous stasis, dusky ASHKAN LE) normal mental status mood appropriate, affect normal Ventilator Settings Ventilator Settings: Ventilator Settings, Last 8 Hours Ventilator Tidal Volume 500 Setting Results - Laboratory Findings CBC and BMP: 05/23/18 04:25 05/23/18 04:25 ABG ABG pH 7.35 pH Units (7.32-7.45) 05/23/18 04:21 ABG pCO2 79 mmHg (35-45) H* 05/23/18 04:21 ABG pO2 81 mmHg (85-104) L 05/23/18 04:21 ABG O2 Saturation 94 % (95-98) L 05/23/18 04:21 PT/INR, D-dimer PT 12.7 Seconds (9.4-12.1) H 05/20/18 18:56 D-Dimer 4597 ng/mLFEU (0-500) H 05/20/18 18:56 Abnormal lab findings: Abnormal lab results RBC 2.92 M/mcL (3.82-4.97) L 05/23/18 04:25 Hgb 9.0 g/dL (11.5-15.4) L 05/23/18 04:25 Hct 30.0 % (35.3-44.9) L 05/23/18 04:25 MCV 102.7 fL (83.0-100.0) H 05/23/18 04:25 MCHC 30.0 g/dL (31.6-35.5) L 05/23/18 04:25 RDW 18.6 % (11.5-14.5) H 05/23/18 04:25 Nucleated RBCs/100 WBC 0.7 /100 WBC (0) H 05/22/18 03:57 PT 12.7 Seconds (9.4-12.1) H 05/20/18 18:56 APTT 25.7 Seconds (26.0-36.0) L 05/20/18 18:56 D-Dimer 4597 ng/mLFEU (0-500) H 05/20/18 18:56 ABG pCO2 79 mmHg (35-45) H* 05/23/18 04:21 ABG pO2 81 mmHg (85-104) L 05/23/18 04:21 ABG HCO3 43 mEq/L (21-27) H 05/23/18 04:21 ABG Total CO2 46 mEq/L (20-26) H 05/23/18 04:21 ABG O2 Saturation 94 % (95-98) L 05/23/18 04:21 ABG Base Excess 15 mEq/L (-2 to 3) H 05/23/18 04:21 VBG pH 7.23 pH Units (7.32-7.42) L 05/21/18 10:23 VBG pCO2 105 mmHg (41-51) H* 05/21/18 10:23 VBG pO2 65 mmHg (25-50) H 05/21/18 10:23 VBG HCO3 43 mEq/L (21-27) H 05/21/18 10:23 Carbon Dioxide 41 mEq/L (23-29) H* 05/23/18 04:25 BUN 30 mg/dL (8-23) H 05/23/18 04:25 Creatinine 1.67 mg/dL (0.60-1.20) H 05/23/18 04:25 Est GFR ( Amer) 37 (> 60) L 05/23/18 04:25 Est GFR (Non-Af Amer) 31 (> 60) L 05/23/18 04:25 Glucose 121 mg/dL (70-105) H 05/23/18 04:25 POC Glucose 135 mg/dL (70-99) H 05/22/18 23:53 Calculated Osmolality 303 (280-300) H 05/23/18 04:25 % Saturation 14 % (15-50) L 05/21/18 01:17 Ferritin 138 ng/mL (10-120) H 05/21/18 01:17 Direct Bilirubin 0.3 mg/dL (0.0-0.2) H 05/20/18 20:15 AST 6 Units/L (13-39) L 05/23/18 04:25 ALT 5 Units/L (7-52) L 05/23/18 04:25 B-Natriuretic Peptide 115 pg/mL (Less than 100) H 05/20/18 18:52 Serum Total Protein 6.3 g/dL (6.4-8.9) L 05/23/18 04:25 Albumin 3.3 g/dL (3.5-5.7) L 05/23/18 04:25 Urine Clarity Turbid (Clear) A 05/20/18 21:11 Urine Protein 30 mg/dL (Neg-Trace) H 05/20/18 21:11 Urine Blood Large (Negative) H 05/20/18 21:11 Urine Bilirubin Small (Negative) H 05/20/18 21:11 Ur Leukocyte Esterase Large (Negative) H 05/20/18 21:11 Urine Microscopic WBC TNTC per hpf (0-3) H 05/20/18 21:11 Ur Squamous Epith Cells Moderate per lpf (None-Few) H 05/20/18 21:11 Urine Yeast Few per hpf (None Seen) H 05/20/18 21:11 Ur Culture Indicated? YES (NO) A 05/20/18 21:11 - Clinical Findings Intake & Output: Intake & Output 05/22/18 05/23/18 05/23/18 23:59 07:59 15:59 Intake Total 100 / 100 56 / 56 0 / 0 Output Total 850 / 850 275 / 275 300 / 300 Balance -750 / -750 -219 / -219 -300 / -300 Weight 138 kg 138 kg
[2018-05-23] MEDS ORDERED: Dextrose Gel 15 GM/37.5 ML TUBE PO PRN ×2 (08:49)
[2018-05-23] MEDS ORDERED: D5% in Water 1,000 ML IVC PRN (08:49)
[2018-05-23] MEDS ORDERED: *HR* Dextrose 50 % in Water (Syg) 50 ML SYRINGE IVP PRN (08:49)
[2018-05-23] MEDS ORDERED: Naloxone 0.4 MG/ML INJ IVP PRN (08:49)
[2018-05-23] MEDS: Ipratropium/Albuterol Neb 3 ML IH SCH ×2 (15:34→22:15)
[2018-05-23] MEDS: cefTRIAXone 2,000 MG in Water for inj. (sterile) 20 ML 20 ML IVP SCH (22:04)
[2018-05-23] MEDS: Budesonide/Formoterol 160/4.5 1 PUFF INH IH SCH (22:15)
[2018-05-24] MEDS: Ipratropium/Albuterol Neb 3 ML IH SCH ×4 (03:46→21:30)
[2018-05-24] MEDS: Insulin LISPRO 300 UNITS/3 ML VIAL SQ SCH ×5 (04:43→21:30)
[2018-05-24 04:48] LABS: Basophils % 0.3 %; Eosinophils % 0.8 %; Hematocrit 29.1 % (35.3-44.9); Hemoglobin 8.9 g/dL (11.5-15.4); Immature Granulocytes % 0.3 % (0-4); Lymphocytes # 0.6 K/mcL (0.6-4.6); Lymphocytes % 15.4 %; Mean Corpuscular HGB Conc 30.6 g/dL (31.6-35.5); Mean Corpuscular Volume 101.4 fL (83.0-100.0); Mean Platelet Volume 9.8 fL (9.4-12.4); Monocytes # 0.4 K/mcL (0.0-1.3); Monocytes % 9.7 %; Neutrophils # 2.8 K/mcL (1.6-8.9); Platelet Count 127 K/mcL (140-400); Red Blood Count 2.87 M/mcL (3.82-4.97); Red Cell Distribution Width 18.5 % (11.5-14.5); Segmented Neutrophils % 73.5 %
[2018-05-24 04:54] LABS: INR 1.2; Prothrombin Time 13.1 Seconds (9.4-12.1)
[2018-05-24 04:57] LABS: Activated Partial Thrombo Time 29.3 Seconds (26.0-36.0)
[2018-05-24 05:09] LABS: Albumin 3.3 g/dL (3.5-5.7); Albumin/Globulin Ratio 1.1 (1.1-2.2); Bilirubin,Total 0.7 mg/dL (0.3-1.0); Calcium 8.8 mg/dL (8.6-10.3); Globulin 3.1 g/dL (2.4-3.5); Magnesium 2.2 mg/dL (1.6-2.6); Phosphorous 2.9 mg/dL (2.7-4.5); Potassium 4.6 mEq/L (3.5-5.1); Total Protein 6.4 g/dL (6.4-8.9)
[2018-05-24 05:11] LABS: ABG Base Excess 15 mEq/L (-2 to 3); ABG HCO3 42 mEq/L (21-27); ABG Oxygen Saturation 97 % (95-98); ABG PCO2 73 mmHg (35-45); ABG PH 7.37 pH Units (7.32-7.45); ABG PO2 93 mmHg (85-104); ABG TCO2 44 mEq/L (20-26); Blood Gas Modality NIV; Blood Gas PEEP 8 cm H2O; Blood Gas Respiration Rate 12; Blood Gas VT 500 cc
[2018-05-24] MEDS: *HR* Heparin 5,000 UNIT/ML VIAL SQ SCH ×3 (06:37→22:00)
[2018-05-24] MEDS: Cyanocobalamin (B-12) 1,000 MCG TABLET PO SCH (08:26)
[2018-05-24] MEDS: Furosemide 40 MG TABLET PO SCH (08:26)
[2018-05-24] MEDS: Fluconazole 200 MG/100 ML 200 MG/100 ML BAG IVPB SCH (08:27)
[2018-05-24] MEDS: Budesonide/Formoterol 160/4.5 1 PUFF INH IH SCH ×2 (10:20→21:30)
--- NOTE | 2018-05-24 11:51 | Electrocardiograph Report ---
[place] [id number] Test Date: 2018-05-20 Pat Name: Radhika Hernández Department: EXAM3 Room: 2N15 Gender: F Public Safety Dispatcher: : [id number] Requested By: Gutierrez Mosqueda Order Number: [id number] Reading MD: Dao Juan Measurements Intervals [place] Rate: 86 P: CO: QRS: 80 QRSD: 94 T: 5 QT: 410 QTc: 491 Interpretive Statements Atrial fibrillation Low voltage, extremity and precordial leads Borderline prolonged QT interval Electronically Signed On 05-24-2018 11:49:23 EDT by Dao Juan
--- NOTE | 2018-05-24 13:17 | Internal Med Progress Note ---
Hospitalist Progress Note - Encounter Date of Encounter: 05/24/18 Time of Encounter: 13:08 - Subjective Interval History: Patient is new to me today. Patient seen and examined at bedside. No acute overnight events. Patient transferred from ICU to stepdown floor. Patient very alert currently off BiPAP sitting in chair. Patient with no respiratory distress and no complaints. Patient denies any chest pain, shortness of breath, nausea, vomiting, diarrhea. - Exam Vitals: Temp Pulse Resp BP Pulse Ox 98.2 F 83 20 124/84 90 05/24/18 11:30 05/24/18 11:30 05/24/18 11:30 05/24/18 11:30 05/24/18 11:30 Exam: Constitutional: No acute distress, Alert Psych: AAO x 3 Neck: supple, no JVD Cardio: Irregularly irregular with rate between 90 and 110 Resp: good air movement, no wheezes, slight crackles in bases Abd: soft, non tender/non distended, obese Extremities: 2+ pitting edema with extensive statis dermatitis that daughter states is baseline Neuro: no focal deficits appreciated - Assessment and Plan (1) Acute and chronic respiratory failure ([id number]) Current Visit: Yes Status: Acute Assessment and Plan: 61-year-old female with acute on chronic respiratory failure with hypercapnia and hypoxia -Multifactorial in etiology secondary to COPD, heart failure, most likely obesity hypoventilation syndrome -Patient's hypercapnia with severe and did not improve much on BiPAP initially and was transferred to ICU -Hypercapnia did improve and after several days his transferred back to stepdown floor yesterday -Currently mental status is normal and patient is off BiPAP -Continue BiPAP when necessary and daily at bedtime, patient has BiPAP at home -Improving -Patient at very high risk for recurrent respiratory failure this was explained to the patient and daughter (2) Encephalopathy Current Visit: Yes Status: Acute Assessment and Plan: -toxic metobolic encephalopathy likely secondary to hypercapnia -hypercapnea and encophalopathy have resolved (3) UTI (urinary tract infection) Current Visit: Yes Status: Acute Assessment and Plan: -on rocephin empircally -culture with yeast only so far -fluconazole day 3 -continue fluconazole for now -likely discontinue rocephin soon (4) CHF (congestive heart failure) Current Visit: Yes Status: Acute Assessment and Plan: Patient with chronic diastolic congestive heart failure -Currently compensated -Diuretics initially held secondary to renal dysfunction but have been resumed -Creatinine continues to improve -Watch renal function -Monitor volume status -on BB, RENE and Adlactone at home currentl held 2/2 recently shock requireing vasopressors as well as renal failure which is improving -bp improving, add back home meds as bp allows over the next few days; l (5) Hyperkalemia Current Visit: Yes Status: Acute Assessment and Plan: -2/2 renal failure with RENE and Aldactone use -Resolved -treated with kayexylate earlier in admission (6) Chronic atrial fibrillation Current Visit: Yes Status: Acute Assessment and Plan: -Chronic afib; curretnly HR 80-110 -on coreg 25 bid at home -held 2/2 hypotension with shock -bp improving -will resume at 3.125 bid and increase as bp allows -not anticoagulated (7) Anemia Current Visit: Yes Status: Chronic Assessment and Plan: Macrocytic anemia -likely 2/2 chronic disease; B12 low normal, will check MMA -check folate rbc -hemoglobin stable -no reports of bleeding (8) Cvxia-ue-ahrtlgb renal failure Current Visit: Yes Status: Acute Assessment and Plan: Acute on chronic renal failure -possibly due to ATN from hemodynamics as pt was in shock -urine studies not preformed -creatinine improving -lasix resumed -monitor closely -aldactone and rene held currently (9) Morbid (severe) obesity with alveolar hypoventilation Current Visit: Yes Status: Acute Assessment and Plan: -Patient with morbid obesity with BMI 53. -Likely obesity related hypoventilation syndrome -Encourage weight loss, diet and exercise, lifestyle modifications (10) DVT prophylaxis Current Visit: Yes Status: Acute Assessment and Plan: Heparin subcutaneous DVT Prophylaxis: hep sq - Summary of Assessment and Plan Summary of Assessment and Plan: -Patient patient admitted with acute on chronic respiratory failure with acute on chronic renal failure. -Required continuous BiPAP for several days. -Respiratory failure and renal failure improving; encephalopathy is resolved -Very high risk for complications and further deterioration and redevelopment of respiratory failure -Maintain BiPAP when necessary and daily at bedtime, patient has BiPAP at home - Time Spent with Patient Total time spent is greater than 50% in coordination of care (as documented) at patient's floor/unit and/or counseling patient: 25 - 35 minutes Plan of Care Discussed with: patient Internal Medicine: Result - Labs CBC & Chem 7: 05/24/18 04:35 05/24/18 04:35 Labs: Short CBC 05/24/18 Range/Units 04:35 WBC 3.8 L (4.3-11.1) K/mcL Hgb 8.9 L (11.5-15.4) g/dL Hct 29.1 L (35.3-44.9) % Plt Count 127 L (140-400) K/mcL Neutrophils # 2.8 (1.6-8.9) K/mcL BMP 05/24/18 04:35 Sodium 142 Potassium 4.6 Chloride 99 Carbon Dioxide 39 H BUN 25 H Creatinine 1.52 H Glucose 132 H Calcium 8.8 Liver Function 05/24/18 Range/Units 04:35 Total Bilirubin 0.7 (0.3-1.0) mg/dL AST 6 L (13-39) Units/L ALT 4 L (7-52) Units/L Alkaline Phosphatase 90 (34-104) Units/L Albumin 3.3 L (3.5-5.7) g/dL - ABG Interpretation ABG results: ABG ABG pH 7.37 pH Units (7.32-7.45) 05/24/18 05:07 ABG pCO2 73 mmHg (35-45) H* 05/24/18 05:07 ABG pO2 93 mmHg (85-104) 05/24/18 05:07 ABG O2 Saturation 97 % (95-98) 05/24/18 05:07 PT/INR, D-dimer PT 13.1 Seconds (9.4-12.1) H 05/24/18 04:35 D-Dimer 4597 ng/mLFEU (0-500) H 05/20/18 18:56 - Impressions Impressions Chest X-Ray 05/24/18 04:00 IMPRESSION: Worsening edema and pleural effusions. D/ / Eve Duffy MD / Eve Duffy MD Interpreting Provider: Eve Duffy MD Consult Discharge Plan - Plan Referrals: Stacia Morrell, APPRAISER PERSONAL PROPERTY [Primary Care Provider] - (1) Acute and chronic respiratory failure ([id number]) Qualifiers: Respiratory failure complication: hypoxia and hypercapnia Qualified Code(s): J96.21 - Acute and chronic respiratory failure with hypoxia; J96.22 - Acute and chronic respiratory failure with hypercapnia (3) UTI (urinary tract infection) Qualifiers: Urinary tract infection type: site unspecified Hematuria presence: without hematuria Qualified Code(s): N39.0 - Urinary tract infection, site not specified (4) CHF (congestive heart failure) Qualifiers: Heart failure type: diastolic Heart failure chronicity: acute on chronic Qualified Code(s): I50.33 - Acute on chronic diastolic (congestive) heart failure (7) Anemia Qualifiers: Anemia type: unspecified type Qualified Code(s): D64.9 - Anemia, unspecified (8) Tleuy-qv-gkdacmr renal failure Qualifiers: Acute renal failure type: unspecified Chronic kidney disease stage: stage 3 ( moderate) Qualified Code(s): N17.9 - Acute kidney failure, unspecified; N18.3 - Chronic kidney disease, stage 3 (moderate)
[2018-05-24] MEDS: cefTRIAXone 2,000 MG in Water for inj. (sterile) 20 ML 20 ML IVP SCH (22:05)
[2018-05-25] MEDS: Ipratropium/Albuterol Neb 3 ML IH SCH ×4 (04:12→22:04)
[2018-05-25] MEDS: *HR* Heparin 5,000 UNIT/ML VIAL SQ SCH ×3 (06:03→20:57)
[2018-05-25 07:51] LABS: Basophils % 0.3 %; Eosinophils # 0.1 K/mcL (0.0-0.6); Eosinophils % 1.4 %; Hemoglobin 8.5 g/dL (11.5-15.4); Immature Granulocytes % 0.3 % (0-4); Lymphocytes # 0.6 K/mcL (0.6-4.6); Lymphocytes % 16.8 %; Mean Corpuscular HGB Conc 30.4 g/dL (31.6-35.5); Mean Corpuscular Hemoglobin 30.4 pg (28.0-33.3); Monocytes # 0.4 K/mcL (0.0-1.3); Monocytes % 9.9 %; Neutrophils # 2.5 K/mcL (1.6-8.9); Platelet Count 131 K/mcL (140-400); Red Cell Distribution Width 18.4 % (11.5-14.5); Segmented Neutrophils % 71.3 %
[2018-05-25 08:11] LABS: Calcium 8.9 mg/dL (8.6-10.3); Phosphorous 2.9 mg/dL (2.7-4.5); Potassium 4.1 mEq/L (3.5-5.1)
[2018-05-25] MEDS: Insulin LISPRO 300 UNITS/3 ML VIAL SQ SCH ×4 (08:18→20:56)
[2018-05-25] MEDS: Furosemide 40 MG TABLET PO SCH (08:21)
[2018-05-25] MEDS: Fluconazole 100 MG TABLET PO SCH (08:21)
[2018-05-25] MEDS: Cyanocobalamin (B-12) 1,000 MCG TABLET PO SCH (08:21)
[2018-05-25] MEDS ORDERED: *HR* LORazepam Oral Conc 2 MG/ML SL PRN (09:38)
[2018-05-25] MEDS ORDERED: MORPHINE SUL Oral CONC 10 MG/0.5 ML ORAL.SYG SL PRN (09:38)
--- NOTE | 2018-05-25 09:43 | Palliative Progress Note ---
Date of Encounter: 05/25/18 Time of Encounter: 09:15 - Assessment and plan (1) Acute and chronic respiratory failure ([id number]) Current Visit: Yes Status: Acute Assessment and plan: Oxygen saturation 93% on 5L. Continue oxygen, bipap, and duonebs. Qualifiers: Respiratory failure complication: hypoxia and hypercapnia Qualified Code(s) : J96.21 - Acute and chronic respiratory failure with hypoxia; J96.22 - Acute and chronic respiratory failure with hypercapnia (2) Jdllt-qv-mfpfudj renal failure Current Visit: Yes Status: Acute Qualifiers: Acute renal failure type: unspecified Chronic kidney disease stage: stage 3 (moderate) Qualified Code(s): N17.9 - Acute kidney failure, unspecified; N18.3 - Chronic kidney disease, stage 3 (moderate) (3) Altered mental status Current Visit: Yes Status: Resolved Assessment and plan: Patients mental status improved to AOX3. Qualifiers: Altered mental status type: unspecified Qualified Code(s): R41.82 - Altered mental status, unspecified (4) CHF (congestive heart failure) Current Visit: Yes Status: Acute Qualifiers: Heart failure type: diastolic Heart failure chronicity: acute on chronic Qualified Code(s): I50.33 - Acute on chronic diastolic (congestive) heart failure (5) Chronic atrial fibrillation Current Visit: Yes Status: Acute (6) Encephalopathy Current Visit: Yes Status: Acute (7) Goals of care, counseling/discussion Current Visit: No Status: Acute Assessment and plan: Conducted family meeting with patient and two daughters present at bedside. Patient able to participate in meeting. Patient expressed desires to return home and not keep having to come back to the hospital. Reported "I want nothing done when I get worse." Clarified to mean no intubation and no CPR. Confirmed CODE STATUS as DNRCCA/DNI; further discussion revealed patient desires to be kept home and comfortable. Discussed role of Hospice care in allowing for dignity and control while enjoying as much of life as possible without having to return to hospital. Ensured understanding of goal for comfort, not treatment. Patient and family acknowledged understanding. Patient requested to be kept home and comfortable; family agreed. CODE STATUS changed to DNRCC. Discussed choice of hospice agencies. Patient decided to "stay with [facility], as they have always been great to me." Will notify [facility] of plan for discharge tomorrow. Family needs time to arrange for care with prior obligations in place. Notified Primary RN Luisa of plan of care. CODE STATUS changed to DNRCC and state form completed. Added Ativan and Roxanol SL for comfort. Palliative care to follow up tomorrow to finalize discharge planning. (8) Dyspnea on effort Current Visit: Yes Status: Acute Assessment and plan: Patient noted to have increased dyspnea during ambulation by family. Patient also using accessory muscles in lengthy conversation regarding goals of care. Ordered Roxanol PRN SL for comfort. (9) Anxiety Current Visit: Yes Status: Acute Assessment and plan: Patient reports increased chronic anxiety. Added Ativan SL PRN for comfort. - Time Spent With Patient Total time spent is greater than 50% in coordination of care (as documented) at patient's floor/unit and/or counseling patient: 25 - 35 minutes - Subjective Interval history: Patient sitting up in bedside chair upon arrival for assessment. Patient is alert and oriented times 3. Two daughters and grandchild present during assessment. Patient denies pain, nausea and vomiting during assessment. Patient reports some anxiety, mild due to home life. Also reports some dyspnea during ambulation. Last bowel movement yesterday, reports that is normal for patient. Patient had no PRN medications for pain/anxiety. Patient noted to have increased use of accessory muscles throughout long conversation regarding goals of care. Reviewed family's decision regarding CODE STATUS, patient in agreement of previous made CODE STATUS to DNR CCA. Further discussion regarding goals of care changed treatment plan, see Goals section of note. - Constitutional Vitals: Abnormal lab results WBC 3.5 K/mcL (4.3-11.1) L 05/25/18 06:05 RBC 2.80 M/mcL (3.82-4.97) L 05/25/18 06:05 Hgb 8.5 g/dL (11.5-15.4) L 05/25/18 06:05 Hct 28.0 % (35.3-44.9) L 05/25/18 06:05 MCHC 30.4 g/dL (31.6-35.5) L 05/25/18 06:05 RDW 18.4 % (11.5-14.5) H 05/25/18 06:05 Plt Count 131 K/mcL (140-400) L 05/25/18 06:05 Nucleated RBCs/100 WBC 0.7 /100 WBC (0) H 05/22/18 03:57 PT 13.1 Seconds (9.4-12.1) H 05/24/18 04:35 D-Dimer 4597 ng/mLFEU (0-500) H 05/20/18 18:56 ABG pCO2 73 mmHg (35-45) H* 05/24/18 05:07 ABG HCO3 42 mEq/L (21-27) H 05/24/18 05:07 ABG Total CO2 44 mEq/L (20-26) H 05/24/18 05:07 ABG Base Excess 15 mEq/L (-2 to 3) H 05/24/18 05:07 VBG pH 7.23 pH Units (7.32-7.42) L 05/21/18 10:23 VBG pCO2 105 mmHg (41-51) H* 05/21/18 10:23 VBG pO2 65 mmHg (25-50) H 05/21/18 10:23 VBG HCO3 43 mEq/L (21-27) H 05/21/18 10:23 Chloride 97 mEq/L (98-107) L 05/25/18 06:05 Carbon Dioxide 38 mEq/L (23-29) H 05/25/18 06:05 Creatinine 1.33 mg/dL (0.60-1.20) H 05/25/18 06:05 Est GFR ( Amer) 48 (> 60) L 05/25/18 06:05 Est GFR (Non-Af Amer) 40 (> 60) L 05/25/18 06:05 Glucose 134 mg/dL (70-105) H 05/25/18 06:05 POC Glucose 235 mg/dL (70-99) H 05/24/18 16:09 % Saturation 14 % (15-50) L 05/21/18 01:17 Ferritin 138 ng/mL (10-120) H 05/21/18 01:17 Direct Bilirubin 0.3 mg/dL (0.0-0.2) H 05/20/18 20:15 AST 6 Units/L (13-39) L 05/24/18 04:35 ALT 4 Units/L (7-52) L 05/24/18 04:35 B-Natriuretic Peptide 115 pg/mL (Less than 100) H 05/20/18 18:52 Albumin 3.3 g/dL (3.5-5.7) L 05/24/18 04:35 Urine Clarity Turbid (Clear) A 05/20/18 21:11 Urine Protein 30 mg/dL (Neg-Trace) H 05/20/18 21:11 Urine Blood Large (Negative) H 05/20/18 21:11 Urine Bilirubin Small (Negative) H 05/20/18 21:11 Ur Leukocyte Esterase Large (Negative) H 05/20/18 21:11 Urine Microscopic WBC TNTC per hpf (0-3) H 05/20/18 21:11 Ur Squamous Epith Cells Moderate per lpf (None-Few) H 05/20/18 21:11 Urine Yeast Few per hpf (None Seen) H 05/20/18 21:11 Ur Culture Indicated? YES (NO) A 05/20/18 21:11 General appearance: Present: cooperative, morbidly obese, no acute distress - Head Head exam: Present: atraumatic, normal inspection - Eye Eye exam: Present: PERRL. Absent: periorbital swelling, periorbital tenderness Pupils: Present: normal accommodation, PERRL - ENT ENT exam: Present: mucous membranes moist, normal external ear exam - Neck Neck exam: Present: full ROM, normal inspection - Respiratory Respiratory exam: Present: accessory muscle use, CTAB. Absent: respiratory distress, wheezes, tachypnea - Cardiovascular Cardiovascular exam: Present: +S1, +S2 - GI/Abdominal GI/Abdominal exam: Present: diminished bowel sounds, distended, firm. Absent: guarding, tenderness - Rectal Rectal exam: Present: deferred - Additional comments: Cordova catheter in place, draining clear yellow urine. - Extremities Exam Extremities exam: Present: full ROM, normal inspection. Absent: pedal edema, tenderness - Back Exam Back exam: Present: full ROM, normal inspection - Neurological Exam Neurological exam: Present: alert, oriented X3, strengths equal and symetr throughout. Absent: altered - Psychiatric Psychiatric exam: Present: normal affect, normal mood. Absent: agitated, anxious - Skin Skin exam: Present: dry (extreme dryness with skin changes due to continued poor circulation to BLE with thickness of skin noted.), intact, warm Palliative Quality Palliative Quality: Screen for Code Status: Yes, Screen for Goals of Care: Yes, Screen for Pain: Yes, If Pain Regimen Started, Initiate Bowel Regimen: NA, Screen for Nausea/Vomitting: Yes Code Status: 05/21/18 13:58 DNR [Resuscitation Status: Active] [RES] Routine Comment: state form completed. Resuscitation Status: DNR-Comfort Care-Arrest 05/25/18 09:37 DNR [Resuscitation Status: Active] [RES] Routine Comment: State form completed. Resuscitation Status: DNR-Comfort Care - Labs CBC & Chem 7: 05/25/18 06:05 05/25/18 06:05 Labs: Laboratory Results - last 24 hr 05/24/18 05/24/18 05/24/18 04:32 07:43 11:29 WBC RBC Hgb Hct MCV MCH MCHC RDW Plt Count MPV Immature Gran % Seg Neutrophils % Lymphocytes % Monocytes % Eosinophils % Basophils % Neutrophils # Lymphocytes # Monocytes # Eosinophils # Basophils # Sodium Potassium Chloride Carbon Dioxide BUN Creatinine Est GFR ( Amer) Est GFR (Non-Af Amer) BUN/Creatinine Ratio Glucose POC Glucose 137 H 119 H 171 H Calculated Osmolality Calcium Phosphorus Magnesium 05/24/18 05/25/18 05/25/18 16:09 06:05 06:05 WBC 3.5 L RBC 2.80 L Hgb 8.5 L Hct 28.0 L MCV 100.0 MCH 30.4 MCHC 30.4 L RDW 18.4 H Plt Count 131 L MPV 10.0 Immature Gran % 0.3 Seg Neutrophils % 71.3 Lymphocytes % 16.8 Monocytes % 9.9 Eosinophils % 1.4 Basophils % 0.3 Neutrophils # 2.5 Lymphocytes # 0.6 Monocytes # 0.4 Eosinophils # 0.1 Basophils # 0.0 Sodium 140 Potassium 4.1 Chloride 97 L Carbon Dioxide 38 H BUN 20 Creatinine 1.33 H Est GFR ( Amer) 48 L Est GFR (Non-Af Amer) 40 L BUN/Creatinine Ratio 15 Glucose 134 H POC Glucose 235 H Calculated Osmolality 295 Calcium 8.9 Phosphorus 2.9 Magnesium 2.0 - ABG Interpretation ABG results: ABG ABG pH 7.37 pH Units (7.32-7.45) 05/24/18 05:07 ABG pCO2 73 mmHg (35-45) H* 05/24/18 05:07 ABG pO2 93 mmHg (85-104) 05/24/18 05:07 ABG O2 Saturation 97 % (95-98) 05/24/18 05:07 PT/INR, D-dimer PT 13.1 Seconds (9.4-12.1) H 05/24/18 04:35 D-Dimer 4597 ng/mLFEU (0-500) H 05/20/18 18:56 Consult Discharge Plan - Plan Referrals: Stacia Morrell, CAKE WRINGER [Primary Care Provider] -
[2018-05-25] MEDS: Budesonide/Formoterol 160/4.5 1 PUFF INH IH SCH ×2 (10:19→22:04)
--- NOTE | 2018-05-25 17:27 | Internal Med Progress Note ---
Hospitalist Progress Note - Encounter Date of Encounter: 05/25/18 Time of Encounter: 17:24 - Subjective Interval History: Patient seen and evaluated at bedside, denies shortness of breath, chest pain, or difficulty breathing. Patient states that she feels comfortable and expressed her desire returning home. No overnight event. - Exam Vitals: Temp Pulse Resp BP Pulse Ox 98.5 F 82 18 110/74 97 05/25/18 16:47 05/25/18 16:47 05/25/18 16:47 05/25/18 16:47 05/25/18 16:47 Exam: General: Alert and oriented 2. No acute distress Skin: Chronic venous stasis skin changes in the lower extremity Cardiovascular: Irregularly regular, Normal S1 & S2, no rubs, murmurs or gallops. Lungs: Decreased breath sounds bilaterally, no wheezes , mild crackles at the bases. Abdomen: Obese, Soft, non-tender, no rigidity. Extremities: 3+ plus lower extremities edema, no erythema or tenderness, chronic venous stasis changes b/l lower extremities. Neurological: CN II-XII intact Rest of the physical exam is non contributory - Assessment and Plan (1) Acute and chronic respiratory failure ([id number]) Current Visit: Yes Status: Acute Assessment and Plan: No respiratory distress. 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 Plan: - Discontinue ceftriaxone, as patient has completed treatment (4) CHF (congestive heart failure) Current Visit: Yes Status: Acute Assessment and Plan: Not an acute exacerbation. Plan: -Continue Lasix 40 mg by mouth daily - Fluid restriction to 1.5 L a day - Strict intake and output (5) Chronic atrial fibrillation Current Visit: Yes Status: Acute Assessment and Plan: Rate controlled. Plan: - Continue her beta carol (6) Anemia Current Visit: Yes Status: Chronic Assessment and Plan: H&H is stable. Plan: - Continue monitoring, no need for intervention at this time (7) Maief-yo-bgovvph renal failure Current Visit: Yes Status: Acute Assessment and Plan: Creatinine at baseline. Plan: - No nephrotoxic medication - Continue gentle diuresis (8) Morbid (severe) obesity with alveolar hypoventilation Current Visit: Yes Status: Chronic Assessment and Plan: On nocturnal BiPAP (9) Diabetes Current Visit: Yes Status: Acute Assessment and Plan: Blood sugars were controlled Plan: Continue sliding scale - Summary of Assessment and Plan Summary of Assessment and Plan: Patient and family agreed on home hospice. Patient being discharged tomorrow with home hospice. - Time Spent with Patient Total time spent is greater than 50% in coordination of care (as documented) at patient's floor/unit and/or counseling patient: 25 - 35 minutes Plan of Care Discussed with: nurse Internal Medicine: Result - Labs CBC & Chem 7: 05/25/18 06:05 05/25/18 06:05 Labs: Short CBC 05/25/18 Range/Units 06:05 WBC 3.5 L (4.3-11.1) K/mcL Hgb 8.5 L (11.5-15.4) g/dL Hct 28.0 L (35.3-44.9) % Plt Count 131 L (140-400) K/mcL Neutrophils # 2.5 (1.6-8.9) K/mcL BMP 05/25/18 06:05 Sodium 140 Potassium 4.1 Chloride 97 L Carbon Dioxide 38 H BUN 20 Creatinine 1.33 H Glucose 134 H Calcium 8.9 - ABG Interpretation ABG results: ABG ABG pH 7.37 pH Units (7.32-7.45) 05/24/18 05:07 ABG pCO2 73 mmHg (35-45) H* 05/24/18 05:07 ABG pO2 93 mmHg (85-104) 05/24/18 05:07 ABG O2 Saturation 97 % (95-98) 05/24/18 05:07 PT/INR, D-dimer PT 13.1 Seconds (9.4-12.1) H 05/24/18 04:35 D-Dimer 4597 ng/mLFEU (0-500) H 05/20/18 18:56 Consult Discharge Plan - Plan Referrals: Stacia Morrell BUN PANNER [Primary Care Provider] - 06/07/18 2:00 pm (1) Acute and chronic respiratory failure ([id number]) Qualifiers: Respiratory failure complication: hypoxia and hypercapnia Qualified Code(s): J96.21 - Acute and chronic respiratory failure with hypoxia; J96.22 - Acute and chronic respiratory failure with hypercapnia (3) UTI (urinary tract infection) Qualifiers: Urinary tract infection type: site unspecified Hematuria presence: without hematuria Qualified Code(s): N39.0 - Urinary tract infection, site not specified (4) CHF (congestive heart failure) Qualifiers: Heart failure type: diastolic Heart failure chronicity: chronic Qualified Code(s): I50.32 - Chronic diastolic (congestive) heart failure (6) Anemia Qualifiers: Anemia type: unspecified type Qualified Code(s): D64.9 - Anemia, unspecified (7) Ggria-hj-awjiolz renal failure Qualifiers: Acute renal failure type: unspecified Chronic kidney disease stage: stage 3 ( moderate) Qualified Code(s): N17.9 - Acute kidney failure, unspecified; N18.3 - Chronic kidney disease, stage 3 (moderate) (9) Diabetes Qualifiers: Diabetes mellitus type: type 2 Diabetes mellitus 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
[2018-05-26] MEDS: Ipratropium/Albuterol Neb 3 ML IH SCH ×2 (03:30→09:22)
[2018-05-26] MEDS: *HR* Heparin 5,000 UNIT/ML VIAL SQ SCH ×2 (06:12→14:08)
[2018-05-26] MEDS: Insulin LISPRO 300 UNITS/3 ML VIAL SQ SCH ×2 (07:43→12:02)
[2018-05-26] MEDS: Fluconazole 100 MG TABLET PO SCH (08:28)
[2018-05-26] MEDS: Cyanocobalamin (B-12) 1,000 MCG TABLET PO SCH (08:28)
[2018-05-26] MEDS: Furosemide 40 MG TABLET PO SCH (08:28)
--- NOTE | 2018-05-26 09:21 | Palliative Progress Note ---
Date of Encounter: 05/26/18 Time of Encounter: 08:50 - Assessment and plan (1) Acute and chronic respiratory failure (cdaqy-bp-nqtjyuo) Current Visit: Yes Status: Acute Assessment and plan: Oxygen saturation 93% on 5L. Desaturation to 86% with movement. Continue oxygen , bipap, and duonebs. Qualifiers: Respiratory failure complication: hypoxia and hypercapnia Qualified Code(s) : J96.21 - Acute and chronic respiratory failure with hypoxia; J96.22 - Acute and chronic respiratory failure with hypercapnia (2) Vwaui-dk-yamjgtl renal failure Current Visit: Yes Status: Acute Qualifiers: Acute renal failure type: unspecified Chronic kidney disease stage: stage 3 (moderate) Qualified Code(s): N17.9 - Acute kidney failure, unspecified; N18.3 - Chronic kidney disease, stage 3 (moderate) (3) Altered mental status Current Visit: Yes Status: Resolved Assessment and plan: Patients mental status improved to AOX3. Qualifiers: Altered mental status type: unspecified Qualified Code(s): R41.82 - Altered mental status, unspecified (4) CHF (congestive heart failure) Current Visit: Yes Status: Acute Qualifiers: Heart failure type: diastolic Heart failure chronicity: chronic Qualified Code(s): I50.32 - Chronic diastolic (congestive) heart failure (5) Chronic atrial fibrillation Current Visit: Yes Status: Acute (6) Encephalopathy Current Visit: Yes Status: Acute (7) Goals of care, counseling/discussion Current Visit: No Status: Acute Assessment and plan: Patient plans to discharge home with [facility] today. Prescriptions to be written, filled, and sent to unit for discharge; written for Roxanol, Ativan, and Colace. Family reports patient needs gaines catheter removed prior to discharge home. [facility] to be contacted once discharge order is written. Family requests choi for oxygen tank, notified Arlene. Arlene informed medical underwriter that would let hospice know. (8) Dyspnea on effort Current Visit: Yes Status: Acute Assessment and plan: Patient noted to have oxygen saturation drop to 86% during ambulation from chair to BSC during assessment. (9) Anxiety Current Visit: Yes Status: Acute Assessment and plan: Denies anxiety during assessment. (10) Constipation Current Visit: Yes Status: Acute Assessment and plan: Patient reports some difficulty in having routine bowel movements. Will order Bowel regimen. Qualifiers: Constipation type: unspecified constipation type Qualified Code(s): K59.00 - Constipation, unspecified - Time Spent With Patient Total time spent is greater than 50% in coordination of care (as documented) at patient's floor/unit and/or counseling patient: - Subjective Interval history: Patient sitting up in bedside chair upon arrival for assessment; prepping to pivot to [facility]. Patient is alert and oriented times 3. Patient's daughter present at bedside. Patient denies pain, anxiety, dyspnea, nausea and vomiting during assessment. Patient reports having some flatulence, but no bowel movement today. Patient reports plans to go home today after [place] Catheter removed and enroll with [facility]. - Constitutional Vitals: Abnormal lab results WBC 3.5 K/mcL (4.3-11.1) L 05/25/18 06:05 RBC 2.80 M/mcL (3.82-4.97) L 05/25/18 06:05 Hgb 8.5 g/dL (11.5-15.4) L 05/25/18 06:05 Hct 28.0 % (35.3-44.9) L 05/25/18 06:05 MCHC 30.4 g/dL (31.6-35.5) L 05/25/18 06:05 RDW 18.4 % (11.5-14.5) H 05/25/18 06:05 Plt Count 131 K/mcL (140-400) L 05/25/18 06:05 Nucleated RBCs/100 WBC 0.7 /100 WBC (0) H 05/22/18 03:57 PT 13.1 Seconds (9.4-12.1) H 05/24/18 04:35 D-Dimer 4597 ng/mLFEU (0-500) H 05/20/18 18:56 ABG pCO2 73 mmHg (35-45) H* 05/24/18 05:07 ABG HCO3 42 mEq/L (21-27) H 05/24/18 05:07 ABG Total CO2 44 mEq/L (20-26) H 05/24/18 05:07 ABG Base Excess 15 mEq/L (-2 to 3) H 05/24/18 05:07 VBG pH 7.23 pH Units (7.32-7.42) L 05/21/18 10:23 VBG pCO2 105 mmHg (41-51) H* 05/21/18 10:23 VBG pO2 65 mmHg (25-50) H 05/21/18 10:23 VBG HCO3 43 mEq/L (21-27) H 05/21/18 10:23 Chloride 97 mEq/L (98-107) L 05/25/18 06:05 Carbon Dioxide 38 mEq/L (23-29) H 05/25/18 06:05 Creatinine 1.33 mg/dL (0.60-1.20) H 05/25/18 06:05 Est GFR ( Amer) 48 (> 60) L 05/25/18 06:05 Est GFR (Non-Af Amer) 40 (> 60) L 05/25/18 06:05 Glucose 134 mg/dL (70-105) H 05/25/18 06:05 POC Glucose 250 mg/dL (70-99) H 05/25/18 20:29 % Saturation 14 % (15-50) L 05/21/18 01:17 Ferritin 138 ng/mL (10-120) H 05/21/18 01:17 Direct Bilirubin 0.3 mg/dL (0.0-0.2) H 05/20/18 20:15 AST 6 Units/L (13-39) L 05/24/18 04:35 ALT 4 Units/L (7-52) L 05/24/18 04:35 B-Natriuretic Peptide 115 pg/mL (Less than 100) H 05/20/18 18:52 Albumin 3.3 g/dL (3.5-5.7) L 05/24/18 04:35 Urine Clarity Turbid (Clear) A 05/20/18 21:11 Urine Protein 30 mg/dL (Neg-Trace) H 05/20/18 21:11 Urine Blood Large (Negative) H 05/20/18 21:11 Urine Bilirubin Small (Negative) H 05/20/18 21:11 Ur Leukocyte Esterase Large (Negative) H 05/20/18 21:11 Urine Microscopic WBC TNTC per hpf (0-3) H 05/20/18 21:11 Ur Squamous Epith Cells Moderate per lpf (None-Few) H 05/20/18 21:11 Urine Yeast Few per hpf (None Seen) H 05/20/18 21:11 Ur Culture Indicated? YES (NO) A 05/20/18 21:11 General appearance: Present: cooperative, morbidly obese, no acute distress - Head Head exam: Present: atraumatic, normal inspection - Eye Eye exam: Present: EOMI, PERRL. Absent: periorbital swelling, periorbital tenderness Pupils: Present: normal accommodation - ENT ENT exam: Present: mucous membranes moist, normal external ear exam - Expanded ENT Exam Mouth exam: Present: normal external inspection - Neck Neck exam: Present: full ROM, normal inspection - Respiratory Respiratory exam: Present: decreased breath sounds. Absent: accessory muscle use, respiratory distress - Cardiovascular Cardiovascular exam: Present: +S1, +S2 - GI/Abdominal GI/Abdominal exam: Present: distended, hypoactive bowel sounds. Absent: tenderness - Rectal Rectal exam: Present: deferred - Extremities Exam Extremities exam: Present: pedal edema - Back Exam Back exam: Present: full ROM, normal inspection - Neurological Exam Neurological exam: Present: alert, oriented X3, strengths equal and symetr throughout. Absent: altered - Psychiatric Psychiatric exam: Present: normal affect, normal mood. Absent: anxious - Skin Skin exam: Present: dry, intact, warm Palliative Quality Palliative Quality: Screen for Code Status: Yes, Screen for Goals of Care: Yes, Screen for Pain: Yes, If Pain Regimen Started, Initiate Bowel Regimen: Yes, Screen for Nausea/Vomitting: Yes Code Status: 05/21/18 13:58 DNR [Resuscitation Status: Active] [RES] Routine Comment: state form completed. Resuscitation Status: DNR-Comfort Care-Arrest 05/25/18 09:37 DNR [Resuscitation Status: Active] [RES] Routine Comment: State form completed. Resuscitation Status: DNR-Comfort Care - Labs CBC & Chem 7: 05/25/18 06:05 05/25/18 06:05 Labs: Laboratory Results - last 24 hr 05/24/18 05/25/18 05/25/18 20:28 07:58 11:32 POC Glucose 217 H 134 H 211 H Specimen Rejected 05/25/18 05/25/18 05/25/18 16:49 20:29 20:46 POC Glucose 206 H 250 H Specimen Rejected Miscellaneous - Impressions Impressions Chest X-Ray 05/22/18 04:00 IMPRESSION: Persistent moderate right pleural effusion. Probable developing collapse of the right middle and lower lobes. D/ / 05/22/2018 09:12:57 Rick Ignacio MD / Taylor Jimenez Interpreting Provider: Rick Ignacio MD - ABG Interpretation ABG results: ABG ABG pH 7.37 pH Units (7.32-7.45) 05/24/18 05:07 ABG pCO2 73 mmHg (35-45) H* 05/24/18 05:07 ABG pO2 93 mmHg (85-104) 05/24/18 05:07 ABG O2 Saturation 97 % (95-98) 05/24/18 05:07 PT/INR, D-dimer PT 13.1 Seconds (9.4-12.1) H 05/24/18 04:35 D-Dimer 4597 ng/mLFEU (0-500) H 05/20/18 18:56 Consult Discharge Plan - Plan Referrals: Stacia Morrell PICKER PACKER [Primary Care Provider] - 06/07/18 2:00 pm
[2018-05-26] MEDS: Budesonide/Formoterol 160/4.5 1 PUFF INH IH SCH (09:22)
[2018-05-26] MEDS ORDERED: Sennosides/Docusate Sodium TABLET PO SCH (09:30)
[2018-05-26 11:03] VITALS: BP 117/68
--- NOTE | 2018-05-26 12:04 | Discharge Summary ---
- NOTES TO OUTPATIENT PROVIDER Notes to Outpatient Provider: Patient being discharged with home hospice. Orders not resulted at time of discharge: Pending orders 05/24/18 13:34 MMA (VIT B12 STATUS) Routine 05/25/18 21:11 Folate RBC Routine Date of Encounter: 05/26/18 Time of Encounter: 12:02 - Discharge Diagnosis (1) Acute and chronic respiratory failure ([id number]) Priority: Primary Status: Acute Qualifiers: Respiratory failure complication: hypoxia and hypercapnia Qualified Code(s) : J96.21 - Acute and chronic respiratory failure with hypoxia; J96.22 - Acute and chronic respiratory failure with hypercapnia (2) DVT prophylaxis Priority: Secondary Status: Chronic (3) CHF (congestive heart failure) Priority: Secondary Status: Chronic Qualifiers: Heart failure type: diastolic Heart failure chronicity: chronic Qualified Code(s): I50.32 - Chronic diastolic (congestive) heart failure (4) Chronic atrial fibrillation Priority: Secondary Status: Chronic (5) Anemia Priority: Secondary Status: Chronic Qualifiers: Anemia type: unspecified type Qualified Code(s): D64.9 - Anemia, unspecified (6) [id number]-[id number] renal failure Priority: Secondary Status: Chronic Qualifiers: Acute renal failure type: unspecified Chronic kidney disease stage: stage 3 (moderate) Qualified Code(s): N17.9 - Acute kidney failure, unspecified; N18.3 - Chronic kidney disease, stage 3 (moderate) (7) Morbid (severe) obesity with alveolar hypoventilation Priority: Secondary Status: Chronic (8) Diabetes Priority: Secondary Status: Chronic Qualifiers: Diabetes mellitus type: type 2 Diabetes mellitus 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 Hernández is a 67 year old female past medical history significant for A. fib, diastolic CHF, COPD, DVT, diabetes, hyperlipidemia, CHRISTY, hypertension, chronic hypercapnic and hypoxic respiratory failure. Patient presented to the emergency room due to change in mental status, lethargy. Found to be on hypercapnic hypoxemic respiratory failure, hypotensive treated with IV fluid and BiPAP. Patient acute clinical presentation resolved. Due to patient's chronic medical conditions family agreed with taking the patient home with home hospice. Discharge discussed with: patient, family, nurse - Time Spent with Patient Total time spent providing and/or coordinating discharge services: Greater than 30 minutes - Discharge Medications Prescriptions: LORazepam Oral Conc [Ativan Oral Conc] 0.5 mg PO Q4HR 4 Days #10 mls Docusate [Colace] 100 mg PO BID #8 capsule MORPHINE SUL Oral CONC [Roxanol Oral Conc] 2.5 mg SL Q4H 4 Days #5 ml Home Medications: Allopurinol [Zyloprim 100 MG] 100 mg PO DAILY 03/01/18 [History] Carvedilol [Coreg] 25 mg PO BID 03/01/18 [History] Furosemide [Lasix] 80 mg PO DAILY 03/01/18 [History] Gabapentin [Neurontin] 300 mg PO BID 03/01/18 [History] Lisinopril [Zestril] 5 mg PO DAILY 03/01/18 [History] Potassium Chloride [K-Tab ER] 20 meq PO BID 03/01/18 [History] Ipratropium/Albuterol Neb [Duoneb] 3 ml IH Q6HR PRN #25 units 03/03/18 [Rx] Insulin NPH Hum/Reg Insulin Hm [Novolin 70-30 100 Unit/ml Vial] 35 unit SQ HS [History] Spironolactone [Aldactone] 50 mg PO DAILY 30 Days #30 tablet 05/15/18 [Rx] Docusate [Colace] 100 mg PO BID #8 capsule 05/26/18 [Rx] LORazepam Oral Conc [Ativan Oral Conc] 0.5 mg PO Q4HR 4 Days #10 mls 05/26/18 [ Rx] MORPHINE SUL Oral CONC [Roxanol Oral Conc] 2.5 mg SL Q4H 4 Days #5 ml 05/26/18 [ Rx] Allergies/Adverse Reactions: 3 Allergy/AdvReac Type Severity Reaction Status Date / Time No Known Allergies Allergy Verified 05/20/18 17:51 Date of admission: 05/21/18 04:48 Primary care physician: Stacia Morrell CNP Consults: 05/21/18 13:04 Consult to Palliative Care [CONS] Routine Comment: Consulting Provider: Palliative Care Khloe Reason for Consult: Admitted for acute resp failure and was here last month for same admit. Palliative care was on board last visit. Time Notified: 13:07 Call Completed: No 05/21/18 15:27 Consult to Pulmonology [CONS] Routine Consulting Provider: Pulm Crit Care & Sleep Khloe Reason for Consult: Respiratory failure Time Notified: 12:00 Call Completed: Yes 05/26/18 11:40 Consult to Cream Dumper [CONS] Routine Reason for SW Consult: Patient going home with home hospice. - Constitutional Vitals: Temp Pulse Resp BP Pulse Ox 98.0 F 101 18 117/68 92 05/26/18 11:00 05/26/18 11:00 05/26/18 11:00 05/26/18 11:00 05/26/18 11:00 Exam: General: Alert and oriented 2. No acute distress Skin: Chronic venous stasis skin changes in the lower extremity Cardiovascular: Irregularly regular, Normal S1 & S2, no rubs, murmurs or gallops. Lungs: Decreased breath sounds bilaterally, no wheezes , mild crackles at the bases. Abdomen: Obese, Soft, non-tender, no rigidity. Extremities: 3+ plus lower extremities edema, no erythema or tenderness, chronic venous stasis changes b/l lower extremities. Neurological: CN II-XII intact Rest of the physical exam is non contributory - Patient Status Disposition: Hospice - Home Condition: Fair Functional capacity at discharge: independent ambulation Overall status at discharge: patient is back to baseline - Discharge Instructions Instructions: Lorazepam (By mouth), Laxative, Stool Softeners (By mouth), Morphine, Rapid Release (By mouth), Heart Failure (DC), Acute Respiratory Distress Syndrome (DC), COPD Exacerbation, Head Of Loss Prevention (GEN) Follow Up With: Stacia Morrell CNP [Primary Care Provider] - 06/07/18 2:00 pm Additional Instructions: 5L NASAL CANNULA TO BIPAP AT NIGHTTIME AND NEEDED. ACTIVITY WITH ASSIST (WHEELCHAIR / WALKER) AND DIABETIC DIET TOLERATED. - Diet and Activity Activity: as per physical therapy Diet: advance to your usual diet
--- NOTE | 2018-05-26 12:13 | Physician Discharge Referral ---
Home Health/Hosp Referral Info Transfer to: Hospice - Diagnosis (1) Acute and chronic respiratory failure ([id number]) Priority: Primary Status: Acute (2) DVT prophylaxis Priority: Secondary Status: Chronic (3) UTI (urinary tract infection) Priority: Secondary Status: Resolved (4) CHF (congestive heart failure) Priority: Secondary Status: Chronic (5) Chronic atrial fibrillation Priority: Secondary Status: Chronic (6) Anemia Priority: Secondary Status: Chronic (7) [id number] renal failure Priority: Secondary Status: Chronic (8) Morbid (severe) obesity with alveolar hypoventilation Priority: Secondary Status: Chronic (9) Diabetes Priority: Secondary Status: Chronic - Respiratory Orders Oxygen / L per min (3 litters) Smoking Cessation: Smoking cessation has been advised. For more information, call the [employer] Quit Line at [phone]. - Diet/Nutrition Diet/Nutrition Orders: Regular - Activity Activity Orders: Ambulate - Services Needed Following services are medically necessary services: Nursing (Patient going home with [facility] - Transfer Medications Prescriptions: LORazepam Oral Conc [Ativan Oral Conc] 0.5 mg PO Q4HR 4 Days #10 mls Docusate [Colace] 100 mg PO BID #8 capsule MORPHINE SUL Oral CONC [Roxanol Oral Conc] 2.5 mg SL Q4H 4 Days #5 ml Home Medications: Allopurinol [Zyloprim 100 MG] 100 mg PO DAILY 03/01/18 [History] Carvedilol [Coreg] 25 mg PO BID 03/01/18 [History] Furosemide [Lasix] 80 mg PO DAILY 03/01/18 [History] Gabapentin [Neurontin] 300 mg PO BID 03/01/18 [History] Lisinopril [Zestril] 5 mg PO DAILY 03/01/18 [History] Potassium Chloride [K-Tab ER] 20 meq PO BID 03/01/18 [History] Ipratropium/Albuterol Neb [Duoneb] 3 ml IH Q6HR PRN #25 units 03/03/18 [Rx] Insulin NPH Hum/Reg Insulin Hm [Novolin 70-30 100 Unit/ml Vial] 35 unit SQ HS [History] Spironolactone [Aldactone] 50 mg PO DAILY 30 Days #30 tablet 05/15/18 [Rx] Docusate [Colace] 100 mg PO BID #8 capsule 05/26/18 [Rx] LORazepam Oral Conc [Ativan Oral Conc] 0.5 mg PO Q4HR 4 Days #10 mls 05/26/18 [ Rx] MORPHINE SUL Oral CONC [Roxanol Oral Conc] 2.5 mg SL Q4H 4 Days #5 ml 05/26/18 [ Rx] Allergies/Adverse Reactions: 3 Allergy/AdvReac Type Severity Reaction Status Date / Time No Known Allergies Allergy Verified 05/20/18 17:51 Certification: Further, I certify that my clinical findings support that this patient is homebound (i.e. absences from home require considerable and taxing effort and are for medical reasons or anabaptism services or infrequently or short duration when for other reasons) because: Homebound Reason: Patient requires assistance of a person or device to safely leave home Attestation: My signature below is to certify that this patient is under my care and that I, or nurse practitioner, or a physician's per diem physical therapist assistant working with me, has a face-to -face encounter with this patient.
[2018-05-28 01:54] LABS: Hematocrit RBC Folate 27.9 %
== END 2018-05-26 14:19 | disposition hospice, home (50) | DRG 189 ==
LOC: 2NNU 17:42 → EMEROOARM 17:42 → 2NNU 05-21 02:03 → SUATTDRO 05-21 04:48 → ICNU 05-21 12:54 → 2NNU 05-23 21:32
PROVIDERS: ADMIT Family Medicine; ATTEND Internal Medicine